=== PATIENT | female | born 1950 | race Caucasian/White ===

== ENCOUNTER 2017-07-25 09:38 | Inpatient (IN) | payer OTHER, MEDICARE ==
[~2017-07-25] VITALS: Ht 160 cm; Wt 68.2 kg
[2017-07-25] VITALS (11 sets, daily range): BP systolic 119–163; BP diastolic 66–99; PULSE 69–134; RESP 13–22; TEMP 97.6–98.6; O2SAT 94–99
--- NOTE | 2017-07-25 10:13 | PD ---
HPI Chief Complaint: Medical Clearance Time Seen by Provider: 09:58 Travel History International Travel<30 days: No Contact w/Intl Traveler<30days: No Traveled to known affect area: No History of Present Illness HPI 67-year-old female presents with elevated heart rate that she's noticed over the past couple of days. She states she went to have a back injection yesterday and they told her if her elevated heart rate persisted to come here to get it checked out. She states that she's had this maybe once before a couple months ago but it was only very briefly at night and went away on its own. She has not seen a physician for this yet. She denies history of atrial fibrillation. She states she usually takes an aspirin but has been off of this for the past couple weeks as she had the back injection. Quality is palpitations. Severity is persistent. She denies specific modifying factors. PFSH Past Medical History High Cholesterol: Yes Hypertension: Yes Medical other: Yes (gallstones ) ?: Not Past Surgical History Other Surgery: Yes (right ankle) Social History Alcohol Use: Yes (occassionaly) Tobacco Use: No Substance Use: No Allergies-Medications (Allergen,Severity, Reaction): Coded Allergies: Penicillins (Verified Allergy, Unknown, 07/25/17) Reported Meds & Prescriptions Reported Meds & Active Scripts Active Reported Lisinopril 40 Mg Tab 40 Mg PO DAILY Atenolol 50 Mg Tab 50 Mg PO DAILY Atorvastatin (Atorvastatin Calcium) 40 Mg Tab 40 Mg PO HS Hydralazine (Hydralazine HCl) 100 Mg Tab 25 Mg PO BID Take with meals Allopurinol 100 Mg Tab 100 Mg PO DAILY Review of Systems Except as stated in HPI: all other systems reviewed are Neg Physical Exam Narrative GENERAL: Well-nourished, well-developed patient. SKIN: Warm and dry. HEAD: Normocephalic and atraumatic. EYES: No injection or drainage. ENT: No nasal drainage noted. NECK: Supple, trachea midline. CARDIOVASCULAR: irregular rate and rhythm RESPIRATORY: Breath sounds equal bilaterally. No accessory muscle use. GASTROINTESTINAL: Abdomen soft, non-tender, nondistended. NEUROLOGICAL: Awake and alert. Motor and sensory grossly within normal limits. Normal speech. Data Data Last Documented VS Vital Signs Date Time Temp Pulse Resp B/P (MAP) Pulse Ox O2 Delivery O2 Flow Rate FiO2 07/25/17 10:20 69 21 119/66 (83) 96 07/25/17 10:11 Room Air 07/25/17 09:39 98.5 Orders Orders Electrocardiogram (07/25/17 ) Ecg Monitoring (07/25/17 10:06) Blood Pressure (07/25/17 10:06) Iv Access Insert/Monitor (07/25/17 10:06) Oximetry (07/25/17 10:06) Vital Signs (07/25/17 10:06) Diltiazem Inj (Cardizem Inj) (07/25/17 10:15) Sodium Chloride 0.9% Flush (Ns Flush) (07/25/17 10:15) Ckmb (Isoenzyme) Profile (07/25/17 10:06) Complete Blood Count With Diff (07/25/17 10:06) Comprehensive Metabolic Panel (07/25/17 10:06) Magnesium (Mg) (07/25/17 10:06) Prothrombin Time / Inr (Pt) (07/25/17 10:06) Act Partial Throm Time (Ptt) (07/25/17 10:06) Troponin I (07/25/17 10:06) Chest, Single Ap (07/25/17 10:06) Bilateral Bp Monitoring (07/25/17 10:06) Sodium Chloride 0.9% Flush (Ns Flush) (07/25/17 10:15) Thyroid Stimulating Hormone (07/25/17 10:13) Lactic Acid Sepsis Protocol (07/25/17 11:29) Blood Culture (07/25/17 11:29) Sodium Chloride 0.9% Flush (Ns Flush) (07/25/17 11:30) Azithromycin Inj (Zithromax Inj) (07/25/17 11:30) Sodium Chloride 0.9% Flush (Ns Flush) (07/25/17 11:30) Aztreonam Inj (Azactam Inj) (07/25/17 12:00) Diltiazem Inj (Cardizem Inj) (07/25/17 12:00) Admit Order (Ed Use Only) (07/25/17 12:07) Labs Laboratory Tests Test 07/25/17 10:20 White Blood Count 11.1 TH/MM3 Red Blood Count 3.79 MIL/MM3 Hemoglobin 11.2 GM/DL Hematocrit 35.0 % Mean Corpuscular Volume 92.3 FL Mean Corpuscular Hemoglobin 29.6 PG Mean Corpuscular Hemoglobin Concent 32.0 % Red Cell Distribution Width 16.0 % Platelet Count 262 TH/MM3 Mean Platelet Volume 7.7 FL Neutrophils (%) (Auto) 89.3 % Lymphocytes (%) (Auto) 4.9 % Monocytes (%) (Auto) 5.7 % Eosinophils (%) (Auto) 0.0 % Basophils (%) (Auto) 0.1 % Neutrophils # (Auto) 9.9 TH/MM3 Lymphocytes # (Auto) 0.5 TH/MM3 Monocytes # (Auto) 0.6 TH/MM3 Eosinophils # (Auto) 0.0 TH/MM3 Basophils # (Auto) 0.0 TH/MM3 CBC Comment DIFF FINAL Differential Comment Prothrombin Time 10.7 SEC Prothromb Time International Ratio 1.0 RATIO Activated Partial Thromboplast Time 27.3 SEC Blood Urea Nitrogen 14 MG/DL Creatinine 0.76 MG/DL Random Glucose 122 MG/DL Total Protein 7.0 GM/DL Albumin 3.4 GM/DL Calcium Level 9.0 MG/DL Magnesium Level 1.1 MG/DL Alkaline Phosphatase 138 U/L Aspartate Amino Transf (AST/SGOT) 29 U/L Alanine Aminotransferase (ALT/SGPT) 32 U/L Total Bilirubin 0.7 MG/DL Sodium Level 132 MEQ/L Potassium Level 4.4 MEQ/L Chloride Level 99 MEQ/L Carbon Dioxide Level 22.3 MEQ/L Anion Gap 11 MEQ/L Estimat Glomerular Filtration Rate 76 ML/MIN Total Creatine Kinase 30 U/L Troponin I LESS THAN 0.02 NG/ML Thyroid Stimulating Hormone 3rd Gen 2.820 uIU/ML [facility] Medical Decision Making Medical Screen Exam Complete: Yes Emergency Medical Condition: Yes Medical Record Reviewed: Yes (pmh confirmed) Interpretation(s) ekg with atrial fib at 110, no st elevation or depression or consecutive T-wave inversion CBC & BMP Diagram 07/25/17 10:20 Total Protein 7.0, Albumin 3.4, Calcium Level 9.0, Magnesium Level 1.1 L, Alkaline Phosphatase 138 H, Aspartate Amino Transf (AST/SGOT) 29, Alanine Aminotransferase (ALT/SGPT) 32, Total Bilirubin 0.7 Last 24 hours Impressions Chest X-Ray 07/25/17 1006 Signed Impressions: Service Date/Time: Tuesday, July 25, 2017 10:21 - CONCLUSION: Probable right infrahilar infiltrate. Xu Kent MD Differential Diagnosis Atrial fibrillation, anemia, dehydration, SVT, PVCs Narrative Course Will check blood work, chest x-ray and dose with Cardizem and reevaluate ed workup with afib with rvr, cxr with signs of infection, will cover antibiotics, heart rate increasing, place on cardizem drip Critical Care Narrative Aggregate critical care time was 35 minutes. Time to perform other separately billable procedures was not included in the critical care time. My time did not include minutes spent treating any other patients simultaneously or on activities that did not directly contribute to the patient's treatment. The services I provided to this patient were to treat and/or prevent clinically significant deterioration that could result in: Cardiogenic shock, A. fib with RVR I provided critical care services requiring my management, as noted below: Chart data review, documentation time, medication orders and management, vital sign assessments/reviewing monitor data, ordering and reviewing lab tests, ordering and interpreting/reviewing x-rays and diagnostic studies, care of the patient and discussion of the patient with the admitting physicians. Physician Communication Physician Communication dr knox agrees to admit Diagnosis Primary Impression: Atrial fibrillation with RVR Additional Impression: Pneumonia Qualified Codes: J18.9 - Pneumonia, unspecified organism Admitting Information Admitting Physician Requests: Admit Aracelis Braun MD Jul 25, 2017 10:13
[2017-07-25] MEDS ORDERED: SODIUM CHLORIDE 0.9% FLUSH 5 ML FLUSH IV FLUSH PRN (10:15)
[2017-07-25] MEDS ORDERED: DILTIAZEM HCL 25 MG/5 ML VIAL IV PUSH ONE (10:15)
[2017-07-25] MEDS ORDERED: SODIUM CHLORIDE 0.9% FLUSH 10 ML FLUSH IVF PRN ×3 (10:15→11:30)
[2017-07-25 10:32] LABS: AUTOMATED NEUTROPHIL # 9.9 TH/MM3 (1.8-7.7); BASOPHIL % 0.1 % (0.0-2.0); HEMO FLAGS DIFF FINAL; LYMPH % 4.9 % (9.0-44.0); LYMPHOCYTE # 0.5 TH/MM3 (1.0-4.8); MEAN CELL VOLUME 92.3 FL (80.0-100.0); MEAN CORPUSCULAR HEMOGLOBIN 29.6 PG (27.0-34.0); MONO % 5.7 % (0.0-8.0); NEUT % 89.3 % (16.0-70.0); PLATELET COUNT 262 TH/MM3 (150-450); RED BLOOD COUNT 3.79 MIL/MM3 (4.00-5.30); WHITE BLOOD COUNT 11.1 TH/MM3 (4.0-11.0)
[2017-07-25 10:41] LABS: APTT (PATIENT) 27.3 SEC (24.3-30.1); PROTHROMBIN TIME - PATIENT 10.7 SEC (9.8-11.6)
[2017-07-25 10:49] LABS: ALT (GPT) 32 U/L (10-53); ANION GAP 11 MEQ/L (5-15); AST (GOT) 29 U/L (15-37); BICARBONATE 22.3 MEQ/L (21.0-32.0); BLOOD UREA NITROGEN 14 MG/DL (7-18); CHLORIDE 99 MEQ/L (98-107); GLOMERULAR FILTRATION RATE 76 ML/MIN (>89); MAGNESIUM 1.1 MG/DL (1.5-2.5); POTASSIUM 4.4 MEQ/L (3.5-5.1); SODIUM (NA) 132 MEQ/L (136-145)
[2017-07-25 10:52] LABS: ALKALINE PHOSPHATASE 138 U/L (45-117); TOTAL BILIRUBIN ADULT 0.7 MG/DL (0.2-1.0)
--- NOTE | 2017-07-25 10:54 | RADRPT ---
EXAM DATE/TIME: 07/25/2017 10:21 [place] COMPARISON: No previous studies available for comparison. INDICATIONS : Palpitations, higher pulse, sent by MEDICAL HISTORY : None. SURGICAL HISTORY : None. ENCOUNTER: Initial ACUITY: 1 day PAIN SCORE: 0/10 LOCATION: Bilateral chest FINDINGS: The lungs are symmetrically aerated. There is a focal partially consolidative infiltrate in the infr ahilar region on the right side. There is a 11 mm calcified oval opacity projected over the right hi lum. Both hemidiaphragms well delineated. The heart is normal size. CONCLUSION: Probable right infrahilar infiltrate. Xu Kent MD on July 25, 2017 at 10:51 Board Certified Radiologist. This report was verified electronically.
[2017-07-25 10:55] LABS: CREATINE KINASE 30 U/L (26-192)
[2017-07-25] MEDS ORDERED: LISI40TA PO (10:55)
[2017-07-25] MEDS ORDERED: ATEN50TA PO (10:55)
[2017-07-25] MEDS ORDERED: HYDR-3801 PO (10:55)
[2017-07-25] MEDS ORDERED: ATOR40TA16 PO (10:55)
[2017-07-25] MEDS ORDERED: ALLO100T PO (10:55)
[2017-07-25] MEDS ORDERED: AZITHROMYCIN INJ 500 MG in SODIUM CHLOR 0.9% 250 ML INJ 250 ML IV ONE (11:30)
[2017-07-25] MEDS ORDERED: DILTIAZEM INJ 125 MG in SODIUM CHLORIDE 0.9% INJ 100 ML IV PRN (12:00)
[2017-07-25] MEDS ORDERED: AZTREONAM INJ 2,000 MG in SODIUM CHLORIDE 0.9% INJ 100 ML IV ONE (12:00)
[2017-07-25] MEDS ORDERED: MAGNESIUM SULFATE 1 GM PREMIX 100 ML IV ONE (12:30)
[2017-07-25] MEDS ORDERED: SODIUM CHLORIDE 0.9% FLUSH 10 ML FLUSH IV FLUSH PRN (12:30)
[2017-07-25] MEDS ORDERED: ONDANSETRON HCL 4 MG/2 ML VIAL IV PUSH PRN (13:30)
[2017-07-25] MEDS ORDERED: BISACODYL 10 MG SUPP RECTAL PRN (13:30)
[2017-07-25] MEDS ORDERED: SENNOSIDES 8.6 MG TAB PO PRN (13:30)
[2017-07-25] MEDS ORDERED: MAGNESIUM HYDROXIDE SUSP 30 ML CUP PO PRN (13:30)
[2017-07-25] MEDS ORDERED: ACETAMINOPHEN 325 MG TAB PO PRN (13:30)
[2017-07-25] MEDS ORDERED: LACTULOSE SYRUP 20 GM/30 ML CUP PO PRN (13:30)
[2017-07-25] MEDS ORDERED: CALCIUM CARBONATE 500 MG CHEWABLE TAB CHEW PRN (13:30)
[2017-07-25] MEDS: MAGNESIUM OXIDE 400 MG TAB PO SCH (13:44)
--- NOTE | 2017-07-25 15:28 | HHI.HP ---
HPI Service [facility] Primary Care Physician No Primary Care Physician Admission Diagnosis afib with rvr Diagnoses: (1) Atrial fibrillation with RVR Diagnosis: Principal (2) Pneumonia Diagnosis: Secondary Chief Complaint: Heart palpitation Travel History International Travel<30 Days: No Contact w/Intl Traveler <30 Da: No Traveled to Known Affected Are: No History of Present Illness Written by Mihai Luciano PA-C, acting as scribe for Dr. Celeste Jeong on 07/25/17 at 15:19. Mrs. Nicole is 67 years old, , with history of hypertension, hyperlipidemia, and gout. She presents to [facility] with reported heart palpitations that have been of two day duration. Per history, she has had 1 previous episode of heart palpitations and lasted for a short period of time and ended without medical intervention. Her current episode began as noted above 2 days ago, without shortness of breath, dizziness, or syncope. Above condition is not improved, she came to [facility] for evaluation and management. At time of interview, Ms. Nicole denied fever, chills, NVD, shortness of breath, bowel or bladder difficulties, chest/abdominal pain, difficulties walking. She did endorse having a "hacking cough" for the past several days. She has denied malaise. Review of Systems Constitutional: DENIES: Fatigue, Fever, Chills Endocrine: DENIES: Heat/cold intolerance Respiratory: COMPLAINS OF: Cough, DENIES: Wheezing, Hemoptysis, Shortness of breath Cardiovascular: COMPLAINS OF: Palpitations, DENIES: Chest pain, Syncope Gastrointestinal: DENIES: Abdominal pain, Black stools, Bloody stools, Diarrhea , Nausea, Vomiting Hematologic/lymphatic: DENIES: Lymphadenopathy Neurologic: DENIES: Abnormal gait, Headache Except as stated in HPI: all other systems reviewed are Neg Past Family Social History Past Medical History Gout Hyperlipidemia Hypertension Past Surgical History Right ankle surgery Reported Medications Reported Meds & Active Scripts Active Reported Lisinopril 40 Mg Tab 40 Mg PO DAILY Atenolol 50 Mg Tab 50 Mg PO DAILY Atorvastatin (Atorvastatin Calcium) 40 Mg Tab 40 Mg PO HS Hydralazine (Hydralazine HCl) 100 Mg Tab 25 Mg PO BID Take with meals Allopurinol 100 Mg Tab 100 Mg PO DAILY Allergies: Coded Allergies: Penicillins (Verified Allergy, Unknown, 07/25/17) Active Ordered Medications Current Medications Medications (Trade) Dose Ordered Sig/Lynette Route Start Time Stop Time Status Last Admin Diltiazem HCl 125 mg/Sodium Chloride 125 ml @ 5 mls/hr TITRATE PRN IV 07/25/17 12:00 (NS Flush) 2 ml UNSCH PRN IV FLUSH 07/25/17 12:30 (NS Flush) 2 ml BID IV FLUSH 07/25/17 21:00 (Zyloprim) 100 mg DAILY PO 07/26/17 09:00 (Tenormin) 50 mg DAILY PO 07/26/17 09:00 (Lipitor) 40 mg HS PO 07/25/17 21:00 (Apresoline) 25 mg BID PO 07/25/17 21:00 (Prinivil) 40 mg DAILY PO 07/26/17 09:00 (Mag-Ox) 400 mg Q12H PO 07/25/17 13:00 07/25/17 13:44 Aztreonam 2000 mg/ Sodium Chloride 100 ml @ 200 mls/hr Q8H IV 07/25/17 21:00 (Zithromax) 250 mg DAILY PO 07/26/17 09:00 07/30/17 08:59 (Ecotrin Ec) 162 mg DAILY PO 07/26/17 09:00 (Tylenol) 650 mg Q4H PRN PO 07/25/17 13:30 (Zofran Inj) 4 mg Q6H PRN IV PUSH 07/25/17 13:30 (Tums Chew) 1,000 mg TID PRN CHEW 07/25/17 13:30 (Sophie-Colace) 1 tab BID PO 07/25/17 21:00 (Milk Of Magnesia Liq) 30 ml Q12H PRN PO 07/25/17 13:30 (Senokot) 17.2 mg Q12H PRN PO 07/25/17 13:30 (Dulcolax Supp) 10 mg DAILY PRN RECTAL 07/25/17 13:30 (Lactulose Liq) 30 ml DAILY PRN PO 07/25/17 13:30 Family History Brother-atrial fibrillation Mother-cardiac disease (unknown type) as well as history of cigarette use. Social History Alcohol use-occasional. Illicit/recreational drug use was denied. Nicotine use was denied. Physical Exam Vital Signs Vital Signs Date Time Temp Pulse Resp B/P (MAP) Pulse Ox O2 Delivery O2 Flow Rate FiO2 07/25/17 15:06 98 07/25/17 14:17 (104) 07/25/17 13:30 97 07/25/17 12:50 80 20 124/94 (104) 97 Room Air 07/25/17 10:20 69 21 119/66 (83) 96 07/25/17 10:11 120 21 137/86 (103) 98 Room Air 07/25/17 10:11 (103) Room Air 07/25/17 10:11 (103) Room Air 07/25/17 10:11 129 22 137/86 (103) 98 Room Air 137/93 (108) 07/25/17 10:01 134 07/25/17 10:01 134 18 123/79 (94) 98 07/25/17 09:39 98.5 116 13 121/79 (93) 98 Physical Exam GENERAL: This is a well-nourished, well-developed patient, in no apparent distress. Patient was sitting upright on her bed, her at bedside. SKIN: No rashes, ecchymoses or lesions. Cool and dry. HEAD: Atraumatic. Normocephalic. EYES: Pupils equal round and reactive. Extraocular motions intact. No scleral icterus. No injection or drainage. ENT: Nose without bleeding or purulent drainage. Airway patent. NECK: Trachea midline. No JVD or lymphadenopathy. Supple and nontender. CARDIOVASCULAR: Irregularly rate and rhythm without murmurs, gallops, or rubs. RESPIRATORY: Clear to auscultation. Breath sounds equally diminished, bilaterally. No wheezes, rales, or rhonchi. GASTROINTESTINAL: Abdomen soft, non-tender, nondistended. No hepato- splenomegaly or guarding. MUSCULOSKELETAL: Extremities without clubbing, cyanosis, or edema. NEUROLOGICAL: Awake and alert. Cranial nerves II through XII intact. Motor and sensory grossly within normal limits. Five out of 5 muscle strength in all muscle groups. Speech clear and fluent. Laboratory Laboratory Tests Test 07/25/17 10:20 07/25/17 12:15 White Blood Count 11.1 Red Blood Count 3.79 Hemoglobin 11.2 Hematocrit 35.0 Mean Corpuscular Volume 92.3 Mean Corpuscular Hemoglobin 29.6 Mean Corpuscular Hemoglobin Concent 32.0 Red Cell Distribution Width 16.0 Platelet Count 262 Mean Platelet Volume 7.7 Neutrophils (%) (Auto) 89.3 Lymphocytes (%) (Auto) 4.9 Monocytes (%) (Auto) 5.7 Eosinophils (%) (Auto) 0.0 Basophils (%) (Auto) 0.1 Neutrophils # (Auto) 9.9 Lymphocytes # (Auto) 0.5 Monocytes # (Auto) 0.6 Eosinophils # (Auto) 0.0 Basophils # (Auto) 0.0 CBC Comment DIFF FINAL Differential Comment Prothrombin Time 10.7 Prothromb Time International Ratio 1.0 Activated Partial Thromboplast Time 27.3 Blood Urea Nitrogen 14 Creatinine 0.76 Random Glucose 122 Total Protein 7.0 Albumin 3.4 Calcium Level 9.0 Magnesium Level 1.1 Alkaline Phosphatase 138 Aspartate Amino Transf (AST/SGOT) 29 Alanine Aminotransferase (ALT/SGPT) 32 Total Bilirubin 0.7 Sodium Level 132 Potassium Level 4.4 Chloride Level 99 Carbon Dioxide Level 22.3 Anion Gap 11 Estimat Glomerular Filtration Rate 76 Total Creatine Kinase 30 Troponin I LESS THAN 0.02 Thyroid Stimulating Hormone 3rd Gen 2.820 Lactic Acid Level 1.1 Date/Time Source Procedure Growth Status 07/25/17 12:15 Blood Peripheral Aerobic Blood Culture Pending Received 07/25/17 12:15 Blood Peripheral Anaerobic Blood Culture Pending Received Result Diagram: 07/25/17 1020 07/25/17 1020 Imaging Last Impressions Chest X-Ray 07/25/17 1006 Signed Impressions: Service Date/Time: Tuesday, July 25, 2017 10:21 - CONCLUSION: Probable right infrahilar infiltrate. MD Mayda Robbins VTE Risk Assessment Caphugo VTE Risk Assessment: Mod/High Risk (score >= 2) VTE Pharm Contraindication: Recent spinal injection (within 24 hours of admission) Zhanei Risk Assessment Model Point Value = 1 Point Value = 2 Point Value = 3 Point Value = 5 Age 41-60 Minor surgery BMI > 25 kg/m2 Swollen legs Varicose veins or History of unexplained or recurrent spontaneous Oral contraceptives or hormone replacement Sepsis (< 1 month) Serious lung disease, including pneumonia (< 1 month) Abnormal pulmonary function Acute myocardial infarction Congestive heart failure (< 1 month) History of inflammatory bowel disease Medical patient at bed rest Age 61-74 Arthroscopic surgery Major open surgery (> 45 min) Laparoscopic surgery (> 45 min) Malignancy Confined to bed (> 72 hours) Immobilizing plaster cast Central venous access Age >= 75 History of VTE Family history of VTE Factor V Leiden Prothrombin [id number] Lupus anticoagulant Anticardiolipin antibodies Elevated serum homocysteine Heparin-induced thrombocytopenia Other congenital or acquired thrombophilia Stroke (< 1 month) Elective arthroplasty Hip, pelvis, or leg fracture Acute spinal cord injury (< 1 month) Prophylaxis Regimen Total Risk Factor Score Risk Level Prophylaxis Regimen 0-1 Low Early ambulation 2 Moderate Order ONE of the following: *Sequential Compression Device (SCD) *Heparin 5000 units SQ BID 3-4 Higher Order ONE of the following medications: *Heparin 5000 units SQ TID *Enoxaparin/Lovenox 40 mg SQ daily (WT < 150 kg, CrCl > 30 mL/min) *Enoxaparin/Lovenox 30 mg SQ daily (WT < 150 kg, CrCl > 10-29 mL/min) *Enoxaparin/Lovenox 30 mg SQ BID (WT < 150 kg, CrCl > 30 mL/min) AND/OR *Sequential Compression Device (SCD) 5 or more Highest Order ONE of the following medications: *Heparin 5000 units SQ TID (Preferred with Epidurals) *Enoxaparin/Lovenox 40 mg SQ daily (WT < 150 kg, CrCl > 30 mL/min) *Enoxaparin/Lovenox 30 mg SQ daily (WT < 150 kg, CrCl > 10-29 mL/min) *Enoxaparin/Lovenox 30 mg SQ BID (WT < 150 kg, CrCl > 30 mL/min) AND *Sequential Compression Device (SCD) Assessment and Plan Problem List: (1) Atrial fibrillation with RVR ICD Code: I48.91 - Unspecified atrial fibrillation Status: Acute (2) Pneumonia ICD Code: J18.9 - Pneumonia, unspecified organism Status: Acute (3) Hypertension, essential ICD Code: I10 - Essential (primary) hypertension Status: Chronic (4) Hyperlipidemia ICD Code: E78.5 - Hyperlipidemia, unspecified Status: Chronic (5) History of gout ICD Code: Z87.39 - Personal history of other diseases of the musculoskeletal system and connective tissue Assessment and Plan Mrs. Nicole is 67 years old, , with history of hypertension, hyperlipidemia, and gout. She presents to [facility] with reported heart palpitations that have been of two day duration. Per history, she has had 1 previous episode of heart palpitations and lasted for a short period of time and ended without medical intervention. Her current episode began as noted above 2 days ago, without shortness of breath, dizziness, or syncope. Cervical condition is not improved, she came to [facility] for evaluation and management. Atrial fibrillation with RVR Hypertension Hyperlipidemia -Admit to inpatient -Echocardiogram ordered -Telemetry -Discontinue home atenolol; initiate treatment with metoprolol -Lisinopril 40 mg by mouth daily -Hydralazine 25 mg by mouth twice a day -Atorvastatin 40 mg by mouth at bedtime -Follow-up labs in a.m. -[id number] score 3 -Aspirin for atrial fibrillation -Consider pharmacological anticoagulation therapy once patient is 48 hours post-spinal injection. Hyperglycemia -122 upon admission -Check with a.m. labs Hypomagnesemia -Replace -Follow up with labs Pneumonia mets criteria for sepsis -Azithromycin 250 mg by mouth daily -Aztreonam 2000 mg every 8 hours IV -Sputum culture ordered -Legionella urinary antigen ordered -Pneumococcal urinary antigen ordered Gout, controlled -Allopurinol 100 mg by mouth daily DVT prophylaxis -Aspirin, consider pharmacological anticoagulation therapy as noted above. Diet -Healthy heart This note was transcribed by marco Luciano. I, Dr. Sunday Jeong personally performed the history, physical exam, and medical decision making; and confirmed the accuracy of the information in the transcribed note. Authenticated by Dr. Sunday Jeong on 07/25/17 at 15:28. Discussed Condition With Pt, spouse (at bedside) and ED team. Physician Certification 2 Midnight Certification Type: Admission for Inpatient Services Order for Inpatient Services The services are ordered in accordance with Medicare regulations or non- Medicare payer requirements, as applicable. In the case of services not specified as inpatient-only, they are appropriately provided as inpatient services in accordance with the 2-midnight benchmark. Estimated LOS (days): 2 Two days is the estimated time the patient will need to remain in the hospital, assuming treatment plan goals are met and no additional complications. Post-Hospital Plan: Home Problem Qualifiers (1) Pneumonia: Qualified Codes: J18.1 - Lobar pneumonia, unspecified organism (2) Hyperlipidemia: Qualified Codes: E78.5 - Hyperlipidemia, unspecified Mihai Luciano Jr. Jul 25, 2017 15:28 Sunday Jeong MD Jul 25, 2017 15:29
[2017-07-25] MEDS: METOPROLOL SUCCINATE 50 MG EXTENDED RELEASE TAB PO SCH (16:45)
--- NOTE | 2017-07-25 19:03 | EKG ---
Date Performed: 07/25/2017 Time Performed: 10:04:29 PTAGE: 67 years EKG: ATRIAL FIBRILLATION WITH RAPID VENTRICULAR RESPONSE NONSPECIFIC ST & T-WAVE ABNORMALITY ABN ORMAL RHYTHM ECG NO PREVIOUS TRACING DOCTOR: Jonathon Saldaña Interpretating Date/Time 07/25/2017 19:01:23
[2017-07-25] MEDS: AZTREONAM INJ 2,000 MG in SODIUM CHLORIDE 0.9% INJ 100 ML IV SCH (20:58)
[2017-07-25] MEDS: DOCUSATE SODIUM 50 MG/SENNA 8.6 MG TAB PO SCH (20:59)
[2017-07-25] MEDS: SODIUM CHLORIDE 0.9% FLUSH 10 ML FLUSH IV FLUSH SCH (20:59)
[2017-07-25] MEDS: ATORVASTATIN 40 MG TAB PO SCH (21:00)
[2017-07-25] MEDS: hydrALAZINE HCL 25 MG TAB PO SCH (21:00)
[2017-07-26] VITALS (10 sets, daily range): BP systolic 114–152; BP diastolic 66–106; PULSE 83–105; RESP 17–20; TEMP 97.9–98.5; O2SAT 95–98
[2017-07-26] MEDS: MAGNESIUM OXIDE 400 MG TAB PO SCH ×2 (00:37→12:26)
[2017-07-26] MEDS: AZTREONAM INJ 2,000 MG in SODIUM CHLORIDE 0.9% INJ 100 ML IV SCH ×3 (05:00→20:38)
[2017-07-26 08:40] LABS: AUTOMATED NEUTROPHIL # 10.6 TH/MM3 (1.8-7.7); BASOPHIL % 0.3 % (0.0-2.0); HEMATOCRIT 31.1 % (35.0-46.0); HEMO FLAGS DIFF FINAL; LYMPH % 4.9 % (9.0-44.0); LYMPHOCYTE # 0.6 TH/MM3 (1.0-4.8); MEAN CELL VOLUME 92.4 FL (80.0-100.0); MEAN CORPUSCULAR HEMOGLOBIN 30.4 PG (27.0-34.0); MEAN CORPUSCULAR HGB CONC 32.9 % (32.0-36.0); MONO % 5.2 % (0.0-8.0); NEUT % 89.6 % (16.0-70.0); PLATELET COUNT 215 TH/MM3 (150-450); RED BLOOD COUNT 3.36 MIL/MM3 (4.00-5.30); RED CELL DISTRIBUTION WIDTH 15.8 % (11.6-17.2); WHITE BLOOD COUNT 11.8 TH/MM3 (4.0-11.0)
[2017-07-26] MEDS ORDERED: ATENOLOL 50 MG TAB PO SCH (09:00)
[2017-07-26] MEDS: DOCUSATE SODIUM 50 MG/SENNA 8.6 MG TAB PO SCH ×2 (09:00→20:40)
[2017-07-26 09:16] LABS: BICARBONATE 21.9 MEQ/L (21.0-32.0); MAGNESIUM 1.4 MG/DL (1.5-2.5)
[2017-07-26] MEDS: hydrALAZINE HCL 25 MG TAB PO SCH ×2 (09:48→20:40)
[2017-07-26] MEDS: METOPROLOL SUCCINATE 50 MG EXTENDED RELEASE TAB PO SCH (09:48)
[2017-07-26] MEDS: ALLOPURINOL 100 MG TAB PO SCH (09:48)
[2017-07-26] MEDS: LISINOPRIL 20 MG TAB PO SCH (09:48)
[2017-07-26] MEDS: AZITHROMYCIN 250 MG TAB PO SCH (09:49)
[2017-07-26] MEDS: ASPIRIN EC 81 MG TABEC PO SCH (09:49)
[2017-07-26] MEDS: SODIUM CHLORIDE 0.9% FLUSH 10 ML FLUSH IV FLUSH SCH ×2 (09:57→20:41)
[2017-07-26] MEDS ORDERED: MAGNESIUM SULFATE 1 GM PREMIX 100 ML IV ONE (11:15)
--- NOTE | 2017-07-26 12:24 | HHI.PR ---
Subjective Remarks Follow up fib. Telemetry shows persistent A. fib but with controlled response. Patient has no complaints but discussed with and RN. Agrees to be started on anticoagulation with Lovenox Objective Vitals Vital Signs Date Time Temp Pulse Resp B/P (MAP) Pulse Ox O2 Delivery O2 Flow Rate FiO2 07/26/17 10:20 98 07/26/17 08:06 98.5 101 17 114/76 (89) 97 07/26/17 04:05 Room Air 07/26/17 04:00 98.3 95 20 125/77 (93) 98 07/26/17 00:00 Room Air 07/26/17 00:00 98.0 83 20 152/106 (121) 97 07/25/17 20:14 100 07/25/17 20:00 Room Air 07/25/17 20:00 97.6 96 18 154/92 (112) 99 07/25/17 16:00 98.6 86 18 137/78 (97) 94 07/25/17 15:06 98 07/25/17 14:17 (104) 07/25/17 14:05 98.1 84 18 163/99 (120) 96 07/25/17 13:30 97 07/25/17 12:50 80 20 124/94 (104) 97 Room Air I/O 07/25/17 07/25/17 07/25/17 07/26/17 07/26/17 07/26/17 07:00 15:00 23:00 07:00 15:00 23:00 Intake Total 450 ml 350 ml 460 ml Output Total 300 ml Balance 450 ml 350 ml 160 ml Intake Oral 250 ml 360 ml IV Total 450 ml 100 ml 100 ml Output Urine Total 300 ml # Bowel Movements 0 Result Diagram: 07/26/17 0749 07/26/17 0749 Imaging Last Impressions Chest X-Ray 07/25/17 1006 Signed Impressions: Service Date/Time: Tuesday, July 25, 2017 10:21 - CONCLUSION: Probable right infrahilar infiltrate. Xu Kent MD Objective Remarks GENERAL: This is a well-nourished, well-developed patient, in no apparent distress. Patient was sitting upright on her bed, her at bedside. SKIN: No rashes, ecchymoses or lesions. Cool and dry. CARDIOVASCULAR: Irregularly rate and rhythm without murmurs, gallops, or rubs. RESPIRATORY: Clear to auscultation. Breath sounds equally diminished, bilaterally. No wheezes, rales, or rhonchi. GASTROINTESTINAL: Abdomen soft, non-tender, nondistended. MUSCULOSKELETAL: Extremities without clubbing, cyanosis, or edema. NEUROLOGICAL: Awake and alert. Cranial nerves II through XII intact. Motor and sensory grossly within normal limits. Five out of 5 muscle strength in all muscle groups. Speech clear and fluent. A/P Problem List: (1) Atrial fibrillation with RVR ICD Code: I48.91 - Unspecified atrial fibrillation Status: Acute (2) Pneumonia ICD Code: J18.9 - Pneumonia, unspecified organism Status: Acute (3) Hypertension, essential ICD Code: I10 - Essential (primary) hypertension Status: Chronic (4) Hyperlipidemia ICD Code: E78.5 - Hyperlipidemia, unspecified Status: Chronic (5) History of gout ICD Code: Z87.39 - Personal history of other diseases of the musculoskeletal system and connective tissue Assessment and Plan Mrs. Nicole is 67 years old, , with history of hypertension, hyperlipidemia, and gout. She presents to [facility] with reported heart palpitations that have been of two day duration. Per history, she has had 1 previous episode of heart palpitations and lasted for a short period of time and ended without medical intervention. Her current episode began as noted above 2 days ago, without shortness of breath, dizziness, or syncope. Atrial fibrillation with RVR Hypertension Hyperlipidemia -Admit to inpatient -Follow up Echocardiogram ordered -Telemetry -Discontinue home atenolol; continue treatment with metoprolol -Lisinopril 40 mg by mouth daily -Hydralazine 25 mg by mouth twice a day -Atorvastatin 40 mg by mouth at bedtime -[id number] score 3 -Aspirin for atrial fibrillation for now pending echocardiogram -Start Lovenox. Consult cardiology for possible cardioversion Hyperglycemia -122 upon admission -Check A1c Hypomagnesemia -Replace -Follow up with labs Pneumonia mets criteria for sepsis. Stable -Azithromycin 250 mg by mouth daily -Aztreonam 2000 mg every 8 hours IV -Sputum culture ordered -Legionella urinary antigen negative -Pneumococcal urinary antigen negative Gout, controlled -Allopurinol 100 mg by mouth daily DVT prophylaxis -Lovenox Diet -Healthy heart Discharge Planning Not stable for discharge Problem Qualifiers (1) Pneumonia: Qualified Codes: J18.1 - Lobar pneumonia, unspecified organism (2) Hyperlipidemia: Qualified Codes: E78.5 - Hyperlipidemia, unspecified Sunday Jeong MD Jul 26, 2017 12:24
[2017-07-26] MEDS: ENOXAPARIN SODIUM 80 MG/0.8 ML SYRINGE SQ SCH (13:00)
--- NOTE | 2017-07-26 15:39 | MB ---
cc: LOGAN VEGA M.D. DATE OF CONSULTATION: 07/26/2017. REASON FOR CONSULTATION: Electrophysiology consult for anemia. REASON FOR CONSULTATION: Atrial fibrillation with fast ventricular response. HISTORY OF PRESENT ILLNESS: Mrs. Nicole is a 67-year-old female with history of high blood pressure, obesity, hyperlipidemia, not following with a primary care doctor for now who was admitted to the emergency room due to shortness of breath and palpitations. She was found with atrial fibrillation with fast ventricular response; also, pneumonia was suspected. Her heart rate could not be controlled. I was consulted for evaluation and management. The chart was reviewed. The patient was evaluated. ALLERGIES: PENICILLIN. SOCIAL HISTORY: The patient has three to four glasses of wine a day but negative for smoking. FAMILY HISTORY: Noncontributory to her current medical condition. MEDICATIONS: She is currently on: 1. IV Cardizem. 2. Lovenox subcutaneous. 3. Metoprolol. 4. Magnesium. 5. Allopurinol. 6. Aspirin. 7. Zithromax. 8. Lipitor. 9. Hydralazine. 10. Lisinopril. 11. Magnesium. 12. Reglan. REVIEW OF SYSTEMS: Currently the patient refers no chest pain. Some palpitations but no shortness of breath. No fever. PHYSICAL EXAMINATION: GENERAL: Alert, fully oriented. VITAL SIGNS: Her blood pressure is 125/80, pulse 105, telemetry showed 115 to 120, respiratory rate 20. LUNGS: Ventilated. CARDIOVASCULAR: S1-S2 irregular, tachycardic. ABDOMEN: Abdomen obese, no mass. No bruits. EXTREMITIES: No edema. EKGS: Electrocardiogram indicated atrial fibrillation with fast ventricular response. Diffuse S-T changes. LABORATORY DATA: Hemoglobin is 10.2, white blood cell 11.8. Potassium is 4.0, creatinine 0.90. Troponin less than 0.02. ASSESSMENT AND RECOMMENDATIONS: Mrs. Nicole has no shortness of breath. No chest pain. No fever. She is in atrial fibrillation. Heart rate difficult to control. She was on Cardizem IV as well as metoprolol. I discontinued the Cardizem IV and put her on Cardizem p.o. 60 q.6 h. She refers some shortness of breath also because of the atrial fibrillation I am going to order a 2-D echo to evaluate wall motion and valvular function and also the size of the left atrium. Her creatinine is 0.9. She is a candidate for ablation or cardioversion. I will order a nuclear stress test to rule out possible ischemia, the patient was complaining of chest tightness and shortness of breath and because of that I will keep her on Lovenox for now. I had a long conversation with her about the alcohol ingestion and I have asked her to decrease the amount of red wine she is having. Further decision based on the stress test and the echocardiogram report. I will closely monitor her during the hospitalization. MD CHIVO Roche/FABIANO /3:17 PM /3:25 PM MTDD
[2017-07-26] MEDS: DILTIAZEM HCL 60 MG TAB PO SCH (18:23)
[2017-07-26] MEDS: ATORVASTATIN 40 MG TAB PO SCH (20:40)
--- NOTE | 2017-07-26 21:12 | ECHRPT ---
Indication: ATRIAL FIB/FLUTTER CONCLUSIONS Normal left ventricular size. Wall thickness is normal. The left ventricular systolic function is moderately reduced with an estimated ejection fraction in the range of 35-40%. There is diffuse global hypokinesis with distinct regional wall motion abnormalities. The left atrial size is moderately dilated. [id number] mitral valve regurgitation. Aortic valve sclerosis is present. There is mild to moderate tricuspid valve regurgitation. The estimated pulmonary arterial pressure is 54 mmHg. BP: 163 / 99 HR: Rhythm: Atrial fibrillation, Atrial flut ter MEASUREMENTS (Male / Female) Normal Values Technical Quality:Fair 2D ECHO LV Diastolic Diameter PLAX 4.4 cm 4.2 - 5.9 / 3.9 - 5.3 cm LV Systolic Diameter PLAX 3.8 cm IVS Diastolic Thickness 0.9 cm 0.6 - 1.0 / 0.6 - 0.9 cm LVPW Diastolic Thickness 0.9 cm 0.6 - 1.0 / 0.6 - 0.9 cm LV Relative Wall Thickness 0.4 LVOT Diameter 2.0 cm Aortic Root Diameter 3.3 cm LA Systolic Diameter LX 3.8 cm 3.0 - 4.0 / 2.7 - 3.8 cm M-MODE AV Cusp Separation MM 2.2 cm DOPPLER AV Peak Velocity 94.4 cm/s AV Peak Gradient 3.6 mmHg AV Mean Gradient 2.2 mmHg AV Velocity Time Integral 14.6 cm LVOT Peak Velocity 40.8 cm/s LVOT Peak Gradient 0.7 mmHg LVOT Velocity Time Integral 7.3 cm AV Area Cont Eq vti 1.6 cm AV Area Cont Eq pk 1.4 cm Mitral E Point Velocity 71.2 cm/s Mitral A Point Velocity 69.6 cm/s Mitral E to A Ratio 1.0 LV E' Lateral Velocity 8.4 cm/s Mitral E to LV E' Lateral Ratio 8.4 LV E' Septal Velocity 7.1 cm/s Mitral E to LV E' Septal Ratio 10.0 TR Peak Velocity 330.0 cm/s TR Peak Gradient 43.6 mmHg Right Atrial Pressure 10.0 mmHg Pulmonary Artery Systolic Pressu 53.6 mmHg Right Ventricular Systolic Press 53.6 mmHg PV Peak Velocity 56.4 cm/s PV Peak Gradient 1.3 mmHg FINDINGS LEFT VENTRICLE Normal left ventricular size. Wall thickness is normal. The left ventricular systolic function is moderately reduced with an estimated ejection fraction in the range of 35-40%. There is diffuse global hypokinesis with distinct regional wall motion abnormalities. LEFT ATRIUM The left atrial size is moderately dilated. MITRAL VALVE [id number]-[id number] mitral valve regurgitation. AORTIC VALVE Aortic valve sclerosis is present. TRICUSPID VALVE There is mild to moderate tricuspid valve regurgitation. The estimated pulmonary arterial pressure is 54 mmHg. Michelle Abebe MD (Electronically Signed) Final Date:26 July 2017 21:11
[2017-07-27] VITALS (8 sets, daily range): BP systolic 109–134; BP diastolic 66–86; PULSE 58–95; RESP 16–20; TEMP 97.6–98.2; O2SAT 92–97
[2017-07-27] MEDS: DILTIAZEM HCL 60 MG TAB PO SCH ×2 (00:08→05:00)
[2017-07-27] MEDS: MAGNESIUM OXIDE 400 MG TAB PO SCH ×2 (00:08→15:52)
[2017-07-27] MEDS: ENOXAPARIN SODIUM 80 MG/0.8 ML SYRINGE SQ SCH (00:08)
[2017-07-27] MEDS: AZTREONAM INJ 2,000 MG in SODIUM CHLORIDE 0.9% INJ 100 ML IV SCH ×2 (04:58→15:52)
[2017-07-27] MEDS: DOCUSATE SODIUM 50 MG/SENNA 8.6 MG TAB PO SCH (09:00)
[2017-07-27 09:14] LABS: HEMOGLOBIN A1a 1.1 %; HEMOGLOBIN Ao 84.3 %; HEMOGLOBIN F 0.7 %; HEMOGLOBIN LA1C 2.5 %
[2017-07-27] MEDS: hydrALAZINE HCL 25 MG TAB PO SCH (10:12)
[2017-07-27] MEDS: ASPIRIN EC 81 MG TABEC PO SCH (10:12)
[2017-07-27] MEDS: AZITHROMYCIN 250 MG TAB PO SCH (10:12)
[2017-07-27] MEDS: ALLOPURINOL 100 MG TAB PO SCH (10:12)
[2017-07-27] MEDS: LISINOPRIL 20 MG TAB PO SCH (10:13)
[2017-07-27] MEDS: SODIUM CHLORIDE 0.9% FLUSH 10 ML FLUSH IV FLUSH SCH (10:16)
--- NOTE | 2017-07-27 11:28 | HHI.PR ---
Subjective Remarks Feeling better Objective Vital Signs Date Time Temp Pulse Resp B/P (MAP) Pulse Ox O2 Delivery O2 Flow Rate FiO2 07/27/17 04:00 98.2 95 20 126/86 (99) 95 07/27/17 00:00 97.6 75 20 134/83 (100) 96 07/26/17 22:30 87 07/26/17 21:36 96 21 07/26/17 20:15 Room Air 07/26/17 20:00 97.9 88 20 114/66 (82) 95 07/26/17 16:06 98.4 95 18 133/88 (103) 96 07/26/17 12:06 97.9 105 18 125/80 (95) 95 I/O 07/26/17 07/26/17 07/26/17 07/27/17 07/27/17 07/27/17 07:00 15:00 23:00 07:00 15:00 23:00 Intake Total 460 ml 200 ml 420 ml 347 ml Output Total 300 ml 900 ml Balance 160 ml 200 ml -480 ml 347 ml Intake Oral 360 ml 420 ml 240 ml IV Total 100 ml 200 ml 107 ml Output Urine Total 300 ml 900 ml # Voids 2 # Bowel Movements 0 0 Result Diagram: 07/26/17 0749 07/26/17 0749 Imaging Alert, fully oriented Lungs: ventilated Heart: S1, S2 irregular, no gallop Abdomen: soft, no mass Ext: no edema Last Impressions Chest X-Ray 07/25/17 1006 Signed Impressions: Service Date/Time: Tuesday, July 25, 2017 10:21 - CONCLUSION: Probable right infrahilar infiltrate. Xu Kent MD Current Medications Medications (Trade) Dose Ordered Sig/Lynette Route Start Time Stop Time Status Last Admin (NS Flush) 2 ml UNSCH PRN IV FLUSH 07/25/17 12:30 (NS Flush) 2 ml BID IV FLUSH 07/25/17 21:00 07/27/17 10:16 (Zyloprim) 100 mg DAILY PO 07/26/17 09:00 07/27/17 10:12 (Lipitor) 40 mg HS PO 07/25/17 21:00 07/26/17 20:40 (Apresoline) 25 mg BID PO 07/25/17 21:00 07/27/17 10:12 (Prinivil) 40 mg DAILY PO 07/26/17 09:00 07/27/17 10:13 (Mag-Ox) 400 mg Q12H PO 07/25/17 13:00 07/27/17 00:08 Aztreonam 2000 mg/ Sodium Chloride 100 ml @ 200 mls/hr Q8H IV 07/25/17 21:00 07/27/17 04:58 (Zithromax) 250 mg DAILY PO 07/26/17 09:00 07/30/17 08:59 07/27/17 10:12 (Ecotrin Ec) 162 mg DAILY PO 07/26/17 09:00 07/27/17 10:12 (Tylenol) 650 mg Q4H PRN PO 07/25/17 13:30 (Zofran Inj) 4 mg Q6H PRN IV PUSH 07/25/17 13:30 (Tums Chew) 1,000 mg TID PRN CHEW 07/25/17 13:30 (Sophie-Colace) 1 tab BID PO 07/25/17 21:00 07/25/17 20:59 (Milk Of Magnesia Liq) 30 ml Q12H PRN PO 07/25/17 13:30 (Senokot) 17.2 mg Q12H PRN PO 07/25/17 13:30 (Dulcolax Supp) 10 mg DAILY PRN RECTAL 07/25/17 13:30 (Lactulose Liq) 30 ml DAILY PRN PO 07/25/17 13:30 (Toprol Xl) 50 mg DAILY PO 07/25/17 16:15 07/26/17 09:48 (Lovenox Inj) 70 mg Q12H SQ 07/26/17 13:00 07/27/17 00:08 (Cardizem) 60 mg Q6HR PO 07/26/17 18:00 07/27/17 05:00 Assessment and Plan Problem List: (1) Atrial fibrillation with RVR ICD Codes: I48.91 - Unspecified atrial fibrillation Status: Acute Plan: HR control. Doing better On short acting cardizem Long acting will be initiated Nuclear stress study pending (2) Hypertension, essential ICD Codes: I10 - Essential (primary) hypertension Status: Chronic Plan: SBP 126 Michelle Abebe MD Jul 27, 2017 11:28
[2017-07-27] MEDS ORDERED: DILTIAZEM-CD 240 MG CAP ER PO SCH (11:30)
--- NOTE | 2017-07-27 11:37 | HHI.PR ---
Subjective Remarks Follow up Fib. Feeling better denies palpitations, chest pain and shortness of breath. Currently on room air. Discussed with cardiology, if stress test negative can be discharged home. Start Eliquis or pradaxa aware of echocardiogram results with MR and TR. Pt prefers NOAC. EF 355 on ANDREW and BB. Objective Vitals Vital Signs Date Time Temp Pulse Resp B/P (MAP) Pulse Ox O2 Delivery O2 Flow Rate FiO2 07/27/17 04:00 98.2 95 20 126/86 (99) 95 07/27/17 00:00 97.6 75 20 134/83 (100) 96 07/26/17 22:30 87 07/26/17 21:36 96 21 07/26/17 20:15 Room Air 07/26/17 20:00 97.9 88 20 114/66 (82) 95 07/26/17 16:06 98.4 95 18 133/88 (103) 96 07/26/17 12:06 97.9 105 18 125/80 (95) 95 I/O 07/26/17 07/26/17 07/26/17 07/27/17 07/27/17 07/27/17 07:00 15:00 23:00 07:00 15:00 23:00 Intake Total 460 ml 200 ml 420 ml 347 ml Output Total 300 ml 900 ml Balance 160 ml 200 ml -480 ml 347 ml Intake Oral 360 ml 420 ml 240 ml IV Total 100 ml 200 ml 107 ml Output Urine Total 300 ml 900 ml # Voids 2 # Bowel Movements 0 0 Result Diagram: 07/26/17 0749 07/26/17 0749 Imaging Last Impressions Chest X-Ray 07/25/17 1006 Signed Impressions: Service Date/Time: Tuesday, July 25, 2017 10:21 - CONCLUSION: Probable right infrahilar infiltrate. Xu Kent MD Objective Remarks GENERAL: This is a well-nourished, well-developed patient, in no apparent distress. RA SKIN: No rashes, ecchymoses or lesions. Cool and dry. CARDIOVASCULAR: Irregularly rate and rhythm without gallops, or rubs. RESPIRATORY: Clear to auscultation. Breath sounds equally diminished, bilaterally. No wheezes, rales, or rhonchi. GASTROINTESTINAL: Abdomen soft, non-tender, nondistended. MUSCULOSKELETAL: Extremities without clubbing, cyanosis, or edema. NEUROLOGICAL: Awake and alert. Cranial nerves II through XII intact. Motor and sensory grossly within normal limits. Five out of 5 muscle strength in all muscle groups. Speech clear and fluent. Procedures none A/P Problem List: (1) Atrial fibrillation with RVR ICD Code: I48.91 - Unspecified atrial fibrillation Status: Acute (2) Pneumonia ICD Code: J18.9 - Pneumonia, unspecified organism Status: Acute (3) Hypertension, essential ICD Code: I10 - Essential (primary) hypertension Status: Chronic (4) Hyperlipidemia ICD Code: E78.5 - Hyperlipidemia, unspecified Status: Chronic (5) History of gout ICD Code: Z87.39 - Personal history of other diseases of the musculoskeletal system and connective tissue Assessment and Plan Mrs. Nicole is 67 years old, , with history of hypertension, hyperlipidemia, and gout. She presents to [facility] [place] with reported heart palpitations that have been of two day duration. Per history, she has had 1 previous episode of heart palpitations and lasted for a short period of time and ended without medical intervention. Her current episode began as noted above 2 days ago, without shortness of breath, dizziness, or syncope. Atrial fibrillation with RVR Hypertension CMP with EF 35% Hyperlipidemia -Admit to inpatient -Follow up Echocardiogram EF 355 with MR and TR -Telemetry -Discontinue home atenolol; continue treatment with metoprolol and CCB -Lisinopril 40 mg by mouth daily -Hydralazine 25 mg by mouth twice a day -Atorvastatin 40 mg by mouth at bedtime -[id number] score 3 -Dc Aspirin and switch to eliquis pending stress test -Ct Lovenox. Dw cardiology for possible cardioversion op Hyperglycemia -122 upon admission -Check A1c pending Hypomagnesemia -Replace -Follow up with labs Pneumonia mets criteria for sepsis. Stable with negative blood cultures -Azithromycin 250 mg by mouth daily -Aztreonam 2000 mg every 8 hours IV -Sputum culture ordered -Legionella urinary antigen negative -Pneumococcal urinary antigen negative Gout, controlled -Allopurinol 100 mg by mouth daily DVT prophylaxis -Lovenox Diet -Healthy heart Discharge Planning Possible discharge if stress test negative Problem Qualifiers (1) Pneumonia: Qualified Codes: J18.1 - Lobar pneumonia, unspecified organism (2) Hyperlipidemia: Qualified Codes: E78.5 - Hyperlipidemia, unspecified Abando,Roland MD Jul 27, 2017 11:37
[2017-07-27] MEDS ORDERED: METO50TA11 PO (11:41)
[2017-07-27] MEDS ORDERED: CARD240C6 PO (11:41)
[2017-07-27] MEDS ORDERED: AZIT250T3 PO (11:41)
[2017-07-27] MEDS ORDERED: APIX5TAB PO (11:41)
--- NOTE | 2017-07-27 11:43 | HHI.DCPOC ---
Discharge Care Plan Diagnosis: (1) Atrial fibrillation with RVR Your Health Problems Are: Difficulty with ADL Exercise Tolerance Goals to Promote Your Health * To prevent worsening of your condition and complications * To maintain your health at the optimal level Directions to Meet Your Goals Take your medications as prescribed Follow your dietary instruction Follow activity as directed Keep your appointments as scheduled Take your immunizations and boosters as scheduled If your symptoms worsen call your PCP, if no PCP go to Urgent Care Center or Emergency Room Smoking is Dangerous to Your Health. Avoid second hand smoke Call the 24-hour hour crisis hotline for domestic abuse at Sunday Jeong MD Jul 27, 2017 11:43
[2017-07-27] MEDS ORDERED: REGADENOSON INJ 0.4 MG/5 ML SYR ONE (12:40)
--- NOTE | 2017-07-27 14:05 | RADRPT ---
EXAM DATE/TIME: 07/27/2017 12:06 [place] COMPARISON: No previous studies available for comparison. INDICATIONS : Palpitations. Atrial fibrillation. DOSE: 27.1 mCi Tc99m Myoview at stress. 8.1 mCi Tc99m Myoview at rest. 0.4 mg Lexiscan STRESS SYMPTOMS: None noted. EJECTION FRACTION: > 70% MEDICAL HISTORY : Hypertension. SURGICAL HISTORY : Right ankle. ENCOUNTER: Initial ACUITY: 1 day PAIN SCALE: 3/10 LOCATION: Bilateral chest TECHNIQUE: The patient underwent pharmacologic stress with infusion of prescribed dose. Continuous ECG tracing was monitored during stress. Gated SPECT imaging was performed after stress and conventional SPECT i maging was performed at rest. The examination was performed on a SPECT/CT scanner, both attenuation and non-corrected datasets were reviewed. FINDINGS: DISTRIBUTION: The maximum perfused segment at stress is in the anterior wall. There is a summed stress score of one . PERFUSION STUDY: The pattern of perfusion at stress is within normal limits. GATED STUDY: There is intact wall motion and thickening without hypokinetic or dyskinetic segments. CONCLUSION: 1. No fixed or reversible wall defects to suggest ischemia or infarction. 2. Normal wall motion and calculated ejection fraction. RISK CATEGORY: Low (<1% Annual Mortality Rate) Dale Tatum MD on July 27, 2017 at 14:00 Board Certified Radiologist. This report was verified electronically.
[2017-07-27] MEDS: METOPROLOL SUCCINATE 50 MG EXTENDED RELEASE TAB PO SCH (15:51)
--- NOTE | 2017-07-27 15:58 | HHI.DS ---
Discharge Summary Admission Date Jul 25, 2017 at 12:09 Discharge Date: Jul 27, 2017 Admitting Diagnosis afib with rvr (1) Atrial fibrillation with RVR ICD Code: I48.91 - Unspecified atrial fibrillation Diagnosis: Principal Status: Acute (2) Pneumonia ICD Code: J18.9 - Pneumonia, unspecified organism Diagnosis: Principal Status: Acute (3) Hypertension, essential ICD Code: I10 - Essential (primary) hypertension Diagnosis: Secondary Status: Chronic (4) Hyperlipidemia ICD Code: E78.5 - Hyperlipidemia, unspecified Diagnosis: Secondary Status: Chronic (5) History of gout ICD Code: Z87.39 - Personal history of other diseases of the musculoskeletal system and connective tissue Diagnosis: Secondary Procedures none Brief History - From Admission Written by Mihai Luciano PA-C, acting as scribe for Dr. Celeste Jeong on 07/25/17 at 15:19. Mrs. Nicole is 67 years old, , with history of hypertension, hyperlipidemia, and gout. She [place] [facility] [place] reported heart palpitations that have been of two day duration. Per history, she has had 1 previous episode of heart palpitations and lasted for a short period of time and ended without medical intervention. Her current episode began as noted above 2 days ago, without shortness of breath, dizziness, or syncope. Above condition is not improved, she came to [facility] [place] and management. At time of interview, Ms. Nicole denied fever, chills, NVD, shortness of breath, bowel or bladder difficulties, chest/abdominal pain, difficulties walking. She did endorse having a "hacking cough" for the past several days. She has denied malaise. CBC/BMP: 07/26/17 0749 07/26/17 0749 Significant Findings Laboratory Tests Test 07/25/17 10:20 07/25/17 12:15 07/26/17 07:49 White Blood Count 11.1 TH/MM3 (4.0-11.0) 11.8 TH/MM3 (4.0-11.0) Red Blood Count 3.79 MIL/MM3 (4.00-5.30) 3.36 MIL/MM3 (4.00-5.30) Hemoglobin 11.2 GM/DL (11.6-15.3) 10.2 GM/DL (11.6-15.3) Neutrophils (%) (Auto) 89.3 % (16.0-70.0) 89.6 % (16.0-70.0) Lymphocytes (%) (Auto) 4.9 % (9.0-44.0) 4.9 % (9.0-44.0) Neutrophils # (Auto) 9.9 TH/MM3 (1.8-7.7) 10.6 TH/MM3 (1.8-7.7) Lymphocytes # (Auto) 0.5 TH/MM3 (1.0-4.8) 0.6 TH/MM3 (1.0-4.8) Random Glucose 122 MG/DL (74-106) 128 MG/DL (74-106) Magnesium Level 1.1 MG/DL (1.5-2.5) 1.4 MG/DL (1.5-2.5) Alkaline Phosphatase 138 U/L (45-117) Sodium Level 132 MEQ/L (136-145) 131 MEQ/L (136-145) Estimat Glomerular Filtration Rate 76 ML/MIN (>89) 62 ML/MIN (>89) Troponin I LESS THAN 0.02 NG/ML Hematocrit 31.1 % (35.0-46.0) Imaging Last Impressions Myocardial Perfusion Scan Nuc Med 07/27/17 0000 Signed Impressions: Service Date/Time: Thursday, July 27, 2017 12:06 - CONCLUSION: 1. No fixed or reversible wall defects to suggest ischemia or infarction. 2. Normal wall motion and calculated ejection fraction. RISK CATEGORY: Low (<1%% Annual Mortality Rate) Dale Tatum MD Chest X-Ray 07/25/17 1006 Signed Impressions: Service Date/Time: Tuesday, July 25, 2017 10:21 - CONCLUSION: Probable right infrahilar infiltrate. Xu Kent MD PE at Discharge GENERAL: This is a well-nourished, well-developed patient, in no apparent distress. RA SKIN: No rashes, ecchymoses or lesions. Cool and dry. CARDIOVASCULAR: Irregularly rate and rhythm without gallops, or rubs. RESPIRATORY: Clear to auscultation. Breath sounds equally diminished, bilaterally. No wheezes, rales, or rhonchi. GASTROINTESTINAL: Abdomen soft, non-tender, nondistended. MUSCULOSKELETAL: Extremities without clubbing, cyanosis, or edema. NEUROLOGICAL: Awake and alert. Cranial nerves II through XII intact. Motor and sensory grossly within normal limits. Five out of 5 muscle strength in all muscle groups. Speech clear and fluent. Hospital Course Mrs. Nicole is 67 years old, , with history of hypertension, hyperlipidemia, and gout. She presents to [facility] with reported heart palpitations that have been of two day duration. Per history, she has had 1 previous episode of heart palpitations and lasted for a short period of time and ended without medical intervention. Her current episode began as noted above 2 days ago, without shortness of breath, dizziness, or syncope. 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 Dw cardiology for possible cardioversion op Hyperglycemia -122 upon admission -Check A1c 5.7 Hypomagnesemia -Replace -Follow up with labs Pneumonia mets criteria for sepsis. Stable with negative blood cultures. Rpt CXR in 6 weeks -Azithromycin 250 mg by mouth daily -Aztreonam 2000 mg every 8 hours IV -Sputum culture ordered -Legionella urinary antigen negative -Pneumococcal urinary antigen negative Gout, controlled -Allopurinol 100 mg by mouth daily DVT prophylaxis -Dc Lovenox start Eliquis Diet -Healthy heart Pt Condition on Discharge: Stable Discharge Disposition: Discharge Home Discharge Time: > 30 minutes Discharge Instructions DIET: Follow Instructions for: Heart Healthy Diet Activities you can perform: Regular-No Restrictions Activities to Avoid: Driving Follow up Referrals: Cardiology - 1 Week PCP Follow-up - 2-3 Days New Orders: X-RAY CHEST PA & LAT - 6 Weeks New Medications: Apixaban (Eliquis) 5 Mg Tab 5 MG PO BID for Blood Clot Prevention, #60 TAB 0 Refills Azithromycin (Azithromycin) 250 Mg Tab 250 MG PO DAILY for Infection, #2 TAB Diltiazem CD 24 HR (Cardizem CD 24 HR) 240 Mg Caper 240 MG PO DAILY for Regulate Heart Beat, #30 CAP Metoprolol Succinate ER 24 HR (Metoprolol Succinate ER 24 HR) 50 Mg Tab 50 MG PO DAILY for Regulate Heart Beat, #30 TAB Continued Medications: Allopurinol (Allopurinol) 100 Mg Tab 100 MG PO DAILY for Gout, #30 TAB 0 Refills Atorvastatin (Atorvastatin) 40 Mg Tab 40 MG PO HS for Cholesterol Management, #30 TAB 0 Refills Hydralazine (Hydralazine) 100 Mg Tab 25 MG PO BID for Blood Pressure Management, TAB 0 Refills Take with meals Lisinopril (Lisinopril) 40 Mg Tab 40 MG PO DAILY for Blood Pressure Management, #30 TAB 0 Refills Discontinued Medications: Atenolol (Atenolol) 50 Mg Tab 50 MG PO DAILY for Blood Pressure Management, #30 TAB 0 Refills Sunday Jeong MD Jul 27, 2017 15:58
[2017-07-27] MEDS ORDERED: APIXABAN 5 MG TABLET PO ONE (16:00)
== END 2017-07-27 18:00 | disposition home or self-care (01) | DRG 308 ==
LOC: NEPE 09:38 → NEDA 12:09 → N04A 14:07
PROVIDERS: ADMIT Internal Medicine; ATTEND Internal Medicine
DX: I48.1 Persistent atrial fibrillation (principal); J18.9 Pneumonia, unspecified organism; R57.0 Cardiogenic shock; E83.42 Hypomagnesemia; I10 Essential (primary) hypertension; E78.5 Hyperlipidemia, unspecified; M10.9 Gout, unspecified; Z79.899 Other long term (current) drug therapy
CPT/HCPCS: 71010; 78452; 80048; 80053; 82550; 83036; 83605; 83735; 84443; 84484; 85025; 85610; 85730; 87040; 87449; 93005; 93017; 93306; 96374; A9502; J0456; J1650; J2785; J3475; J7050

== ENCOUNTER 2017-11-25 13:23 | Emergency (ER) | payer MEDICARE, OTHER ==
[~2017-11-25 13:23] MED LIST: ALLO100T PO; APIX5TAB PO; ATOR40TA16 PO; AZIT250T3 PO; CARD240C6 PO; HYDR-3801 PO; LISI40TA PO; METO1TAB9 PO
[2017-11-25 13:40] VITALS: BP 138/60; PULSE 81; RESP 18; TEMP 97.4; O2SAT 94
--- NOTE | 2017-11-25 14:34 | RADRPT ---
EXAM DATE/TIME: 11/25/2017 14:14 [place] COMPARISON: No previous studies available for comparison. INDICATIONS : Short of breath. MEDICAL HISTORY : atrial fibrillation SURGICAL HISTORY : None. ENCOUNTER: Initial ACUITY: 2 days PAIN SCORE: 0/10 LOCATION: Bilateral chest FINDINGS: PA and lateral views of the chest demonstrate the lungs to be symmetrically aerated without evidence of mass, infiltrate or effusion. The cardiomediastinal contours are unremarkable. Degenerative huber es thoracic spine. Cardiomegaly. CONCLUSION: No acute disease. Cardiomegaly. Marcos Armando MD on November 25, 2017 at 14:32 Board Certified Radiologist. This report was verified electronically.
[2017-11-25 14:37] VITALS: BP 134/74; PULSE 95; RESP 18; O2SAT 99
--- NOTE | 2017-11-25 14:39 | PD ---
HPI Chief Complaint: Respiratory Symptoms Time Seen by Provider: 14:26 Travel History International Travel<30 days: No Contact w/Intl Traveler<30days: No Traveled to known affect area: No History of Present Illness HPI 67-year-old female with a history of atrial fibrillation on Eliquis, HLD, HTN, gout presents emergency department with shortness of breath for 3 days. Patient states that she was walking when this began. Patient states that her shortness of breath increases with exertion. Patient denies chest pain, nausea , vomiting, diarrhea, abdominal pain, back pain. She denies history of CHF or NM. Her booth usher is Dr. Padilla and she last had a stress test in June 2017. She denies any urinary symptoms. PFSH Past Medical History Hx Anticoagulant Therapy: Yes (ELOQUIS) Arthritis: No Asthma: No Autoimmune Disease: No Anxiety: No Depression: No Heart Rhythm Problems: No Cancer: No Cardiovascular Problems: Yes (AFIB) High Cholesterol: Yes Chemotherapy: No Chest Pain: No Congestive Heart Failure: No COPD: No Cerebrovascular Accident: No Diabetes: No Endocrine: No GERD: No Genitourinary: No Hiatal Hernia: No Hypertension: Yes Immune Disorder: No Kidney Stones: No Musculoskeletal: No Neurologic: No Psychiatric: No Reproductive: No Respiratory: No Radiation Therapy: No Renal Failure: No Sickle Cell Disease: No Sleep Apnea: No Thyroid Disease: No Ulcer: No Past Surgical History Abdominal Surgery: No AICD: No Arteriovenous Shunt: No Cardiac Surgery: No Ear Surgery: No Endocrine Surgery: No Eye Surgery: No Genitourinary Surgery: No Gynecologic Surgery: No Insulin Pump: No Joint Replacement: Yes (right ankle ) Oral Surgery: No Pacemaker: No Thoracic Surgery: No Other Surgery: Yes (right ankle) Social History Alcohol Use: Yes (occassionaly) Tobacco Use: No Substance Use: No Allergies-Medications (Allergen,Severity, Reaction): Coded Allergies: Penicillins (Verified Allergy, Unknown, 11/25/17) Pt gets yeast infections with this medication Reported Meds & Prescriptions Reported Meds & Active Scripts Active Fluconazole 150 Mg Tab 150 Mg PO ONCE 1 Days Take 2-3 days after last dose of antibiotic if symptoms of yeast infection Bactrim DS (Sulfamethoxazole-Trimethoprim) 800-160 Mg Tab 1 Tab PO BID Eliquis (Apixaban) 5 Mg Tab 5 Mg PO BID Cardizem CD 24 HR (Diltiazem CD 24 HR) 240 Mg Caper 240 Mg PO DAILY Metoprolol Succinate ER 24 HR (Metoprolol Succinate) 50 Mg Tab 50 Mg PO DAILY Azithromycin 250 Mg Tab 250 Mg PO DAILY Reported Lisinopril 40 Mg Tab 40 Mg PO DAILY Atorvastatin (Atorvastatin Calcium) 40 Mg Tab 40 Mg PO HS Hydralazine (Hydralazine HCl) 100 Mg Tab 25 Mg PO BID Take with meals Allopurinol 100 Mg Tab 100 Mg PO DAILY Review of Systems Except as stated in HPI: all other systems reviewed are Neg Physical Exam Narrative GENERAL: WD, WN in NAD SKIN: Focused skin assessment warm/dry. HEAD: Atraumatic. Normocephalic. EYES: Pupils equal and round. No scleral icterus. No injection or drainage. ENT: No nasal bleeding or discharge. Mucous membranes pink and moist. NECK: Trachea midline. No JVD. CARDIOVASCULAR: Regular rate and rhythm. No murmur appreciated. RESPIRATORY: No accessory muscle use. Clear to auscultation. Breath sounds equal bilaterally. GASTROINTESTINAL: Abdomen soft, non-tender, nondistended. Hepatic and splenic margins not palpable. No CVA tenderness MUSCULOSKELETAL: No obvious deformities. No clubbing. No cyanosis. No edema. Homans sign negative NEUROLOGICAL: Awake and alert. No obvious cranial nerve deficits. Motor grossly within normal limits. Normal speech. PSYCHIATRIC: Appropriate mood and affect; insight and judgment normal. Data Data Last Documented VS Vital Signs Date Time Temp Pulse Resp B/P (MAP) Pulse Ox O2 Delivery O2 Flow Rate FiO2 11/25/17 14:37 85 18 98 Room Air 11/25/17 14:37 134/74 (94) 11/25/17 13:40 97.4 Orders Orders Electrocardiogram (11/25/17 13:43) Basic Metabolic Panel (Bmp) (11/25/17 13:43) B-Type Natriuretic Peptide (11/25/17 13:43) Ckmb (Isoenzyme) Profile (11/25/17 13:43) Complete Blood Count With Diff (11/25/17 13:43) Magnesium (Mg) (11/25/17 13:43) Prothrombin Time / Inr (Pt) (11/25/17 13:43) Act Partial Throm Time (Ptt) (11/25/17 13:43) Troponin I (11/25/17 13:43) Chest, Pa & Lat (11/25/17 13:43) Labs Laboratory Tests Test 11/25/17 14:34 White Blood Count 16.3 TH/MM3 Red Blood Count 3.68 MIL/MM3 Hemoglobin 10.4 GM/DL Hematocrit 31.4 % Mean Corpuscular Volume 85.2 FL Mean Corpuscular Hemoglobin 28.1 PG Mean Corpuscular Hemoglobin Concent 33.0 % Red Cell Distribution Width 14.6 % Platelet Count 344 TH/MM3 Mean Platelet Volume 7.9 FL Neutrophils (%) (Auto) 86.6 % Lymphocytes (%) (Auto) 6.7 % Monocytes (%) (Auto) 5.2 % Eosinophils (%) (Auto) 1.2 % Basophils (%) (Auto) 0.3 % Neutrophils # (Auto) 14.1 TH/MM3 Lymphocytes # (Auto) 1.1 TH/MM3 Monocytes # (Auto) 0.8 TH/MM3 Eosinophils # (Auto) 0.2 TH/MM3 Basophils # (Auto) 0.0 TH/MM3 CBC Comment DIFF FINAL Differential Comment Prothrombin Time 11.5 SEC Prothromb Time International Ratio 1.1 RATIO Activated Partial Thromboplast Time 36.1 SEC Blood Urea Nitrogen 13 MG/DL Creatinine 1.05 MG/DL Random Glucose 118 MG/DL Calcium Level 10.0 MG/DL Magnesium Level 1.0 MG/DL Sodium Level 136 MEQ/L Potassium Level 4.2 MEQ/L Chloride Level 104 MEQ/L Carbon Dioxide Level 24.9 MEQ/L Anion Gap 7 MEQ/L Estimat Glomerular Filtration Rate 52 ML/MIN Total Creatine Kinase 44 U/L Troponin I LESS THAN 0.02 NG/ML B-Type Natriuretic Peptide 59 PG/ML MDM Medical Decision Making Medical Screen Exam Complete: Yes Emergency Medical Condition: Yes Differential Diagnosis A. fib with RVR, ACS, PE, bronchitis, pneumonia Narrative Course 67-year-old female with a history of atrial fibrillation on Eliquis, HLD, HTN, gout presents emergency department with shortness of breath for 3 days. Patient states that she was walking when this began. Patient states that her shortness of breath increases with exertion. Patient denies chest pain, nausea , vomiting, diarrhea, abdominal pain, back pain. She denies history of CHF or NM. Her booth usher is Dr. Padilla and she last had a stress test in June 2017. She denies any urinary symptoms. Vital signs stable and remained stable throughout the ER visit today. EKG shows atrial fibrillation with rate controlled. Chest x-ray without acute process. Cardiomegaly present. Labs demonstrate leukocytosis of 16.3, cardiac enzymes negative, magnesium at 1.0, urinalysis suggestive of a urinary tract infection. Review the EMR shows echocardiogram July 252016 with an ejection fraction of 35-40%, aortic valve sclerosis, mild to moderate tricuspid valve regurg, estimated pulmonary arterial pressure 54. Chemical stress test without obvious abnormalities. Rocephin 1 g administered IV. Bactrim for outpatient use. Patient states that her "allergy" to penicillins is that she gets vaginal yeast infections after this medication. Will cover with fluconazole. Advised that if her symptoms his symptoms persist or worsen return to the emergency department. Advised her to follow-up with her primary care physician as soon as possible. Diagnosis Primary Impression: Urinary tract infection Qualified Codes: N30.00 - Acute cystitis without hematuria Referrals: Primary Care Physician Additional Instructions: Take all medication as prescribed. Encourage fluid intake and nutritious diet. Consider magnesium supplemetn as directed by your Primary Care physician. Follow-up with primary care physician within 2-3 days. If her symptoms persist or worsen return to the emergency department. Scripts Fluconazole (Fluconazole) 150 Mg Tab 150 MG PO ONCE for Infection for 1 Day, #1 TAB 0 Refills Take 2-3 days after last dose of antibiotic if symptoms of yeast infection Prov: Fabián Holland MD 11/25/17 Sulfamethoxazole-Trimethoprim (Bactrim DS) 800-160 Mg Tab 1 TAB PO BID for Infection, #20 TAB 0 Refills Prov: Fabián Holland MD 11/25/17 Disposition: 01 DISCHARGE HOME Condition: Stable Taya Jimenez Nov 25, 2017 14:39
[2017-11-25 14:47] LABS: AUTOMATED NEUTROPHIL # 14.1 TH/MM3 (1.8-7.7); BASOPHIL % 0.3 % (0.0-2.0); EOSINOPHIL # 0.2 TH/MM3 (0-0.4); EOSINOPHIL % 1.2 % (0.0-4.0); HEMATOCRIT 31.4 % (35.0-46.0); HEMOGLOBIN 10.4 GM/DL (11.6-15.3); LYMPH % 6.7 % (9.0-44.0); LYMPHOCYTE # 1.1 TH/MM3 (1.0-4.8); MEAN CELL VOLUME 85.2 FL (80.0-100.0); MEAN CORPUSCULAR HEMOGLOBIN 28.1 PG (27.0-34.0); MEAN PLATELET VOLUME 7.9 FL (7.0-11.0); MONO % 5.2 % (0.0-8.0); MONOCYTE # 0.8 TH/MM3 (0-0.9); NEUT % 86.6 % (16.0-70.0); PLATELET COUNT 344 TH/MM3 (150-450); RED BLOOD COUNT 3.68 MIL/MM3 (4.00-5.30); RED CELL DISTRIBUTION WIDTH 14.6 % (11.6-17.2); WHITE BLOOD COUNT 16.3 TH/MM3 (4.0-11.0)
[2017-11-25 14:56] LABS: INTERNATIONAL NORMALIZED RATIO 1.1 RATIO; PROTHROMBIN TIME - PATIENT 11.5 SEC (9.8-11.6)
[2017-11-25 15:10] LABS: BICARBONATE 24.9 MEQ/L (21.0-32.0); BLOOD UREA NITROGEN 13 MG/DL (7-18); CHLORIDE 104 MEQ/L (98-107); CREATININE 1.05 MG/DL (0.50-1.00); GLOMERULAR FILTRATION RATE 52 ML/MIN (>89); GLUCOSE,RANDOM 118 MG/DL (74-106); SODIUM (NA) 136 MEQ/L (136-145); TROPONIN I LESS THAN 0.02 NG/ML (0.02-0.05)
[2017-11-25 17:15] VITALS: BP 123/83; PULSE 82; RESP 18; O2SAT 98
[2017-11-25 17:31] LABS: BACTERIA, URINE FEW /hpf; BILIRUBIN, URINE NEG (NEG); BLOOD, URINE NEG (NEG); GLUCOSE,URINE NEG (NEG); KETONE, URINE NEG (NEG); NITRITE,URINE NEG (NEG); PH, URINE 6.5 (5.0-8.5); SQUAMOUS EPITHELIAL CELL URINE 17 /hpf (0-5); TRANSITIONAL EPI CELLS, URINE <1 /hpf; URINE COLOR YELLOW (YELLW/STRAW); URINE LEUKOCYTE ESTERASE MOD (NEG)
[2017-11-25] MEDS ORDERED: BACT800T5 PO (17:38)
[2017-11-25] MEDS ORDERED: FLUC150T PO (17:38)
[2017-11-25] MEDS ORDERED: cefTRIAXone INJ 1,000 MG in SODIUM CHLORIDE 0.9% INJ 100 ML IV ONE (17:45)
--- NOTE | 2017-11-26 12:30 | EKG ---
Date Performed: 11/25/2017 Time Performed: 14:24:03 PTAGE: 67 years EKG: ATRIAL FIBRILLATION ABNORMAL RHYTHM ECG PREVIOUS TRACING : 07/25/2017 10.04 Since the prior tracing, there has been no significant loya DOCTOR: Tim Dotson Interpretating Date/Time 11/26/2017 12:29:25
== END 2017-11-25 19:34 | disposition home or self-care (01) ==
LOC: NEPC 13:23 → NEDA 16:30 → UNDOADMIN 16:30
DX: N39.0 Urinary tract infection, site not specified (principal); I48.91 Unspecified atrial fibrillation; D72.829 Elevated white blood cell count, unspecified; E78.5 Hyperlipidemia, unspecified; I10 Essential (primary) hypertension; M10.9 Gout, unspecified; E78.00 Pure hypercholesterolemia, unspecified; Z79.01 Long term (current) use of anticoagulants; Z79.899 Other long term (current) drug therapy
CPT/HCPCS: 71046; 80048; 81001; 82550; 83735; 83880; 84484; 85025; 85610; 85730; 87086; 93005; 99285; J0696

== ENCOUNTER 2017-12-29 14:10 | Day surgery (SDC) | payer OTHER ==
[~2017-12-29] VITALS: Ht 161.3 cm; Wt 60.6 kg
[~2017-12-29 14:10] MED LIST changes: +BACT800T5 PO; +DEXAMETHASONE SOD PHOS 4 MG/ML VIAL IV ONE; +FLUC150T PO; +GLYCOPYRROLATE 1 MG/5 ML SYRINGE IV PUSH ONE; +LIDOCAINE HCL 1% PF 5 ML SYRINGE OTHER ONE; +NEOSTIGMINE 5 MG/5 ML SYRINGE IV PUSH ONE; +ONDANSETRON HCL 4 MG/2 ML VIAL IV ONE; +PHENYLEPH/NS 1000 MCG/10 ML SYR IV ONE; +PROPOFOL 200 MG/20 ML AMP IV ONE; +ROCURONIUM INJ 50 MG/5 ML SYRINGE IV PUSH ONE; +SODIUM CHLORID 0.9% 500 ML INJ 1,000 ML IV ONE; +ePHEDrine/NS 25 MG/5 ML SYRINGE IV ONE
[2017-12-29] MEDS ORDERED: POVIDONE IODINE 5% (ANTISEPSIS KIT) 4 APPLICATIONS EACH NARE PRN (14:45)
[2017-12-29] MEDS ORDERED: CHLORHEXIDINE GLUCONATE 2 % 1 PACK (2 CLOTHS) TOPICAL PRN (14:45)
[2017-12-29] MEDS ORDERED: SODIUM CHLORID 0.9% 500 ML IV PRN (14:45)
[2017-12-29] MEDS ORDERED: LACTATED RINGER'S 1000 ML IV PRN (14:45)
[2017-12-29] MEDS ORDERED: LORazepam 1 MG TAB SL SCH (14:45)
[2017-12-29] MEDS ORDERED: METOPROLOL TARTRATE 25 MG TAB PO PRN (14:45)
[2017-12-29] MEDS ORDERED: LEVOFLOXACIN 500 MG PREMIX INJ 100 ML IV ONE (15:00)
[2017-12-29] MEDS ORDERED: SODIUM CHLORID 0.9% 500 ML INJ 500 ML IV SCH (15:00)
[2017-12-29 15:11] VITALS: BP 157/82; PULSE 80; RESP 18; TEMP 97.7; O2SAT 97
[2017-12-29 15:36] LABS: AUTOMATED NEUTROPHIL # 10.6 TH/MM3 (1.8-7.7); BASOPHIL # 0.1 TH/MM3 (0-0.2); BASOPHIL % 0.4 % (0.0-2.0); EOSINOPHIL # 0.6 TH/MM3 (0-0.4); EOSINOPHIL % 4.4 % (0.0-4.0); HEMATOCRIT 30.2 % (35.0-46.0); HEMOGLOBIN 9.8 GM/DL (11.6-15.3); LYMPH % 12.7 % (9.0-44.0); LYMPHOCYTE # 1.7 TH/MM3 (1.0-4.8); MEAN CELL VOLUME 84.3 FL (80.0-100.0); MEAN CORPUSCULAR HEMOGLOBIN 27.5 PG (27.0-34.0); MEAN CORPUSCULAR HGB CONC 32.6 % (32.0-36.0); MONO % 5.5 % (0.0-8.0); MONOCYTE # 0.8 TH/MM3 (0-0.9); PLATELET COUNT 413 TH/MM3 (150-450); RED BLOOD COUNT 3.59 MIL/MM3 (4.00-5.30); RED CELL DISTRIBUTION WIDTH 15.5 % (11.6-17.2); WHITE BLOOD COUNT 13.7 TH/MM3 (4.0-11.0)
[2017-12-29 15:48] LABS: INTERNATIONAL NORMALIZED RATIO 1.1 RATIO
[2017-12-29] MEDS ORDERED: HEPARIN-NS/PF FLUSH BAG 3,000 ML IV FLUSH ONE (15:53)
[2017-12-29 16:00] LABS: BICARBONATE 22.8 MEQ/L (21.0-32.0); CALCIUM 9.7 MG/DL (8.5-10.1); CREATININE 1.3 MG/DL (0.50-1.00)
[2017-12-29] MEDS ORDERED: HEPARIN SODIUM - IV 10,000 UNITS/10 ML VIAL ONE (17:49)
[2017-12-29] MEDS ORDERED: PROTAMINE SULFATE 50 MG/5 ML VIAL ONE (17:49)
[2017-12-29] MEDS ORDERED: HEPARIN-D5W 25,000 U/250 ML 250 ML ONE (17:49)
[2017-12-29] MEDS ORDERED: ONDANSETRON HCL 4 MG/2 ML VIAL IV PUSH PRN (19:45)
[2017-12-29] MEDS ORDERED: SODIUM CHLOR 0.9% 250 ML INJ 250 ML IV PRN (19:45)
[2017-12-29] MEDS ORDERED: LIDOCAINE HCL 1% 50 ML VIAL INFIL PRN (19:45)
[2017-12-29] MEDS ORDERED: FUROSEMIDE 40 MG/4 ML VIAL ONE (19:45)
[2017-12-29] MEDS ORDERED: oxyCODONE/ACETAMINOPHEN 5 MG/325 MG TAB PO PRN ×2 (19:45)
[2017-12-29] MEDS ORDERED: LORazepam 2 MG/ML VIAL IV PUSH PRN (19:45)
[2017-12-29] MEDS ORDERED: BACITRACIN OINT 0.9 GM PKT TOP ONE (19:45)
[2017-12-29] MEDS ORDERED: ATROPINE SULFATE 1 MG/ML VIAL IV PUSH PRN (19:45)
--- NOTE | 2017-12-29 20:16 | CATHPROC ---
[employer] HIS Report Study Information Study Number Admission Scheduled Start Study Start [id number] Dec 29 2017 2:10PM 12/29/2017 Dec 29 2017 4:08PM [place] Service Electrophysiology Study Admit Source Facility Department Other [facility] - Translational Specialist Physician and Clinical Staff Initial Michelle Underwood Keel Press Operator Lisandra Davis,EDUCATION RESEARCH ANALYST TECH2 Other Anesthesia, SLIDE MAKER Recorder Brandy Bustos,RN Recorder Liliana Major ,LIDAN Scrub Zaida Girard RCIS Procedures Performed Procedure Location (Site) Vessel Name Ablation Procedure Cardioversion ICE CATHETER INSERT RA Atruim RF Ablation LT. ATRIUM LT. ATRIUM Equipment Time Banding Machine Operator Description Size Mfg Part Number Used/Scraped NEEDLE, TRANSSEPTAL NRG 98 [id number] 17:52 [facility] Used C1 *[id number] [employer]/ EP [id number] 17:52 KIT, TRANSDUCER / AFIB Used PACER *[id number] CATHETER, TACTICATH ABLAT BUNDLE 17:52 BUNDLE-[employer]. [employer]RIANA Used 65 BUNDLE *[id number]- BUNDLE [id number] CATHETER, FR7 OPTIMA SPIRAL 17:52 BUNDLE-[employer]RIANA FR7 *[id number]- Used BUNDLE BUNDLE [id number] 17:52 BUNDLE-[employer]ANA CATHETER, JSN, QUAD BUNDLE FR 5 *[id number]- Used BUNDLE [id number] 17:52 BUNDLE-[employer]RIANA CATHETER, JSN, QUAD BUNDLE FR 5 *[id number]- Used BUNDLE [id number] SET, COOL [place] TUBING 17:52 BUNDLE-[employer]. ADRIANA *[id number]- Used BUNDLE BUNDLE SHEATH, FR8.5 STEERABLE SM 17:52 BUNDLE-[employer]. [employer]RIANA 71CM [id number] Used 71CM BUNDLE COVER, TRANSDUCER CABLE 612-113 17:52 [employer] Used ACUNAV *[id number] 17:52 CORDIS/PACER SHEATH, FR10 DAWOOD 11CM FR 10 Used *[id number] 17:52 CORDIS/PACER SHEATH, FR9 DAWOOD 11CM FR 9 [id number] Used [id number] 17:52 [employer] PACK, CCL CUSTOM * Used *[id number] 17:52 MEDLINE PACER GHOTRA, LIMB * 2530 *[id number] Used [id number] 17:52 [employer] MEDICAL SHEATH, FR4.5 PRELUDE 11CM FR 4.5 Used [id number] 18:10 [employer] WIRE, 3MMJ .035 180CM 180CM Used *[id number] 17:52 NAMIC TUBING, HIGH PRESSURE 48" 48" Used *[id number] 17:52 NAMIC TUBING, HIGH PRESSURE 48" 48" Used *[id number] 17:52 [employer] BLANKET,WARM AIR CCL * Used *[id number] 17:52 [facility] MEDICAL ELECTRODE KIT, BETSEY X SURFACE * Used *[id number] 815862 17:52 [employer] MEDICAL SHEATH, EPS, FR6 FAST CATH FR 6 Used *[id number] 17:52 [employer] MEDICAL SHEATH, EPS, FR7 FAST CATH FR 7 [id number] Used [id number] 18:26 [employer] MEDICAL SHEATH, EPS, FR8 FAST CATH FR 8 Used *[id number] 716902 18:01 [employer] MEDICAL SHEATH, EPS, FR8 FAST CATH FR 8 Used *[id number] 016150 17:52 [employer] MEDICAL SHEATH, EPS, FR8 FAST CATH FR 8 Used *[id number] CATHETER, ACUNAV FR10 ICE [id number] 18:07 FREDRICK FR 10 Used (FREDRICK) *[id number] CATHETER, ACUNAV FR10 ICE [id number] 18:16 FREDRICK FR 10 Used (FREDRICK) *[id number] [employer] [id number] 18:10 SHEATH, FR10 TERUMO (25CM) FR 8 Used COMPANY *[id number] [employer]ICAL 18:24 SHEATH, FR10 TURUMO FR 10 [id number] Used COMPANY [facility] PAD, ELECTROSURGICAL 17:52 * [id number] *[id number] Used SURGICAL GROUNDING (BLUE) History: Allergies Allergy Reaction Penicillins History: Risk Factors Hypertension Dyslipidemia Yes Yes Labs Hgb (g/dl) Hct (%) RBC (MIL/MM3) WBC (l/cumm) Platelets (thousands) 11.60-17.00 35.00-51.00 4.00-5.90 4.00-11.00 150.00-450.00 9.8 30 3.6 13 413 INR (PTT:PT) 0.90-1.10 1.1 Medication Medication Total Dose (Bolus/Oral) Medication Total Dosage/Unit 1% XYLOCAINE 30 mL HEPARIN 59038 units LASIX 20 mg PROTAMINE 50 mg Medications (Bolus/Oral) Medication Time Given Dosage/Unit Administered By Reason 1% XYLOCAINE 12/29/2017 5:54:11 PM 10 mL Michelle Abebe 10 mL 1% XYLOCAINE given in lab by Michelle Abebe in Left Groin via Subcutaneous. 1% XYLOCAINE 12/29/2017 5:59:09 PM 10 mL Michelle Abebe 10 mL 1% XYLOCAINE given in lab by Michelle Abebe in Right Groin via Subcutaneous. 1% XYLOCAINE 12/29/2017 6:26:13 PM 10 mL Michelle Abebe 10 mL 1% XYLOCAINE given in lab by Michelle Abebe in Right Groin via Subcutaneous. HEPARIN 12/29/2017 6:31:14 PM 8000 units Anesthesia, SLIDE MAKER 8000 units HEPARIN given in lab by Anesthesia, SLIDE MAKER via Peripheral IV. HEPARIN 12/29/2017 6:54:06 PM 2000 units Anesthesia, SLIDE MAKER As per physicians ve rbal order 2000 units HEPARIN given in lab by Anesthesia, SLIDE MAKER via Peripheral IV. Ordered by Michelle Abebe. Reas on: As per physicians verbal order. LASIX 12/29/2017 7:39:31 PM 20 mg Anesthesia, SLIDE MAKER As per physicians verbal order 20 mg LASIX given in lab by Anesthesia, SLIDE MAKER via Peripheral IV. Ordered by Michelle Abebe. Reason: As per physicians verbal order. PROTAMINE 12/29/2017 7:41:30 PM 50 mg Anesthesia, SLIDE MAKER As per physicians verb al order 50 mg PROTAMINE given in lab by Anesthesia, SLIDE MAKER via Peripheral IV. Ordered by Michelle Abebe. Reason: As per physicians verbal order. Medication (Drip) Medication Time Given Dosage/Unit Concentration/Unit Diluent (ml) Solution HEPARIN DRIP 12/29/2017 6:54:17 PM 1000 units/hr 72077 units 250 D5W 1000 units/hr HEPARIN DRIP given in lab by Anesthesia, SLIDE MAKER via Peripheral IV. Pump/Drip Flow = 10 ml /hr [place] [address] units in 250 ml. Ordered by Michelle Abebe. Reason: As per physicians verbal order. ISUPREL 12/29/2017 7:22:34 PM 5 mcg/min 1 mg 250 NaCl .9 5 mcg/min ISUPREL given in lab by Anesthesia, SLIDE MAKER via Peripheral IV. Pump/Drip Flow = 75 ml/hr using NaCl .9 with a concentration of 1 mg in 250 ml. Ordered by Michelle Abebe. Reason: As per physicians verbal order. Initial Case Assessment Cardiovascular HR Rhythm NIBP Chest Pain 125 af 135/72 0 Edema Present Skin color Skin None Normal Warm Dry Circulatory - Right Pulses Dorsalis Pedis 1 Scale (0,1,2,3,4,d) Circulatory - Left Pulses Dorsalis Pedis 1 Scale (0,1,2,3,4,d) Circulatory - Lower Extremities Color Lower Right Color Lower Left Normal Normal Neurological State Oriented to time-place- Alert Moves all extremities person Respiration - General Respiration Rate SpO2 (%) (B/min) 18 98 Chronological Log Time Study Chronological Log 16:54:35 Patient arrived via Bed. 16:54:35 Patient Name, D.O.B, / Armband Verified By R.N. 16:54:36 Consent signed by the physician and the patient and verified by the Translational Specialist staff. 16:54:37 Pre-op and post- op instructions given; patient acknowledges understanding of instructions. 16:54:39 Verbal Stimulation=2 Physical Stimulation=2 Airway=2 Respiration=2 TOTAL=8. (0=absent, 1=li mited, 2=present) 16:54:42 Patient has been NPO for More than 6Hrs. 16:54:42 Skin Breakdown- 16:54:43 Patient Warmer Placed on the Table. 16:54:45 Disposable Defibrillator Pads Placed On Patient. 16:54:46 Mitra Prominences Protected 16:54:46 A # 22 IV was noted in the Forearm (right). Grade = 0 0.9ns kvo 16:54:47 A # 22 IV was noted in the Forearm (left). Grade = 0 0.9ns kvo 16:54:48 History and physical on the chart or being dictated. Assessment: Initial Case, UO=373 BPM, Rhythm=af, THDW=177/72 mmhg, Chest Pain=0, Edema=None, Co alex=Normal, Skin = Warm, Dry Right Pulses: Victor Hugo Ped=1 Left Pulses: Victor Hugo Ped=1 17:15:34 Lower Right Extremities: Color=Normal Lower Left Extremities: Color=Normal Neurological: State=Alert, Ox3, MORRELL Respiration: Resp=18 B/min, SpO2=98 % 17:17:38 Table restraints applied according to hospital policy 17:17:45 Bilateral groins prepped with 2% chlorhexidine, and draped after a 3 minute waiting time. 17:22:23 Anesthesia at bedside. Assumes care of patient. Kesha 17:40:16 Anesthesia present for intubation. 17:46:03 MD arrived. Time Out. Correct patient, procedure, procedure equipment, site and side verified with physicia n present. Time 17:50:00 concurred by MD, individual staff and SLIDE MAKER. Time Out #2 - Consents verified, patient in correct position, all results are labled and displa yed, safety precautions 17:50:20 taken, antibiotics administered. Time out concurred by MD, individual staff and SLIDE MAKER in procedu re 17:50:37 Case Start 17:50:40 Pedro in progress 17:51:00 Reference ECG taken 17:52:56 Pedro complete 17:54:11 10 mL 1% XYLOCAINE given in lab by Michelle Abebe in Left Groin via Subcutaneous. 17:54:31 Vascular access was obtained in the Fem Vein (left). 17:54:32 Vascular access was obtained in the Fem Vein (left). 17:54:36 Vascular access was obtained in the Fem Vein (left). 17:54:37 Vascular access was obtained in the Fem Art (left). 17:55:36 A SHEATH, FR4.5 PRELUDE 11CM FR 4.5 was advanced into the Fem Art (left) using the Percutan eous technique. 17:55:49 A SHEATH, EPS, FR8 FAST CATH FR 8 was advanced into the Fem Vein (left) using the Percutane ous technique. 17:56:02 A SHEATH, EPS, FR7 FAST CATH FR 7 was advanced into the Fem Vein (left) using the Percutane ous technique. 17:56:14 A SHEATH, FR10 DAWOOD 11CM FR 10 was advanced into the Fem Vein (left) using the Percutaneo us technique. 17:59:09 10 mL 1% XYLOCAINE given in lab by Michelle Abebe in Right Groin via Subcutaneous. 18:00:16 Vascular access was obtained in the Fem Vein (right). 18:00:26 A SHEATH, EPS, FR8 FAST CATH FR 8 was advanced into the Fem Vein (right) using the Percutan eous technique. A CATHETER, JSN, QUAD BUNDLE FR 5 was advanced vis Fem Vein (left) and placed in the CS. Placem ent was visually 18:02:37 confirmed under fluoroscopy. A CATHETER, JSN, QUAD BUNDLE FR 5 was advanced vis Fem Vein (left) and placed in the HIS. Place ment was 18:03:35 visually confirmed under fluoroscopy. 18:06:36 CATHETER, ACUNAV FR10 ICE (FREDRICK) FR 10 Was inserted 18:08:56 ICE catheter removed A SHEATH, FR10 TERUMO (25CM) FR 8 was exchanged in the Fem Vein (left). This was necessary in o rder for catheter 18:09:50 support. 18:11:32 CATHETER, ACUNAV FR10 ICE (FREDRICK) FR 10 Was Inserted 18:16:19 ICE catheter removed and exchanged for new ICE catheter A SHEATH, FR10 TURUMO FR 10 was exchanged in the Fem Vein (right). This was necessary in order for catheter 18:23:55 support. 18:26:13 10 mL 1% XYLOCAINE given in lab by Michelle Abebe in Right Groin via Subcutaneous. 18:26:29 Vascular access was obtained in the Fem Vein (right). 18:27:20 A SHEATH, EPS, FR8 FAST CATH FR 8 was advanced into the Fem Art (right) using the Percutane ous technique. A SHEATH, FR8.5 STEERABLE SM 71CM BUNDLE 71CM was exchanged in the Fem Vein (right). This was n ecessary in 18:28:27 order for catheter support. 18:30:08 Isela in 18:31:04 A eps was advanced to the right atrium and passed through the septal wall to the left atriu m. 18:31:14 8000 units HEPARIN given in lab by Anesthesia, SLIDE MAKER via Peripheral IV. A CATHETER, FR7 OPTIMA SPIRAL BUNDLE FR7 was advanced vis Fem Vein (left) and placed in the LA. Placement 18:35:26 was visually confirmed under fluoroscopy. 18:37:31 Mapping in progress 18:41:12 Activated Clotting Time Drawn 18:41:42 mapping complete; catheter removed A CATHETER, TACTICATH ABLAT 65 BUNDLE was advanced vis Fem Vein (right) and placed in the LA. P lacement was 18:48:00 visually confirmed under fluoroscopy. 18:48:23 Activated Clotting Time redrawn 18:50:00 RF Ablation of the LT. ATRIUM with a eps. 18:53:50 ACT (Normal Range 90-180) = 319 2000 units HEPARIN given in lab by Anesthesia, SLIDE MAKER via Peripheral IV. Ordered by Michelle Abebe . Reason: As per 18:54:06 physicians verbal order. 1000 units/hr HEPARIN DRIP given in lab by Anesthesia, SLIDE MAKER via Peripheral IV. Pump/Drip Flow = 10 ml/hr using 18:54:17 [place] [address] units in 250 ml. Ordered by Michelle Abebe. Reason: As per glenda gomez verbal order. 19:00:29 Activated Clotting Time Drawn 19:08:14 Activated Clotting Time redrawn 19:12:08 ACT (Normal Range 90-180) = 402 19:12:15 Heparin gtt off 19:18:51 ECG rhythm of AF noted. Patient cardioverted at 200 joules. Success synch 19:19:08 SR on monitor 5 mcg/min ISUPREL given in lab by Anesthesia, SLIDE MAKER via Peripheral IV. Pump/Drip Flow = 75 ml/hr using NaCl .9 with 19:22:34 a concentration of 1 mg in 250 ml. Ordered by Michelle Abebe. Reason: As per physicians verbal o rder. 19:33:13 Isuprel off. 19:34:11 Ablation procedure performed: AFIB. 19:34:16 EP Procedure was performed. 19:34:27 All catheter(s) removed without difficulty. A SHEATH, FR9 DAWOOD 11CM FR 9 was exchanged in the Fem Vein (right). This was necessary in ord er to minimize 19:34:44 site leakage. 19:35:54 PACU called. Spoke to Juma 19:36:09 Bedside Report will be given. 20 mg LASIX given in lab by Anesthesia, SLIDE MAKER via Peripheral IV. Ordered by Michelle Abebe. Reaso n: As per physicians 19:39:31 verbal order. 50 mg PROTAMINE given in lab by Anesthesia, SLIDE MAKER via Peripheral IV. Ordered by Michelle Abebe. R fermin: As per 19:41:30 physicians verbal order. 19:50:44 ACT (Normal Range 90-180) = 145 19:50:55 venous Sheaths removed, right groin; pressure applied to access site. 19:51:30 arterial Sheath removed, left groin; pressure applied to access site. 20:04:49 venous Sheaths removed, left groin; pressure applied to access site. 20:15:34 Sterile dressing applied to site 20:15:43 No case complications noted. 20:15:44 Cine recording checked. 20:15:46 Bedside Report will be given. 20:15:52 Patient moved to stretcher End Study - Contrast Media Used In Study Contrast Total Opened (mL) Total Used (mL) Total Wasted (mL) Unspecified 0 0 0 End Study - Radiation Exposure Fluoro Time (minutes) 14.5 End Study - Patient Disposition Complications Transferred To Interventional Outcome No Telemetry Bed successful
[2017-12-29] MEDS ORDERED: DO NOT ADM ANY ANTICOAGULANT DRUGS PRN (20:25)
[2017-12-29] MEDS: hydrALAZINE HCL 100 MG TAB PO SCH (21:00)
[2017-12-29] MEDS ORDERED: ATORVASTATIN 40 MG TAB PO SCH (21:00)
[2017-12-29 22:15] VITALS: BP 102/67; PULSE 77; RESP 16; TEMP 97.6; O2SAT 100
[2017-12-29] MEDS: APIXABAN 5 MG TABLET PO SCH (22:37)
[2017-12-29] MEDS: AMIODARONE 200 MG TAB PO SCH (22:38)
[2017-12-29 23:00] VITALS: PULSE 74
[2017-12-30] VITALS (16 sets, daily range): BP systolic 103–115; BP diastolic 64–75; PULSE 74–90; RESP 16–18; TEMP 97.4–98.2; O2SAT 94–99
[2017-12-30 06:59] LABS: INTERNATIONAL NORMALIZED RATIO 1.1 RATIO; PROTHROMBIN TIME - PATIENT 11.4 SEC (9.8-11.6)
[2017-12-30] MEDS ORDERED: NON-FORMULARY DRUG (Lisinopril 40 MG) PO SCH (09:00)
[2017-12-30] MEDS ORDERED: AZITHROMYCIN 250 MG TAB PO SCH (09:00)
[2017-12-30] MEDS ORDERED: LISINOPRIL 20 MG TAB PO SCH (09:00)
[2017-12-30] MEDS ORDERED: DILTIAZEM-CD 240 MG CAP ER PO SCH (09:00)
[2017-12-30] MEDS ORDERED: ALLOPURINOL 100 MG TAB PO SCH (09:00)
[2017-12-30] MEDS: APIXABAN 5 MG TABLET PO SCH (09:15)
[2017-12-30] MEDS: AMIODARONE 200 MG TAB PO SCH (09:16)
[2017-12-30] MEDS: hydrALAZINE HCL 100 MG TAB PO SCH (09:25)
--- NOTE | 2017-12-30 12:53 | PD.CARD ---
Atrial Fibrillation Ablation PROCEDURE DATE: Dec 29, 2017 PROCEDURES PERFORMED: 1. Electrophysiology study on Isuprel infusion 2. CS cannulation 3. 3-D mapping 4. Transseptal approach 5. Right and left heart catheterization 6. Intracardiac echo 7. Radiofrequency ablation of atrial fibrillation 8. Pulmonary vein isolation 9. Posterior wall ablation 10. Mitral valve isolation 11. Mitral line creation 12. Roof line creation 13. Floor line creation 14. Anterior wall ablation 15. Cardioversion INDICATIONS FOR THE PROCEDURE Ms. Nicole is a 67-year-old female with atrial fibrillation, very symptomatic, on anticoagulation, referred for electrophysiology study and ablation. The risks, the nature and the benefits of the procedure were clearly stated to her. The risks include pneumothorax, cardiac perforation, stroke, need for open heart surgery and even . The patient understood and agreed to proceed. DESCRIPTION OF THE PROCEDURE IN DETAIL As written informed consent was obtained prior to esophageal echocardiogram, the patient was kept on the table where she was prepped and draped in the usual sterile fashion. Conscious sedation was initiated and maintained throughout the procedure by the anesthesiologist. Once sedation was verified, the right and left inguinal areas were anesthetized with 2% Xylocaine. Using modified Seldinger technique, the left femoral vein was cannulated on three occasions, three guidewires were advanced. Over the wire a 6, 7 and a 10-Mozambican Hemaquet were advanced. Then the left femoral artery was cannulated on one occasion, one guidewire was advanced. Over the wire a 4-Mozambican Hemaquet was advanced. Then the right femoral vein was cannulated on one occasion, one guidewire was advanced. Over the wire a 8-Mozambican Hemaquet was advanced. Then under fluoroscopic guidance through the 6 and 7-Mozambican Hemaquet, two 5-Mozambican Linda curved quadripolar electrophysiology catheters were advanced and placed around the His as well as coronary sinus. Basic interval was measured. The patient was in atrial fibrillation. Through the 10-Mozambican Hemaquet, a Cordis Juares AcuNav intracardiac echo catheter was advanced and placed at the right atrium. Multiple view was obtained. There is pericardial effusion, pulmonary vein was seen, atrial septal was visualized. Then the 8-Mozambican Hemaquet in the right femoral vein was exchanged for Agilis transseptal sheath that was placed all the way to the superior vena cava. Through the sheath a Yousuf needle was advanced, then the sheath, the dilator and the needle were progressed until foci engaged. Once engaged, the needle was advanced. RF was delivered for 2 seconds. I was able to cross into the left atrium. Once the needle crossed, the dilator was advanced. Once the dilator crossed, the sheath was advanced. Once the sheath crossed, the dilator and the needle were removed. At this point I did flood the system and fluid movement was seen in the left atrium the indicates the sheath is in good position. The patient already received 10,000 units of heparin. The goal is to keep an ACT around 350 during ablation. Then through the sheath a [place]. Fernando 20 pulse circumferential catheter was advanced. Using [employer] endocardial solution mapping system, a two-dimensional configuration of the left atrium was obtained. Points were taken at the left superior and inferior veins, right superior and inferior veins, mitral valve, and appendages. Then through the sheath a St. Fernando TactiCath 65cm 3.5mm irrigated tipped mapping and radiofrequency ablation catheter was advanced. Esophageal probe was placed temperature monitoring during ablation. When it increased to 0.5 degrees Celsius above baseline, I moved to a different area of the atrium. First I did isolate the left superior and inferior vein. I did make a big [employer] around the veins. Posterior was ablated. Then a roof line was created, a floor line was created, a mitral line was isolated, then the mitral valve was isolated. I did create a line from the floor to the roof area, passing by the left atrial appendage. Then the right superior and inferior veins were isolated. I did remap the atrium. There is no significant signal in the atrium. At this point I decided to proceed with cardioversion. A 200 sync biphasic joule was delivered that converted the patient into sinus rhythm. At that point I did advance the circumferential catheter again into the vein. There was no signal into the vein, pacing from the vein showed no conduction to the atrium. Isuprel infusion was initiated at 5 mcg for around 10 minutes. No tachyarrhythmia was induced, post Isuprel no tachyarrhythmia was induced. At that point the procedure was complete. All catheters were removed, atrial septal sheath was exchanged for 9-Mozambican Hemaquet, intracardiac echo showed no pericardial effusion. There is still good flow in the pulmonary vein. The patient is going to be transferred to the recovery room. No incident report. The patient tolerated the procedure. Blood loss was minimal. FINDINGS 1. Electrocardiogram: At baseline the patient was in atrial fibrillation, post procedure the patient was in sinus rhythm. 2. Basic interval: Base cycle length was around 480. Post ablation she was around 960 milliseconds. AH at 80 and HV at 46 milliseconds. 3. Tachyarrhythmia: Atrial fibrillation was mapped and ablated. Atrial tachycardia was ablated. The ablation was successful. CONCLUSION Successful electrophysiology study, mapping, radiofrequency ablation of atrial fibrillation, pulmonary vein isolation, posterior ablation, mitral valve isolation, mitral line creation, roof line creation, floor line creation, left atrial tachycardia, and cardioversion. COMMENTS AND RECOMMENDATIONS The patient is going to be transferred to the telemetry unit. Will be observed and when stable can be discharged home. Michelle Abebe MD Dec 30, 2017 12:53
--- NOTE | 2017-12-30 13:01 | HHI.PR ---
Subjective Remarks feeling better Objective Vital Signs Date Time Temp Pulse Resp B/P (MAP) Pulse Ox O2 Delivery O2 Flow Rate FiO2 12/30/17 12:00 82 12/30/17 11:15 98.2 86 18 103/64 (77) 98 12/30/17 11:00 90 12/30/17 10:00 88 12/30/17 09:00 78 12/30/17 08:04 97.4 82 16 115/75 (88) 99 12/30/17 08:00 88 12/30/17 07:00 80 12/30/17 06:00 78 12/30/17 05:00 76 12/30/17 04:00 75 12/30/17 03:00 76 12/30/17 03:00 97.9 84 16 108/70 (83) 94 12/30/17 02:00 75 12/30/17 01:00 74 12/30/17 00:00 76 12/29/17 23:00 74 12/29/17 22:15 77 12/29/17 22:15 97.6 77 16 102/67 (79) 100 12/29/17 21:30 75 14 116/55 (75) 99 Nasal Cannula 2 12/29/17 21:15 73 14 115/59 (77) 99 Nasal Cannula 2 12/29/17 21:00 73 14 114/56 (75) 98 Nasal Cannula 2 12/29/17 20:45 73 14 112/56 (74) 98 Nasal Cannula 2 12/29/17 20:30 76 14 81/51 (61) 92 Nasal Cannula 2 12/29/17 20:29 98.5 75 14 82/51 (61) 92 Nasal Cannula 2 12/29/17 15:11 97.7 80 18 157/82 (107) 97 I/O 12/29/17 12/29/17 12/29/17 12/30/17 12/30/17 12/30/17 07:00 15:00 23:00 07:00 15:00 23:00 Intake Total 360 ml Output Total 250 ml 625 ml Balance -250 ml -265 ml Intake Oral 360 ml Output Urine Total 250 ml 625 ml # Bowel Movements 0 Result Diagram: 12/29/17 1450 12/29/17 1450 Imaging Alert, fully oriented Lungs: ventilated Heart: S1, S2 regular Abdomen: soft, no mass Ext: no edema Current Medications Medications (Trade) Dose Ordered Sig/Lynette Route Start Time Stop Time Status Last Admin Sodium Chloride 500 ml @ 30 mls/hr [id number] IV 12/29/17 15:00 (Ativan) 1 mg PROGRAM ENGINEER SL 12/29/17 14:45 01/01/18 14:44 Lactated Ringer's 1,000 ml @ 30 mls/hr Q24H PRN IV 12/29/17 14:45 01/01/18 14:44 Sodium Chloride 500 ml @ 30 mls/hr [id number] PRN IV 12/29/17 14:45 01/01/18 14:44 (Lopressor) 25 mg PROGRAM ENGINEER PRN PO 12/29/17 14:45 01/01/18 14:44 (Betadine 5% Antisepsis Kit) 1 applic PROGRAM ENGINEER PRN EACH NARE 12/29/17 14:45 01/01/18 14:44 (Chlorhexidine 2% Cloth) 3 pack PROGRAM ENGINEER PRN TOPICAL 12/29/17 14:45 01/01/18 14:44 (Percocet 5-325 Mg) 1 tab Q4H PRN PO 12/29/17 19:45 (Percocet 5-325 Mg) 2 tab Q4H PRN PO 12/29/17 19:45 (Ativan Inj) 0.5 mg UNSCH PRN IV PUSH 12/29/17 19:45 12/30/17 19:44 (Atropine Inj) 0.5 mg UNSCH PRN IV PUSH 12/29/17 19:45 Sodium Chloride 250 ml @ 500 mls/hr ONCE PRN IV 12/29/17 19:45 12/30/17 19:44 (Zofran Inj) 4 mg Q4H PRN IV PUSH 12/29/17 19:45 (Xylocaine 1% Inj (50 ml)) 10 ml UNSCH PRN INFIL 12/29/17 19:45 12/30/17 19:44 (Zyloprim) 100 mg DAILY PO 12/30/17 09:00 12/30/17 09:17 (Eliquis) 5 mg BID PO 12/29/17 21:00 12/30/17 09:15 (Lipitor) 40 mg HS PO 12/29/17 21:00 12/29/17 22:38 (Zithromax) 250 mg DAILY PO 12/30/17 09:00 12/30/17 09:15 (Cardizem Cd) 240 mg DAILY PO 12/30/17 09:00 12/30/17 09:16 (Apresoline) 25 mg BID PO 12/29/17 21:00 12/30/17 09:25 (Cordarone) 400 mg BID PO 12/29/17 21:00 01/03/18 09:01 12/30/17 09:16 (Prinivil) 40 mg DAILY PO 12/30/17 09:00 12/30/17 09:25 (Cordarone) 200 mg DAILY PO 01/04/18 09:00 Miscellaneous Information ALL NURSING DEPARTME... UNSCH PRN .XX 12/29/17 20:25 12/30/17 20:24 Assessment and Plan Problem List: (1) Atrial fibrillation ICD Codes: I48.91 - Unspecified atrial fibrillation Plan: SP ablation. Doing well Feeling better will be DH Follow up as previously scheduled (2) Palpitations ICD Codes: R00.2 - Palpitations Plan: No tachy reported Feeling better (3) Shortness of breath ICD Codes: R06.02 - Shortness of breath Plan: Significant improves Michelle Abebe MD Dec 30, 2017 13:01
[2017-12-30] MEDS ORDERED: AMIO200T PO ×2 (13:05)
--- NOTE | 2017-12-30 15:41 | EKG ---
Date Performed: 12/29/2017 Time Performed: 20:42:06 PTAGE: 67 years EKG: Sinus rhythm WITH OCCASIONAL SUPRAVENTRICULAR PREMATURE COMPLEXES NONSPECIFIC T-WAVE ABNORMALITY BORDERLINE ECG PREVIOUS TRACING : 12/29/2017 15.24 Sinus rhythm replaces atrial fibrillation. DOCTOR: Eduard Cruz Interpretating Date/Time 12/30/2017 15:40:51
--- NOTE | 2017-12-30 17:17 | EKG ---
Date Performed: 12/30/2017 Time Performed: 05:52:46 PTAGE: 67 years EKG: Sinus rhythm with borderline 1st degree A-V block Possible anterior infarct - age undetermined Low QRS voltages i n precordial leads Since previous tracing, no significant change noted Abnormal ECG PREVIOUS TRACING : 12/29/2017 20.42 DOCTOR: Eduard Cruz Interpretating Date/Time 12/30/2017 17:16:10
--- NOTE | 2017-12-30 17:17 | EKG ---
Date Performed: 12/29/2017 Time Performed: 15:24:26 PTAGE: 67 years EKG: Atrial fibrillation Inferior T wave changes are nonspecific Since previous tracing, no sign ificant change noted Abnormal ECG PREVIOUS TRACING : 11/25/2017 14.24.03 DOCTOR: Eduard Cruz Interpretating Date/Time 12/30/2017 17:15:33
[2018-01-04] MEDS ORDERED: AMIODARONE 200 MG TAB PO SCH (09:00)
== END 2017-12-30 14:41 | disposition home or self-care (01) ==
LOC: HDOC 14:10 → HDIC 14:11 → HCIS 22:19 → HDOC 12-30 14:41
PROVIDERS: ATTEND Internal Medicine Interventional Cardiology
DX: I48.91 Unspecified atrial fibrillation (principal); I47.1 Supraventricular tachycardia; I31.3 Pericardial effusion (noninflammatory); I10 Essential (primary) hypertension; E78.5 Hyperlipidemia, unspecified; Z79.01 Long term (current) use of anticoagulants
CPT/HCPCS: 00537; 80048; 85002; 85025; 85610; 85730; 86850; 86900; 86901; 92960; 93005; 93312; 93320; 93325; 93613; 93623; 93656; 93662; C1730; C1731; C1732; C1759; C1766; C2630; J1100; J1644; J1940; J1956; J2370; J2405; J2710; J2720; J3010; J7040

== ENCOUNTER 2018-01-27 20:31 | Inpatient (IN) | payer OTHER, MEDICARE ==
[~2018-01-27] VITALS: Ht 160 cm; Wt 41.3 kg
[~2018-01-27 20:31] MED LIST changes: +AMIO200T PO; -BACT800T5 PO; -CARD240C6 PO; -DEXAMETHASONE SOD PHOS 4 MG/ML VIAL IV ONE; -FLUC150T PO; -GLYCOPYRROLATE 1 MG/5 ML SYRINGE IV PUSH ONE; -LIDOCAINE HCL 1% PF 5 ML SYRINGE OTHER ONE; -METO1TAB9 PO; -NEOSTIGMINE 5 MG/5 ML SYRINGE IV PUSH ONE; -ONDANSETRON HCL 4 MG/2 ML VIAL IV ONE; -PHENYLEPH/NS 1000 MCG/10 ML SYR IV ONE; -PROPOFOL 200 MG/20 ML AMP IV ONE; -ROCURONIUM INJ 50 MG/5 ML SYRINGE IV PUSH ONE; -SODIUM CHLORID 0.9% 500 ML INJ 1,000 ML IV ONE; -ePHEDrine/NS 25 MG/5 ML SYRINGE IV ONE
[2018-01-27 20:38] VITALS: BP 103/67; PULSE 121; RESP 18; TEMP 97.5; O2SAT 99
[2018-01-27 21:16] VITALS: BP 116/69; PULSE 120; RESP 20; O2SAT 100
[2018-01-27] MEDS ORDERED: SODIUM CHLOR 0.9% 1000 ML INJ 1,000 ML IV SCH (21:20)
[2018-01-27] MEDS ORDERED: NAPR250T4 PO (21:22)
[2018-01-27 21:28] VITALS: O2SAT 99
--- NOTE | 2018-01-27 21:28 | PD ---
HPI Chief Complaint: Abdominal Pain Time Seen by Provider: 21:12 Travel History International Travel<30 days: No Contact w/Intl Traveler<30days: No Traveled to known affect area: No History of Present Illness HPI 68-year-old female with PMH of Edilia ruiz presents to the ED via private vehicle for evaluation of approximate 36 hour history of 8/10, sharp right lower quadrant abdominal pain. Gradual onset. No radiation. She endorses mild nausea and constipation. She states last bowel movement was yesterday, small and well-formed, nonbloody. Denies melena or hematochezia, dysuria, hematuria, urinary urgency. She denies history of abdominal surgery. Denies CP, dizziness , SOB. She endorses history of asymptomatic gallstones. She has never had a pain like this in the past. States that she had an ablation on December and has been tachycardic since the procedure. PFSH Past Medical History Hx Anticoagulant Therapy: Yes (ELOQUIS) Arthritis: No Asthma: No Atrial Fibrillation: Yes Autoimmune Disease: No Anxiety: No Depression: No Heart Rhythm Problems: No Cancer: No Cardiovascular Problems: Yes (AFIB, HYPERLIPIDEMIA) High Cholesterol: Yes Chemotherapy: No Chest Pain: No Congestive Heart Failure: No COPD: No Cerebrovascular Accident: No Diabetes: No Endocrine: No Gastrointestinal Disorders: No GERD: No Gout: Yes Genitourinary: No Hiatal Hernia: No Heparin Induced Thrombocytopen: No Hypertension: Yes Immune Disorder: No Implanted Vascular Access Dvce: No Kidney Stones: No Musculoskeletal: No Neurologic: No Psychiatric: No Reproductive: No Respiratory: Yes (SOB WITH EXERTION) Radiation Therapy: No Renal Failure: No Sickle Cell Disease: No Sleep Apnea: No Thyroid Disease: No Ulcer: No Tetanus Vaccination: Unknown Influenza Vaccination: No LMP: menapause Past Surgical History Abdominal Surgery: No AICD: No Arteriovenous Shunt: No Cardiac Surgery: No Ear Surgery: No Endocrine Surgery: No Eye Surgery: No Genitourinary Surgery: No Gynecologic Surgery: No Insulin Pump: No Joint Replacement: Yes (right ankle ) Neurologic Surgery: No Oral Surgery: No Pacemaker: No Thoracic Surgery: No Other Surgery: Yes (right ankle, cardiac ablasion) Social History Alcohol Use: Yes (occassionaly) Tobacco Use: No Substance Use: No Allergies-Medications (Allergen,Severity, Reaction): Coded Allergies: Penicillins (Verified Allergy, Unknown, 01/27/18) Pt gets yeast infections with this medication Reported Meds & Prescriptions Reported Meds & Active Scripts Active Amiodarone (Amiodarone HCl) 200 Mg Tab 200 Mg PO DAILY 30 Days Amiodarone (Amiodarone HCl) 200 Mg Tab 400 Mg PO BID Eliquis (Apixaban) 5 Mg Tab 5 Mg PO BID Reported Naproxen 250 Mg Tab 250 Mg PO BID Lisinopril 40 Mg Tab 40 Mg PO DAILY Atorvastatin (Atorvastatin Calcium) 40 Mg Tab 40 Mg PO HS Hydralazine (Hydralazine HCl) 100 Mg Tab 25 Mg PO BID Take with meals Allopurinol 100 Mg Tab 100 Mg PO DAILY Review of Systems Except as stated in HPI: all other systems reviewed are Neg Physical Exam Narrative GENERAL: Well-nourished, well-developed white female in NAD. SKIN: Focused skin assessment warm/dry. HEAD: Normocephalic. EYES: No scleral icterus. No injection or drainage. NECK: Supple, trachea midline. No JVD or lymphadenopathy. CARDIOVASCULAR: Regular rate and rhythm without murmurs, gallops, or rubs. RESPIRATORY: Breath sounds clear and equal bilaterally. No accessory muscle use. GASTROINTESTINAL: Abdomen soft, nondistended. TTP in the LLQ. Positive TTP at McBurneys point. Negative Rosvings sign. Negative Granville sign. Hypoactive bowel sounds. RECTAL EXAM: No masses or tenderness, stool is dark brown. Guaiac positive. MUSCULOSKELETAL: No cyanosis, or edema. BACK: Nontender without obvious deformity. No CVA tenderness. Data Data Last Documented VS Vital Signs Date Time Temp Pulse Resp B/P (MAP) Pulse Ox O2 Delivery O2 Flow Rate FiO2 01/27/18 21:41 115 01/27/18 21:28 99 Room Air 01/27/18 21:16 20 01/27/18 20:38 97.5 Orders Orders Complete Blood Count With Diff (01/27/18 21:20) Comprehensive Metabolic Panel (01/27/18 21:20) Lipase (01/27/18 21:20) Lactic Acid (01/27/18 21:20) Prothrombin Time / Inr (Pt) (01/27/18 21:20) Act Partial Throm Time (Ptt) (01/27/18 21:20) Urinalysis - C+S If Indicated (01/27/18 21:20) Iv Access Insert/Monitor (01/27/18 21:20) Ecg Monitoring (01/27/18 21:20) Oximetry (01/27/18 21:20) Morphine Inj (Morphine Inj) (01/27/18 21:30) Ondansetron Inj (Zofran Inj) (01/27/18 21:30) Sodium Chlor 0.9% 1000 Ml Inj (Ns 1000 M (01/27/18 21:20) Sodium Chloride 0.9% Flush (Ns Flush) (01/27/18 21:30) Electrocardiogram (01/27/18 21:20) Type And Screen (01/27/18 21:48) Ct Abd/Pel W/O Iv Contrast (01/27/18 ) Admit Order (Ed Use Only) (01/27/18 23:03) Labs Laboratory Tests Test 01/27/18 21:25 White Blood Count 20.8 TH/MM3 Red Blood Count 2.43 MIL/MM3 Hemoglobin 6.7 GM/DL Hematocrit 20.4 % Mean Corpuscular Volume 84.1 FL Mean Corpuscular Hemoglobin 27.8 PG Mean Corpuscular Hemoglobin Concent 33.1 % Red Cell Distribution Width 17.0 % Platelet Count 439 TH/MM3 Mean Platelet Volume 7.4 FL Neutrophils (%) (Auto) 85.8 % Lymphocytes (%) (Auto) 5.9 % Monocytes (%) (Auto) 7.4 % Eosinophils (%) (Auto) 0.6 % Basophils (%) (Auto) 0.3 % Neutrophils # (Auto) 17.9 TH/MM3 Lymphocytes # (Auto) 1.2 TH/MM3 Monocytes # (Auto) 1.5 TH/MM3 Eosinophils # (Auto) 0.1 TH/MM3 Basophils # (Auto) 0.1 TH/MM3 CBC Comment DIFF FINAL Differential Comment Prothrombin Time 12.2 SEC Prothromb Time International Ratio 1.2 RATIO Activated Partial Thromboplast Time 39.9 SEC Blood Urea Nitrogen 43 MG/DL Creatinine 2.29 MG/DL Random Glucose 87 MG/DL Total Protein 7.1 GM/DL Albumin 3.2 GM/DL Calcium Level 9.7 MG/DL Alkaline Phosphatase 156 U/L Aspartate Amino Transf (AST/SGOT) 13 U/L Alanine Aminotransferase (ALT/SGPT) 16 U/L Total Bilirubin 0.6 MG/DL Sodium Level 137 MEQ/L Potassium Level 4.6 MEQ/L Chloride Level 104 MEQ/L Carbon Dioxide Level 21.3 MEQ/L Anion Gap 12 MEQ/L Estimat Glomerular Filtration Rate 21 ML/MIN Lactic Acid Level 2.0 mmol/L Lipase 484 U/L [facility] Medical Decision Making Medical Screen Exam Complete: Yes Emergency Medical Condition: Yes Differential Diagnosis Appendicitis versus cholecystitis versus diverticulitis versus GI bleed versus other Narrative Course 68-year-old female with PMH of A. fib on Eliquis presents to the ED via private vehicle for evaluation of approximate 36 hour history of 8/10, sharp right lower quadrant abdominal pain. She endorses mild nausea and constipation. Heart rate 121-115 on presentation. Patient states this is her normal since ablation with Dr. Abebe last month. She has tenderness to palpation at McBurney 's point in the right lower quadrant. Stool is dark brown and guaiac positive. IV was established. Patient was administered 1 L normal saline, 4 mg Zofran, 4 mg morphine. Type and screen ordered and pending. CBC: WBC 20.8, neutrophil predominant. Hemoglobin 6.7. Hematocrit 20.4. INR: 1.2. CMP: BUN 43, creatinine 2.29. Lactic acid 2.0. Lipase 44. CT abdomen pelvis: Inflammatory process in the right midabdomen which appears to correlate with a large loop of bowel near the hepatic flexure. This probably represents a diverticular abscess measuring up to 3 cm in diameter. Cannot definitively identify the appendix. No free air or significant free fluid. Numerous calcified gallstones per radiology read. Patient is allergic to penicillin and was administered vancomycin, aztreonam, metronidazole. Also was administered a dose of pantoprazole. I discussed the results of the workup with the patient. She is agreeable to admission as well as blood product administration should this be required. I discussed the case with Dr. Mcmahan who agrees to accept the patient to the medicine service. Please see medicine notes for disposition. [facility] Point of Care Internal Pos. & Neg. Controls: Passed Fecal Specimen Occult Blood: Positive Carolyn Fleming January 27, 2018 21:28
[2018-01-27] MEDS ORDERED: ONDANSETRON HCL 4 MG/2 ML VIAL IVP ONE (21:30)
[2018-01-27] MEDS ORDERED: MORPHINE SULFATE 4 MG/ML INJ IV PUSH ONE (21:30)
[2018-01-27] MEDS ORDERED: SODIUM CHLORIDE 0.9% FLUSH 10 ML FLUSH IV FLUSH PRN (21:30)
[2018-01-27 21:41] VITALS: PULSE 115
[2018-01-27 21:43] LABS: AUTOMATED NEUTROPHIL # 17.9 TH/MM3 (1.8-7.7); BASOPHIL # 0.1 TH/MM3 (0-0.2); BASOPHIL % 0.3 % (0.0-2.0); EOSINOPHIL # 0.1 TH/MM3 (0-0.4); EOSINOPHIL % 0.6 % (0.0-4.0); LYMPH % 5.9 % (9.0-44.0); LYMPHOCYTE # 1.2 TH/MM3 (1.0-4.8); MEAN CELL VOLUME 84.1 FL (80.0-100.0); MEAN CORPUSCULAR HEMOGLOBIN 27.8 PG (27.0-34.0); MEAN CORPUSCULAR HGB CONC 33.1 % (32.0-36.0); MEAN PLATELET VOLUME 7.4 FL (7.0-11.0); MONO % 7.4 % (0.0-8.0); MONOCYTE # 1.5 TH/MM3 (0-0.9); NEUT % 85.8 % (16.0-70.0); PLATELET COUNT 439 TH/MM3 (150-450); RED BLOOD COUNT 2.43 MIL/MM3 (4.00-5.30); WHITE BLOOD COUNT 20.8 TH/MM3 (4.0-11.0)
[2018-01-27 21:48] LABS: HEMATOCRIT 20.4 % (35.0-46.0); HEMOGLOBIN 6.7 GM/DL (11.6-15.3)
[2018-01-27 21:49] LABS: INTERNATIONAL NORMALIZED RATIO 1.2 RATIO; PROTHROMBIN TIME - PATIENT 12.2 SEC (9.8-11.6)
[2018-01-27 21:53] LABS: ALBUMIN 3.2 GM/DL (3.4-5.0); ALT (GPT) 16 U/L (10-53); AST (GOT) 13 U/L (15-37); BICARBONATE 21.3 MEQ/L (21.0-32.0); BLOOD UREA NITROGEN 43 MG/DL (7-18); CALCIUM 9.7 MG/DL (8.5-10.1); CHLORIDE 104 MEQ/L (98-107); CREATININE 2.29 MG/DL (0.50-1.00); GLOMERULAR FILTRATION RATE 21 ML/MIN (>89); GLUCOSE,RANDOM 87 MG/DL (74-106); SODIUM (NA) 137 MEQ/L (136-145)
[2018-01-27 21:56] LABS: ALKALINE PHOSPHATASE 156 U/L (45-117); TOTAL BILIRUBIN ADULT 0.6 MG/DL (0.2-1.0); TOTAL PROTEIN 7.1 GM/DL (6.4-8.2)
--- NOTE | 2018-01-27 22:37 | RADRPT ---
EXAM DATE/TIME: 01/27/2018 22:04 [facility] COMPARISON: No previous studies available for comparison. INDICATIONS : Abdomen pain; right lower quadrant. ORAL CONTRAST: No oral contrast ingested. RADIATION DOSE: 6.64 CTDIvol (mGy) MEDICAL HISTORY : Hypertension. SURGICAL HISTORY : None. ENCOUNTER: Initial ACUITY: 3 days PAIN SCALE: 5/10 LOCATION: Right lower quadrant TECHNIQUE: Volumetric scanning of the abdomen and pelvis was performed. Using automated exposure control and ad justment of the mA and/or kV according to patient size, radiation dose was kept as low as reasonably achievable to obtain optimal diagnostic quality images. DICOM format image data is available electro nically for review and comparison. FINDINGS: Minimal dependent atelectasis in the lungs. Calcified granulomata in the liver and spleen. Large calc ified gallstones. Adrenals unremarkable. Perinephric stranding around the kidneys without hydronephro sis. Pancreas unremarkable. There is an inflammatory process in the right midabdomen with an area of loculated air measuring abou t 3 cm in diameter which I suspect represents an abscess. This may represent a diverticular abscess. The appendix is not visualized but should be in the more distal colon. Uterus is slightly lobulated appearance. No significant free fluid. No acute bony abnormalities. CONCLUSION: 1. Inflammatory process in the right midabdomen which appears to correlate with a loop of large bowel near the hepatic flexure. This probably represents a diverticular abscess measuring up to 3 cm in di ameter. Cannot definitively identify the appendix. 2. No free air or significant free fluid. Numerous calcified gallstones. Trevon Dorantes MD on January 27, 2018 at 22:29 Board Certified Radiologist. This report was verified electronically.
[2018-01-27] MEDS ORDERED: PANTOPRAZOLE SODIUM 40 MG VIAL IV PUSH ONE (23:15)
[2018-01-27] MEDS ORDERED: AZTREONAM INJ 1,000 MG in SODIUM CHLORIDE 0.9% INJ 100 ML IV ONE (23:15)
[2018-01-27] MEDS ORDERED: VANCOMYCIN INJ 1,000 MG in SODIUM CHLOR 0.9% 250 ML INJ 250 ML IV ONE (23:15)
[2018-01-27] MEDS ORDERED: metroNIDAZOLE 500 MG INJ 100 ML IV ONE (23:15)
--- NOTE | 2018-01-27 23:25 | PD ---
Physical Exam Narrative General: The patient is a well-developed well-nourished female in no acute distress. Head and Neck exam: Head is normocephalic atraumatic. Eyes: EOMI, pupils are equal round and reactive to light. Nose: Midline septum with pink mucous membranes Mouth: Dentition unremarkable. Moist mucus membranes. Posterior oropharynx is not erythematous. No tonsillar hypertrophy. Uvula midline. Airway patent. Neck: No palpable lymphadenopathy. No nuchal rigidity. No thyromegaly. Cardiovascular: Sinus tachycardia in the 1 teens without murmurs, gallops, or rubs. No pulse deficit to the extremities on simultaneous auscultation and palpation of her radial artery. Lungs: Clear to auscultation bilaterally. No wheezes, rhonchi, or rales. Abdomen: Soft, with tenderness on palpation of the area around the umbilicus and right lower quadrant of the abdomen, no other tenderness on palpation of the other quadrants of the abdomen. No guarding, rebound, or rigidity. Normal bowel sounds are audible. Extremities: No clubbing, cyanosis, or edema. 2+ pulses in all 4 extremities. No calf tenderness on palpation. Neurologic Exam: Grossly nonfocal. Skin Exam: No rash noted. Intact skin that is warm and dry. Data Data Last Documented VS Vital Signs Date Time Temp Pulse Resp B/P (MAP) Pulse Ox O2 Delivery O2 Flow Rate FiO2 01/27/18 21:41 115 01/27/18 21:28 99 Room Air 01/27/18 21:16 20 01/27/18 20:38 97.5 Orders Orders Complete Blood Count With Diff (01/27/18 21:20) Comprehensive Metabolic Panel (01/27/18 21:20) Lipase (01/27/18 21:20) Lactic Acid (01/27/18 21:20) Prothrombin Time / Inr (Pt) (01/27/18 21:20) Act Partial Throm Time (Ptt) (01/27/18 21:20) Urinalysis - C+S If Indicated (01/27/18 21:20) Iv Access Insert/Monitor (01/27/18 21:20) Ecg Monitoring (01/27/18 21:20) Oximetry (01/27/18 21:20) Morphine Inj (Morphine Inj) (01/27/18 21:30) Ondansetron Inj (Zofran Inj) (01/27/18 21:30) Sodium Chlor 0.9% 1000 Ml Inj (Ns 1000 M (01/27/18 21:20) Sodium Chloride 0.9% Flush (Ns Flush) (01/27/18 21:30) Electrocardiogram (01/27/18 21:20) Type And Screen (01/27/18 21:48) Ct Abd/Pel W/O Iv Contrast (01/27/18 ) Admit Order (Ed Use Only) (01/27/18 23:03) Labs Laboratory Tests Test 01/27/18 21:25 White Blood Count 20.8 TH/MM3 Red Blood Count 2.43 MIL/MM3 Hemoglobin 6.7 GM/DL Hematocrit 20.4 % Mean Corpuscular Volume 84.1 FL Mean Corpuscular Hemoglobin 27.8 PG Mean Corpuscular Hemoglobin Concent 33.1 % Red Cell Distribution Width 17.0 % Platelet Count 439 TH/MM3 Mean Platelet Volume 7.4 FL Neutrophils (%) (Auto) 85.8 % Lymphocytes (%) (Auto) 5.9 % Monocytes (%) (Auto) 7.4 % Eosinophils (%) (Auto) 0.6 % Basophils (%) (Auto) 0.3 % Neutrophils # (Auto) 17.9 TH/MM3 Lymphocytes # (Auto) 1.2 TH/MM3 Monocytes # (Auto) 1.5 TH/MM3 Eosinophils # (Auto) 0.1 TH/MM3 Basophils # (Auto) 0.1 TH/MM3 CBC Comment DIFF FINAL Differential Comment Prothrombin Time 12.2 SEC Prothromb Time International Ratio 1.2 RATIO Activated Partial Thromboplast Time 39.9 SEC Blood Urea Nitrogen 43 MG/DL Creatinine 2.29 MG/DL Random Glucose 87 MG/DL Total Protein 7.1 GM/DL Albumin 3.2 GM/DL Calcium Level 9.7 MG/DL Alkaline Phosphatase 156 U/L Aspartate Amino Transf (AST/SGOT) 13 U/L Alanine Aminotransferase (ALT/SGPT) 16 U/L Total Bilirubin 0.6 MG/DL Sodium Level 137 MEQ/L Potassium Level 4.6 MEQ/L Chloride Level 104 MEQ/L Carbon Dioxide Level 21.3 MEQ/L Anion Gap 12 MEQ/L Estimat Glomerular Filtration Rate 21 ML/MIN Lactic Acid Level 2.0 mmol/L Lipase 484 U/L [facility] Medical Record Reviewed: Yes Supervised Visit with ASIA: Yes Narrative Course I, Dr. Rivera, have reviewed the advance practice practitioner's documentation and am in agreement, met with the patient face to face, made the diagnosis, and the medical decision making was done by me. The patient was initially evaluated by Carolyn, the physician animal assistant. Please see their complete history and physical. *My assessment and Findings: The patient presents with a history of reportedly not feeling well over the last month. She reports that on December 29 she underwent a cardiac ablation for atrial fibrillation. She is currently anticoagulated on Eliquis. She reports that she has been experiencing abdominal pains in the right head of the abdomen. She reports that she has had persistent elevated heart rate with a sinus tachycardia since her ablation. She reports that she has been experiencing shortness of breath with exertion recently. During the course of the patient's emergency department visit, the patient's history, examination, and differential diagnosis were reviewed with the patient. The patient was placed on a cardiac sonographer with oximetry and frequent blood pressure monitoring. The patient had IV access obtained and blood work sent for analysis. The patient was provided normal saline a 1 L IV fluid bolus, morphine for pain, Zofran for nausea, vancomycin 1 g IV, Azactam 2 g IV, Flagyl 500 mg IV were started for broad-spectrum antibiotic coverage. The patient's laboratory studies were reviewed and remarkable for 01/27/18 21:25 Total Protein 7.1, Albumin 3.2 L, Calcium Level 9.7, Alkaline Phosphatase 156 H , Aspartate Amino Transf (AST/SGOT) 13 L, Alanine Aminotransferase (ALT/SGPT) 16 , Total Bilirubin 0.6, lactic acid is 2, lipase 484. PT is 12.2, INR 1.2, PTT 39.9. Radiology studies were reviewed and remarkable for Last Impressions Abdomen/Pelvis CT 01/27/18 0000 Signed Impressions: Service Date/Time: Saturday, January 27, 2018 22:04 - CONCLUSION: 1. Inflammatory process in the right midabdomen which appears to correlate with a loop of large bowel near the hepatic flexure. This probably represents a diverticular abscess measuring up to 3 cm in diameter. Cannot definitively identify the appendix. 2. No free air or significant free fluid. Numerous calcified gallstones. Trevon Dorantes MD Diagnosis Primary Impression: Intra-abdominal abscess Additional Impressions: Symptomatic anemia Leukocytosis Qualified Codes: D72.829 - Elevated white blood cell count, unspecified Admitting Information Admitting Physician Requests: Admit Connie Rivera MD January 27, 2018 23:24
[2018-01-27 23:44] VITALS: BP 127/74; PULSE 108; RESP 18; O2SAT 98
[2018-01-27] MEDS ORDERED: SODIUM CHLOR 0.9% 250 ML INJ 250 ML IV ONE (23:45)
[2018-01-28] VITALS (10 sets, daily range): BP systolic 96–116; BP diastolic 65–83; PULSE 101–121; RESP 16–18; TEMP 97.4–98.2; O2SAT 96–100
[2018-01-28] MEDS ORDERED: SODIUM CHLOR 0.9% 1000 ML INJ 1,000 ML IV SCH (00:19)
[2018-01-28] MEDS ORDERED: SODIUM CHLORIDE 0.9% FLUSH 10 ML FLUSH IV FLUSH PRN (00:30)
[2018-01-28] MEDS ORDERED: ONDANSETRON HCL 4 MG/2 ML VIAL IV PUSH PRN ×2 (00:30→16:15)
[2018-01-28] MEDS ORDERED: MORPHINE SULFATE 4 MG/ML INJ IV PUSH PRN (00:45)
[2018-01-28] MEDS ORDERED: SODIUM CHLOR 0.9% 250 ML INJ 250 ML IV ONE (01:15)
--- NOTE | 2018-01-28 01:47 | HHI.HP ---
[facility] Service [facility] Primary Care Physician Unknown Admission Diagnosis Diverticular abscess, GI bleed, anemia Diagnoses: Travel History International Travel<30 Days: No Contact w/Intl Traveler <30 Da: No Traveled to Known Affected Are: No History of Present Illness 68-year-old female with a past medical history significant for atrial fibrillation anticoagulated on Eliquis status post ablation on 12/29/17, hypertension, hyperlipidemia and gout presents the emergency department for the evaluation of right lower quadrant abdominal pain. The patient reports that the pain started yesterday. She denies any fever/chills. No nausea/vomiting/ diarrhea. She endorses shortness of breath on exertion which is at her baseline. Denies any chest pain. Positive weakness. No lateralizing signs/ symptoms. Review of Systems Except as stated in HPI: all other systems reviewed are Neg Past Family Social History Past Medical History Atrial fibrillation anticoagulated on Eliquis status post ablation on 12/29/17 Hypertension Hyperlipidemia Gout Past Surgical History Ablation as above Right ankle surgery Reported Medications Reported Meds & Active Scripts Active Amiodarone (Amiodarone HCl) 200 Mg Tab 200 Mg PO DAILY 30 Days Amiodarone (Amiodarone HCl) 200 Mg Tab 400 Mg PO BID Eliquis (Apixaban) 5 Mg Tab 5 Mg PO BID Reported Naproxen 250 Mg Tab 250 Mg PO BID Lisinopril 40 Mg Tab 40 Mg PO DAILY Atorvastatin (Atorvastatin Calcium) 40 Mg Tab 40 Mg PO HS Hydralazine (Hydralazine HCl) 100 Mg Tab 25 Mg PO BID Take with meals Allopurinol 100 Mg Tab 100 Mg PO DAILY Allergies: Coded Allergies: Penicillins (Verified Allergy, Unknown, 01/27/18) Pt gets yeast infections with this medication Family History Mother with coronary artery disease Social History Negative for alcohol, tobacco and illicit drugs. Physical Exam Vital Signs Vital Signs Date Time Temp Pulse Resp B/P (MAP) Pulse Ox O2 Delivery O2 Flow Rate FiO2 01/28/18 01:05 01/27/18 23:44 108 18 127/74 (91) 98 Room Air 01/27/18 21:41 115 01/27/18 21:28 99 Room Air 01/27/18 21:16 120 20 116/69 (85) 100 Room Air 01/27/18 20:38 97.5 121 18 103/67 (79) 99 Physical Exam GENERAL: female lying in bed SKIN: No rashes, ecchymoses or lesions. Cool and dry. HEAD: Atraumatic. Normocephalic. No temporal or scalp tenderness. EYES: Pupils equal round and reactive. Extraocular motions intact. No scleral icterus. No injection or drainage. ENT: Nose without bleeding, purulent drainage or septal hematoma. Throat without erythema, tonsillar hypertrophy or exudate. Uvula midline. Airway patent. NECK: Trachea midline. No JVD or lymphadenopathy. Supple, nontender, no meningeal signs. CARDIOVASCULAR: Regular rate and rhythm without murmurs, gallops, or rubs. RESPIRATORY: Clear to auscultation. Breath sounds equal bilaterally. No wheezes , rales, or rhonchi. GASTROINTESTINAL: Abdomen soft, nondistended. Extreme tenderness in the right lower quadrant. MUSCULOSKELETAL: Extremities without clubbing, cyanosis, or edema. No joint tenderness, effusion, or edema noted. No calf tenderness. NEUROLOGICAL: Awake and alert. Cranial nerves II through XII intact. Motor and sensory grossly within normal limits. Normal speech. Laboratory Laboratory Tests Test 01/27/18 21:25 White Blood Count 20.8 Red Blood Count 2.43 Hemoglobin 6.7 Hematocrit 20.4 Mean Corpuscular Volume 84.1 Mean Corpuscular Hemoglobin 27.8 Mean Corpuscular Hemoglobin Concent 33.1 Red Cell Distribution Width 17.0 Platelet Count 439 Mean Platelet Volume 7.4 Neutrophils (%) (Auto) 85.8 Lymphocytes (%) (Auto) 5.9 Monocytes (%) (Auto) 7.4 Eosinophils (%) (Auto) 0.6 Basophils (%) (Auto) 0.3 Neutrophils # (Auto) 17.9 Lymphocytes # (Auto) 1.2 Monocytes # (Auto) 1.5 Eosinophils # (Auto) 0.1 Basophils # (Auto) 0.1 CBC Comment DIFF FINAL Differential Comment Prothrombin Time 12.2 Prothromb Time International Ratio 1.2 Activated Partial Thromboplast Time 39.9 Blood Urea Nitrogen 43 Creatinine 2.29 Random Glucose 87 Total Protein 7.1 Albumin 3.2 Calcium Level 9.7 Alkaline Phosphatase 156 Aspartate Amino Transf (AST/SGOT) 13 Alanine Aminotransferase (ALT/SGPT) 16 Total Bilirubin 0.6 Sodium Level 137 Potassium Level 4.6 Chloride Level 104 Carbon Dioxide Level 21.3 Anion Gap 12 Estimat Glomerular Filtration Rate 21 Lactic Acid Level 2.0 Lipase 484 Result Diagram: 01/27/18212401/27/182124 Caprini VTE Risk Assessment Caprini VTE Risk Assessment: Mod/High Risk (score >= 2) Caprini Risk Assessment Model Point Value = 1 Point Value = 2 Point Value = 3 Point Value = 5 Age 41-60 Minor surgery BMI > 25 kg/m2 Swollen legs Varicose veins or History of unexplained or recurrent spontaneous Oral contraceptives or hormone replacement Sepsis (< 1 month) Serious lung disease, including pneumonia (< 1 month) Abnormal pulmonary function Acute myocardial infarction Congestive heart failure (< 1 month) History of inflammatory bowel disease Medical patient at bed rest Age 61-74 Arthroscopic surgery Major open surgery (> 45 min) Laparoscopic surgery (> 45 min) Malignancy Confined to bed (> 72 hours) Immobilizing plaster cast Central venous access Age >= 75 History of VTE Family history of VTE Factor V Leiden Prothrombin [id number] Lupus anticoagulant Anticardiolipin antibodies Elevated serum homocysteine Heparin-induced thrombocytopenia Other congenital or acquired thrombophilia Stroke (< 1 month) Elective arthroplasty Hip, pelvis, or leg fracture Acute spinal cord injury (< 1 month) Prophylaxis Regimen Total Risk Factor Score Risk Level Prophylaxis Regimen 0-1 Low Early ambulation 2 Moderate Order ONE of the following: *Sequential Compression Device (SCD) *Heparin 5000 units SQ BID 3-4 Higher Order ONE of the following medications: *Heparin 5000 units SQ TID *Enoxaparin/Lovenox 40 mg SQ daily (WT < 150 kg, CrCl > 30 mL/min) *Enoxaparin/Lovenox 30 mg SQ daily (WT < 150 kg, CrCl > 10-29 mL/min) *Enoxaparin/Lovenox 30 mg SQ BID (WT < 150 kg, CrCl > 30 mL/min) AND/OR *Sequential Compression Device (SCD) 5 or more Highest Order ONE of the following medications: *Heparin 5000 units SQ TID (Preferred with Epidurals) *Enoxaparin/Lovenox 40 mg SQ daily (WT < 150 kg, CrCl > 30 mL/min) *Enoxaparin/Lovenox 30 mg SQ daily (WT < 150 kg, CrCl > 10-29 mL/min) *Enoxaparin/Lovenox 30 mg SQ BID (WT < 150 kg, CrCl > 30 mL/min) AND *Sequential Compression Device (SCD) Assessment and Plan Assessment and Plan Assessment/plan: 1. Symptomatic anemia/GI bleed/abdominal pain Patient's hemoglobin 6.7 Hemoccult positive in the ED CT of the abdomen/pelvis shows diverticular abscess without definitive identification of the appendix -concern for abscess versus appendicitis. General surgery consulted, appreciate recommendations Morphine for pain Aztreonam/Flagyl as patient allergic to penicillin Transfuse 2 units packed red blood cells Monitor H&H Transfuse as needed 2. Acute kidney injury BUN/creatinine 43/2.29, baseline 1.0 CT of the abdomen/pelvis showed perinephric stranding without hydronephrosis IV fluid hydration Monitor renal function If renal function does not improve, will consult nephrology 3. UTI UA consistent with urinary tract infection Urine culture pending Antibiotics as above 4. Atrial fibrillation Holding Eliquis secondary to lower GI bleed and symptomatic anemia Continue amiodarone 5. Hypertension/hyperlipidemia Continue home medications FEN Diet: N.p.o. NS at 84 cc/hour Electrolytes: Monitor and replete as needed Holding pharmacologic anticoagulation secondary to GI bleed Physician Certification 2 Midnight Certification Type: Admission for Inpatient Services Order for Inpatient Services The services are ordered in accordance with Medicare regulations or non- Medicare payer requirements, as applicable. In the case of services not specified as inpatient-only, they are appropriately provided as inpatient services in accordance with the 2-midnight benchmark. Estimated LOS (days): 2 2 days is the estimated time the patient will need to remain in the hospital, assuming treatment plan goals are met and no additional complications. Post-Hospital Plan: Not yet determined Yanet Mcmahan MD January 28, 2018 01:47
[2018-01-28] MEDS: SODIUM CHLOR 0.9% 1000 ML INJ 1,000 ML IV SCH ×3 (03:25→22:14)
[2018-01-28] MEDS: metroNIDAZOLE 500 MG INJ 100 ML IV SCH ×2 (08:00→16:19)
[2018-01-28] MEDS: SODIUM CHLORIDE 0.9% FLUSH 10 ML FLUSH IV FLUSH SCH ×2 (08:02→22:13)
[2018-01-28] MEDS: PANTOPRAZOLE SODIUM 40 MG VIAL IV PUSH SCH (08:02)
[2018-01-28] MEDS: AMIODARONE 200 MG TAB PO SCH (08:03)
[2018-01-28] MEDS ORDERED: METO1TAB42 PO (08:19)
[2018-01-28] MEDS ORDERED: CIPROFLOXACIN 400 MG PREMIX 200 ML IV SCH (09:00)
[2018-01-28] MEDS ORDERED: AZTREONAM INJ 1,000 MG in SODIUM CHLORIDE 0.9% INJ 100 ML IV SCH (09:00)
--- NOTE | 2018-01-28 09:55 | EKG ---
Date Performed: 01/27/2018 Time Performed: 21:24:38 PTAGE: 68 years EKG: ATRIAL FLUTTER/TACHYCARDIA WITH RAPID VENTRICULAR RESPONSE ABNORMAL RHYTHM ECG PREVIOUS TRACING 12/30/17 Patient is no longer in Sinus rhythm compared to the prior tracing. DOCTOR: Kg Rivera Interpretating Date/Time 01/28/2018 09:53:42
--- NOTE | 2018-01-28 10:00 | MB ---
cc: Fabiano Carvajal MD DATE: 01/28/2018 REASON FOR CONSULTATION: Abdominal pain with diverticulitis. HISTORY OF PRESENT ILLNESS: Ms. Nicole is a very pleasant 68-year-old female who reports a 3-day history of right lower quadrant abdominal pain. She states the pain began gradually, has mainly been on the right side of her abdomen. She denies any fever or chills associated with the pain. She denies any nausea or vomiting. She denies any recent change in bowel habits. She states she has never had a colonoscopy. The pain was made worse by movement. She states that since she has been admitted the pain has completely resolved. On my exam this morning, she denied any abdominal pain. The patient does have chronic shortness of breath. She recently underwent a cardiac ablation. She states since the ablation, she has had a high heart rate. She came into the Emergency Department where she was seen, evaluated and admitted for observation. She had a CT scan of the abdomen and pelvis that showed diverticulitis at the hepatic flexure without free air or free perforation. She denies any previous episodes of diverticulitis. PAST MEDICAL HISTORY: Atrial fibrillation, hypertension, gout, hyperlipidemia. PAST SURGICAL HISTORY: She recently had a cardiac ablation by Dr. Abebe. She also had some orthopedic surgery on her right ankle. MEDICATIONS: List is extensive. Please see the chart. ALLERGIES: PENICILLIN which causes her to get a yeast infection. She denies any hives, itching or shortness of breath with penicillin. FAMILY HISTORY: Unremarkable. SOCIAL HISTORY: She does not smoke or drink. She lives here locally. REVIEW OF SYSTEMS: Please see HPI. PHYSICAL EXAMINATION: VITAL SIGNS: Temperature is 97, pulse is 112, blood pressure is 116/73. GENERAL: This is a pleasant, elderly female sitting in her bed in the H-pod watching TV. She was examined with nurse and Daphne can [address] [employer] present. HEENT: Sclerae are white. Oropharynx is clear and moist. NECK: Supple. No masses. LUNGS: Clear to auscultation bilaterally. HEART: S1, S2, tachycardic. ABDOMEN: Soft. Really no tenderness on exam. No rebound or guarding. No abdominal masses. She did have some mild tenderness with deep palpation in the right middle quadrant. No obvious incisions. There appears to be what looks like a small incision under her umbilicus, but she states she has never had any kind of laparoscopy done or umbilical hernia repair was done. Bowel sounds are active. EXTREMITIES: Free range of motion x4. NEUROLOGIC: She is alert and oriented x3. LABORATORY DATA: White blood cell count is 20, hemoglobin 6.7, platelet count is 439. Electrolytes all within normal limits, except for an elevated creatinine at 2.29 with a GFR of 21. Alkaline phosphatase elevated at 156, lipase elevated at 484. IMAGING STUDIES: CT scan of the abdomen and pelvis was reviewed with Dr. Casey Gregory in the radiology department. The patient has some inflammatory change of the proximal transverse colon at the hepatic flexure. This appears to be a diverticulum with some stool in it. There appears to be no free air and no free fluid, no obvious abscess. The appendix is not seen, but the cecum is well seen and there is no inflammatory change around the cecum. IMPRESSION: Probable diverticulitis, hepatic flexure, transverse colon. PLAN: At this point I would recommend medical management. The patient is currently on IV antibiotics, which I believe could be transitioned into oral antibiotics in the next few days. The patient would likely benefit from a GI evaluation at some point. Her anemia may be secondary to diverticulitis as well. However, she has never had a colonoscopy and this needs to be formally evaluated to make sure she does not have any bleeding polyp or tumor. We will follow the patient's clinical course. Hopefully, she will improve with antibiotic therapy and they can followup with GI for a formal evaluation of her colon. MD ANTONIO Barrientos/NURY , 09:40 AM , 09:59 AM
--- NOTE | 2018-01-28 10:07 | PD.CONS ---
HPI History of Present Illness This is a 68 year old female with hx AF s/p ablation 12/29/17 on eliquis who presented to ER for right side abd pain. Onset 2 days ago. THe pain is constant, RLQ is tender to touch. She has not noticed any black tarry stool or jhoana rectal bleeding but in ER stool was quiac positive. Admits constipation recently. She has lost 30 lbs in the last 6 months, has had decreased appetite. Denies n/v, diarrhea, fever. Never had EGD or colonoscopy. (Gayle Rowell) PFSH Past Medical History Atrial fibrillation anticoagulated on Eliquis status post ablation on 12/29/17 Hypertension Hyperlipidemia Gout Past Surgical History Ablation as above Right ankle surgery (Gayle Rowell) Coded Allergies: Penicillins (Verified Allergy, Unknown, 01/27/18) Pt gets yeast infections with this medication Family History Mother with coronary artery disease Social History Negative for alcohol, tobacco and illicit drugs. (Gayle Rowell) Review of Systems Constitutional: DENIES: Fever Endocrine: DENIES: Polydipsia Eyes: DENIES: Blurred vision Ears, nose, mouth, throat: DENIES: Hearing loss Respiratory: DENIES: Cough Cardiovascular: DENIES: Chest pain Gastrointestinal: COMPLAINS OF: Abdominal pain, Constipation, DENIES: Black stools, Bloody stools, Diarrhea, Nausea, Vomiting Genitourinary: DENIES: Urinary incontinence Musculoskeletal: DENIES: Muscle aches Integumentary: DENIES: Abnormal pigmentation Hematologic/lymphatic: COMPLAINS OF: Bruising Immunologic/allergic: DENIES: Eczema Neurologic: DENIES: Abnormal gait Psychiatric: DENIES: Anxiety (Gayle Rowell) GI Exam Vitals I&O Vital Signs Date Time Temp Pulse Resp B/P (MAP) Pulse Ox O2 Delivery O2 Flow Rate FiO2 01/28/18 08:44 118 17 116/83 100 01/28/18 08:26 97.4 119 17 109/79 99 01/28/18 08:15 98.2 117 16 116/73 (87) 99 01/28/18 05:20 98.1 112 18 96/67 (77) 99 01/28/18 04:28 97.9 111 16 108/65 97 01/28/18 04:12 98.0 115 16 105/69 99 01/28/18 01:05 01/27/18 23:44 108 18 127/74 (91) 98 Room Air 01/27/18 21:41 115 01/27/18 21:28 99 Room Air 01/27/18 21:16 120 20 116/69 (85) 100 Room Air 01/27/18 20:38 97.5 121 18 103/67 (79) 99 I/O 01/27/18 01/27/18 01/27/18 01/28/18 01/28/18 01/28/18 07:00 15:00 23:00 07:00 15:00 23:00 Intake Total 2000 ml 765 ml 10 ml Balance 2000 ml 765 ml 10 ml Intake IV Total 2000 ml 100 ml Packed Cells 400 ml Blood Product IV Normal Saline Flush 265 ml 10 ml Imaging Last Impressions Abdomen/Pelvis CT 01/27/18 0000 Signed Impressions: Service Date/Time: Saturday, January 27, 2018 22:04 - CONCLUSION: 1. Inflammatory process in the right midabdomen which appears to correlate with a loop of large bowel near the hepatic flexure. This probably represents a diverticular abscess measuring up to 3 cm in diameter. Cannot definitively identify the appendix. 2. No free air or significant free fluid. Numerous calcified gallstones. Trevon Dorantes MD Laboratory Test 01/27/18 21:25 White Blood Count 20.8 TH/MM3 Red Blood Count 2.43 MIL/MM3 Hemoglobin 6.7 GM/DL Hematocrit 20.4 % Mean Corpuscular Volume 84.1 FL Mean Corpuscular Hemoglobin 27.8 PG Mean Corpuscular Hemoglobin Concent 33.1 % Red Cell Distribution Width 17.0 % Platelet Count 439 TH/MM3 Mean Platelet Volume 7.4 FL Neutrophils (%) (Auto) 85.8 % Lymphocytes (%) (Auto) 5.9 % Monocytes (%) (Auto) 7.4 % Eosinophils (%) (Auto) 0.6 % Basophils (%) (Auto) 0.3 % Neutrophils # (Auto) 17.9 TH/MM3 Lymphocytes # (Auto) 1.2 TH/MM3 Monocytes # (Auto) 1.5 TH/MM3 Eosinophils # (Auto) 0.1 TH/MM3 Basophils # (Auto) 0.1 TH/MM3 CBC Comment DIFF FINAL Differential Comment Prothrombin Time 12.2 SEC Prothromb Time International Ratio 1.2 RATIO Activated Partial Thromboplast Time 39.9 SEC Blood Urea Nitrogen 43 MG/DL Creatinine 2.29 MG/DL Random Glucose 87 MG/DL Total Protein 7.1 GM/DL Albumin 3.2 GM/DL Calcium Level 9.7 MG/DL Alkaline Phosphatase 156 U/L Aspartate Amino Transf (AST/SGOT) 13 U/L Alanine Aminotransferase (ALT/SGPT) 16 U/L Total Bilirubin 0.6 MG/DL Sodium Level 137 MEQ/L Potassium Level 4.6 MEQ/L Chloride Level 104 MEQ/L Carbon Dioxide Level 21.3 MEQ/L Anion Gap 12 MEQ/L Estimat Glomerular Filtration Rate 21 ML/MIN Lactic Acid Level 2.0 mmol/L Lipase 484 U/L Physical Examination HEENT: PERRL; normocephalic; atraumatic; CHEST: CTA CARDIAC: tachy ABDOMEN: Soft, nondistended, RLQ TTP; no hepatosplenomegaly; bowel sounds are present in all four quadrants. EXTREMITIES: No clubbing, cyanosis, or edema. SKIN: pale; no rash; no jaundice. ORGANIZATION DEVELOPMENT CONSULTANT: No focal deficits; alert and oriented times three. (Gayle Rowell) Assessment and Plan Plan ASSESSMENT - anemia - hgb 6.7 on presentation, no obvious bleeding. stool guiac pos. never had EGD or colonoscopy. takes eliquis - RLQ pain, abnormal imaging - CT showing possible diverticular abscess. GS consulted, no surgical intervention at this time. - leukocytosis - likely 2/2 diverticulitis. on abx PLAN - EGD today - obtain consent - keep NPO - hold eliquis - colonoscopy 4-6 weeks - monitor labs - notify GI of active bleed - further recs to follow pt seen by myself and Dr Marin and this note is on his behalf (Gayle Rowell) Plan Patient was seen and examined, agree with above note, I am not going to do a colonoscopy at this point because of the risk of perforation with this abscess, in order to evaluate for anemia we will plan on doing upper endoscopy to see if there is any upper GI source, continue antibiotic, patient may need drainage of the abscess if radiology feels that it is doable (Emre Marin MD) Gayle Rowell January 28, 2018 10:07 Emre Marin MD January 28, 2018 14:22
[2018-01-28] MEDS: LISINOPRIL 20 MG TAB PO SCH (11:21)
[2018-01-28] MEDS: hydrALAZINE HCL 25 MG TAB PO SCH ×2 (11:22→22:13)
[2018-01-28] MEDS ORDERED: PROPOFOL 200 MG/20 ML AMP IV ONE (12:00)
[2018-01-28] MEDS ORDERED: METOPROLOL TARTRATE 5 MG/5 ML VIAL IV ONE (12:00)
[2018-01-28] MEDS ORDERED: PHENYLEPH/NS 1000 MCG/10 ML SYR IV ONE (12:00)
[2018-01-28] MEDS ORDERED: LIDOCAINE HCL 1% PF 5 ML SYRINGE OTHER ONE (12:00)
--- NOTE | 2018-01-28 14:35 | PD.PROCEDR ---
GI Procedure PROCEDURE PERFORMED Upper endoscopy INDICATION FOR PROCEDURE Anemia PROCEDURE: The procedure, risks and benefits were discussed with Ms. Nicole and informed consent was obtained. Anesthesia sedated her with Diprivan. She was placed in the left lateral decubitus position. EGD: The Pentax videoscope was introduced through the oropharynx and advanced to the second portion of the duodenum under direct visualization. Retroflexion was performed in the stomach. ESTIMATED BLOOD LOSS: None SPECIMENS REMOVED: None, patient on Eliquis COMPLICATIONS: None IMPRESSION: Moderate gastritis, no sign of active bleeding Normal otherwise PLAN: Packed RBC as needed Stool for H. pylori No NSAIDs Colonoscopy in few weeks Clear liquid diet Emre Marin MD January 28, 2018 14:35
[2018-01-28] MEDS ORDERED: ACETAMINOPHEN 325 MG TAB PO PRN (16:15)
[2018-01-28] MEDS ORDERED: TEMAZEPAM 15 MG CAP PO PRN (16:15)
[2018-01-28] MEDS ORDERED: MAGNESIUM HYDROXIDE SUSP 30 ML CUP PO PRN (16:15)
--- NOTE | 2018-01-28 16:21 | HHI.PR ---
Subjective Remarks Follow up symptomatic anemia/Diverticular abscess? 01/28/18-patient seen and examined, she is s/p EGD and currently denies any abdominal pain Objective Vitals Vital Signs Date Time Temp Pulse Resp B/P (MAP) Pulse Ox O2 Delivery O2 Flow Rate FiO2 01/28/18 15:39 98.2 120 18 107/71 (83) 96 01/28/18 11:50 97.9 121 18 110/72 (85) 96 01/28/18 11:18 97.8 119 18 112/77 99 01/28/18 08:44 118 17 116/83 100 01/28/18 08:26 97.4 119 17 109/79 99 01/28/18 08:15 98.2 117 16 116/73 (87) 99 01/28/18 05:20 98.1 112 18 96/67 (77) 99 01/28/18 04:28 97.9 111 16 108/65 97 01/28/18 04:12 98.0 115 16 105/69 99 01/28/18 01:05 01/27/18 23:44 108 18 127/74 (91) 98 Room Air 01/27/18 21:41 115 01/27/18 21:28 99 Room Air 01/27/18 21:16 120 20 116/69 (85) 100 Room Air 01/27/18 20:38 97.5 121 18 103/67 (79) 99 I/O 01/27/18 01/27/18 01/27/18 01/28/18 01/28/18 01/28/18 07:00 15:00 23:00 07:00 15:00 23:00 Intake Total 2000 ml 765 ml 820 ml Balance 2000 ml 765 ml 820 ml Intake IV Total 2000 ml 100 ml Packed Cells 400 ml 400 ml Blood Product IV Normal Saline Flush 265 ml 20 ml Other 400 ml Result Diagram: 01/27/18212401/27/182124 Imaging Last Impressions Abdomen/Pelvis CT 01/27/18 0000 Signed Impressions: Service Date/Time: Saturday, January 27, 2018 22:04 - CONCLUSION: 1. Inflammatory process in the right midabdomen which appears to correlate with a loop of large bowel near the hepatic flexure. This probably represents a diverticular abscess measuring up to 3 cm in diameter. Cannot definitively identify the appendix. 2. No free air or significant free fluid. Numerous calcified gallstones. Trevon Dorantes MD Objective Remarks GENERAL: NAD SKIN: Warm and dry. HEAD: Normocephalic. EYES: No scleral icterus. No injection or drainage. NECK: Supple, trachea midline. No JVD or lymphadenopathy. CARDIOVASCULAR: Regular rate and rhythm without murmurs, gallops, or rubs. RESPIRATORY: Breath sounds equal bilaterally. No accessory muscle use. GASTROINTESTINAL: Abdomen soft, mildly tender, nondistended. +BS MUSCULOSKELETAL: No cyanosis, or edema. BACK: Nontender without obvious deformity. No CVA tenderness. A/P Problem List: (1) Symptomatic anemia ICD Code: D64.9 - Anemia, unspecified Status: Acute (2) Intra-abdominal abscess ICD Code: K65.1 - Peritoneal abscess Status: Acute (3) Atrial fibrillation ICD Code: I48.91 - Unspecified atrial fibrillation Assessment and Plan 68 years old female with 1. Symptomatic anemia/GI bleed/abdominal pain CT of the abdomen/pelvis shows diverticular abscess without definitive identification of the appendix -concern for abscess versus appendicitis. General surgery consulted, appreciate recommendations Morphine for pain Aztreonam/Cipro/Flagyl as patient allergic to penicillin...D/C Aztreonam Transfused 2 units packed red blood cells Monitor H&H s/p EGD and report noted pending Biopsy Appreciate input of GI and general surgery 2. Acute on CKD stage III Prerenal CT of the abdomen/pelvis showed perinephric stranding without hydronephrosis IV fluid hydration Monitor renal function If renal function does not improve, Nephrology consult and renal US PRN 3. UTI UA consistent with urinary tract infection Urine culture pending Antibiotics as above 4. Atrial fibrillation Holding Eliquis secondary to lower GI bleed and symptomatic anemia Continue amiodarone 5. Hypertension/hyperlipidemia Continue home medications Marcos Dinh MD January 28, 2018 16:21
[2018-01-28 20:49] LABS: HEMATOCRIT 29.5 % (35.0-46.0); HEMOGLOBIN 9.7 GM/DL (11.6-15.3)
[2018-01-28] MEDS: ATORVASTATIN 40 MG TAB PO SCH (22:13)
[2018-01-28] MEDS: CIPROFLOXACIN 400 MG PREMIX 200 ML IV SCH (22:14)
[2018-01-29] VITALS (7 sets, daily range): BP systolic 99–146; BP diastolic 63–91; PULSE 113–127; RESP 17–18; TEMP 97.5–98.8; O2SAT 95–99
[2018-01-29] MEDS: metroNIDAZOLE 500 MG INJ 100 ML IV SCH ×3 (00:51→16:52)
[2018-01-29] MEDS: PANTOPRAZOLE SODIUM 40 MG VIAL IV PUSH SCH (09:00)
[2018-01-29] MEDS: SODIUM CHLORIDE 0.9% FLUSH 10 ML FLUSH IV FLUSH SCH ×2 (09:00→22:07)
--- NOTE | 2018-01-29 09:41 | HHI.GIFU ---
Subjective Remarks Pt resting in bed in NAD. at bedside. She says her pain seems more diffuse today. Is very tender in RLQ. tolerating clears. (Gayle Rowell) Objective Vitals I&O Vital Signs Date Time Temp Pulse Resp B/P (MAP) Pulse Ox O2 Delivery O2 Flow Rate FiO2 01/29/18 08:00 97.8 125 18 114/73 (87) 98 01/29/18 06:02 97.5 122 17 101/66 (78) 97 01/29/18 01:04 97.9 113 18 116/75 (89) 97 01/28/18 22:29 98.2 101 16 109/77 (88) 96 01/28/18 15:39 98.2 120 18 107/71 (83) 96 01/28/18 11:50 97.9 121 18 110/72 (85) 96 01/28/18 11:18 97.8 119 18 112/77 99 I/O 01/28/18 01/28/18 01/28/18 01/29/18 01/29/18 01/29/18 07:00 15:00 23:00 07:00 15:00 23:00 Intake Total 765 ml 820 ml Balance 765 ml 820 ml Intake IV Total 100 ml Packed Cells 400 ml 400 ml Blood Product IV Normal Saline Flush 265 ml 20 ml Other 400 ml # Voids 1 1 Laboratory Laboratory Tests Test 01/28/18 20:24 01/29/18 07:20 01/29/18 08:26 Hemoglobin 9.7 Hematocrit 29.5 Imaging Last Impressions Abdomen/Pelvis CT 01/27/18 0000 Signed Impressions: Service Date/Time: Saturday, January 27, 2018 22:04 - CONCLUSION: 1. Inflammatory process in the right midabdomen which appears to correlate with a loop of large bowel near the hepatic flexure. This probably represents a diverticular abscess measuring up to 3 cm in diameter. Cannot definitively identify the appendix. 2. No free air or significant free fluid. Numerous calcified gallstones. Trevon Dorantes MD Physical Exam HEENT: PERRL; normocephalic; atraumatic; no jaundice. CHEST: CTA CARDIAC: irr HR ABDOMEN: Soft, nondistended, RLQ TTP; no hepatosplenomegaly; bowel sounds are present in all four quadrants. EXTREMITIES: No clubbing, cyanosis, or edema. SKIN: Normal; no rash; no jaundice. FEDERAL JAVA DEVELOPER: No focal deficits; alert and oriented times three. (Gayle Rowell) Assessment and Plan Plan ASSESSMENT - anemia - hgb 6.7 on presentation, no obvious bleeding. stool guiac pos. never had EGD or colonoscopy. takes eliquis - RLQ pain, abnormal imaging - CT showing possible diverticular abscess. GS consulted, no surgical intervention at this time. - leukocytosis - likely 2/2 diverticulitis. on abx 01/29/18 still with RLQ pain. tolerating clears. s/p EGD found gastritis. no bx done b/c pt had been on eliquis. CBC today is pending. if WBC going up, consider IR consult for drainage. medical mgmt per . PLAN - await CBC - stool h pylori - colonoscopy 4-6 weeks - monitor labs - notify GI of active bleed - continue cipro and flagyl pt seen by myself and Dr Marin and this note is on his behalf (Gayle Rowell) Plan Patient was seen and examined, agree with above note we will monitor labs and check stool for H. pylori if hemoglobin stable, patient may go home tomorrow (Emre Marin MD) Gayle Rowell January 29, 2018 09:41 Erme Marin MD January 29, 2018 20:04
[2018-01-29 09:44] LABS: AUTOMATED NEUTROPHIL # 12.6 TH/MM3 (1.8-7.7); BASOPHIL % 0.3 % (0.0-2.0); EOSINOPHIL # 0.2 TH/MM3 (0-0.4); EOSINOPHIL % 1.5 % (0.0-4.0); HEMATOCRIT 26.1 % (35.0-46.0); HEMOGLOBIN 8.6 GM/DL (11.6-15.3); LYMPH % 4.5 % (9.0-44.0); LYMPHOCYTE # 0.7 TH/MM3 (1.0-4.8); MEAN CELL VOLUME 82.9 FL (80.0-100.0); MEAN CORPUSCULAR HEMOGLOBIN 27.1 PG (27.0-34.0); MEAN CORPUSCULAR HGB CONC 32.7 % (32.0-36.0); MEAN PLATELET VOLUME 7.6 FL (7.0-11.0); MONO % 6.6 % (0.0-8.0); NEUT % 87.1 % (16.0-70.0); PLATELET COUNT 301 TH/MM3 (150-450); RED BLOOD COUNT 3.15 MIL/MM3 (4.00-5.30); RED CELL DISTRIBUTION WIDTH 16.2 % (11.6-17.2); WHITE BLOOD COUNT 14.5 TH/MM3 (4.0-11.0)
[2018-01-29] MEDS: AMIODARONE 200 MG TAB PO SCH (10:04)
[2018-01-29] MEDS: LISINOPRIL 20 MG TAB PO SCH (10:04)
[2018-01-29] MEDS: hydrALAZINE HCL 25 MG TAB PO SCH ×2 (10:04→22:07)
[2018-01-29] MEDS: CIPROFLOXACIN 400 MG PREMIX 200 ML IV SCH ×2 (10:05→22:06)
[2018-01-29 10:23] LABS: BICARBONATE 19.8 MEQ/L (21.0-32.0); CALCIUM 8.6 MG/DL (8.5-10.1); CREATININE 1.5 MG/DL (0.50-1.00)
--- NOTE | 2018-01-29 14:06 | HHI.PR ---
cc: Fabiano Carvajal MD Subjective Subjective Notes Resting in bed Improvement in RLQ tenderness Objective Vitals/I&O Vital Signs Date Time Temp Pulse Resp B/P (MAP) Pulse Ox O2 Delivery O2 Flow Rate FiO2 01/29/18 12:00 98.1 114 18 99/63 (75) 98 01/27/18 23:44 Room Air Labs Laboratory Tests Test 01/28/18 20:24 01/29/18 07:20 01/29/18 08:26 Hemoglobin 9.7 8.6 Hematocrit 29.5 26.1 White Blood Count 14.5 Red Blood Count 3.15 Mean Corpuscular Volume 82.9 Mean Corpuscular Hemoglobin 27.1 Mean Corpuscular Hemoglobin Concent 32.7 Red Cell Distribution Width 16.2 Platelet Count 301 Mean Platelet Volume 7.6 Neutrophils (%) (Auto) 87.1 Lymphocytes (%) (Auto) 4.5 Monocytes (%) (Auto) 6.6 Eosinophils (%) (Auto) 1.5 Basophils (%) (Auto) 0.3 Neutrophils # (Auto) 12.6 Lymphocytes # (Auto) 0.7 Monocytes # (Auto) 1.0 Eosinophils # (Auto) 0.2 Basophils # (Auto) 0.0 CBC Comment DIFF FINAL Differential Comment Blood Urea Nitrogen 26 Creatinine 1.50 Random Glucose 60 Calcium Level 8.6 Sodium Level 142 Potassium Level 4.7 Chloride Level 112 Carbon Dioxide Level 19.8 Anion Gap 10 Estimat Glomerular Filtration Rate 35 Cardiovascular: Regular Lungs: Clear Abdomen: Other (RLQ tenderness with palpation ) Extremities: No edema A/P Assessment and Plan 68 year old female with diverticulitis; no drainage abscess -Would continue IV antibiotics -Full liquids; advance as tolerated -S/p EGD--- gastritis -Wound recommend complete recovery from this episode and have full workup by GI including colonoscopy in 6-8 weeks -Continue nonoperative treatment but will continue to monitor closely I CERTIFY AND ATTEST THAT I PERSONALLY EXAMINED THE PATIENT IN THEIR ROOM. THE SERVICE LINE LAYER DOCUMENTED OUR VISIT AND ENTERED ORDERS UNDER MY SUPERVISION Agatha Singh MD, FACS SERVICE LINE LAYER/Stem Dryer Maintainer SERVICE LINE LAYER January 29, 2018 14:06 Fabiano Carvajal MD February 02, 2018 10:28
--- NOTE | 2018-01-29 15:28 | HHI.PR ---
Subjective Remarks Clinical symptoms improving. Patient had blood transfused and shows a slight decline in hemoglobin. Her diverticular abscesses 3 cm and this is not surgical at this time. She is responding well to antibiotics thus far. Objective Vital Signs Date Time Temp Pulse Resp B/P (MAP) Pulse Ox O2 Delivery O2 Flow Rate FiO2 01/29/18 12:00 98.1 114 18 99/63 (75) 98 01/29/18 08:00 97.8 125 18 114/73 (87) 98 01/29/18 06:02 97.5 122 17 101/66 (78) 97 01/29/18 01:04 97.9 113 18 116/75 (89) 97 01/28/18 22:29 98.2 101 16 109/77 (88) 96 01/28/18 15:39 98.2 120 18 107/71 (83) 96 I/O 01/28/18 01/28/18 01/28/18 01/29/18 01/29/18 01/29/18 06:59 14:59 22:59 06:59 14:59 22:59 Intake Total 765 ml 820 ml Balance 765 ml 820 ml Intake IV Total 100 ml Packed Cells 400 ml 400 ml Blood Product IV Normal Saline Flush 265 ml 20 ml Other 400 ml # Voids 1 1 2 Result Diagram: 01/29/18 0720 01/29/18 0826 Objective Remarks GENERAL: NAD, A&Ox3 HEAD: Normocephalic. NECK: Supple, trachea midline. No lymphadenopathy. EYES: No scleral icterus. No injection or drainage. CARDIOVASCULAR: Regular rate and rhythm without murmurs, gallops, or rubs. RESPIRATORY: Breath sounds equal bilaterally. No accessory muscle use. GASTROINTESTINAL: Abdomen soft, mild tenderness at right side, nondistended. MUSCULOSKELETAL: No cyanosis, or edema. SKIN: Warm and dry. NEURO: No focal neurological deficitis. A/P Problem List: (1) Atrial fibrillation ICD Code: I48.91 - Unspecified atrial fibrillation (2) Symptomatic anemia ICD Code: D64.9 - Anemia, unspecified Status: Acute (3) Intra-abdominal abscess ICD Code: K65.1 - Peritoneal abscess Status: Acute (4) Leukocytosis ICD Code: D72.829 - Elevated white blood cell count, unspecified Status: Acute Assessment and Plan 68 years old female admitted with diverticulitis with abscess of 3 cm GI bleed Acute blood loss anemia Abdominal pain Diverticulitis Diverticular abscess Continue ciprofloxacin, and Flagyl Status post 2 units packed red blood cells transfused Continue to monitor hemoglobin levels General surgery following GI following Advanced to full liquid diet Chronic kidney disease stage III Acute on chronic kidney disease Acute kidney injury Improving Continue to monitor renal function Urinary tract infection Follow cultures Continue antibiotics as above Atrial fibrillation Eliquis on hold due to bleeding Continue amiodarone Follow heart rate Hypertension Continue baseline treatment Follow blood pressures Adjust treatments as needed Hyperlipidemia Continue present treatment Follow as an outpatient DVT prophylaxis SCDs Problem Qualifiers (1) Leukocytosis: Qualified Codes: D72.829 - Elevated white blood cell count, unspecified Karson Marte MD January 29, 2018 15:28
[2018-01-29] MEDS: SODIUM CHLOR 0.9% 1000 ML INJ 1,000 ML IV SCH (16:51)
[2018-01-29] MEDS: ATORVASTATIN 40 MG TAB PO SCH (22:07)
[2018-01-30] MEDS: metroNIDAZOLE 500 MG INJ 100 ML IV SCH (00:07)
[2018-01-30 04:00] VITALS: BP_SYST 118; BP_SYST 120; BP_DIAS 60; BP_DIAS 67; PULSE 107; PULSE 88; RESP 18; TEMP 98.1; TEMP 99.4; O2SAT 94; O2SAT 97
[2018-01-30 06:30] LABS: AUTOMATED NEUTROPHIL # 9.1 TH/MM3 (1.8-7.7); BASOPHIL % 0.3 % (0.0-2.0); EOSINOPHIL # 0.4 TH/MM3 (0-0.4); EOSINOPHIL % 3.2 % (0.0-4.0); HEMATOCRIT 26.3 % (35.0-46.0); HEMOGLOBIN 8.8 GM/DL (11.6-15.3); LYMPH % 10.6 % (9.0-44.0); LYMPHOCYTE # 1.2 TH/MM3 (1.0-4.8); MEAN CELL VOLUME 81.9 FL (80.0-100.0); MEAN CORPUSCULAR HEMOGLOBIN 27.3 PG (27.0-34.0); MEAN CORPUSCULAR HGB CONC 33.3 % (32.0-36.0); MEAN PLATELET VOLUME 7.6 FL (7.0-11.0); MONO % 7.4 % (0.0-8.0); MONOCYTE # 0.9 TH/MM3 (0-0.9); NEUT % 78.5 % (16.0-70.0); PLATELET COUNT 331 TH/MM3 (150-450); RED BLOOD COUNT 3.22 MIL/MM3 (4.00-5.30); WHITE BLOOD COUNT 11.6 TH/MM3 (4.0-11.0)
[2018-01-30 07:09] LABS: ALBUMIN 2.4 GM/DL (3.4-5.0); ALKALINE PHOSPHATASE 156 U/L (45-117); ALT (GPT) 15 U/L (10-53); AST (GOT) 15 U/L (15-37); BICARBONATE 20.3 MEQ/L (21.0-32.0); BLOOD UREA NITROGEN 18 MG/DL (7-18); CALCIUM 9.1 MG/DL (8.5-10.1); CHLORIDE 111 MEQ/L (98-107); CREATININE 1.31 MG/DL (0.50-1.00); GLOMERULAR FILTRATION RATE 40 ML/MIN (>89); GLUCOSE,RANDOM 88 MG/DL (74-106); SODIUM (NA) 144 MEQ/L (136-145); TOTAL BILIRUBIN ADULT 0.5 MG/DL (0.2-1.0); TOTAL PROTEIN 5.9 GM/DL (6.4-8.2)
[2018-01-30 08:00] VITALS: BP 115/83; PULSE 129; RESP 18; TEMP 98.6; O2SAT 97
[2018-01-30] MEDS ORDERED: METR-1 PO (08:44)
[2018-01-30] MEDS ORDERED: CIPR-9 PO (08:44)
[2018-01-30] MEDS: SODIUM CHLOR 0.9% 1000 ML INJ 1,000 ML IV SCH (08:56)
[2018-01-30] MEDS: LISINOPRIL 20 MG TAB PO SCH (09:00)
[2018-01-30] MEDS: hydrALAZINE HCL 25 MG TAB PO SCH ×2 (09:00→21:33)
[2018-01-30] MEDS: AMIODARONE 200 MG TAB PO SCH (09:00)
[2018-01-30] MEDS: PANTOPRAZOLE SODIUM 40 MG VIAL IV PUSH SCH (09:00)
[2018-01-30] MEDS: CIPROFLOXACIN 500 MG TAB PO SCH ×2 (09:06→21:33)
[2018-01-30] MEDS: SODIUM CHLORIDE 0.9% FLUSH 10 ML FLUSH IV FLUSH SCH ×2 (09:06→21:34)
--- NOTE | 2018-01-30 11:26 | HHI.GIFU ---
Subjective Remarks Pt resting in bed States ate scrambled eggs this morning Denies any GI complaints at this time Objective Vitals I&O Vital Signs Date Time Temp Pulse Resp B/P (MAP) Pulse Ox O2 Delivery O2 Flow Rate FiO2 01/30/18 08:00 98.6 129 18 115/83 (94) 97 01/30/18 04:00 99.4 107 18 118/67 (84) 97 01/29/18 23:00 98.8 127 18 113/70 (84) 95 01/29/18 20:54 98.5 126 18 146/91 (109) 96 01/29/18 16:00 98.7 122 18 125/83 (97) 99 01/29/18 12:00 98.1 114 18 99/63 (75) 98 I/O 01/29/18 01/29/18 01/29/18 01/30/18 01/30/18 01/30/18 07:00 15:00 23:00 07:00 15:00 23:00 # Voids 1 5 5 # Bowel Movements 0 Laboratory Laboratory Tests Test 01/30/18 05:19 White Blood Count 11.6 Red Blood Count 3.22 Hemoglobin 8.8 Hematocrit 26.3 Mean Corpuscular Volume 81.9 Mean Corpuscular Hemoglobin 27.3 Mean Corpuscular Hemoglobin Concent 33.3 Red Cell Distribution Width 16.0 Platelet Count 331 Mean Platelet Volume 7.6 Neutrophils (%) (Auto) 78.5 Lymphocytes (%) (Auto) 10.6 Monocytes (%) (Auto) 7.4 Eosinophils (%) (Auto) 3.2 Basophils (%) (Auto) 0.3 Neutrophils # (Auto) 9.1 Lymphocytes # (Auto) 1.2 Monocytes # (Auto) 0.9 Eosinophils # (Auto) 0.4 Basophils # (Auto) 0.0 CBC Comment DIFF FINAL Differential Comment Blood Urea Nitrogen 18 Creatinine 1.31 Random Glucose 88 Total Protein 5.9 Albumin 2.4 Calcium Level 9.1 Alkaline Phosphatase 156 Aspartate Amino Transf (AST/SGOT) 15 Alanine Aminotransferase (ALT/SGPT) 15 Total Bilirubin 0.5 Sodium Level 144 Potassium Level 4.4 Chloride Level 111 Carbon Dioxide Level 20.3 Anion Gap 13 Estimat Glomerular Filtration Rate 40 Lipase 277 Imaging Last Impressions Abdomen/Pelvis CT 01/27/18 0000 Signed Impressions: Service Date/Time: Saturday, January 27, 2018 22:04 - CONCLUSION: 1. Inflammatory process in the right midabdomen which appears to correlate with a loop of large bowel near the hepatic flexure. This probably represents a diverticular abscess measuring up to 3 cm in diameter. Cannot definitively identify the appendix. 2. No free air or significant free fluid. Numerous calcified gallstones. Trevon Dorantes MD Physical Exam HEENT: Normocephalic; atraumatic CHEST: Even/unlabored CARDIAC: Irregularly irregular- elevated rate ABDOMEN: Round, soft, nondistended, nontender; bowel sounds active EXTREMITIES: No clubbing, cyanosis, or edema. SKIN: Normal; no rash; no jaundice. AUTO MECHANIC: No focal deficits; alert and oriented times three. Assessment and Plan Plan Assessment: - Anemia, normocytic H/H 6.7/20.4 on admission now S/P 2 U PRBCs currently 8.8/26.3 S/P EGD (01/28) --> Moderate gastritis, no sign of active bleeding, normal otherwise. Unable to biopsy, pt on Eliquis. Stool sample for H. Pylori pending. Currently on Protonix - RLQ pain CT abdomen and pelvis W/O IV contrast (01/27) --> . Inflammatory process in the right midabdomen which appears to correlate with a loop of large bowel near the hepatic flexure. This probably represents a diverticular abscess measuring up to 3 cm in diameter. Cannot definitively identify the appendix. No free air or significant free fluid. Numerous calcified gallstones. GS previously following, no surgical recommendations, they have signed off - Leukocytosis- Improving on Cipro and Flagyl - A fib- elevated rate (5/4) Pt tolerating regular diet. No GI symptoms at this time. H/H remains stable over night. Plan: GEORGIE Continue Cipro and Flagyl PO Continue Protonix PO Recommend colonoscopy in6-8 weeks OK to DC from a GI standpoint Have pt follow up with GI after DC Pt has been seen and examined by myself and Dr. Marin and this note is written on his behalf Deena Nguyen January 30, 2018 11:26
[2018-01-30 12:00] VITALS: BP 123/78; PULSE 123; RESP 18; TEMP 98.1; O2SAT 96
[2018-01-30] MEDS ORDERED: DILTIAZEM HCL 30 MG TAB PO ONE (12:30)
[2018-01-30] MEDS: metroNIDAZOLE 500 MG TAB PO SCH ×2 (12:42→21:33)
--- NOTE | 2018-01-30 14:31 | HHI.PR ---
Subjective Remarks A. fib RVR presents today. Cardiology consulted. Diltiazem has been recommended as an added treatment. Patient's GI status continues to improve. Objective Vital Signs Date Time Temp Pulse Resp B/P (MAP) Pulse Ox O2 Delivery O2 Flow Rate FiO2 01/30/18 12:00 98.1 123 18 123/78 (93) 96 01/30/18 08:00 98.6 129 18 115/83 (94) 97 01/30/18 04:00 99.4 107 18 118/67 (84) 97 01/29/18 23:00 98.8 127 18 113/70 (84) 95 01/29/18 20:54 98.5 126 18 146/91 (109) 96 01/29/18 16:00 98.7 122 18 125/83 (97) 99 I/O 01/29/18 01/29/18 01/29/18 01/30/18 01/30/18 01/30/18 07:00 15:00 23:00 07:00 15:00 23:00 # Voids 1 5 5 # Bowel Movements 0 Result Diagram: 01/30/18 0519 01/30/18 05 Objective Remarks GENERAL: NAD, A&Ox3 HEAD: Normocephalic. NECK: Supple, trachea midline. No lymphadenopathy. EYES: No scleral icterus. No injection or drainage. CARDIOVASCULAR: Regular rate and rhythm without murmurs, gallops, or rubs. RESPIRATORY: Breath sounds equal bilaterally. No accessory muscle use. GASTROINTESTINAL: Abdomen soft, mild tenderness at right side, nondistended. MUSCULOSKELETAL: No cyanosis, or edema. SKIN: Warm and dry. NEURO: No focal neurological deficitis. A/P Problem List: (1) Atrial fibrillation ICD Code: I48.91 - Unspecified atrial fibrillation (2) Symptomatic anemia ICD Code: D64.9 - Anemia, unspecified Status: Acute (3) Intra-abdominal abscess ICD Code: K65.1 - Peritoneal abscess Status: Acute (4) Leukocytosis ICD Code: D72.829 - Elevated white blood cell count, unspecified Status: Acute Assessment and Plan 68 years old female admitted with diverticulitis with abscess of 3 cm No plan for surgery. Patient's GI status is improving. A. fib RVR present today. Cardiology consulted. Diltiazem added to current treatments. A. fib RVR Diltiazem added at 60 mg 4 times a day Continue amiodarone Cardiology following GI bleed Acute blood loss anemia Abdominal pain Diverticulitis Diverticular abscess Continue ciprofloxacin, and Flagyl Status post 2 units packed red blood cells transfused Continue to monitor hemoglobin levels General surgery following GI following Advanced to full liquid diet Chronic kidney disease stage III Acute on chronic kidney disease Acute kidney injury Improving Continue to monitor renal function Urinary tract infection Follow cultures Continue antibiotics as above Atrial fibrillation Eliquis on hold due to bleeding Continue amiodarone Follow heart rate Hypertension Continue baseline treatment Follow blood pressures Adjust treatments as needed Hyperlipidemia Continue present treatment Follow as an outpatient DVT prophylaxis SCDs Problem Qualifiers (1) Leukocytosis: Qualified Codes: D72.829 - Elevated white blood cell count, unspecified Karson Marte MD January 30, 2018 14:30
--- NOTE | 2018-01-30 14:32 | PQ ---
Physician Query Response Document PATIENT: HILDA ESTRADA : 1950 ADMIT DATE: 01/27/2018 11:04 PM DISCH DATE: RESPONDING PROVIDER #: [email or web address] QUERY TEXT: CDS Clarification Unspecified protein-calorie malnutrition in the setting of BMI 16.1 treated with diet advanced from N PO to Regular Other explanation of clinical findings. Unable to determine (no explanation for clinical findings). The patient's Clinical Indicators include: The medical record reflects the following clinical findings, treatment, and risk factors. * Clinical Indicators: BMI 16.1, "30 lbs in the last 6 months" * Risk Factors: NPO, Diverticulitis, ABLA * Treatment: Diet advanced to regular from NPO Please clarify and document your clinical opinion in the progress notes and discharge summary includi ng the definitive and/or presumptive diagnosis (suspected or probable), related to the above clinical findings. Please include clinical findings supporting your diagnosis. Thank you, Yuridia Martinez CDS/RN ext. [phone] Query created by: Yuridia Martinez on 01/30/2018 9:28 AM RESPONSE TEXT: Provider disagreed with this CDI query. Height and Weight appear to be incorrect. Electronically signed by: Michael Marte 01/30/2018 2:29 PM
--- NOTE | 2018-01-30 14:34 | MB ---
cc: Brian Dan MD DATE: 01/30/2018 REASON FOR CONSULTATION: Atrial fibrillation with RVR. HISTORY OF PRESENT ILLNESS: The patient is a very pleasant 68-year-old woman who sees my partner, Dr. Abebe, for a history of atrial fibrillation, status post ablation earlier this year. The patient says that since the ablation she has felt better, but her atrial fibrillation has still been problematic with heart rates generally in the 100s-120s. She has been maintained on Eliquis and amiodarone. She presented with right lower quadrant abdominal pain and as part of her workup initial EKG showed heart rates in the 120s. She denies any cardiac symptoms such as chest pain, shortness of breath, palpitations, lightheadedness, dizziness or syncope and is asking when she can be discharged home. PAST MEDICAL HISTORY: 1. Atrial fibrillation, status post ablation, but remaining in atrial fibrillation, maintained on Eliquis and amiodarone. 2. Hypertension. 3. Hyperlipidemia. 4. Gout. CURRENT MEDICATIONS: 1. Protonix 40 mg daily. 2. Flagyl. 3. Ciprofloxacin 100 mg q. 12. 4. Atorvastatin 40 mg at bedtime. 5. Lisinopril 40 mg daily. ALLERGIES: PENICILLIN. PHYSICAL EXAMINATION: VITAL SIGNS: Afebrile, pulse 123, respiratory rate 18, BP 120/78, sating 96%. GENERAL: Pleasant, elderly woman in no distress. NECK: No JVD. LUNGS: Clear to auscultation bilaterally. HEART: Irregularly irregular rhythm with rapid rate. No significant murmurs appreciated. ABDOMEN: Benign. EXTREMITIES: No edema. LABORATORY DATA: Sodium 144, potassium 4.4, chloride 111, bicarbonate 20.3, BUN 18, creatinine 1.31, glucose 88. INR is 1.2. White count 11.6, hemoglobin 8.8 up from 6.7, hematocrit 26.3. Two units of red cells have been transfused. EKG shows atrial fibrillation with a rate of [address] changes. IMPRESSION AND RECOMMENDATIONS: 1. Rapid atrial fibrillation. The patient has had rapid atrial fibrillation for the last month or so, though it has been relatively mild. I will try adding oral Diltiazem 60 mg q.i.d., in addition to her amiodarone and decreasing her lisinopril given her blood pressures are fairly low. If this does not work, I can consider starting a verapamil drip (the hospital is currently out of IV Cardizem). With regard to anticoagulation, her Eliquis has been held due to her drop in hematocrit; however, her endoscopy apparently showed gastritis without active bleeding. She should be restarted on anticoagulation if GI approves given her stroke risk. Further recommendations based on the above. Thank you again for the opportunity to participate in this patient's care. MD MARLEN Vieira/NURY , 02:15 PM , 02:33 PM
[2018-01-30 16:00] VITALS: BP 107/71; PULSE 121; RESP 18; TEMP 97.5; O2SAT 96
--- NOTE | 2018-01-30 17:16 | HHI.PR ---
cc: Christelle Gordon MD Subjective Subjective Notes Doing well No issues Objective Vitals/I&O Vital Signs Date Time Temp Pulse Resp B/P (MAP) Pulse Ox O2 Delivery O2 Flow Rate FiO2 01/30/18 16:00 97.5 121 18 107/71 (83) 96 01/27/18 23:44 Room Air Labs Laboratory Tests Test 01/30/18 05:19 White Blood Count 11.6 Red Blood Count 3.22 Hemoglobin 8.8 Hematocrit 26.3 Mean Corpuscular Volume 81.9 Mean Corpuscular Hemoglobin 27.3 Mean Corpuscular Hemoglobin Concent 33.3 Red Cell Distribution Width 16.0 Platelet Count 331 Mean Platelet Volume 7.6 Neutrophils (%) (Auto) 78.5 Lymphocytes (%) (Auto) 10.6 Monocytes (%) (Auto) 7.4 Eosinophils (%) (Auto) 3.2 Basophils (%) (Auto) 0.3 Neutrophils # (Auto) 9.1 Lymphocytes # (Auto) 1.2 Monocytes # (Auto) 0.9 Eosinophils # (Auto) 0.4 Basophils # (Auto) 0.0 CBC Comment DIFF FINAL Differential Comment Blood Urea Nitrogen 18 Creatinine 1.31 Random Glucose 88 Total Protein 5.9 Albumin 2.4 Calcium Level 9.1 Alkaline Phosphatase 156 Aspartate Amino Transf (AST/SGOT) 15 Alanine Aminotransferase (ALT/SGPT) 15 Total Bilirubin 0.5 Sodium Level 144 Potassium Level 4.4 Chloride Level 111 Carbon Dioxide Level 20.3 Anion Gap 13 Estimat Glomerular Filtration Rate 40 Lipase 277 Cardiovascular: Regular Lungs: Clear Abdomen: Other (minimal RLQ tenderness ) Extremities: No edema A/P Assessment and Plan 68 year old female with diverticulitis; no drainage abscess -Transition to PO antibiotics -Low residue diet -S/p EGD--- gastritis -Wound recommend complete recovery from this episode and have full workup by GI including colonoscopy in 6-8 weeks -Continue nonoperative treatment but will continue to monitor closely -General Surgery clear for DC I CERTIFY AND ATTEST THAT I PERSONALLY EXAMINED THE PATIENT IN THEIR ROOM. THE BOAT PAINTER DOCUMENTED OUR VISIT AND ENTERED ORDERS UNDER MY SUPERVISION CHRISTELLE GORDON MD FACS Agatha Gandhi. BOAT PAINTER/Rigging Foreman BOAT PAINTER January 30, 2018 17:16 Christelle Gordon MD February 02, 2018 10:32
[2018-01-30] MEDS: DILTIAZEM HCL 60 MG TAB PO SCH ×4 (17:38→21:33)
[2018-01-30 20:00] VITALS: BP 134/92; PULSE 92; RESP 18; TEMP 98.2; O2SAT 97
[2018-01-30 21:00] VITALS: PULSE 100
[2018-01-30] MEDS: ATORVASTATIN 40 MG TAB PO SCH (21:33)
[2018-01-31] VITALS (7 sets, daily range): BP systolic 115–144; BP diastolic 65–84; PULSE 81–110; RESP 18; TEMP 97.8–98.3; O2SAT 96–98
[2018-01-31] MEDS: metroNIDAZOLE 500 MG TAB PO SCH (05:28)
[2018-01-31] MEDS: DILTIAZEM HCL 60 MG TAB PO SCH (08:50)
[2018-01-31] MEDS: CIPROFLOXACIN 500 MG TAB PO SCH (08:50)
[2018-01-31] MEDS: hydrALAZINE HCL 25 MG TAB PO SCH (08:51)
[2018-01-31] MEDS: AMIODARONE 200 MG TAB PO SCH (08:51)
[2018-01-31] MEDS ORDERED: PANTOPRAZOLE SOD 40 MG DELAYED RELEASE TAB PO SCH (09:00)
[2018-01-31] MEDS ORDERED: LISINOPRIL 5 MG TAB PO SCH (09:00)
[2018-01-31] MEDS ORDERED: DILT240C44 PO (12:29)
--- NOTE | 2018-01-31 12:31 | HHI.DS ---
Discharge Summary Admission Date January 27, 2018 at 23:04 Discharge Date: January 31, 2018 Admitting Diagnosis Diverticular abscess, GI bleed, anemia (1) Symptomatic anemia ICD Code: D64.9 - Anemia, unspecified Diagnosis: Principal Status: Acute (2) Intra-abdominal abscess ICD Code: K65.1 - Peritoneal abscess Diagnosis: Principal Status: Acute (3) Atrial fibrillation ICD Code: I48.91 - Unspecified atrial fibrillation Diagnosis: Principal Procedures None Brief History - From Admission 68-year-old female with a past medical history significant for atrial fibrillation anticoagulated on Eliquis status post ablation on 12/29/17, hypertension, hyperlipidemia and gout presents the emergency department for the evaluation of right lower quadrant abdominal pain. The patient reports that the pain started yesterday. She denies any fever/chills. No nausea/vomiting/ diarrhea. She endorses shortness of breath on exertion which is at her baseline. Denies any chest pain. Positive weakness. No lateralizing signs/ symptoms. CBC/BMP: 01/30/18 0519 01/30/18 0519 Significant Findings Laboratory Tests Test 01/28/18 20:24 01/29/18 07:20 01/29/18 08:26 01/30/18 05:19 Hemoglobin 9.7 GM/DL (11.6-15.3) 8.6 GM/DL (11.6-15.3) 8.8 GM/DL (11.6-15.3) Hematocrit 29.5 % (35.0-46.0) 26.1 % (35.0-46.0) 26.3 % (35.0-46.0) White Blood Count 14.5 TH/MM3 (4.0-11.0) 11.6 TH/MM3 (4.0-11.0) Red Blood Count 3.15 MIL/MM3 (4.00-5.30) 3.22 MIL/MM3 (4.00-5.30) Neutrophils (%) (Auto) 87.1 % (16.0-70.0) 78.5 % (16.0-70.0) Lymphocytes (%) (Auto) 4.5 % (9.0-44.0) Neutrophils # (Auto) 12.6 TH/MM3 (1.8-7.7) 9.1 TH/MM3 (1.8-7.7) Lymphocytes # (Auto) 0.7 TH/MM3 (1.0-4.8) Monocytes # (Auto) 1.0 TH/MM3 (0-0.9) Blood Urea Nitrogen 26 MG/DL (7-18) Creatinine 1.50 MG/DL (0.50-1.00) 1.31 MG/DL (0.50-1.00) Random Glucose 60 MG/DL (74-106) Chloride Level 112 MEQ/L (98-107) 111 MEQ/L (98-107) Carbon Dioxide Level 19.8 MEQ/L (21.0-32.0) 20.3 MEQ/L (21.0-32.0) Estimat Glomerular Filtration Rate 35 ML/MIN (>89) 40 ML/MIN (>89) Total Protein 5.9 GM/DL (6.4-8.2) Albumin 2.4 GM/DL (3.4-5.0) Alkaline Phosphatase 156 U/L (45-117) PE at Discharge GENERAL: NAD SKIN: Warm and dry. HEAD: Normocephalic. EYES: No scleral icterus. No injection or drainage. NECK: Supple, trachea midline. No JVD or lymphadenopathy. CARDIOVASCULAR: Regular rate and rhythm without murmurs, gallops, or rubs. RESPIRATORY: Breath sounds equal bilaterally. No accessory muscle use. GASTROINTESTINAL: Abdomen soft, mildly tender, nondistended. +BS MUSCULOSKELETAL: No cyanosis, or edema. BACK: Nontender without obvious deformity. No CVA tenderness. Hospital Course Mrs. Nicole is a 68-year-old female. She was admitted secondary to abdominal pain. She was discovered to have a diverticular abscess of 3 cm. GI and surgical evaluations determined this patient did not need surgery at this time. He responded well to antibiotics and has been continuing to improve through time. Yesterday she was medically stable until she entered A. fib RVR. Cardiology evaluated this patient and has started diltiazem as an augmented treatment in addition to her baseline metoprolol and amiodarone. She responded to diltiazem and is now in a rate controlled rhythm. Medically clear and stable for discharge home today. She will continue on antibiotics for 7 more days. Pt Condition on Discharge: Stable Discharge Disposition: Discharge Home Discharge Time: <= 30 minutes Discharge Instructions DIET: Follow Instructions for: Heart Healthy Diet Activities you can perform: Regular-No Restrictions Follow up Referrals: Surgical - 10 Days with Fabiano Carvajal MD New Medications: Ciprofloxacin (Cipro) 500 Mg Tab 500 MG PO BID for Infection for 7 Days, #14 TAB 0 Refills Diltiazem CD 24 HR (Diltiazem CD 24 HR) 240 Mg Caper 240 MG PO DAILY, #30 CAP 0 Refills Metronidazole (Flagyl) 500 Mg Tab 500 MG PO TID for Infection for 7 Days, TAB 0 Refills Continued Medications: Allopurinol (Allopurinol) 100 Mg Tab 100 MG PO DAILY for Gout, #30 TAB 0 Refills Amiodarone (Amiodarone) 200 Mg Tab 200 MG PO DAILY for afib for 30 Days, #30 TAB 6 Refills Apixaban (Eliquis) 5 Mg Tab 5 MG PO BID for Blood Clot Prevention, #60 TAB 0 Refills Atorvastatin (Atorvastatin) 40 Mg Tab 40 MG PO HS for Cholesterol Management, #30 TAB 0 Refills Hydralazine (Hydralazine) 100 Mg Tab 25 MG PO BID for Blood Pressure Management, TAB 0 Refills Take with meals Metoprolol Succinate ER 24 HR (Metoprolol Succinate ER 24 HR) 25 Mg Tab 25 MG PO DAILY, #30 TAB 0 Refills Naproxen (Naproxen) 250 Mg Tab 250 MG PO BID, #60 TAB 0 Refills Discontinued Medications: Amiodarone (Amiodarone) 200 Mg Tab 400 MG PO BID for afib, #10 TAB Lisinopril (Lisinopril) 40 Mg Tab 40 MG PO DAILY for Blood Pressure Management, #30 TAB 0 Refills Karson Marte MD January 31, 2018 12:31
== END 2018-01-31 13:19 | disposition home or self-care (01) | DRG 871 ==
LOC: NEPE 20:31 → NEDA 23:04 → NEPHCDU 01-28 01:48 → N05B 01-28 18:30
PROVIDERS: ADMIT Hospitalist; ATTEND Hospitalist
PROC: 30233N1 Transfusion of Nonautologous Red Blood Cells into Peripheral Vein, Percutaneous Approach (ICD-10-PCS; 2018-01-28)
PROC: 0DJ08ZZ Inspection of Upper Intestinal Tract, Via Natural or Artificial Opening Endoscopic (ICD-10-PCS; principal; 2018-01-28 14:17)
DX: A41.9 Sepsis, unspecified organism (principal); K57.21 Diverticulitis of large intestine with perforation and abscess with bleeding; N17.9 Acute kidney failure, unspecified; I48.91 Unspecified atrial fibrillation; N18.3 Chronic kidney disease, stage 3 (moderate); D62 Acute posthemorrhagic anemia; Z68.1 Body mass index [BMI] 19.9 or less, adult; N39.0 Urinary tract infection, site not specified; R65.20 Severe sepsis without septic shock; K59.00 Constipation, unspecified; I12.9 Hypertensive chronic kidney disease with stage 1 through stage 4 chronic kidney disease, or unspecified chronic kidney disease; K80.20 Calculus of gallbladder without cholecystitis without obstruction; E78.5 Hyperlipidemia, unspecified; R63.4 Abnormal weight loss; K29.70 Gastritis, unspecified, without bleeding; M10.9 Gout, unspecified; Z79.01 Long term (current) use of anticoagulants; Z82.49 Family history of ischemic heart disease and other diseases of the circulatory system; Z88.0 Allergy status to penicillin
CPT/HCPCS: 36430; 74176; 80048; 80053; 83605; 83690; 85014; 85018; 85025; 85610; 85730; 86850; 86900; 86901; 86920; 93005; 96361; 96374; 96375; C9113; J0744; J2270; J2370; J2405; J3370; J7030; J7050; P9016

== ENCOUNTER 2018-02-05 08:17 | Inpatient (IN) | payer OTHER, MEDICARE ==
[2018-02-05 08:48] LABS: BASOPHIL # 0.1 TH/MM3 (0-0.2); BASOPHIL % 0.7 % (0.0-2.0); EOSINOPHIL # 0.6 TH/MM3 (0-0.4); EOSINOPHIL % 5.5 % (0.0-4.0); HEMATOCRIT 31.5 % (35.0-46.0); HEMO FLAGS DIFF FINAL; HEMOGLOBIN 10.6 GM/DL (11.6-15.3); LYMPHOCYTE # 2.3 TH/MM3 (1.0-4.8); MEAN CELL VOLUME 82.1 FL (80.0-100.0); MEAN CORPUSCULAR HEMOGLOBIN 27.5 PG (27.0-34.0); MEAN CORPUSCULAR HGB CONC 33.5 % (32.0-36.0); MEAN PLATELET VOLUME 7.5 FL (7.0-11.0); MONO % 8.5 % (0.0-8.0); MONOCYTE # 0.9 TH/MM3 (0-0.9); NEUT % 64.3 % (16.0-70.0); PLATELET COUNT 470 TH/MM3 (150-450); RED BLOOD COUNT 3.83 MIL/MM3 (4.00-5.30); RED CELL DISTRIBUTION WIDTH 16.1 % (11.6-17.2); WHITE BLOOD COUNT 10.9 TH/MM3 (4.0-11.0)
[2018-02-05 08:57] LABS: APTT (PATIENT) 34.5 SEC (24.3-30.1); INTERNATIONAL NORMALIZED RATIO 1.2 RATIO; PROTHROMBIN TIME - PATIENT 11.8 SEC (9.8-11.6)
[2018-02-05 09:02] LABS: ALBUMIN 3.1 GM/DL (3.4-5.0); ANION GAP 12 MEQ/L (5-15); AST (GOT) 16 U/L (15-37); BICARBONATE 23.1 MEQ/L (21.0-32.0); BLOOD UREA NITROGEN 16 MG/DL (7-18); CALCIUM 9.2 MG/DL (8.5-10.1); CHLORIDE 104 MEQ/L (98-107); CREATININE 1.57 MG/DL (0.50-1.00); GLOMERULAR FILTRATION RATE 33 ML/MIN (>89); GLUCOSE,RANDOM 114 MG/DL (74-106); POTASSIUM 3.7 MEQ/L (3.5-5.1); SODIUM (NA) 139 MEQ/L (136-145)
[2018-02-05 09:03] LABS: ALT (GPT) 17 U/L (10-53)
[2018-02-05 09:05] LABS: ALKALINE PHOSPHATASE 139 U/L (45-117); TOTAL BILIRUBIN ADULT 0.3 MG/DL (0.2-1.0); TOTAL PROTEIN 6.8 GM/DL (6.4-8.2)
[2018-02-05] MEDS: PANTOPRAZOLE INJ 80 MG in SODIUM CHLORIDE 0.9% INJ 35 ML IV (09:23)
[2018-02-05] MEDS: PANTOPRAZOLE INJ 80 MG in SODIUM CHLORIDE 0.9% INJ 100 ML IV ×2 (09:23→20:43)
[2018-02-05] MEDS: SODIUM CHLOR 0.9% 1000 ML INJ 1,000 ML IV ×2 (09:40→12:04)
[2018-02-05] MEDS ORDERED: SODIUM CHLORIDE 0.9% FLUSH 10 ML FLUSH IV FLUSH (10:15)
[2018-02-05] MEDS ORDERED: NALOXONE HCL 0.4 MG/ML AMP IV PUSH (10:15)
[2018-02-05] MEDS ORDERED: ONDANSETRON ODT 4 MG TAB PO (11:00)
[2018-02-05] MEDS ORDERED: ACETAMINOPHEN 325 MG TAB PO (11:00)
[2018-02-05] MEDS ORDERED: MAGNESIUM HYDROXIDE SUSP 30 ML CUP PO (11:00)
[2018-02-05] MEDS ORDERED: MORPHINE SULFATE 2 MG/ML SYRINGE IV PUSH (11:00)
[2018-02-05] MEDS: DIATRIZOATE MEGLUM/DIATRIZOATE SOD 9 ML CUP (12:02)
[2018-02-05] MEDS: metroNIDAZOLE 500 MG TAB PO ×2 (13:45→18:26)
[2018-02-05] MEDS: IODIXANOL 320 MG/ML 10 ML VIAL (for Rad CT) IVCONTRAST (15:17)
[2018-02-05] MEDS: CIPROFLOXACIN 500 MG TAB PO (20:43)
[2018-02-05] MEDS: ATORVASTATIN 40 MG TAB PO (20:43)
[2018-02-05] MEDS: SODIUM CHLORIDE 0.9% FLUSH 10 ML FLUSH IV FLUSH (20:43)
[2018-02-06] MEDS: SODIUM CHLOR 0.9% 1000 ML INJ 1,000 ML IV ×2 (03:32→14:46)
[2018-02-06] MEDS: PANTOPRAZOLE INJ 80 MG in SODIUM CHLORIDE 0.9% INJ 100 ML IV (06:51)
[2018-02-06 07:22] LABS: AUTOMATED NEUTROPHIL # 4.8 TH/MM3 (1.8-7.7); BASOPHIL # 0.1 TH/MM3 (0-0.2); BASOPHIL % 0.9 % (0.0-2.0); EOSINOPHIL # 0.4 TH/MM3 (0-0.4); EOSINOPHIL % 4.9 % (0.0-4.0); HEMATOCRIT 22.8 % (35.0-46.0); HEMO FLAGS DIFF FINAL; HEMOGLOBIN 7.6 GM/DL (11.6-15.3); LYMPH % 20.6 % (9.0-44.0); LYMPHOCYTE # 1.5 TH/MM3 (1.0-4.8); MEAN CORPUSCULAR HEMOGLOBIN 27.1 PG (27.0-34.0); MEAN CORPUSCULAR HGB CONC 33.4 % (32.0-36.0); MEAN PLATELET VOLUME 7.5 FL (7.0-11.0); MONO % 7.6 % (0.0-8.0); MONOCYTE # 0.6 TH/MM3 (0-0.9); PLATELET COUNT 310 TH/MM3 (150-450); RED BLOOD COUNT 2.81 MIL/MM3 (4.00-5.30); RED CELL DISTRIBUTION WIDTH 16.5 % (11.6-17.2); WHITE BLOOD COUNT 7.3 TH/MM3 (4.0-11.0)
[2018-02-06 08:02] LABS: ALBUMIN 2.4 GM/DL (3.4-5.0); ALKALINE PHOSPHATASE 106 U/L (45-117); ALT (GPT) 15 U/L (10-53); ANION GAP 8 MEQ/L (5-15); AST (GOT) 15 U/L (15-37); BICARBONATE 23.1 MEQ/L (21.0-32.0); BLOOD UREA NITROGEN 12 MG/DL (7-18); CALCIUM 8.1 MG/DL (8.5-10.1); CHLORIDE 111 MEQ/L (98-107); CREATININE 1.19 MG/DL (0.50-1.00); GLOMERULAR FILTRATION RATE 45 ML/MIN (>89); GLUCOSE,RANDOM 87 MG/DL (74-106); POTASSIUM 3.8 MEQ/L (3.5-5.1); SODIUM (NA) 142 MEQ/L (136-145); TOTAL BILIRUBIN ADULT 0.3 MG/DL (0.2-1.0); TOTAL PROTEIN 5.4 GM/DL (6.4-8.2)
[2018-02-06] MEDS: metroNIDAZOLE 500 MG TAB PO ×3 (09:41→18:21)
[2018-02-06] MEDS: METOPROLOL SUCCINATE 25 MG EXTENDED RELEASE TAB PO (09:41)
[2018-02-06] MEDS: SODIUM CHLORIDE 0.9% FLUSH 10 ML FLUSH IV FLUSH ×2 (09:41→20:07)
[2018-02-06] MEDS: AMIODARONE 200 MG TAB PO (09:41)
[2018-02-06 12:07] LABS: RBC COMMENT 1 1
[2018-02-06] MEDS: SODIUM CHLOR 0.9% 250 ML INJ 250 ML IV (12:07)
[2018-02-06 18:59] LABS: HEMATOCRIT 26.7 % (35.0-46.0)
[2018-02-06] MEDS: CIPROFLOXACIN 500 MG TAB PO (20:06)
[2018-02-06] MEDS: ATORVASTATIN 40 MG TAB PO (20:07)
[2018-02-07] MEDS: PANTOPRAZOLE INJ 80 MG in SODIUM CHLORIDE 0.9% INJ 100 ML IV (00:35)
[2018-02-07] MEDS: SODIUM CHLOR 0.9% 1000 ML INJ 1,000 ML IV (05:04)
[2018-02-07] MEDS: AMIODARONE 200 MG TAB PO (08:06)
[2018-02-07] MEDS: metroNIDAZOLE 500 MG TAB PO ×3 (08:06→17:51)
[2018-02-07] MEDS: METOPROLOL SUCCINATE 25 MG EXTENDED RELEASE TAB PO (08:06)
[2018-02-07] MEDS: SODIUM CHLORIDE 0.9% FLUSH 10 ML FLUSH IV FLUSH (08:07)
[2018-02-07 19:17] LABS: REVIEW FLAG FINAL
[2018-02-07 19:17] LABS: HEMOGLOBIN 9.9 GM/DL (11.6-15.3)
[2018-02-07] MEDS: CIPROFLOXACIN 500 MG TAB PO (22:36)
[2018-02-07] MEDS: ATORVASTATIN 40 MG TAB PO (22:37)
[2018-02-08 05:55] LABS: HEMATOCRIT 29.9 % (35.0-46.0); HEMOGLOBIN 10.1 GM/DL (11.6-15.3); MEAN CELL VOLUME 82.1 FL (80.0-100.0); MEAN CORPUSCULAR HEMOGLOBIN 27.8 PG (27.0-34.0); MEAN CORPUSCULAR HGB CONC 33.9 % (32.0-36.0); PLATELET COUNT 375 TH/MM3 (150-450); RED BLOOD COUNT 3.64 MIL/MM3 (4.00-5.30); RED CELL DISTRIBUTION WIDTH 16.3 % (11.6-17.2); REVIEW FLAG FINAL; WHITE BLOOD COUNT 9.6 TH/MM3 (4.0-11.0)
[2018-02-08 06:29] LABS: ANION GAP 11 MEQ/L (5-15); BLOOD UREA NITROGEN 9 MG/DL (7-18); CALCIUM 8.7 MG/DL (8.5-10.1); CHLORIDE 107 MEQ/L (98-107); GLOMERULAR FILTRATION RATE 41 ML/MIN (>89); GLUCOSE,RANDOM 89 MG/DL (74-106); POTASSIUM 3.9 MEQ/L (3.5-5.1); SODIUM (NA) 142 MEQ/L (136-145)
[2018-02-08] MEDS: SODIUM CHLOR 0.9% 1000 ML INJ 1,000 ML IV ×2 (09:40→10:06)
[2018-02-08] MEDS: AMIODARONE 200 MG TAB PO (10:05)
[2018-02-08] MEDS: metroNIDAZOLE 500 MG TAB PO (10:05)
[2018-02-08] MEDS: METOPROLOL SUCCINATE 25 MG EXTENDED RELEASE TAB PO (10:05)
[2018-02-08] MEDS: PANTOPRAZOLE SOD 40 MG DELAYED RELEASE TAB PO (10:05)
[2018-02-08] MEDS: SODIUM CHLORIDE 0.9% FLUSH 10 ML FLUSH IV FLUSH (10:05)
== END 2018-02-08 13:12 | disposition home or self-care (01) | DRG 378 ==
LOC: NEPE 08:17 → NEDA 09:50 → N06B 02-06 16:41 → NEPHCDU 13:10
PROC: 30233N1 Transfusion of Nonautologous Red Blood Cells into Peripheral Vein, Percutaneous Approach (ICD-10-PCS; principal; 2018-02-06)
DX: K92.1 Melena (principal); K57.80 Diverticulitis of intestine, part unspecified, with perforation and abscess without bleeding; I48.91 Unspecified atrial fibrillation; N18.3 Chronic kidney disease, stage 3 (moderate); D50.0 Iron deficiency anemia secondary to blood loss (chronic); I12.9 Hypertensive chronic kidney disease with stage 1 through stage 4 chronic kidney disease, or unspecified chronic kidney disease; M10.9 Gout, unspecified; E78.00 Pure hypercholesterolemia, unspecified; E78.5 Hyperlipidemia, unspecified; Z88.0 Allergy status to penicillin; Z79.01 Long term (current) use of anticoagulants
CPT/HCPCS: 36430; 74177; 78278; 80048; 80053; 85014; 85018; 85025; 85027; 85610; 85730; 86850; 86900; 86901; 86920; 96361; 96365; 99285-25

== ENCOUNTER 2018-02-12 07:53 | Inpatient (IN) | payer OTHER, MEDICARE ==
[~2018-02-12] VITALS: Ht 160 cm; Wt 54.8 kg
[2018-02-12] VITALS (8 sets, daily range): BP systolic 102–128; BP diastolic 50–78; PULSE 76–132; RESP 2–20; TEMP 97.7–98.8; O2SAT 94–100
[~2018-02-12 07:53] MED LIST changes: +APIX2.5T PO; -APIX5TAB PO; -AZIT250T3 PO; +CIPR-9 PO; +DILT240C44 PO; -HYDR-3801 PO; -LISI40TA PO; +METO1TAB42 PO; +METR-1 PO; +PANT40TA3 PO
[2018-02-12] MEDS ORDERED: IODIXANOL 320 MG/ML 10 ML VIAL (for Rad CT) IVCONTRAST ONE (07:54)
[2018-02-12] MEDS ORDERED: AMIODARONE 200 MG TAB PO ONE (08:30)
[2018-02-12] MEDS ORDERED: MORPHINE SULFATE 4 MG/ML INJ IV PUSH ONE (08:30)
[2018-02-12] MEDS ORDERED: SODIUM CHLORIDE 0.9% FLUSH 10 ML FLUSH IV FLUSH PRN (08:30)
[2018-02-12] MEDS ORDERED: METOPROLOL SUCCINATE 25 MG EXTENDED RELEASE TAB PO ONE (08:30)
[2018-02-12] MEDS ORDERED: DILTIAZEM-CD 240 MG CAP ER PO ONE (08:30)
[2018-02-12 08:43] LABS: AUTOMATED NEUTROPHIL # 14.7 TH/MM3 (1.8-7.7); BASOPHIL # 0.1 TH/MM3 (0-0.2); BASOPHIL % 0.4 % (0.0-2.0); EOSINOPHIL # 0.1 TH/MM3 (0-0.4); EOSINOPHIL % 0.4 % (0.0-4.0); HEMATOCRIT 30.3 % (35.0-46.0); LYMPH % 6.5 % (9.0-44.0); LYMPHOCYTE # 1.1 TH/MM3 (1.0-4.8); MEAN CELL VOLUME 83.2 FL (80.0-100.0); MEAN CORPUSCULAR HEMOGLOBIN 27.5 PG (27.0-34.0); MEAN CORPUSCULAR HGB CONC 33.1 % (32.0-36.0); MEAN PLATELET VOLUME 8.1 FL (7.0-11.0); MONO % 6.7 % (0.0-8.0); MONOCYTE # 1.1 TH/MM3 (0-0.9); PLATELET COUNT 471 TH/MM3 (150-450); RED BLOOD COUNT 3.64 MIL/MM3 (4.00-5.30); WHITE BLOOD COUNT 17.2 TH/MM3 (4.0-11.0)
[2018-02-12 09:02] LABS: ALT (GPT) 9 U/L (10-53)
[2018-02-12 09:05] LABS: ALKALINE PHOSPHATASE 131 U/L (45-117); TOTAL BILIRUBIN ADULT 0.5 MG/DL (0.2-1.0); TOTAL PROTEIN 6.6 GM/DL (6.4-8.2)
[2018-02-12 09:07] LABS: ALBUMIN 2.8 GM/DL (3.4-5.0); AST (GOT) 17 U/L (15-37); BLOOD UREA NITROGEN 16 MG/DL (7-18); CALCIUM 8.9 MG/DL (8.5-10.1); CHLORIDE 101 MEQ/L (98-107); CREATININE 1.34 MG/DL (0.50-1.00); GLOMERULAR FILTRATION RATE 39 ML/MIN (>89); GLUCOSE,RANDOM 104 MG/DL (74-106); SODIUM (NA) 137 MEQ/L (136-145)
--- NOTE | 2018-02-12 09:56 | PD ---
HPI Chief Complaint: GI Complaint Time Seen by Provider: 08:12 Travel History International Travel<30 days: No Contact w/Intl Traveler<30days: No Traveled to known affect area: No History of Present Illness HPI This is a 68-year-old female who presents to the emergency department with lower abdominal pain that has been constant and severe for 2 weeks, described as an aching pain, with no associated vomiting, fevers or chills. Patient was just admitted to the hospital over the past 2 weeks in the setting of a diverticular abscess. She completed her oral antibiotic therapy yesterday. Patient denies any black stools or tarry stools. She has been holding her Xarelto ever since she was discharged to the hospital. She did not take her oral rate control medications this morning. PFSH Past Medical History Hx Anticoagulant Therapy: Yes (ELOQUIS) Arthritis: No Asthma: No Atrial Fibrillation: Yes Autoimmune Disease: No Anxiety: No Depression: No Heart Rhythm Problems: Yes (A-Fib) Cancer: No Cardiovascular Problems: Yes High Cholesterol: Yes Chemotherapy: No Chest Pain: No Congestive Heart Failure: No COPD: No Cerebrovascular Accident: No Diabetes: No (used to be a diabetic) Diminished Hearing: No Endocrine: Yes Gastrointestinal Disorders: No GERD: No Gout: Yes Genitourinary: No Hiatal Hernia: No Heparin Induced Thrombocytopen: No Hypertension: Yes Immune Disorder: No Implanted Vascular Access Dvce: No Kidney Stones: No Musculoskeletal: No Neurologic: No Psychiatric: No Reproductive: No Respiratory: Yes (SOB WITH EXERTION) Radiation Therapy: No Renal Failure: No Sickle Cell Disease: No Sleep Apnea: No Thyroid Disease: No Ulcer: No : 1 Para: 1 Past Surgical History Abdominal Surgery: No AICD: No Arteriovenous Shunt: No Cardiac Surgery: No Ear Surgery: No Endocrine Surgery: No Eye Surgery: No Genitourinary Surgery: No Gynecologic Surgery: No Insulin Pump: No Joint Replacement: Yes (right ankle ) Neurologic Surgery: No Oral Surgery: No Pacemaker: No Thoracic Surgery: No Other Surgery: Yes (right ankle, cardiac ablation) Social History Alcohol Use: Yes (occassionaly) Tobacco Use: No Substance Use: No Allergies-Medications (Allergen,Severity, Reaction): Coded Allergies: Penicillins (Verified Allergy, Intermediate, 02/05/18) Pt gets yeast infections with this medication Reported Meds & Prescriptions Reported Meds & Active Scripts Active Pantoprazole (Pantoprazole Sodium) 40 Mg Tab 40 Mg PO DAILY Eliquis (Apixaban) 2.5 Mg Tab 2.5 Mg PO BID Diltiazem CD 24 HR 240 Mg Caper 240 Mg PO DAILY Flagyl (Metronidazole) 500 Mg Tab 500 Mg PO TID 7 Days Cipro (Ciprofloxacin HCl) 500 Mg Tab 500 Mg PO BID 7 Days Amiodarone (Amiodarone HCl) 200 Mg Tab 200 Mg PO DAILY 30 Days Reported Metoprolol Succinate ER 24 HR (Metoprolol Succinate) 25 Mg Tab 25 Mg PO DAILY Atorvastatin (Atorvastatin Calcium) 40 Mg Tab 40 Mg PO HS Allopurinol 100 Mg Tab 100 Mg PO DAILY Review of Systems Except as stated in HPI: all other systems reviewed are Neg Physical Exam Narrative GENERAL: Frail elderly female in no acute distress SKIN: Focused skin assessment warm and dry. HEAD: Atraumatic. Normocephalic. EYES: Pupils equal and round. No injection or drainage. ENT: Moist mucous membranes NECK: Trachea midline. CARDIOVASCULAR: Irregularly irregular no murmur appreciated. RESPIRATORY: Clear to auscultation. Breath sounds equal bilaterally. GASTROINTESTINAL: Abdomen soft, tender to palpation in the lower abdomen with some guarding, nondistended MUSCULOSKELETAL: No obvious deformities. NEUROLOGICAL: Awake and alert. No obvious cranial nerve deficits. Moving all extremities. PSYCHIATRIC: Appropriate mood and affect; insight and judgment normal. Data Data Last Documented VS Vital Signs Date Time Temp Pulse Resp B/P (MAP) Pulse Ox O2 Delivery O2 Flow Rate FiO2 02/12/18 09:07 115 18 121/78 (92) 97 Room Air 02/12/18 07:56 97.7 Orders Orders Complete Blood Count With Diff (02/12/18 08:19) Comprehensive Metabolic Panel (02/12/18 08:19) Urinalysis - C+S If Indicated (02/12/18 08:19) Ct Abd/Pel W Iv Contrast(Rout) (02/12/18 08:19) Iv Access Insert/Monitor (02/12/18 08:19) Ecg Monitoring (02/12/18 08:19) Oximetry (02/12/18 08:19) Morphine Inj (Morphine Inj) (02/12/18 08:30) Sodium Chloride 0.9% Flush (Ns Flush) (02/12/18 08:30) Diltiazem Cd (Cardizem Cd) (02/12/18 08:30) Metoprolol Succinate Er (Toprol Xl) (02/12/18 08:30) Amiodarone (Cordarone) (02/12/18 08:30) Iodixanol 320 Inj (Rad Ct) (Visipaque 32 (02/12/18 07:54) Blood Culture (02/12/18 09:53) Lactic Acid (02/12/18 09:53) Ciprofloxacin 400 Mg Premix (Cipro 400 M (02/12/18 10:00) Metronidazole 500 Mg Inj (Flagyl 500 Mg (02/12/18 10:00) Admit Order (Ed Use Only) (02/12/18 10:27) Labs Laboratory Tests Test 02/12/18 08:20 02/12/18 10:10 White Blood Count 17.2 TH/MM3 Red Blood Count 3.64 MIL/MM3 Hemoglobin 10.0 GM/DL Hematocrit 30.3 % Mean Corpuscular Volume 83.2 FL Mean Corpuscular Hemoglobin 27.5 PG Mean Corpuscular Hemoglobin Concent 33.1 % Red Cell Distribution Width 17.0 % Platelet Count 471 TH/MM3 Mean Platelet Volume 8.1 FL Neutrophils (%) (Auto) 86.0 % Lymphocytes (%) (Auto) 6.5 % Monocytes (%) (Auto) 6.7 % Eosinophils (%) (Auto) 0.4 % Basophils (%) (Auto) 0.4 % Neutrophils # (Auto) 14.7 TH/MM3 Lymphocytes # (Auto) 1.1 TH/MM3 Monocytes # (Auto) 1.1 TH/MM3 Eosinophils # (Auto) 0.1 TH/MM3 Basophils # (Auto) 0.1 TH/MM3 CBC Comment DIFF FINAL Differential Comment Blood Urea Nitrogen 16 MG/DL Creatinine 1.34 MG/DL Random Glucose 104 MG/DL Total Protein 6.6 GM/DL Albumin 2.8 GM/DL Calcium Level 8.9 MG/DL Alkaline Phosphatase 131 U/L Aspartate Amino Transf (AST/SGOT) 17 U/L Alanine Aminotransferase (ALT/SGPT) 9 U/L Total Bilirubin 0.5 MG/DL Sodium Level 137 MEQ/L Potassium Level 3.7 MEQ/L Chloride Level 101 MEQ/L Carbon Dioxide Level 21.0 MEQ/L Anion Gap 15 MEQ/L Estimat Glomerular Filtration Rate 39 ML/MIN Lactic Acid Level 0.7 mmol/L MDM Medical Decision Making Medical Screen Exam Complete: Yes Emergency Medical Condition: Yes Interpretation(s) Afebrile, tachycardic, normotensive Leukocytosis 86% neutrophils Renal insufficiency CT abdomen pelvis: Suggestive of diverticulitis Differential Diagnosis Diverticulitis, diverticular abscess, colitis, urinary tract infection Narrative Course This is a 68-year-old female who has a history of a recent regular abscess who presents to the emergency department with persistent abdominal pain. Labs demonstrate a leukocytosis of 17. CT abdomen pelvis demonstrates inflammation suggestive of diverticulitis. Patient was tachycardic on arrival in [facility] with rapid ventricular response. She had not taken her morning rate control medications. They were administered in the emergency department and her heart rate responded. Patient will be admitted for IV antibiotics in the setting of sepsis. Lactic acid was reassuring. Physician Communication Physician Communication Discussed with Dr. Ramsey Diagnosis Primary Impression: Diverticulitis Admitting Information Admitting Physician Requests: Admit Tammy Patterson MD February 12, 2018 09:56
[2018-02-12] MEDS ORDERED: CIPROFLOXACIN 400 MG PREMIX 200 ML IV ONE (10:00)
[2018-02-12] MEDS ORDERED: metroNIDAZOLE 500 MG INJ 100 ML IV ONE (10:00)
--- NOTE | 2018-02-12 10:00 | RADRPT ---
EXAM DATE/TIME: 02/12/2018 09:35 [facility] COMPARISON: CT ABDOMEN & PELVIS W CONTRAST, February 05, 2018, 14:58. INDICATIONS : Diffuse abdominal pain. IV CONTRAST: 46 cc Visipaque (iodixanol) IV ORAL CONTRAST: No oral contrast ingested. RADIATION DOSE: 5.18 CTDIvol (mGy) MEDICAL HISTORY : Cardiovascular disease. Hypertension. Cirrhosis.Diabetes. SURGICAL HISTORY : None. ENCOUNTER: Initial ACUITY: 1 day PAIN SCALE: 5/10 LOCATION: abdomen. TECHNIQUE: Volumetric scanning of the abdomen and pelvis was performed. Using automated exposure control and ad justment of the mA and/or kV according to patient size, radiation dose was kept as low as reasonably achievable to obtain optimal diagnostic quality images. DICOM format image data is available electro nically for review and comparison. FINDINGS: LOWER LUNGS: The visualized lower lungs are clear. LIVER: Stable appearance of the liver compared to the prior study. Stable large gallstones in the gallbladde r. No biliary tract obstruction. SPLEEN: Stable multiple calcified granulomas. PANCREAS: Within normal limits. KIDNEYS: Normal in size and shape. There is no mass, stone or hydronephrosis. ADRENAL GLANDS: Within normal limits. VASCULAR: There is no aortic aneurysm. BOWEL/MESENTERY: Bowel gas pattern is within normal limits. There is no evidence of any abnormal dilatation. There con tinues to be diffuse diverticulosis throughout the colon. There appears to be some nonspecific inflam matory changes in the mesenteric fat adjacent to the sigmoid colon. The previously described inflamma tory changes adjacent to the adjacent colon has improved. There is a small amount of free fluid in th e pelvis which is stable. There is stool throughout the colon. No evidence of free air. ABDOMINAL WALL: Within normal limits. RETROPERITONEUM: There is no lymphadenopathy. BLADDER: No wall thickening or mass. REPRODUCTIVE: Within normal limits. INGUINAL: There is no lymphadenopathy or hernia. MUSCULOSKELETAL: Within normal limits for patient age. CONCLUSION: 1. There appears to be some nonspecific inflammatory changes adjacent to the sigmoid colon suggestive of diverticulitis. There is diffuse diverticular disease throughout the entire colon. 2. Stable small amount of free fluid deep in the pelvis. 3. Large calcified gallstones in the gallbladder without clear tract obstruction. 4. No other significant changes are seen compared to the prior study. Seven Dunlap MD on February 12, 2018 at 9:52 Board Certified Radiologist. This report was verified electronically.
[2018-02-12] MEDS ORDERED: BISACODYL 10 MG SUPP RECTAL PRN (10:30)
[2018-02-12] MEDS ORDERED: LACTULOSE SYRUP 20 GM/30 ML CUP PO PRN (10:30)
[2018-02-12] MEDS ORDERED: METOCLOPRAMIDE HCL 10 MG/2 ML VIAL IV PUSH PRN (10:30)
[2018-02-12] MEDS ORDERED: NALOXONE HCL 0.4 MG/ML AMP IV PUSH PRN (10:30)
[2018-02-12] MEDS ORDERED: TEMAZEPAM 15 MG CAP PO PRN (10:30)
[2018-02-12] MEDS ORDERED: MAGNESIUM HYDROXIDE SUSP 30 ML CUP PO PRN (10:30)
[2018-02-12] MEDS ORDERED: SENNOSIDES 8.6 MG TAB PO PRN (10:30)
[2018-02-12] MEDS: SODIUM CHLOR 0.9% 1000 ML INJ 1,000 ML IV SCH ×2 (11:10→19:04)
--- NOTE | 2018-02-12 12:48 | PD.PN.STU ---
Subjective Remarks HPI: 68-year-old white female presented to the ED today with severe abdominal pain. She has been dealing with multiple GI issues over the past month, which began with an admission on 01/27/18 for RLQ pain. She was diagnosed with diverticular abscess and EGD on 01/28 showed gastritis. She remained inpatient x4 days and was discharged with ciprofloxacin and metronidazole. Symptoms improved briefly, but she returned to the ED on 02/05 for LGIB and hematochezia. At the time, she required blood transfusion to replace losses. RBC scan done on 02/07 showed resolution of the GIB and she was discharged on 02/08. She has never had any GI problems prior to this month. Today the pt has symptoms of severe abdominal pain and no appetite. The pain was originally localized to the RLQ but is now diffuse. She describes it as 10/ 10 and "crampy." It is the same kind of pain she has had for the past two weeks which never fully resolved. She reports 10-15lb weight loss over the past two weeks because she has no appetite. She is able to eat and keep food down, but has no desire due to abdominal pain. Last meal was last night. She has shortness of breath with exertion, but this is at pt's baseline. She denies nausea, vomiting, constipation, diarrhea, blood in BM, fever, chills. Normally she takes eliquis for history of A fib s/p ablation (12/2017), but she was told to hold the medication after developing GIB. She has not restarted. Morphine was given in the ED and pain is significantly improved. She was supposed to f/u with GI doc next week per advice from the last admission. PMHx: Afib HTN HLD CKD Gout FHx: Mother: lung cancer, CABG x3, smoker x40 years Surgical Hx: R ankle repair Cardiac ablation 12/29/2017 SHx: denies EtOH and drug use never smoker Reported Meds & Active Scripts Active Pantoprazole (Pantoprazole Sodium) 40 Mg Tab 40 Mg PO DAILY Eliquis (Apixaban) 2.5 Mg Tab 2.5 Mg PO BID Diltiazem CD 24 HR 240 Mg Caper 240 Mg PO DAILY Flagyl (Metronidazole) 500 Mg Tab 500 Mg PO TID 7 Days Cipro (Ciprofloxacin HCl) 500 Mg Tab 500 Mg PO BID 7 Days Amiodarone (Amiodarone HCl) 200 Mg Tab 200 Mg PO DAILY 30 Days Reported Metoprolol Succinate ER 24 HR (Metoprolol Succinate) 25 Mg Tab 25 Mg PO DAILY Atorvastatin (Atorvastatin Calcium) 40 Mg Tab 40 Mg PO HS Allopurinol 100 Mg Tab 100 Mg PO DAILY Pepcid Allergies: Penicillins (Verified Allergy, Intermediate, 02/05/18) Objective Vitals Vital Signs Date Time Temp Pulse Resp B/P (MAP) Pulse Ox O2 Delivery O2 Flow Rate FiO2 02/12/18 11:06 76 17 128/72 (90) 98 Room Air 02/12/18 09:07 115 18 121/78 (92) 97 Room Air 02/12/18 08:10 100 Room Air 02/12/18 07:56 97.7 132 20 125/50 (75) 98 Result Diagram: 02/12/18 0820 02/12/18 0820 Objective Remarks PE: General: Well-developed well-nourished female, alert and oriented x3, lying in bed in NAD HEENT: Normocephalic, atraumatic, no cervical lymphadenopathy Skin: [place], warm and dry CV: Heart is RRR with normal S1/S2, no murmurs, gallops or rubs, no JVD, no peripheral edema Lungs: BS CTA bilaterally, no wheezes, rhonchi, rales Abdomen: Soft, non-distended, normal BS. Diffuse mild tenderness to palpation with severe point tenderness over RLQ and LLQ. No rebound tenderness, negative McBurney's sign. Negative Richard's sign. Extremities: No cyanosis or edema Neuro: No gross focal neurologic deficits. A/P Assessment and Plan Problem List: 1. Abdominal pain - likely diverticulitis/ Sepsis Pt meets sepsis criteria upon admission due to elevated WBC, tachycardia, and source for infection. CT showed nonspecific inflammation throughout the colon, and focal areas in the sigmoid colon consistent with diverticulitis Small amount of free fluid in pelvis but considered stable per radiology No change in CT findings from last week Morphine given in ED for pain, will continue prn Elevated WBC in ED (17.2), will continue to monitor Rx ciprofloxacin and metronidazole Heart healthy diet to advance as tolerated 2. Cholelithiasis Incidental finding on abdominal CT without pericholecystic inflammation or signs of obstruction No focal RUQ tenderness, negative Richard's sign Not likely contributing to current abdominal symptoms 3. Afib Continue home medications Rx metroprolol, amiodarone, diltiazem Hold eliquis for now due to recent GIB Telemetry monitoring 4. HTN Stable upon arrival to ED, will continue to monitor Continue home BP meds 5. Anemia: Recent admission for LGIB, Hb 10.0 Hct 30.3 on admission Stable for now with no signs of active bleeding Will continue to monitor H&H 6. CKD Creatinine 1.34 and eGFR 39 on admission Avoid nephrotoxic agents IV NS for hydration Will continue to monitor with labs 7. DVT prophylaxis with subcutaneous heparin Case discussed at length with Miss Zo Joiner MS III. Note above reviewed and agree with above note. Zo Joiner M3 February 12, 2018 12:48 Nuria Ramsey MD February 12, 2018 13:47
--- NOTE | 2018-02-12 14:43 | PD.CONS ---
HPI History of Present Illness This is a 68 year old female with recent hx diverticular abscess who presented to ER for continued abd pain. She is having lower abd pain. Last BM yesterday. Denies rectal bleeding. She was recently evaluated by our service during an admission for BRBPR. She was sent home with oral cipro and flagyl and finished these yesterday. She says her abd pain never really went away. During a prior admission was found to have diverticular abscess, treated with abx. She was evaluated by our service and had EGD 01/28/18 revealing gastritis. She is on eliquis for AF. Last had eliquis yesterday. She has never had colonoscopy. (Gayle Rowell) PFSH Past Medical History HTN HLD AF on eliquis gout Past Surgical History atrial ablation ORIF right ankle (Gayle Rowell) Coded Allergies: Penicillins (Verified Allergy, Intermediate, 02/05/18) Pt gets yeast infections with this medication Family History CAD Social History denies toxic habits (Gayle Rowell) Review of Systems Constitutional: DENIES: Fever Endocrine: DENIES: Polydipsia Eyes: DENIES: Blurred vision Ears, nose, mouth, throat: DENIES: Hearing loss Respiratory: DENIES: Cough Cardiovascular: DENIES: Chest pain Gastrointestinal: COMPLAINS OF: Abdominal pain, DENIES: Black stools, Bloody stools, Nausea, Vomiting Genitourinary: DENIES: Hematuria Musculoskeletal: DENIES: Joint pain Integumentary: DENIES: Abnormal pigmentation Hematologic/lymphatic: DENIES: Bruising Immunologic/allergic: DENIES: Eczema Neurologic: DENIES: Abnormal gait Psychiatric: DENIES: Confusion (Gayle Rowell) GI Exam Vitals I&O Vital Signs Date Time Temp Pulse Resp B/P (MAP) Pulse Ox O2 Delivery O2 Flow Rate FiO2 02/12/18 12:00 98.3 86 16 115/60 (78) 98 02/12/18 11:06 76 17 128/72 (90) 98 Room Air 02/12/18 09:07 115 18 121/78 (92) 97 Room Air 02/12/18 08:10 100 Room Air 02/12/18 07:56 97.7 132 20 125/50 (75) 98 Imaging Last Impressions Abdomen/Pelvis CT 02/12/18 0819 Signed Impressions: Service Date/Time: January 09:35 - CONCLUSION: 1. There appears to be some nonspecific inflammatory changes adjacent to the sigmoid colon suggestive of diverticulitis. There is diffuse diverticular disease throughout the entire colon. 2. Stable small amount of free fluid deep in the pelvis. 3. Large calcified gallstones in the gallbladder without clear tract obstruction. 4. No other significant changes are seen compared to the prior study. Seven Dunlap MD Laboratory Test 02/12/18 08:20 02/12/18 10:10 White Blood Count 17.2 TH/MM3 Red Blood Count 3.64 MIL/MM3 Hemoglobin 10.0 GM/DL Hematocrit 30.3 % Mean Corpuscular Volume 83.2 FL Mean Corpuscular Hemoglobin 27.5 PG Mean Corpuscular Hemoglobin Concent 33.1 % Red Cell Distribution Width 17.0 % Platelet Count 471 TH/MM3 Mean Platelet Volume 8.1 FL Neutrophils (%) (Auto) 86.0 % Lymphocytes (%) (Auto) 6.5 % Monocytes (%) (Auto) 6.7 % Eosinophils (%) (Auto) 0.4 % Basophils (%) (Auto) 0.4 % Neutrophils # (Auto) 14.7 TH/MM3 Lymphocytes # (Auto) 1.1 TH/MM3 Monocytes # (Auto) 1.1 TH/MM3 Eosinophils # (Auto) 0.1 TH/MM3 Basophils # (Auto) 0.1 TH/MM3 CBC Comment DIFF FINAL Differential Comment Blood Urea Nitrogen 16 MG/DL Creatinine 1.34 MG/DL Random Glucose 104 MG/DL Total Protein 6.6 GM/DL Albumin 2.8 GM/DL Calcium Level 8.9 MG/DL Alkaline Phosphatase 131 U/L Aspartate Amino Transf (AST/SGOT) 17 U/L Alanine Aminotransferase (ALT/SGPT) 9 U/L Total Bilirubin 0.5 MG/DL Sodium Level 137 MEQ/L Potassium Level 3.7 MEQ/L Chloride Level 101 MEQ/L Carbon Dioxide Level 21.0 MEQ/L Anion Gap 15 MEQ/L Estimat Glomerular Filtration Rate 39 ML/MIN Lactic Acid Level 0.7 mmol/L Date/Time Source Procedure Growth Status 02/12/18 10:15 Blood Peripheral Aerobic Blood Culture Pending Received 02/12/18 10:15 Blood Peripheral Anaerobic Blood Culture Pending Received Physical Examination HEENT: PERRL; normocephalic; atraumatic; no jaundice. CHEST: CTA CARDIAC: RRR ABDOMEN: Soft, nondistended,significant lower quadrant TTP; no hepatosplenomegaly; bowel sounds are present in all four quadrants. EXTREMITIES: No clubbing, cyanosis, or edema. SKIN: Normal; no rash; no jaundice. VENDING ATTENDANT: No focal deficits; alert and oriented times three. (Gayle Rowell) Assessment and Plan Plan ASSESSMENT - lower abd pain - diverticulitis. Seen on CT. just finished oral abx. pain never improved. - anemia - hgb improving. rectal bleeding did improve. - leukocytosis - wbc 17 currently, was WNL when she was d/c. 2/2 above? PLAN - monitor labs - continue abx - GEORGIE - further recs to follow pt seen by myself and Dr Lomeli and this note is on her behalf (Gayle Rowell) Physician Comments seen, examined agree with above reconsult surgery Gastrografin enema in am cea level she report weight loss-30 lbs in 8 month due to poor appetite if Gastrografin enema negative-consider flexisigmoidoscopy colonoscopy at a later date (Tara Lomeli MD) Gayle Rowell February 12, 2018 14:43 Tara Lomeli MD February 12, 2018 16:16
--- NOTE | 2018-02-12 17:29 | HHI.HP ---
HPI Service [facility] Hospitalists Primary Care Physician Unknown Admission Diagnosis diverticulitis Diagnoses: Chief Complaint: abdominal pain Travel History International Travel<30 Days: No Contact w/Intl Traveler <30 Da: No Traveled to Known Affected Are: No History of Present Illness 68-year-old white female with PmH of diverticulitis, Afib, HTN, HLD, CKD, Gout presented to the ED today with severe abdominal pain. She has been dealing with multiple GI issues over the past month, which began with an admission on 01/27/18 for RLQ pain. She was diagnosed with diverticular abscess and EGD on 01/28 showed gastritis. She remained inpatient x4 days and was discharged with ciprofloxacin and metronidazole. Symptoms improved briefly, but she returned to the ED on for LGIB and hematochezia. At the time, she required blood transfusion to replace losses. RBC scan done on 02/07 showed resolution of the GIB and she was discharged on 02/08. She has never had any GI problems prior to this month. Today the pt has symptoms of severe abdominal pain and no appetite. The pain was originally localized to the RLQ but is now diffuse. She describes it as 10/ 10 and "crampy." It is the same kind of pain she has had for the past two weeks which never fully resolved. She reports 10-15lb weight loss over the past two weeks because she has no appetite. She is able to eat and keep food down, but has no desire due to abdominal pain. Last meal was last night. She has shortness of breath with exertion, but this is at pt's baseline. She denies nausea, vomiting, constipation, diarrhea, blood in BM, fever, chills. Normally she takes eliquis for history of A fib s/p ablation (12/2017), but she was told to hold the medication after developing GIB. She has not restarted. Morphine was given in the ED and pain is significantly improved. She was supposed to f/u with GI doc next week per advice from the last admission. Review of Systems Except as stated in HPI: all other systems reviewed are Neg Past Family Social History Past Medical History Afib on eliquis HTN HLD CKD Gout Past Surgical History ORIF right ankle Cardiac ablation 12/29/2017 Reported Medications Last Impressions Abdomen/Pelvis CT 02/12/18 0819 Signed Impressions: Service Date/Time: , February 12, 2018 09:35 - CONCLUSION: 1. There appears to be some nonspecific inflammatory changes adjacent to the sigmoid colon suggestive of diverticulitis. There is diffuse diverticular disease throughout the entire colon. 2. Stable small amount of free fluid deep in the pelvis. 3. Large calcified gallstones in the gallbladder without clear tract obstruction. 4. No other significant changes are seen compared to the prior study. Seven Dunlap MD Allergies: Coded Allergies: Penicillins (Verified Allergy, Intermediate, 02/05/18) Pt gets yeast infections with this medication Family History Mother: lung cancer, CABG x3, smoker x40 years Social History Denies tobacco use, EtOH use or illicit drug use Physical Exam Vital Signs Vital Signs Date Time Temp Pulse Resp B/P (MAP) Pulse Ox O2 Delivery O2 Flow Rate FiO2 02/12/18 16:00 98.8 77 16 105/57 (73) 98 02/12/18 12:00 98.3 86 16 115/60 (78) 98 02/12/18 11:06 76 17 128/72 (90) 98 Room Air 02/12/18 09:07 115 18 121/78 (92) 97 Room Air 02/12/18 08:10 100 Room Air 02/12/18 07:56 97.7 132 20 125/50 (75) 98 Physical Exam GENERAL: This is a well-nourished, well-developed patient, in no apparent distress. SKIN: No rashes, ecchymoses or lesions. Cool and dry. HEAD: Atraumatic. Normocephalic. No temporal or scalp tenderness. EYES: Pupils equal round and reactive. Extraocular motions intact. No scleral icterus. No injection or drainage. ENT: Nose without bleeding, purulent drainage or septal hematoma. Throat without erythema, tonsillar hypertrophy or exudate. Uvula midline. Airway patent. NECK: Trachea midline. No JVD or lymphadenopathy. Supple, nontender, no meningeal signs. CARDIOVASCULAR: Regular rate and rhythm without murmurs, gallops, or rubs. RESPIRATORY: Clear to auscultation. Breath sounds equal bilaterally. No wheezes , rales, or rhonchi. GASTROINTESTINAL: Abdomen soft. Diffuse mild tenderness to palpation with severe point tenderness over RLQ and LLQ. No rebound tenderness. No guarding. MUSCULOSKELETAL: Extremities without clubbing, cyanosis, or edema. No joint tenderness, effusion, or edema noted. No calf tenderness. Negative Homans sign bilaterally. NEUROLOGICAL: Awake and alert. Cranial nerves II through XII intact. Motor and sensory grossly within normal limits. Five out of 5 muscle strength in all muscle groups. Normal speech. Laboratory Laboratory Tests Test 02/12/18 08:20 02/12/18 10:10 White Blood Count 17.2 Red Blood Count 3.64 Hemoglobin 10.0 Hematocrit 30.3 Mean Corpuscular Volume 83.2 Mean Corpuscular Hemoglobin 27.5 Mean Corpuscular Hemoglobin Concent 33.1 Red Cell Distribution Width 17.0 Platelet Count 471 Mean Platelet Volume 8.1 Neutrophils (%) (Auto) 86.0 Lymphocytes (%) (Auto) 6.5 Monocytes (%) (Auto) 6.7 Eosinophils (%) (Auto) 0.4 Basophils (%) (Auto) 0.4 Neutrophils # (Auto) 14.7 Lymphocytes # (Auto) 1.1 Monocytes # (Auto) 1.1 Eosinophils # (Auto) 0.1 Basophils # (Auto) 0.1 CBC Comment DIFF FINAL Differential Comment Blood Urea Nitrogen 16 Creatinine 1.34 Random Glucose 104 Total Protein 6.6 Albumin 2.8 Calcium Level 8.9 Alkaline Phosphatase 131 Aspartate Amino Transf (AST/SGOT) 17 Alanine Aminotransferase (ALT/SGPT) 9 Total Bilirubin 0.5 Sodium Level 137 Potassium Level 3.7 Chloride Level 101 Carbon Dioxide Level 21.0 Anion Gap 15 Estimat Glomerular Filtration Rate 39 Lactic Acid Level 0.7 Date/Time Source Procedure Growth Status 02/12/18 10:15 Blood Peripheral Aerobic Blood Culture Pending Received 02/12/18 10:15 Blood Peripheral Anaerobic Blood Culture Pending Received Result Diagram: 02/12/1881902/12/18819 Imaging Last Impressions Abdomen/Pelvis CT 02/12/18818 Signed Impressions: Service Date/Time: January 09:35 - CONCLUSION: 1. There appears to be some nonspecific inflammatory changes adjacent to the sigmoid colon suggestive of diverticulitis. There is diffuse diverticular disease throughout the entire colon. 2. Stable small amount of free fluid deep in the pelvis. 3. Large calcified gallstones in the gallbladder without clear tract obstruction. 4. No other significant changes are seen compared to the prior study. MD Mayda Rodgers VTE Risk Assessment Caprini VTE Risk Assessment: Mod/High Risk (score >= 2) Caprini Risk Assessment Model Point Value = 1 Point Value = 2 Point Value = 3 Point Value = 5 Age 41-60 Minor surgery BMI > 25 kg/m2 Swollen legs Varicose veins or History of unexplained or recurrent spontaneous Oral contraceptives or hormone replacement Sepsis (< 1 month) Serious lung disease, including pneumonia (< 1 month) Abnormal pulmonary function Acute myocardial infarction Congestive heart failure (< 1 month) History of inflammatory bowel disease Medical patient at bed rest Age 61-74 Arthroscopic surgery Major open surgery (> 45 min) Laparoscopic surgery (> 45 min) Malignancy Confined to bed (> 72 hours) Immobilizing plaster cast Central venous access Age >= 75 History of VTE Family history of VTE Factor V Leiden Prothrombin [id number] Lupus anticoagulant Anticardiolipin antibodies Elevated serum homocysteine Heparin-induced thrombocytopenia Other congenital or acquired thrombophilia Stroke (< 1 month) Elective arthroplasty Hip, pelvis, or leg fracture Acute spinal cord injury (< 1 month) Prophylaxis Regimen Total Risk Factor Score Risk Level Prophylaxis Regimen 0-1 Low Early ambulation 2 Moderate Order ONE of the following: *Sequential Compression Device (SCD) *Heparin 5000 units SQ BID 3-4 Higher Order ONE of the following medications: *Heparin 5000 units SQ TID *Enoxaparin/Lovenox 40 mg SQ daily (WT < 150 kg, CrCl > 30 mL/min) *Enoxaparin/Lovenox 30 mg SQ daily (WT < 150 kg, CrCl > 10-29 mL/min) *Enoxaparin/Lovenox 30 mg SQ BID (WT < 150 kg, CrCl > 30 mL/min) AND/OR *Sequential Compression Device (SCD) 5 or more Highest Order ONE of the following medications: *Heparin 5000 units SQ TID (Preferred with Epidurals) *Enoxaparin/Lovenox 40 mg SQ daily (WT < 150 kg, CrCl > 30 mL/min) *Enoxaparin/Lovenox 30 mg SQ daily (WT < 150 kg, CrCl > 10-29 mL/min) *Enoxaparin/Lovenox 30 mg SQ BID (WT < 150 kg, CrCl > 30 mL/min) AND *Sequential Compression Device (SCD) Assessment and Plan Assessment and Plan Sepsis meeting criteria on admission (leucocytosis, tachycardia, source of infection is GI, patient with diverticulitis) Abdominal pain - likely diverticulitis, patient with recurrent diverticulitis CT A/P reviewed and findings discussed with the ED physician, showed nonspecific inflammation throughout the colon, and focal areas in the sigmoid colon consistent with diverticulitis Small amount of free fluid in pelvis but considered stable per radiology No change in CT findings from last week Morphine given in ED for pain, will continue prn IV abx ciprofloxacin and metronidazole Heart healthy diet to advance as tolerated Consult GI for further evlauation Cholelithiasis Incidental finding on abdominal CT without pericholecystic inflammation or signs of obstruction No focal RUQ tenderness, negative Richard's sign Not likely contributing to current abdominal symptoms Afib Continue home medications Continue metroprolol, amiodarone, diltiazem Hold eliquis for now due to recent GIB, aptient is not taking eliquis Telemetry monitoring HTN Continue to monitor BP and adjust meds as need Continue home BP meds Anemia Recent admission for LGIB, Hb 10.0 Hct 30.3 on admission Stable for now with no signs of active bleeding Will continue to monitor H&H, transfuse iof HGB < 7 or if symptomatic CKD Creatinine 1.34 and eGFR 39 on admission Avoid nephrotoxic agents IV NS for hydration Will continue to monitor kidney function DVT prophylaxis with subcutaneous heparin Discussed Condition With patient, nurse, ED physician Physician Certification 2 Midnight Certification Type: Admission for Inpatient Services Order for Inpatient Services The services are ordered in accordance with Medicare regulations or non- Medicare payer requirements, as applicable. In the case of services not specified as inpatient-only, they are appropriately provided as inpatient services in accordance with the 2-midnight benchmark. Estimated LOS (days): 3 days is the estimated time the patient will need to remain in the hospital, assuming treatment plan goals are met and no additional complications. Post-Hospital Plan: Home Nuria Ramsey MD February 12, 2018 17:29
--- NOTE | 2018-02-12 17:35 | PD.CONS ---
cc: Christelle Gordon MD [facility] Service General Surgery Consult Requested By Dr. Lomeli Reason for Consult Diverticulitis Primary Care Physician Unknown History of Present Illness This is a 68 year old female with a past medical history of hypertension, dyslipidemia and atrial fibrillation on oral anticoagulation who presents to the ED which complains of lower abdominal pain. The patient is known to our service from the past two admissions. The plan is to treat her nonoperatively with antibiotics and low residue diet for now and for the patient to have outpatient colonoscopy in about 6-8 weeks after the infection and inflammation resolve and to talk then about a possible elective procedure after that. The patient states that her abdominal pain never really has gone away. She was sent home with Cipro/Flagyl and finished those antibiotics. She comes back with continued abdominal pain. A CT abdomen/pelvis was obtained which shows some inflammatory changes adjacent to the sigmoid colon suggestive of diverticulitis. She does have an elevated WBC of 17,200. A General Surgery consultation has been requested. Review of Systems Constitutional: COMPLAINS OF: Change in appetite, DENIES: Fatigue, Chills Endocrine: DENIES: Polydipsia, Polyuria, Polyphagia Eyes: DENIES: Diplopia, Eye inflammation Ears, nose, mouth, throat: DENIES: Hearing loss, Vertigo Respiratory: DENIES: Cough, Snoring Cardiovascular: DENIES: Chest pain, Palpitations Gastrointestinal: COMPLAINS OF: Abdominal pain, DENIES: Bloody stools, Nausea, Vomiting Genitourinary: DENIES: Urinary frequency Musculoskeletal: DENIES: Joint pain Integumentary: DENIES: Abnormal pigmentation Hematologic/lymphatic: DENIES: Bruising Immunologic/allergic: DENIES: Eczema Neurologic: DENIES: Headache, Localized weakness Psychiatric: DENIES: Confusion, Mood changes, Depression Past Family Social History Past Medical History Atrial fibrillation on OAC Hypertension Dyslipidemia Chronic kidney disease Gout Past Surgical History Orthopedic procedures Cardiac ablation Reported Medications Patient is on Eliquis but has been on hold since episode of gastrointestinal bleeding Allergies: Coded Allergies: Penicillins (Verified Allergy, Intermediate, 02/05/18) Pt gets yeast infections with this medication Active Ordered Medications Current Medications Medications (Trade) Dose Ordered Sig/Lynette Route Start Time Stop Time Status Last Admin Ciprofloxacin/ Dextrose 200 ml @ 200 mls/hr Q8H IV 02/12/18 18:00 Metronidazole 100 ml @ 100 mls/hr Q8H IV 02/12/18 18:00 Sodium Chloride 1,000 ml @ 100 mls/hr Q10H IV 02/12/18 10:27 02/12/18 11:10 (NS Flush) 2 ml UNSCH PRN IV FLUSH 02/12/18 10:30 (NS Flush) 2 ml BID IV FLUSH 02/12/18 21:00 (Tylenol) 650 mg Q4H PRN PO 02/12/18 10:30 (Reglan Inj) 5 mg Q6H PRN IV PUSH 02/12/18 10:30 (Restoril) 15 mg HS PRN PO 02/12/18 10:30 (Lovenox Inj) 40 mg Q24H SQ 02/12/18 12:00 (Narcan Inj) 0.4 mg UNSCH PRN IV PUSH 02/12/18 10:30 (Sophie-Colace) 1 tab BID PO 02/12/18 21:00 (Milk Of Magnesia Liq) 30 ml Q12H PRN PO 02/12/18 10:30 (Senokot) 17.2 mg Q12H PRN PO 02/12/18 10:30 (Dulcolax Supp) 10 mg DAILY PRN RECTAL 02/12/18 10:30 (Lactulose Liq) 30 ml DAILY PRN PO 02/12/18 10:30 (Zyloprim) 100 mg DAILY PO 02/13/18 09:00 (Cordarone) 200 mg DAILY PO 02/13/18 09:00 (Lipitor) 40 mg HS PO 02/12/18 21:00 (Cardizem Cd) 240 mg DAILY PO 02/13/18 09:00 (Toprol Xl) 25 mg DAILY PO 02/13/18 09:00 (Protonix) 40 mg DAILY PO 02/13/18 09:00 Family History None contributory Social History Denies tobacco and ETOH use Physical Exam Vital Signs Vital Signs Date Time Temp Pulse Resp B/P (MAP) Pulse Ox O2 Delivery O2 Flow Rate FiO2 02/12/18 16:00 98.8 77 16 105/57 (73) 98 02/12/18 12:00 98.3 86 16 115/60 (78) 98 02/12/18 11:06 76 17 128/72 (90) 98 Room Air 02/12/18 09:07 115 18 121/78 (92) 97 Room Air 02/12/18 08:10 100 Room Air 02/12/18 07:56 97.7 132 20 125/50 (75) 98 Physical Exam GENERAL: 68 year old female resting in bed eating a salad. SKIN: Warm and dry. HEAD: Atraumatic. Normocephalic. EYES: Pupils equal and round. No scleral icterus. No injection or drainage. ENT: No nasal bleeding or discharge. Mucous membranes pink and moist. NECK: Trachea midline. CARDIOVASCULAR: Regular rate and irregular rhythm. RESPIRATORY: No accessory muscle use. Clear to auscultation. Breath sounds equal bilaterally. GASTROINTESTINAL: Abdomen soft, nondistended. Mild pain with palpation in LLQ. MUSCULOSKELETAL: Extremities without clubbing, cyanosis, or edema. No obvious deformities. NEUROLOGICAL: Awake and alert. No obvious cranial nerve deficits. Motor grossly within normal limits. Five out of 5 muscle strength in the arms and legs. Normal speech. PSYCHIATRIC: Appropriate mood and affect; insight and judgment normal. Laboratory Laboratory Tests Test 02/12/18 08:20 02/12/18 10:10 White Blood Count 17.2 Red Blood Count 3.64 Hemoglobin 10.0 Hematocrit 30.3 Mean Corpuscular Volume 83.2 Mean Corpuscular Hemoglobin 27.5 Mean Corpuscular Hemoglobin Concent 33.1 Red Cell Distribution Width 17.0 Platelet Count 471 Mean Platelet Volume 8.1 Neutrophils (%) (Auto) 86.0 Lymphocytes (%) (Auto) 6.5 Monocytes (%) (Auto) 6.7 Eosinophils (%) (Auto) 0.4 Basophils (%) (Auto) 0.4 Neutrophils # (Auto) 14.7 Lymphocytes # (Auto) 1.1 Monocytes # (Auto) 1.1 Eosinophils # (Auto) 0.1 Basophils # (Auto) 0.1 CBC Comment DIFF FINAL Differential Comment Blood Urea Nitrogen 16 Creatinine 1.34 Random Glucose 104 Total Protein 6.6 Albumin 2.8 Calcium Level 8.9 Alkaline Phosphatase 131 Aspartate Amino Transf (AST/SGOT) 17 Alanine Aminotransferase (ALT/SGPT) 9 Total Bilirubin 0.5 Sodium Level 137 Potassium Level 3.7 Chloride Level 101 Carbon Dioxide Level 21.0 Anion Gap 15 Estimat Glomerular Filtration Rate 39 Lactic Acid Level 0.7 Date/Time Source Procedure Growth Status 02/12/18 10:15 Blood Peripheral Aerobic Blood Culture Pending Received 02/12/18 10:15 Blood Peripheral Anaerobic Blood Culture Pending Received Result Diagram: 02/12/18 0802/12/18 0820 Imaging Last 48 hours Impressions Abdomen/Pelvis CT 02/12/18818 Signed Impressions: Service Date/Time: January 09:35 - CONCLUSION: 1. There appears to be some nonspecific inflammatory changes adjacent to the sigmoid colon suggestive of diverticulitis. There is diffuse diverticular disease throughout the entire colon. 2. Stable small amount of free fluid deep in the pelvis. 3. Large calcified gallstones in the gallbladder without clear tract obstruction. 4. No other significant changes are seen compared to the prior study. Seven Dunlap MD Assessment and Plan Assessment and Plan 68 year old female with acute diverticulitis -Switched Cipro to Levaquin; continue Flagyl -IVF -Recommend full liquid diet and once advanced to low residue diet -Added Morphine PRN for pain -Will continue non operative treatment and continue to recommend follow up colonoscopy in 6-8 weeks. -Thank you for this consult; We will continue to follow along. PT SEEN WITH BEHAVIORAL TECHNICIAN WHO DOCUMENTED OUR VISIT. RECURRENT DIVERTICULITIS. RECOMMEND CHANGING ABX TO LEVAQUIN/FLAGYL. WILL FOLLOW PROGRESS. NO INDICATION FOR SURGERY AT THIS TIME. CHRISTELLE GORDON MD FACS Discussed Condition With Dr. Gordon Mrs. Corey Hunterley,Agatha Silva BEHAVIORAL TECHNICIAN/Adult Nurse Practitioner BEHAVIORAL TECHNICIAN February 12, 2018 17:35 Christelle Gordon MD February 16, 2018 21:45
[2018-02-12] MEDS ORDERED: MORPHINE SULFATE 2 MG/ML SYRINGE IV PRN (17:45)
[2018-02-12] MEDS ORDERED: MORPHINE SULFATE 2 MG/ML SYRINGE IV PUSH PRN (17:45)
[2018-02-12] MEDS ORDERED: MORPHINE SULFATE 4 MG/ML INJ IV PRN (18:00)
[2018-02-12] MEDS ORDERED: CIPROFLOXACIN 400 MG PREMIX 200 ML IV SCH (18:00)
[2018-02-12] MEDS: metroNIDAZOLE 500 MG INJ 100 ML IV SCH (18:00)
[2018-02-12] MEDS: ENOXAPARIN SODIUM 40 MG/0.4 ML SYRINGE SQ SCH (18:48)
[2018-02-12] MEDS: LEVOFLOXACIN 500 MG PREMIX INJ 100 ML IV SCH (20:37)
[2018-02-12] MEDS: SODIUM CHLORIDE 0.9% FLUSH 10 ML FLUSH IV FLUSH SCH (20:38)
[2018-02-12] MEDS: ATORVASTATIN 40 MG TAB PO SCH (20:38)
[2018-02-12] MEDS: DOCUSATE SODIUM 50 MG/SENNA 8.6 MG TAB PO SCH (20:38)
[2018-02-13 00:05] VITALS: BP 110/68; PULSE 99; RESP 16; TEMP 98.4; O2SAT 98
[2018-02-13] MEDS: metroNIDAZOLE 500 MG INJ 100 ML IV SCH ×3 (01:14→16:49)
[2018-02-13] MEDS: MORPHINE SULFATE 4 MG/ML INJ IV PRN ×2 (01:15→05:16)
[2018-02-13] MEDS: SODIUM CHLOR 0.9% 1000 ML INJ 1,000 ML IV SCH ×2 (04:04→19:00)
[2018-02-13 04:15] VITALS: BP 103/61; PULSE 101; RESP 16; TEMP 98.7; O2SAT 96
[2018-02-13 04:38] LABS: AUTOMATED NEUTROPHIL # 10.4 TH/MM3 (1.8-7.7); BASOPHIL % 0.3 % (0.0-2.0); EOSINOPHIL # 0.1 TH/MM3 (0-0.4); EOSINOPHIL % 0.6 % (0.0-4.0); HEMOGLOBIN 8.8 GM/DL (11.6-15.3); LYMPH % 7.3 % (9.0-44.0); LYMPHOCYTE # 0.9 TH/MM3 (1.0-4.8); MEAN CELL VOLUME 82.6 FL (80.0-100.0); MEAN CORPUSCULAR HEMOGLOBIN 27.8 PG (27.0-34.0); MEAN CORPUSCULAR HGB CONC 33.7 % (32.0-36.0); MONO % 9.1 % (0.0-8.0); MONOCYTE # 1.1 TH/MM3 (0-0.9); NEUT % 82.7 % (16.0-70.0); PLATELET COUNT 385 TH/MM3 (150-450); RED BLOOD COUNT 3.15 MIL/MM3 (4.00-5.30); RED CELL DISTRIBUTION WIDTH 16.4 % (11.6-17.2); WHITE BLOOD COUNT 12.6 TH/MM3 (4.0-11.0)
[2018-02-13 05:07] LABS: BICARBONATE 24.3 MEQ/L (21.0-32.0); CALCIUM 8.3 MG/DL (8.5-10.1)
[2018-02-13 08:00] VITALS: BP 106/67; PULSE 91; RESP 16; TEMP 98.6; O2SAT 97
[2018-02-13] MEDS: DOCUSATE SODIUM 50 MG/SENNA 8.6 MG TAB PO SCH ×2 (08:41→19:49)
[2018-02-13] MEDS: PANTOPRAZOLE SOD 40 MG DELAYED RELEASE TAB PO SCH (08:42)
[2018-02-13] MEDS: METOPROLOL SUCCINATE 25 MG EXTENDED RELEASE TAB PO SCH (08:42)
[2018-02-13] MEDS: ALLOPURINOL 100 MG TAB PO SCH (08:42)
[2018-02-13] MEDS: DILTIAZEM-CD 240 MG CAP ER PO SCH (08:42)
[2018-02-13] MEDS: AMIODARONE 200 MG TAB PO SCH (08:42)
[2018-02-13] MEDS: SODIUM CHLORIDE 0.9% FLUSH 10 ML FLUSH IV FLUSH SCH ×2 (08:45→19:48)
[2018-02-13] MEDS ORDERED: DIATRIZOATE MEGLUM/DIATRIZOATE SOD 120 ML BTL (for RAD DIAG) RECTAL ONE (10:39)
--- NOTE | 2018-02-13 10:41 | RADRPT ---
EXAM DATE/TIME: 02/13/2018 09:16 [place] COMPARISON: CT ABDOMEN & PELVIS W CONTRAST, February 12, 2018, 9:35. INDICATIONS : Recurrent diverticulitis. FLUORO TIME: 2.0 minutes IMAGE COUNT: 19 CONTRAST: 1. [facility] MEDICAL HISTORY : Cardiovascular disease. Cirrhosis. Hypertension. diabetes SURGICAL HISTORY : None. ENCOUNTER: Initial ACUITY: 1 day PAIN SCORE: 5/10 LOCATION: Bilateral abdomen FINDINGS: Preliminary film demonstrates calcified gallstones in the right upper quadrant. There are degenerativ e changes of the spine, and a nonobstructive bowel gas pattern.. Under fluoroscopic guidance a Gastrografin enema was performed with free flow of contrast to the ceca l tip. There is severe diverticulosis seen within the sigmoid, descending and transverse colons. Post evacuation radiographs are unremarkable. CONCLUSION: Severe diverticulosis. Cholelithiasis. Naif Dos Santos MD on February 13, 2018 at 10:38 Board Certified Radiologist. This report was verified electronically.
[2018-02-13] MEDS: ENOXAPARIN SODIUM 40 MG/0.4 ML SYRINGE SQ SCH (11:15)
--- NOTE | 2018-02-13 11:41 | HHI.PR ---
Subjective Remarks With some nauea no vomiting. Not eating much. Still with abdominal pain however improved some since yesterday. No fever or chills. Objective Vitals Vital Signs Date Time Temp Pulse Resp B/P (MAP) Pulse Ox O2 Delivery O2 Flow Rate FiO2 02/13/18 10:46 21 02/13/18 08:00 98.6 91 16 106/67 (80) 97 02/13/18 04:15 98.7 101 16 103/61 (75) 96 02/13/18 00:05 98.4 99 16 110/68 (82) 98 02/12/18 22:03 94 02/12/18 19:45 98.2 76 16 102/58 (73) 96 02/12/18 18:55 Room Air 02/12/18 16:00 98.8 77 16 105/57 (73) 98 02/12/18 12:00 98.3 86 16 115/60 (78) 98 I/O 02/12/18 02/12/18 02/12/18 02/13/18 02/13/18 02/13/18 07:00 15:00 23:00 07:00 15:00 23:00 Intake Total 1100 ml 1560 ml Balance 1100 ml 1560 ml Intake Oral 600 ml 480 ml IV Total 500 ml 1080 ml # Voids 1 2 # Bowel Movements 0 0 Result Diagram: 02/13/18 0420 02/13/18 0420 Imaging Last Impressions Enema w/Water Soluble 02/13/18 0000 Signed Impressions: Service Date/Time: Tuesday, February 13, 2018 09:16 - CONCLUSION: Severe diverticulosis. Cholelithiasis. Naif DosS antos MD Abdomen/Pelvis CT 02/12/18 0819 Signed Impressions: Service Date/Time: January 09:35 - CONCLUSION: 1. There appears to be some nonspecific inflammatory changes adjacent to the sigmoid colon suggestive of diverticulitis. There is diffuse diverticular disease throughout the entire colon. 2. Stable small amount of free fluid deep in the pelvis. 3. Large calcified gallstones in the gallbladder without clear tract obstruction. 4. No other significant changes are seen compared to the prior study. Seven Dunlap MD Objective Remarks GENERAL: This is a well-nourished, well-developed patient, in no apparent distress. CARDIOVASCULAR: Regular rate and rhythm without murmurs, gallops, or rubs. RESPIRATORY: Clear to auscultation. Breath sounds equal bilaterally. No wheezes , rales, or rhonchi. GASTROINTESTINAL: Abdomen soft. Diffuse mild tenderness to palpation with severe point tenderness over RLQ and LLQ. No rebound tenderness. No guarding. MUSCULOSKELETAL: Extremities without clubbing, cyanosis, or edema. No joint tenderness, effusion, or edema noted. No calf tenderness. Negative Homans sign bilaterally. NEUROLOGICAL: Awake and alert. Cranial nerves II through XII intact. Motor and sensory grossly within normal limits. Normal speech. A/P Assessment and Plan Sepsis meeting criteria on admission (leucocytosis, tachycardia, source of infection is GI, patient with diverticulitis) Abdominal pain - likely diverticulitis, patient with recurrent diverticulitis CT A/P reviewed and findings discussed with the ED physician, showed nonspecific inflammation throughout the colon, and focal areas in the sigmoid colon consistent with diverticulitis Small amount of free fluid in pelvis but considered stable per radiology No change in CT findings from last week Morphine given in ED for pain, will continue prn Continue IV abx metronidazole. Start Levaquin IV abx. DC cipro Heart healthy diet to advance as tolerated Consult GI for further evlauation Consult gen surgery , continue med management for now Cholelithiasis Incidental finding on abdominal CT without pericholecystic inflammation or signs of obstruction No focal RUQ tenderness, negative Richard's sign Not likely contributing to current abdominal symptoms Afib Continue home medications Continue metroprolol, amiodarone, diltiazem Hold eliquis for now due to recent GIB, aptient is not taking eliquis Telemetry monitoring HTN Continue to monitor BP and adjust meds as need Continue home BP meds Anemia Recent admission for LGIB, Hb 10.0 Hct 30.3 on admission Stable for now with no signs of active bleeding Will continue to monitor H&H, transfuse iof HGB < 7 or if symptomatic NISA Creatinine 1.34 and eGFR 39 on admission Avoid nephrotoxic agents IV NS for hydration. Kidney indices improving. Will continue to monitor kidney function DVT prophylaxis with subcutaneous heparin Discussed Condition With patient, nurse Nuria Ramsey MD February 13, 2018 11:41
--- NOTE | 2018-02-13 11:47 | EKG ---
Date Performed: 02/12/2018 Time Performed: 08:27:46 PTAGE: 68 years EKG: ATRIAL FLUTTER/TACHYCARDIA WITH RAPID VENTRICULAR RESPONSE ABNORMAL RHYTHM ECG INTERPRETATI ON BASED ON A DEFAULT AGE OF 40 YEARS NO PREVIOUS TRACING DOCTOR: Michelle Abebe Interpretating Date/Time 02/13/2018 11:44:39
[2018-02-13 12:00] VITALS: BP 90/53; PULSE 88; RESP 16; TEMP 97.2; O2SAT 97
--- NOTE | 2018-02-13 12:48 | HHI.GIFU ---
Subjective Remarks Pt had barium enema this morning Complaining of some soreness to her LLQ but states overall improving Had some nausea this morning, denies emesis Soft BM yesterday (Deena Nguyen) Objective Vitals I&O Vital Signs Date Time Temp Pulse Resp B/P (MAP) Pulse Ox O2 Delivery O2 Flow Rate FiO2 02/13/18 12:00 97.2 88 16 90/53 (65) 97 02/13/18 10:46 21 02/13/18 08:00 98.6 91 16 106/67 (80) 97 02/13/18 04:15 98.7 101 16 103/61 (75) 96 02/13/18 00:05 98.4 99 16 110/68 (82) 98 02/12/18 22:03 94 02/12/18 19:45 98.2 76 16 102/58 (73) 96 02/12/18 18:55 Room Air 02/12/18 16:00 98.8 77 16 105/57 (73) 98 I/O 02/12/18 02/12/18 02/12/18 02/13/18 02/13/18 02/13/18 07:00 15:00 23:00 07:00 15:00 23:00 Intake Total 1100 ml 1560 ml Balance 1100 ml 1560 ml Intake Oral 600 ml 480 ml IV Total 500 ml 1080 ml # Voids 1 2 # Bowel Movements 0 0 Laboratory Laboratory Tests Test 02/12/18 17:32 02/13/18 04:20 Carcinoembryonic Antigen 7.8 White Blood Count 12.6 Red Blood Count 3.15 Hemoglobin 8.8 Hematocrit 26.0 Mean Corpuscular Volume 82.6 Mean Corpuscular Hemoglobin 27.8 Mean Corpuscular Hemoglobin Concent 33.7 Red Cell Distribution Width 16.4 Platelet Count 385 Mean Platelet Volume 8.0 Neutrophils (%) (Auto) 82.7 Lymphocytes (%) (Auto) 7.3 Monocytes (%) (Auto) 9.1 Eosinophils (%) (Auto) 0.6 Basophils (%) (Auto) 0.3 Neutrophils # (Auto) 10.4 Lymphocytes # (Auto) 0.9 Monocytes # (Auto) 1.1 Eosinophils # (Auto) 0.1 Basophils # (Auto) 0.0 CBC Comment DIFF FINAL Differential Comment Blood Urea Nitrogen 13 Creatinine 1.00 Random Glucose 92 Calcium Level 8.3 Sodium Level 139 Potassium Level 3.9 Chloride Level 106 Carbon Dioxide Level 24.3 Anion Gap 9 Estimat Glomerular Filtration Rate 55 Date/Time Source Procedure Growth Status 02/12/18 10:15 Blood Peripheral Aerobic Blood Culture - Preliminary NO GROWTH IN 1 DAY Resulted 02/12/18 10:15 Blood Peripheral Anaerobic Blood Culture - Preliminary NO GROWTH IN 1 DAY Resulted Imaging Last Impressions Enema w/Water Soluble 02/13/18 0000 Signed Impressions: Service Date/Time: Tuesday, February 13, 2018 09:16 - CONCLUSION: Severe diverticulosis. Cholelithiasis. Naif Dos Santos MD Abdomen/Pelvis CT 02/12/18 0819 Signed Impressions: Service Date/Time: January 09:35 - CONCLUSION: 1. There appears to be some nonspecific inflammatory changes adjacent to the sigmoid colon suggestive of diverticulitis. There is diffuse diverticular disease throughout the entire colon. 2. Stable small amount of free fluid deep in the pelvis. 3. Large calcified gallstones in the gallbladder without clear tract obstruction. 4. No other significant changes are seen compared to the prior study. Seven Dunlap MD Physical Exam HEENT: Normocephalic; atraumatic CHEST: Even/unlabored CARDIAC: RRR ABDOMEN: Soft, nondistended, LLQ TTP, bowel sounds active EXTREMITIES: No clubbing, cyanosis, or edema. SKIN: Normal; no rash; no jaundice. LAYOUT WORKER: No focal deficits; alert and oriented times three. (Deena Nguyen) Assessment and Plan Plan ASSESSMENT - LLQ pain- recent treatment for diverticulitis CT abdomen and pelvis W IV contrast (02/12) --> There appears to be some nonspecific inflammatory changes adjacent to the sigmoid colon suggestive of diverticulitis. There is diffuse diverticular disease throughout the entire colon. Stable small amount of free fluid deep in the pelvis. Large calcified gallstones in the gallbladder without clear tract obstruction. No other significant changes are seen compared to the prior study. Gastrografin enema (02/13) --> Severe diverticulosis. Cholelithiasis GS has seen pt, switched Cipro to Levaquin and continued Flagyl CEA-7.8 Pt has never had colonoscopy before - Anemia, normocytic- no reports of rectal bleeding Recently admitted for rectal bleeding. EGD (01/28/18) Moderate gastritis, no sign of active bleeding, normal otherwise , unable to biopsy, pt was on Eliquis - Leukocytosis- improving PLAN - Flex sig Friday - Colonoscopy at later date - Levaquin and Flagyl - GS following - Monitor labs - Further recommendations based on clinical course Pt has been seen and examined by myself and Dr. Lomeli and this note is written on her behalf (Deena Nguyen) Deena Nguyen February 13, 2018 12:48 Tara Lomeli MD February 13, 2018 18:47
--- NOTE | 2018-02-13 15:22 | HHI.PR ---
cc: Trevon Hamilton MD Subjective Subjective Notes DAILY PROGRESS NOTE FOR SURGICAL ATTENDING, DR. TREVON HAMILTON Resting in bed watching TV at bedside "I'm feeling a lot better today." Objective Vitals/I&O Vital Signs Date Time Temp Pulse Resp B/P (MAP) Pulse Ox O2 Delivery O2 Flow Rate FiO2 02/13/18 12:00 97.2 88 16 90/53 (65) 97 02/13/18 10:46 21 02/12/18 18:55 Room Air Labs Laboratory Tests Test 02/12/18 17:32 02/13/18 04:20 Carcinoembryonic Antigen 7.8 White Blood Count 12.6 Red Blood Count 3.15 Hemoglobin 8.8 Hematocrit 26.0 Mean Corpuscular Volume 82.6 Mean Corpuscular Hemoglobin 27.8 Mean Corpuscular Hemoglobin Concent 33.7 Red Cell Distribution Width 16.4 Platelet Count 385 Mean Platelet Volume 8.0 Neutrophils (%) (Auto) 82.7 Lymphocytes (%) (Auto) 7.3 Monocytes (%) (Auto) 9.1 Eosinophils (%) (Auto) 0.6 Basophils (%) (Auto) 0.3 Neutrophils # (Auto) 10.4 Lymphocytes # (Auto) 0.9 Monocytes # (Auto) 1.1 Eosinophils # (Auto) 0.1 Basophils # (Auto) 0.0 CBC Comment DIFF FINAL Differential Comment Blood Urea Nitrogen 13 Creatinine 1.00 Random Glucose 92 Calcium Level 8.3 Sodium Level 139 Potassium Level 3.9 Chloride Level 106 Carbon Dioxide Level 24.3 Anion Gap 9 Estimat Glomerular Filtration Rate 55 Date/Time Source Procedure Growth Status 02/12/18 10:15 Blood Peripheral Aerobic Blood Culture - Preliminary NO GROWTH IN 1 DAY Resulted 02/12/18 10:15 Blood Peripheral Anaerobic Blood Culture - Preliminary NO GROWTH IN 1 DAY Resulted Radiology Last Impressions Enema w/Water Soluble 02/13/18 0000 Signed Impressions: Service Date/Time: Tuesday, February 13, 2018 09:16 - CONCLUSION: Severe diverticulosis. Cholelithiasis. Naif Dos Santos MD Abdomen/Pelvis CT 02/12/18818 Signed Impressions: Service Date/Time: January 09:35 - CONCLUSION: 1. There appears to be some nonspecific inflammatory changes adjacent to the sigmoid colon suggestive of diverticulitis. There is diffuse diverticular disease throughout the entire colon. 2. Stable small amount of free fluid deep in the pelvis. 3. Large calcified gallstones in the gallbladder without clear tract obstruction. 4. No other significant changes are seen compared to the prior study. Seven Dunlap MD Last 48 hours Impressions Abdomen/Pelvis CT 02/12/18818 Signed Impressions: Service Date/Time: January 09:35 - CONCLUSION: 1. There appears to be some nonspecific inflammatory changes adjacent to the sigmoid colon suggestive of diverticulitis. There is diffuse diverticular disease throughout the entire colon. 2. Stable small amount of free fluid deep in the pelvis. 3. Large calcified gallstones in the gallbladder without clear tract obstruction. 4. No other significant changes are seen compared to the prior study. Seven Dunlap MD Cardiovascular: Regular Lungs: Clear Abdomen: Non-distended, Other (minimal LLQ tenderness with palpation ) Extremities: No edema A/P Problem List: (1) Diverticular disease ICD Codes: K57.90 - Diverticulosis of intestine, part unspecified, without perforation or abscess without bleeding (2) Diverticulitis ICD Codes: K57.92 - Diverticulitis of intestine, part unspecified, without perforation or abscess without bleeding Status: Acute (3) Gallstones ICD Codes: K80.20 - Calculus of gallbladder without cholecystitis without obstruction Status: Chronic Assessment and Plan 68 year old female with acute diverticulitis; recent GIB -Continue full liquids -Continue Levaquin/Flagyl -WBC trending down; Afebrile -IVF -Pain control -GGE shows diverticulitis -Still will plan for nonoperative treatment and GI evaluation in 6-8 weeks Attending Statement NOTE FOR SURGICAL ATTENDING, DR. TREVON HAMILTON Patient mildly sore Improved by her reports Barium enema evaluated Patient seen to have a gallstone and severe diverticulosis I agree with above assessment and plan. The exam, history, and the medical decision-making described in the above note were completed with the assistance of the mid-level provider. I reviewed and agree with the findings presented. I attest that I had a [id number] encounter with the patient on the same day, and personally performed and documented my assessment and findings in the medical record. The following services were provided during this hospital visit: Chart data review, vital sign assessments/reviewing monitor data Review of consultations notes if present. Medication orders/review and/or management Ordering and/or reviewing lab tests Ordering and/or interpreting/reviewing x-rays and/or diagnostic studies Care of the patient and discussion of the patient with the care team Documentation time To help prompt me to consider important information that might be impacting today's encounter and assessment, Information from prior notes written by myself or my colleagues may have been "brought forward/copy and pasted" into today's note. Problem Qualifiers (1) Diverticular disease: Agatha Gandhi/First Carmita OROZCO February 13, 2018 15:22 Trevon Hamilton MD February 13, 2018 17:41
[2018-02-13 16:00] VITALS: BP 116/68; PULSE 85; RESP 16; TEMP 97.9; O2SAT 97
[2018-02-13] MEDS: NYSTATIN SUSP 500,000 U/5 ML CUP SWISH-SWAL SCH ×3 (16:49→19:49)
[2018-02-13] MEDS: LEVOFLOXACIN 500 MG PREMIX INJ 100 ML IV SCH (17:49)
[2018-02-13 19:35] VITALS: BP 92/58; PULSE 81; RESP 16; TEMP 98.2; O2SAT 98
[2018-02-13] MEDS: ATORVASTATIN 40 MG TAB PO SCH (19:49)
[2018-02-14] VITALS: BP 111/55; PULSE 86; RESP 16; TEMP 98.5; O2SAT 96
[2018-02-14] MEDS: metroNIDAZOLE 500 MG INJ 100 ML IV SCH ×3 (01:21→18:06)
[2018-02-14] MEDS: SODIUM CHLOR 0.9% 1000 ML INJ 1,000 ML IV SCH ×3 (02:27→14:06)
[2018-02-14 08:12] VITALS: O2SAT 96
[2018-02-14 08:31] LABS: AUTOMATED NEUTROPHIL # 7.7 TH/MM3 (1.8-7.7); BASOPHIL # 0.1 TH/MM3 (0-0.2); BASOPHIL % 0.9 % (0.0-2.0); EOSINOPHIL # 0.1 TH/MM3 (0-0.4); EOSINOPHIL % 0.9 % (0.0-4.0); HEMATOCRIT 24.4 % (35.0-46.0); HEMOGLOBIN 8.2 GM/DL (11.6-15.3); LYMPH % 9.6 % (9.0-44.0); LYMPHOCYTE # 0.9 TH/MM3 (1.0-4.8); MEAN CELL VOLUME 82.2 FL (80.0-100.0); MEAN CORPUSCULAR HEMOGLOBIN 27.7 PG (27.0-34.0); MEAN CORPUSCULAR HGB CONC 33.7 % (32.0-36.0); MONOCYTE # 0.7 TH/MM3 (0-0.9); NEUT % 81.6 % (16.0-70.0); PLATELET COUNT 381 TH/MM3 (150-450); RED BLOOD COUNT 2.97 MIL/MM3 (4.00-5.30); RED CELL DISTRIBUTION WIDTH 16.9 % (11.6-17.2); WHITE BLOOD COUNT 9.4 TH/MM3 (4.0-11.0)
[2018-02-14 08:32] VITALS: BP 117/66; PULSE 92; RESP 18; TEMP 98.2; O2SAT 96
[2018-02-14 08:48] LABS: BICARBONATE 21.6 MEQ/L (21.0-32.0); CALCIUM 8.1 MG/DL (8.5-10.1); CREATININE 0.94 MG/DL (0.50-1.00)
[2018-02-14] MEDS: METOPROLOL SUCCINATE 25 MG EXTENDED RELEASE TAB PO SCH (09:00)
[2018-02-14] MEDS: DILTIAZEM-CD 240 MG CAP ER PO SCH (10:02)
[2018-02-14] MEDS: DOCUSATE SODIUM 50 MG/SENNA 8.6 MG TAB PO SCH ×2 (10:02→20:50)
[2018-02-14] MEDS: PANTOPRAZOLE SOD 40 MG DELAYED RELEASE TAB PO SCH (10:02)
[2018-02-14] MEDS: AMIODARONE 200 MG TAB PO SCH (10:02)
[2018-02-14] MEDS: ALLOPURINOL 100 MG TAB PO SCH (10:03)
[2018-02-14] MEDS: SODIUM CHLORIDE 0.9% FLUSH 10 ML FLUSH IV FLUSH SCH ×2 (10:03→20:52)
[2018-02-14] MEDS: NYSTATIN SUSP 500,000 U/5 ML CUP SWISH-SWAL SCH ×4 (10:04→20:50)
[2018-02-14] MEDS ORDERED: POTASSIUM CHLORIDE 10 MEQ CONTROLLED RELEASE TAB PO ONE (10:15)
[2018-02-14 12:13] VITALS: BP 116/75; PULSE 84; RESP 18; TEMP 98.2; O2SAT 98
--- NOTE | 2018-02-14 12:17 | HHI.PR ---
Subjective Subjective Notes pain resolved, +BM Objective Vitals/I&O Vital Signs Date Time Temp Pulse Resp B/P (MAP) Pulse Ox O2 Delivery O2 Flow Rate FiO2 02/14/18 12:13 98.2 84 18 116/75 (89) 98 02/13/18 20:40 21 02/13/18 20:00 Room Air Labs Laboratory Tests Test 02/14/18 07:20 White Blood Count 9.4 Red Blood Count 2.97 Hemoglobin 8.2 Hematocrit 24.4 Mean Corpuscular Volume 82.2 Mean Corpuscular Hemoglobin 27.7 Mean Corpuscular Hemoglobin Concent 33.7 Red Cell Distribution Width 16.9 Platelet Count 381 Mean Platelet Volume 8.0 Neutrophils (%) (Auto) 81.6 Lymphocytes (%) (Auto) 9.6 Monocytes (%) (Auto) 7.0 Eosinophils (%) (Auto) 0.9 Basophils (%) (Auto) 0.9 Neutrophils # (Auto) 7.7 Lymphocytes # (Auto) 0.9 Monocytes # (Auto) 0.7 Eosinophils # (Auto) 0.1 Basophils # (Auto) 0.1 CBC Comment DIFF FINAL Differential Comment Blood Urea Nitrogen 9 Creatinine 0.94 Random Glucose 95 Calcium Level 8.1 Sodium Level 143 Potassium Level 3.4 Chloride Level 110 Carbon Dioxide Level 21.6 Anion Gap 11 Estimat Glomerular Filtration Rate 59 Date/Time Source Procedure Growth Status 02/12/18 10:15 Blood Peripheral Aerobic Blood Culture - Preliminary NO GROWTH IN 2 DAYS Resulted 02/12/18 10:15 Blood Peripheral Anaerobic Blood Culture - Preliminary NO GROWTH IN 2 DAYS Resulted Radiology Last Impressions Enema w/Water Soluble 02/13/18 0000 Signed Impressions: Service Date/Time: Tuesday, February 13, 2018 09:16 - CONCLUSION: Severe diverticulosis. Cholelithiasis. Naif Dos Santos MD Abdomen/Pelvis CT 02/12/18 0819 Signed Impressions: Service Date/Time: January 09:35 - CONCLUSION: 1. There appears to be some nonspecific inflammatory changes adjacent to the sigmoid colon suggestive of diverticulitis. There is diffuse diverticular disease throughout the entire colon. 2. Stable small amount of free fluid deep in the pelvis. 3. Large calcified gallstones in the gallbladder without clear tract obstruction. 4. No other significant changes are seen compared to the prior study. Seven Dunlap MD Last 48 hours Impressions Abdomen/Pelvis CT 02/12/18 0819 Signed Impressions: Service Date/Time: January 09:35 - CONCLUSION: 1. There appears to be some nonspecific inflammatory changes adjacent to the sigmoid colon suggestive of diverticulitis. There is diffuse diverticular disease throughout the entire colon. 2. Stable small amount of free fluid deep in the pelvis. 3. Large calcified gallstones in the gallbladder without clear tract obstruction. 4. No other significant changes are seen compared to the prior study. Seven Dunlap MD Abdomen: Non-distended, Non-tender A/P Problem List: (1) Diverticular disease ICD Codes: K57.90 - Diverticulosis of intestine, part unspecified, without perforation or abscess without bleeding (2) Diverticulitis ICD Codes: K57.92 - Diverticulitis of intestine, part unspecified, without perforation or abscess without bleeding Status: Acute (3) Gallstones ICD Codes: K80.20 - Calculus of gallbladder without cholecystitis without obstruction Status: Chronic Assessment and Plan 68 year old female with recurrent acute diverticulitis,improved. -Continue full liquids until Friday -Continue Levaquin/Flagyl IV until Friday -WBC normal -ok to decrease IVF -Pain controlled, no PRn needed -will follow Problem Qualifiers (1) Diverticular disease: Luther Patel MD February 14, 2018 12:17
[2018-02-14] MEDS: ENOXAPARIN SODIUM 40 MG/0.4 ML SYRINGE SQ SCH (14:06)
[2018-02-14 16:14] VITALS: BP 111/68; PULSE 78; RESP 18; TEMP 98.3; O2SAT 98
--- NOTE | 2018-02-14 16:35 | HHI.PR ---
Subjective Remarks Patient tolerating full liquid diet reports feeling much better offers no new complaints Objective Vitals Vital Signs Date Time Temp Pulse Resp B/P (MAP) Pulse Ox O2 Delivery O2 Flow Rate FiO2 02/14/18 16:14 98.3 78 18 111/68 (82) 98 02/14/18 12:13 98.2 84 18 116/75 (89) 98 02/14/18 08:32 98.2 92 18 117/66 (83) 96 02/14/18 08:12 96 21 02/14/18 00:00 98.5 86 16 111/55 (73) 96 02/13/18 20:40 21 02/13/18 20:00 98 Room Air 02/13/18 19:35 98.2 81 16 92/58 (69) 98 I/O 02/13/18 02/13/18 02/13/18 02/14/18 02/14/18 02/14/18 06:59 14:59 22:59 06:59 14:59 22:59 Intake Total 1560 ml 480 ml 1688 ml Balance 1560 ml 480 ml 1688 ml Intake Oral 480 ml 480 ml 480 ml IV Total 1080 ml 1208 ml # Voids 2 1 2 # Bowel Movements 0 1 0 Result Diagram: 02/14/18 0720 02/14/18 0720 Other Results Laboratory Tests Test 02/12/18 08:20 02/12/18 10:10 02/12/18 17:32 02/13/18 04:20 White Blood Count 17.2 TH/MM3 12.6 TH/MM3 Red Blood Count 3.64 MIL/MM3 3.15 MIL/MM3 Hemoglobin 10.0 GM/DL 8.8 GM/DL Hematocrit 30.3 % 26.0 % Mean Corpuscular Volume 83.2 FL 82.6 FL Mean Corpuscular Hemoglobin 27.5 PG 27.8 PG Mean Corpuscular Hemoglobin Concent 33.1 % 33.7 % Red Cell Distribution Width 17.0 % 16.4 % Platelet Count 471 TH/MM3 385 TH/MM3 Mean Platelet Volume 8.1 FL 8.0 FL Neutrophils (%) (Auto) 86.0 % 82.7 % Lymphocytes (%) (Auto) 6.5 % 7.3 % Monocytes (%) (Auto) 6.7 % 9.1 % Eosinophils (%) (Auto) 0.4 % 0.6 % Basophils (%) (Auto) 0.4 % 0.3 % Neutrophils # (Auto) 14.7 TH/MM3 10.4 TH/MM3 Lymphocytes # (Auto) 1.1 TH/MM3 0.9 TH/MM3 Monocytes # (Auto) 1.1 TH/MM3 1.1 TH/MM3 Eosinophils # (Auto) 0.1 TH/MM3 0.1 TH/MM3 Basophils # (Auto) 0.1 TH/MM3 0.0 TH/MM3 CBC Comment DIFF FINAL DIFF FINAL Differential Comment Blood Urea Nitrogen 16 MG/DL 13 MG/DL Creatinine 1.34 MG/DL 1.00 MG/DL Random Glucose 104 MG/DL 92 MG/DL Total Protein 6.6 GM/DL Albumin 2.8 GM/DL Calcium Level 8.9 MG/DL 8.3 MG/DL Alkaline Phosphatase 131 U/L Aspartate Amino Transf (AST/SGOT) 17 U/L Alanine Aminotransferase (ALT/SGPT) 9 U/L Total Bilirubin 0.5 MG/DL Sodium Level 137 MEQ/L 139 MEQ/L Potassium Level 3.7 MEQ/L 3.9 MEQ/L Chloride Level 101 MEQ/L 106 MEQ/L Carbon Dioxide Level 21.0 MEQ/L 24.3 MEQ/L Anion Gap 15 MEQ/L 9 MEQ/L Estimat Glomerular Filtration Rate 39 ML/MIN 55 ML/MIN Lactic Acid Level 0.7 mmol/L Carcinoembryonic Antigen 7.8 NG/ML Test 02/14/18 07:20 White Blood Count 9.4 TH/MM3 Red Blood Count 2.97 MIL/MM3 Hemoglobin 8.2 GM/DL Hematocrit 24.4 % Mean Corpuscular Volume 82.2 FL Mean Corpuscular Hemoglobin 27.7 PG Mean Corpuscular Hemoglobin Concent 33.7 % Red Cell Distribution Width 16.9 % Platelet Count 381 TH/MM3 Mean Platelet Volume 8.0 FL Neutrophils (%) (Auto) 81.6 % Lymphocytes (%) (Auto) 9.6 % Monocytes (%) (Auto) 7.0 % Eosinophils (%) (Auto) 0.9 % Basophils (%) (Auto) 0.9 % Neutrophils # (Auto) 7.7 TH/MM3 Lymphocytes # (Auto) 0.9 TH/MM3 Monocytes # (Auto) 0.7 TH/MM3 Eosinophils # (Auto) 0.1 TH/MM3 Basophils # (Auto) 0.1 TH/MM3 CBC Comment DIFF FINAL Differential Comment Blood Urea Nitrogen 9 MG/DL Creatinine 0.94 MG/DL Random Glucose 95 MG/DL Calcium Level 8.1 MG/DL Sodium Level 143 MEQ/L Potassium Level 3.4 MEQ/L Chloride Level 110 MEQ/L Carbon Dioxide Level 21.6 MEQ/L Anion Gap 11 MEQ/L Estimat Glomerular Filtration Rate 59 ML/MIN Imaging Last Impressions Enema w/Water Soluble 02/13/18 0000 Signed Impressions: Service Date/Time: Tuesday, February 13, 2018 09:16 - CONCLUSION: Severe diverticulosis. Cholelithiasis. Naif Dos Santos MD Abdomen/Pelvis CT 02/12/18 0819 Signed Impressions: Service Date/Time: January 09:35 - CONCLUSION: 1. There appears to be some nonspecific inflammatory changes adjacent to the sigmoid colon suggestive of diverticulitis. There is diffuse diverticular disease throughout the entire colon. 2. Stable small amount of free fluid deep in the pelvis. 3. Large calcified gallstones in the gallbladder without clear tract obstruction. 4. No other significant changes are seen compared to the prior study. Seven Dunlap MD Objective Remarks GENERAL: This is a well-nourished, well-developed patient, in no apparent distress. CARDIOVASCULAR: Regular rate and rhythm RESPIRATORY: Clear to auscultation. Breath sounds equal bilaterally. GASTROINTESTINAL: Abdomen soft, non-tender, nondistended. Normal active bowel sounds MUSCULOSKELETAL: Extremities without clubbing, cyanosis, or edema. NEURO: Alert & Oriented x4 to person, place, time, situation. Moves all ext x4 A/P Assessment and Plan Sepsis meeting criteria on admission (leucocytosis, tachycardia, source of infection is GI, patient with diverticulitis) Abdominal pain - likely diverticulitis, patient with recurrent diverticulitis CT A/P reviewed and findings discussed with the ED physician, showed nonspecific inflammation throughout the colon, and focal areas in the sigmoid colon consistent with diverticulitis Small amount of free fluid in pelvis but considered stable per radiology No change in CT findings from last week Morphine given in ED for pain, will continue prn Continue IV abx metronidazole. Continue Levaquin IV abx. Full liquid diet Consult GI for further evaluation, appreciate input per GI: plan for Flex sig Friday Consult gen surgery , continue med management for now Cholelithiasis Incidental finding on abdominal CT without pericholecystic inflammation or signs of obstruction No focal RUQ tenderness, negative Richard's sign Not likely contributing to current abdominal symptoms Afib Continue home medications Continue metroprolol, amiodarone, diltiazem Hold eliquis for now due to recent GIB, patient is not taking eliquis Telemetry monitoring HTN Continue to monitor BP and adjust meds as need Continue home BP meds Anemia Recent admission for LGIB, Hb 10.0 Hct 30.3 on admission Stable for now with no signs of active bleeding Will continue to monitor H&H, transfuse iof HGB < 7 or if symptomatic recheck CBC in AM NISA Creatinine 1.34 and eGFR 39 on admission -> 02/14 creatinine 0.94 Avoid nephrotoxic agents IV NS for hydration. Kidney indices improving. DC IVF (02/14) Will continue to monitor kidney function DVT prophylaxis with SCDs due to anemia with possible GI bleed Supervising physician Meera Vergara February 14, 2018 16:35
[2018-02-14] MEDS: LEVOFLOXACIN 500 MG PREMIX INJ 100 ML IV SCH (18:50)
[2018-02-14 20:00] VITALS: BP 120/72; PULSE 93; RESP 17; TEMP 98; O2SAT 99
[2018-02-14] MEDS: ATORVASTATIN 40 MG TAB PO SCH (20:50)
[2018-02-15] VITALS: BP 127/87; PULSE 82; RESP 18; TEMP 97.8; O2SAT 97
[2018-02-15] MEDS: metroNIDAZOLE 500 MG INJ 100 ML IV SCH ×3 (02:00→17:06)
[2018-02-15 03:54] VITALS: BP 125/89; PULSE 93; RESP 18; TEMP 98.6; O2SAT 98
[2018-02-15] MEDS: SODIUM CHLORIDE 0.9% FLUSH 10 ML FLUSH IV FLUSH PRN (04:48)
[2018-02-15 08:00] VITALS: BP 144/81; PULSE 88; RESP 16; TEMP 98.5; O2SAT 96
--- NOTE | 2018-02-15 08:51 | HHI.PR ---
cc: Arnulfo Espinal MD Subjective Subjective Notes doing well no pain, +bms x3 Objective Vitals/I&O Vital Signs Date Time Temp Pulse Resp B/P (MAP) Pulse Ox O2 Delivery O2 Flow Rate FiO2 02/15/18 03:54 98.6 93 18 125/89 (101) 98 02/14/18 08:12 21 02/13/18 20:00 Room Air Labs Date/Time Source Procedure Growth Status 02/12/18 10:15 Blood Peripheral Aerobic Blood Culture - Preliminary NO GROWTH IN 2 DAYS Resulted 02/12/18 10:15 Blood Peripheral Anaerobic Blood Culture - Preliminary NO GROWTH IN 2 DAYS Resulted Radiology Last Impressions Enema w/Water Soluble 02/13/18 0000 Signed Impressions: Service Date/Time: Tuesday, February 13, 2018 09:16 - CONCLUSION: Severe diverticulosis. Cholelithiasis. Naif Dos Santos MD Abdomen/Pelvis CT 02/12/18818 Signed Impressions: Service Date/Time: January 09:35 - CONCLUSION: 1. There appears to be some nonspecific inflammatory changes adjacent to the sigmoid colon suggestive of diverticulitis. There is diffuse diverticular disease throughout the entire colon. 2. Stable small amount of free fluid deep in the pelvis. 3. Large calcified gallstones in the gallbladder without clear tract obstruction. 4. No other significant changes are seen compared to the prior study. Seven Dunlap MD Last 48 hours Impressions Abdomen/Pelvis CT 02/12/18818 Signed Impressions: Service Date/Time: January 09:35 - CONCLUSION: 1. There appears to be some nonspecific inflammatory changes adjacent to the sigmoid colon suggestive of diverticulitis. There is diffuse diverticular disease throughout the entire colon. 2. Stable small amount of free fluid deep in the pelvis. 3. Large calcified gallstones in the gallbladder without clear tract obstruction. 4. No other significant changes are seen compared to the prior study. Seven Dunlap MD Abdomen: Other (soft NT/ND) A/P Problem List: (1) Diverticular disease ICD Codes: K57.90 - Diverticulosis of intestine, part unspecified, without perforation or abscess without bleeding (2) Diverticulitis ICD Codes: K57.92 - Diverticulitis of intestine, part unspecified, without perforation or abscess without bleeding Status: Acute (3) Gallstones ICD Codes: K80.20 - Calculus of gallbladder without cholecystitis without obstruction Status: Chronic Assessment and Plan 68 year old female with recurrent acute diverticulitis,improved. -advance to soft diet -Continue Levaquin/Flagyl IV until Friday -WBC normal -ok to decrease IVF -Pain controlled, no PRn needed -will follow Attending Statement patient seen at bedside doing better Problem Qualifiers (1) Diverticular disease: Arnulfo Espinal MD February 15, 2018 08:51
[2018-02-15] MEDS: DOCUSATE SODIUM 50 MG/SENNA 8.6 MG TAB PO SCH ×2 (09:00→21:00)
[2018-02-15 09:09] LABS: AUTOMATED NEUTROPHIL # 6.4 TH/MM3 (1.8-7.7); BASOPHIL # 0.1 TH/MM3 (0-0.2); BASOPHIL % 0.6 % (0.0-2.0); EOSINOPHIL # 0.1 TH/MM3 (0-0.4); EOSINOPHIL % 1.8 % (0.0-4.0); HEMATOCRIT 25.9 % (35.0-46.0); HEMOGLOBIN 8.7 GM/DL (11.6-15.3); LYMPH % 13.7 % (9.0-44.0); LYMPHOCYTE # 1.1 TH/MM3 (1.0-4.8); MEAN CELL VOLUME 82.1 FL (80.0-100.0); MEAN CORPUSCULAR HEMOGLOBIN 27.5 PG (27.0-34.0); MEAN CORPUSCULAR HGB CONC 33.5 % (32.0-36.0); MEAN PLATELET VOLUME 8.1 FL (7.0-11.0); MONO % 6.7 % (0.0-8.0); MONOCYTE # 0.6 TH/MM3 (0-0.9); NEUT % 77.2 % (16.0-70.0); PLATELET COUNT 435 TH/MM3 (150-450); RED BLOOD COUNT 3.15 MIL/MM3 (4.00-5.30); RED CELL DISTRIBUTION WIDTH 16.3 % (11.6-17.2); WHITE BLOOD COUNT 8.4 TH/MM3 (4.0-11.0)
[2018-02-15] MEDS: AMIODARONE 200 MG TAB PO SCH (09:14)
[2018-02-15] MEDS: ALLOPURINOL 100 MG TAB PO SCH (09:14)
[2018-02-15] MEDS: PANTOPRAZOLE SOD 40 MG DELAYED RELEASE TAB PO SCH (09:15)
[2018-02-15] MEDS: DILTIAZEM-CD 240 MG CAP ER PO SCH (09:15)
[2018-02-15] MEDS: METOPROLOL SUCCINATE 25 MG EXTENDED RELEASE TAB PO SCH (09:15)
[2018-02-15] MEDS: SODIUM CHLORIDE 0.9% FLUSH 10 ML FLUSH IV FLUSH SCH ×2 (09:15→21:05)
[2018-02-15] MEDS: NYSTATIN SUSP 500,000 U/5 ML CUP SWISH-SWAL SCH ×4 (09:16→21:00)
[2018-02-15 09:27] LABS: BICARBONATE 19.6 MEQ/L (21.0-32.0); CALCIUM 8.1 MG/DL (8.5-10.1); CREATININE 0.9 MG/DL (0.50-1.00)
--- NOTE | 2018-02-15 09:40 | HHI.PR ---
Subjective Remarks Patient reports feeling well offers no new complaints/concerns tolerating full liquid diet Objective Vitals Vital Signs Date Time Temp Pulse Resp B/P (MAP) Pulse Ox O2 Delivery O2 Flow Rate FiO2 02/15/18 08:00 98.5 88 16 144/81 (102) 96 02/15/18 03:54 98.6 93 18 125/89 (101) 98 02/15/18 00:00 97.8 82 18 127/87 (100) 97 02/14/18 20:00 98.0 93 17 120/72 (88) 99 02/14/18 16:14 98.3 78 18 111/68 (82) 98 02/14/18 12:13 98.2 84 18 116/75 (89) 98 I/O 02/14/18 02/14/18 02/14/18 02/15/18 02/15/18 02/15/18 07:00 15:00 23:00 07:00 15:00 23:00 Intake Total 1688 ml 1056 ml 1258 ml Balance 1688 ml 1056 ml 1258 ml Intake Oral 480 ml 480 ml IV Total 1208 ml 1056 ml 778 ml # Voids 2 4 3 # Bowel Movements 0 0 Result Diagram: 02/15/18 0800 02/15/18 0800 Other Results Laboratory Tests Test 02/12/18 10:10 02/12/18 17:32 02/13/18 04:20 02/14/18 07:20 Lactic Acid Level 0.7 mmol/L Carcinoembryonic Antigen 7.8 NG/ML White Blood Count 12.6 TH/MM3 9.4 TH/MM3 Red Blood Count 3.15 MIL/MM3 2.97 MIL/MM3 Hemoglobin 8.8 GM/DL 8.2 GM/DL Hematocrit 26.0 % 24.4 % Mean Corpuscular Volume 82.6 FL 82.2 FL Mean Corpuscular Hemoglobin 27.8 PG 27.7 PG Mean Corpuscular Hemoglobin Concent 33.7 % 33.7 % Red Cell Distribution Width 16.4 % 16.9 % Platelet Count 385 TH/MM3 381 TH/MM3 Mean Platelet Volume 8.0 FL 8.0 FL Neutrophils (%) (Auto) 82.7 % 81.6 % Lymphocytes (%) (Auto) 7.3 % 9.6 % Monocytes (%) (Auto) 9.1 % 7.0 % Eosinophils (%) (Auto) 0.6 % 0.9 % Basophils (%) (Auto) 0.3 % 0.9 % Neutrophils # (Auto) 10.4 TH/MM3 7.7 TH/MM3 Lymphocytes # (Auto) 0.9 TH/MM3 0.9 TH/MM3 Monocytes # (Auto) 1.1 TH/MM3 0.7 TH/MM3 Eosinophils # (Auto) 0.1 TH/MM3 0.1 TH/MM3 Basophils # (Auto) 0.0 TH/MM3 0.1 TH/MM3 CBC Comment DIFF FINAL DIFF FINAL Differential Comment Blood Urea Nitrogen 13 MG/DL 9 MG/DL Creatinine 1.00 MG/DL 0.94 MG/DL Random Glucose 92 MG/DL 95 MG/DL Calcium Level 8.3 MG/DL 8.1 MG/DL Sodium Level 139 MEQ/L 143 MEQ/L Potassium Level 3.9 MEQ/L 3.4 MEQ/L Chloride Level 106 MEQ/L 110 MEQ/L Carbon Dioxide Level 24.3 MEQ/L 21.6 MEQ/L Anion Gap 9 MEQ/L 11 MEQ/L Estimat Glomerular Filtration Rate 55 ML/MIN 59 ML/MIN Test 02/15/18 08:00 White Blood Count 8.4 TH/MM3 Red Blood Count 3.15 MIL/MM3 Hemoglobin 8.7 GM/DL Hematocrit 25.9 % Mean Corpuscular Volume 82.1 FL Mean Corpuscular Hemoglobin 27.5 PG Mean Corpuscular Hemoglobin Concent 33.5 % Red Cell Distribution Width 16.3 % Platelet Count 435 TH/MM3 Mean Platelet Volume 8.1 FL Neutrophils (%) (Auto) 77.2 % Lymphocytes (%) (Auto) 13.7 % Monocytes (%) (Auto) 6.7 % Eosinophils (%) (Auto) 1.8 % Basophils (%) (Auto) 0.6 % Neutrophils # (Auto) 6.4 TH/MM3 Lymphocytes # (Auto) 1.1 TH/MM3 Monocytes # (Auto) 0.6 TH/MM3 Eosinophils # (Auto) 0.1 TH/MM3 Basophils # (Auto) 0.1 TH/MM3 CBC Comment DIFF FINAL Differential Comment Blood Urea Nitrogen 4 MG/DL Creatinine 0.90 MG/DL Random Glucose 92 MG/DL Calcium Level 8.1 MG/DL Sodium Level 142 MEQ/L Potassium Level 3.6 MEQ/L Chloride Level 112 MEQ/L Carbon Dioxide Level 19.6 MEQ/L Anion Gap 10 MEQ/L Estimat Glomerular Filtration Rate 62 ML/MIN Imaging Last Impressions Enema w/Water Soluble 02/13/18 0000 Signed Impressions: Service Date/Time: Tuesday, February 13, 2018 09:16 - CONCLUSION: Severe diverticulosis. Cholelithiasis. Naif Dos Santos MD Abdomen/Pelvis CT 02/12/18 0819 Signed Impressions: Service Date/Time: January 09:35 - CONCLUSION: 1. There appears to be some nonspecific inflammatory changes adjacent to the sigmoid colon suggestive of diverticulitis. There is diffuse diverticular disease throughout the entire colon. 2. Stable small amount of free fluid deep in the pelvis. 3. Large calcified gallstones in the gallbladder without clear tract obstruction. 4. No other significant changes are seen compared to the prior study. Seven Dunlap MD Objective Remarks GENERAL: This is a well-nourished, well-developed patient, in no apparent distress. CARDIOVASCULAR: Regular rate and rhythm RESPIRATORY: Clear to auscultation. Breath sounds equal bilaterally. GASTROINTESTINAL: Abdomen soft, non-tender, nondistended. Normal active bowel sounds MUSCULOSKELETAL: Extremities without clubbing, cyanosis, or edema. NEURO: Alert & Oriented x4 to person, place, time, situation. Moves all ext x4 A/P Assessment and Plan Sepsis meeting criteria on admission (leucocytosis, tachycardia, source of infection is GI, patient with diverticulitis) Abdominal pain - likely diverticulitis, patient with recurrent diverticulitis CT A/P reviewed and findings discussed with the ED physician, showed nonspecific inflammation throughout the colon, and focal areas in the sigmoid colon consistent with diverticulitis Small amount of free fluid in pelvis but considered stable per radiology No change in CT findings from last week Morphine given in ED for pain, will continue prn Continue IV abx metronidazole. Continue Levaquin IV abx. Full liquid diet Consult GI for further evaluation, appreciate input per GI: plan for Flex sig Friday Consult gen surgery , continue med management for now Cholelithiasis Incidental finding on abdominal CT without pericholecystic inflammation or signs of obstruction No focal RUQ tenderness, negative Richard's sign Not likely contributing to current abdominal symptoms Afib Continue home medications Continue metroprolol, amiodarone, diltiazem Hold eliquis for now due to recent GIB, patient is not taking eliquis Telemetry monitoring HTN Continue to monitor BP and adjust meds as need Continue home BP meds Anemia Recent admission for LGIB, Hb 10.0 Hct 30.3 on admission Stable for now with no signs of active bleeding Will continue to monitor H&H, transfuse iof HGB < 7 or if symptomatic recheck CBC in AM NISA Creatinine 1.34 and eGFR 39 on admission -> 02/14 creatinine 0.94 Avoid nephrotoxic agents IV NS for hydration. Kidney indices improving. DC IVF (02/14) Will continue to monitor kidney function DVT prophylaxis with SCDs due to anemia with possible GI bleed Supervising physician Meera Vergara February 15, 2018 09:40
[2018-02-15] MEDS: ACETAMINOPHEN 325 MG TAB PO PRN ×3 (11:42→23:18)
[2018-02-15 12:00] VITALS: BP 122/75; PULSE 80; RESP 16; TEMP 98.6; O2SAT 98
[2018-02-15 16:00] VITALS: BP 110/62; PULSE 60; RESP 16; TEMP 98.1; O2SAT 98
--- NOTE | 2018-02-15 16:49 | HHI.GIFU ---
GI Follow-up Note Consult Follow-up Subjective: Patient laying in bed comfortably, feeling better .Tolerating diet.No nausea, vomiting, abdominal pain.Had bowel movements Objective: PHYSICAL EXAMINATION: Vitals signs stable No fever Vital Signs Date Time Temp Pulse Resp B/P (MAP) Pulse Ox O2 Delivery O2 Flow Rate FiO2 02/15/18 16:00 98.1 60 16 110/62 (78) 98 02/15/18 12:00 98.6 80 16 122/75 (91) 98 HEENT: Pupils round and reactive to light; normocephalic; atraumatic; no jaundice. Throat is clear. NECK: Neck is supple, no JVD, no lymphadenopathy. CHEST: Chest is clear to auscultation and percussion. CARDIAC: Regular rate and rhythm with no murmur gallop or rubs. ABDOMEN: Soft, nondistended, nontender; no hepatosplenomegaly; bowel sounds are present in all four quadrants. EXTREMITIES: No clubbing, cyanosis, or edema. SKIN: Normal; no rash; no jaundice. WAGON WASHER: No focal deficits; alert and oriented times three. Available Data (labs, X- Rays, Procedues) : Laboratory Tests Test 02/14/18 07:20 02/15/18 08:00 White Blood Count 9.4 TH/MM3 8.4 TH/MM3 Red Blood Count 2.97 MIL/MM3 3.15 MIL/MM3 Hemoglobin 8.2 GM/DL 8.7 GM/DL Hematocrit 24.4 % 25.9 % Mean Corpuscular Volume 82.2 FL 82.1 FL Mean Corpuscular Hemoglobin 27.7 PG 27.5 PG Mean Corpuscular Hemoglobin Concent 33.7 % 33.5 % Red Cell Distribution Width 16.9 % 16.3 % Platelet Count 381 TH/MM3 435 TH/MM3 Mean Platelet Volume 8.0 FL 8.1 FL Neutrophils (%) (Auto) 81.6 % 77.2 % Lymphocytes (%) (Auto) 9.6 % 13.7 % Monocytes (%) (Auto) 7.0 % 6.7 % Eosinophils (%) (Auto) 0.9 % 1.8 % Basophils (%) (Auto) 0.9 % 0.6 % Neutrophils # (Auto) 7.7 TH/MM3 6.4 TH/MM3 Lymphocytes # (Auto) 0.9 TH/MM3 1.1 TH/MM3 Monocytes # (Auto) 0.7 TH/MM3 0.6 TH/MM3 Eosinophils # (Auto) 0.1 TH/MM3 0.1 TH/MM3 Basophils # (Auto) 0.1 TH/MM3 0.1 TH/MM3 CBC Comment DIFF FINAL DIFF FINAL Differential Comment Blood Urea Nitrogen 9 MG/DL 4 MG/DL Creatinine 0.94 MG/DL 0.90 MG/DL Random Glucose 95 MG/DL 92 MG/DL Calcium Level 8.1 MG/DL 8.1 MG/DL Sodium Level 143 MEQ/L 142 MEQ/L Potassium Level 3.4 MEQ/L 3.6 MEQ/L Chloride Level 110 MEQ/L 112 MEQ/L Carbon Dioxide Level 21.6 MEQ/L 19.6 MEQ/L Anion Gap 11 MEQ/L 10 MEQ/L Estimat Glomerular Filtration Rate 59 ML/MIN 62 ML/MIN ASSESSMENT/PLAN: diverticulitis-failed op treatment clinically improved weight loss, fatigue- improving abnormal sigmoid on ct-gastrografin enema-severe diverticulosis Recommendations colonoscopy 6-8 weeks low fiber diet for 1 month than increase fiber if stable can dc in am appreciated surgical input we will cancel flexisigmoidoscopy for now mild elevated cea-need colonoscopy gi will sign off fu gi 2 weeks It was a pleasure seeing Nasra Nicole. Thank you for this consult. Entered by: Tara Magallon MD February 15, 2018 16:49
[2018-02-15] MEDS: LEVOFLOXACIN 500 MG PREMIX INJ 100 ML IV SCH (18:18)
[2018-02-15 20:00] VITALS: BP 106/75; PULSE 81; RESP 21; TEMP 97.7; O2SAT 98
[2018-02-15] MEDS: ATORVASTATIN 40 MG TAB PO SCH (21:00)
[2018-02-16] VITALS: BP 126/79; PULSE 94; RESP 20; TEMP 98; O2SAT 97
[2018-02-16] MEDS: metroNIDAZOLE 500 MG INJ 100 ML IV SCH (01:51)
[2018-02-16] MEDS: SODIUM CHLORIDE 0.9% FLUSH 10 ML FLUSH IV FLUSH PRN (01:51)
[2018-02-16 04:00] VITALS: BP 129/82; PULSE 98; RESP 19; TEMP 97.9; O2SAT 98
[2018-02-16] MEDS: ACETAMINOPHEN 325 MG TAB PO PRN ×2 (04:25→09:43)
[2018-02-16 07:54] VITALS: BP 149/92; PULSE 97; RESP 17; TEMP 97.5; O2SAT 96
[2018-02-16] MEDS: DILTIAZEM-CD 240 MG CAP ER PO SCH (09:41)
[2018-02-16] MEDS: DOCUSATE SODIUM 50 MG/SENNA 8.6 MG TAB PO SCH (09:42)
[2018-02-16] MEDS: AMIODARONE 200 MG TAB PO SCH (09:42)
[2018-02-16] MEDS: NYSTATIN SUSP 500,000 U/5 ML CUP SWISH-SWAL SCH (09:42)
[2018-02-16] MEDS: ALLOPURINOL 100 MG TAB PO SCH (09:42)
[2018-02-16] MEDS: PANTOPRAZOLE SOD 40 MG DELAYED RELEASE TAB PO SCH (09:42)
[2018-02-16] MEDS: METOPROLOL SUCCINATE 25 MG EXTENDED RELEASE TAB PO SCH (09:42)
[2018-02-16] MEDS ORDERED: metroNIDAZOLE 500 MG TAB PO SCH (10:00)
--- NOTE | 2018-02-16 11:16 | HHI.PR ---
Subjective Remarks Patient has been cleared by gastroenterology and surgery Tolerating p.o. diet Has been ambulating to the bathroom Has some pain in the right knee Switch to p.o. antibiotics and can be discharged to home Follow up with gastroenterology in 2 weeks Follow-up with PCP in 1 week Objective Vitals Vital Signs Date Time Temp Pulse Resp B/P (MAP) Pulse Ox O2 Delivery O2 Flow Rate FiO2 02/16/18 07:54 97.5 97 17 149/92 (111) 96 02/16/18 04:00 97.9 98 19 129/82 (98) 98 02/16/18 00:00 98.0 94 20 126/79 (95) 97 02/15/18 20:00 97.7 81 21 106/75 (85) 98 02/15/18 16:00 98.1 60 16 110/62 (78) 98 02/15/18 12:00 98.6 80 16 122/75 (91) 98 I/O 02/15/18 02/15/18 02/15/18 02/16/18 02/16/18 02/16/18 07:00 15:00 23:00 07:00 15:00 23:00 Intake Total 1258 ml 100 ml 2112 ml 750 ml Balance 1258 ml 100 ml 2112 ml 750 ml Intake Oral 480 ml 1460 ml 750 ml IV Total 778 ml 100 ml 652 ml # Voids 3 6 2 # Bowel Movements 0 1 Result Diagram: 02/15/18 0800 02/15/18 0800 Other Results Laboratory Tests Test 02/14/18 07:20 02/15/18 08:00 White Blood Count 9.4 TH/MM3 8.4 TH/MM3 Red Blood Count 2.97 MIL/MM3 3.15 MIL/MM3 Hemoglobin 8.2 GM/DL 8.7 GM/DL Hematocrit 24.4 % 25.9 % Mean Corpuscular Volume 82.2 FL 82.1 FL Mean Corpuscular Hemoglobin 27.7 PG 27.5 PG Mean Corpuscular Hemoglobin Concent 33.7 % 33.5 % Red Cell Distribution Width 16.9 % 16.3 % Platelet Count 381 TH/MM3 435 TH/MM3 Mean Platelet Volume 8.0 FL 8.1 FL Neutrophils (%) (Auto) 81.6 % 77.2 % Lymphocytes (%) (Auto) 9.6 % 13.7 % Monocytes (%) (Auto) 7.0 % 6.7 % Eosinophils (%) (Auto) 0.9 % 1.8 % Basophils (%) (Auto) 0.9 % 0.6 % Neutrophils # (Auto) 7.7 TH/MM3 6.4 TH/MM3 Lymphocytes # (Auto) 0.9 TH/MM3 1.1 TH/MM3 Monocytes # (Auto) 0.7 TH/MM3 0.6 TH/MM3 Eosinophils # (Auto) 0.1 TH/MM3 0.1 TH/MM3 Basophils # (Auto) 0.1 TH/MM3 0.1 TH/MM3 CBC Comment DIFF FINAL DIFF FINAL Differential Comment Blood Urea Nitrogen 9 MG/DL 4 MG/DL Creatinine 0.94 MG/DL 0.90 MG/DL Random Glucose 95 MG/DL 92 MG/DL Calcium Level 8.1 MG/DL 8.1 MG/DL Sodium Level 143 MEQ/L 142 MEQ/L Potassium Level 3.4 MEQ/L 3.6 MEQ/L Chloride Level 110 MEQ/L 112 MEQ/L Carbon Dioxide Level 21.6 MEQ/L 19.6 MEQ/L Anion Gap 11 MEQ/L 10 MEQ/L Estimat Glomerular Filtration Rate 59 ML/MIN 62 ML/MIN Imaging Last Impressions Enema w/Water Soluble 02/13/18 0000 Signed Impressions: Service Date/Time: Tuesday, February 13, 2018 09:16 - CONCLUSION: Severe diverticulosis. Cholelithiasis. Naif Dos Santos MD Abdomen/Pelvis CT 02/12/18 0819 Signed Impressions: Service Date/Time: January 09:35 - CONCLUSION: 1. There appears to be some nonspecific inflammatory changes adjacent to the sigmoid colon suggestive of diverticulitis. There is diffuse diverticular disease throughout the entire colon. 2. Stable small amount of free fluid deep in the pelvis. 3. Large calcified gallstones in the gallbladder without clear tract obstruction. 4. No other significant changes are seen compared to the prior study. Seven Dunlap MD Objective Remarks GENERAL: Awake and alert and oriented 3 talkative and cooperative appears stated age SKIN: Warm and dry. HEAD: Atraumatic. Normocephalic. EYES: Pupils equal and round. No scleral icterus. No injection or drainage. Extraocular muscles intact ENT: No nasal bleeding or discharge. Mucous membranes pink and moist. Tongue is midline NECK: Trachea midline. No JVD. Supple CARDIOVASCULAR: Regular rate and rhythm. S1-S2 no S3 or S4 RESPIRATORY: No accessory muscle use. Clear to auscultation. Breath sounds equal bilaterally. GASTROINTESTINAL: Abdomen soft, non-tender, nondistended. Hepatic and splenic margins not palpable. MUSCULOSKELETAL: Extremities without clubbing, cyanosis, or edema. No obvious deformities. NEUROLOGICAL: Awake and alert. No obvious cranial nerve deficits. Motor grossly within normal limits. 4 out of 5 muscle strength in the arms and legs. Normal speech. Right knee tender some swelling suspect arthritis PSYCHIATRIC: Appropriate mood and affect; insight and judgment normal. Procedures None Medications and IVs Current Medications Morphine Sulfate (Morphine Inj) 4 mg ONCE ONCE IV PUSH Last administered on at 08:34; Start 02/12/18 at 08:30; Stop 02/12/18 at 08:31; Status DC Sodium Chloride (NS Flush) 2 ml UNSCH PRN IV FLUSH FLUSH AFTER USING IV ACCESS ; Start 02/12/18 at 08:30; Stop 02/12/18 at 10:46; Status DC Diltiazem HCl (Cardizem Cd) 240 mg ONCE ONCE PO Last administered on at 08:34; Start 02/12/18 at 08:30; Stop 02/12/18 at 08:31; Status DC Metoprolol Succinate (Toprol Xl) 25 mg ONCE ONCE PO Last administered on at 08:33; Start 02/12/18 at 08:30; Stop 02/12/18 at 08:31; Status DC Amiodarone HCl (Cordarone) 200 mg ONCE ONCE PO Last administered on 02/12/18at 08:33; Start 02/12/18 at 08:30; Stop 02/12/18 at 08:31; Status DC Iodixanol (VISIPAQUE 320 INJ (Rad CT)) 46 ml STK-MED ONCE IVCONTRAST Last administered on 02/12/18at 07:54; Start 02/12/18 at 07:54; Stop 02/12/18 at 09:39 ; Status DC Ciprofloxacin/ Dextrose 200 ml @ 200 mls/hr ONCE ONCE IV Last administered on 02/12/18at 10:25; Start 02/12/18 at 10:00; Stop 02/12/18 at 10:50; Status DC Metronidazole 100 ml @ 100 mls/hr ONCE ONCE IV Last administered on at 18:47; Start 02/12/18 at 10:00; Stop 02/12/18 at 10:59; Status DC Ciprofloxacin/ Dextrose 200 ml @ 200 mls/hr Q8H IV ; Start 02/12/18 at 18:00; Stop 02/12/18 at 18:00; Status DC Metronidazole 100 ml @ 100 mls/hr Q8H IV Last administered on 02/16/18at 01:51 ; Start 02/12/18 at 18:00; Stop 02/16/18 at 07:10; Status DC Sodium Chloride 1,000 ml @ 100 mls/hr Q10H IV Last administered on 02/14/18at 14:06; Start 02/12/18 at 10:27; Stop 02/14/18 at 16:30; Status DC Sodium Chloride (NS Flush) 2 ml UNSCH PRN IV FLUSH FLUSH AFTER USING IV ACCESS Last administered on 02/16/18at 01:51; Start 02/12/18 at 10:30 Sodium Chloride (NS Flush) 2 ml BID IV FLUSH Last administered on 02/15/18at 21: 05; Start 02/12/18 at 21:00 Acetaminophen (Tylenol) 650 mg Q4H PRN PO TEMP > 100.4 Last administered on at 09:43; Start 02/12/18 at 10:30 Metoclopramide HCl (Reglan Inj) 5 mg Q6H PRN IV PUSH NAUSEA OR VOMITING Last administered on 02/13/18at 09:50; Start 02/12/18 at 10:30 Temazepam (Restoril) 15 mg HS PRN PO INSOMNIA; Start 02/12/18 at 10:30 Enoxaparin Sodium (Lovenox Inj) 40 mg Q24H SQ Last administered on 02/14/18at 14 :06; Start 02/12/18 at 12:00; Stop 02/14/18 at 16:35; Status DC Naloxone HCl (Narcan Inj) 0.4 mg UNSCH PRN IV PUSH SEE LABEL COMMENTS; Start at 10:30 Senna/Docusate Sodium (Sophie-Colace) 1 tab BID PO Last administered on at 09:42; Start 02/12/18 at 21:00 Magnesium Hydroxide (Milk Of Magnesia Liq) 30 ml Q12H PRN PO Mild constipation ; Start 02/12/18 at 10:30 Sennosides (Senokot) 17.2 mg Q12H PRN PO Moderate constipation; Start 02/12/18 at 10:30 Bisacodyl (Dulcolax Supp) 10 mg DAILY PRN RECTAL SEVERE CONSITIPATION; Start at 10:30 Lactulose (Lactulose Liq) 30 ml DAILY PRN PO SEVERE CONSITIPATION; Start at 10:30 Allopurinol (Zyloprim) 100 mg DAILY PO Last administered on 02/16/18at 09:42; Start 02/13/18 at 09:00 Amiodarone HCl (Cordarone) 200 mg DAILY PO Last administered on 02/16/18at 09:42 ; Start 02/13/18 at 09:00 Atorvastatin Calcium (Lipitor) 40 mg HS PO Last administered on 02/15/18at 21:00 ; Start 02/12/18 at 21:00 Diltiazem HCl (Cardizem Cd) 240 mg DAILY PO Last administered on 02/16/18at 09: 41; Start 02/13/18 at 09:00 Metoprolol Succinate (Toprol Xl) 25 mg DAILY PO Last administered on 02/16/18at 09:42; Start 02/13/18 at 09:00 Pantoprazole Sodium (Protonix) 40 mg DAILY PO Last administered on 02/16/18at 09 :42; Start 02/13/18 at 09:00 Levofloxacin/ Dextrose 100 ml @ 100 mls/hr Q24H IV Last administered on at 18:18; Start 02/12/18 at 18:00; Stop 02/16/18 at 07:10; Status DC Morphine Sulfate (Morphine Inj) 2 mg Q3H PRN IV PUSH pain 1-5; Start 02/12/18 at 17:45; Status UNV Morphine Sulfate (Morphine Inj) 3 mg Q3H PRN IV pain 6-10; Start 02/12/18 at 17 :45; Status UNV Morphine Sulfate (Morphine Inj) 2 mg Q3H PRN IV pain 1-5 Last administered on at 18:47; Start 02/12/18 at 18:00 Morphine Sulfate (Morphine Inj) 3 mg Q3H PRN IV pain 6-10 Last administered on 02/13/18at 05:16; Start 02/12/18 at 18:00 Diatrizoate Meglum/ Diatrizoate Sod ( Gastrobelinda Liq) 720 ml STK-MED ONCE RECTAL ; Start 02/13/18 at 10:39; Stop 02/13/18 at 10:40; Status DC Nystatin (Mycostatin Liq) 5 ml QID SWISH-SWAL Last administered on 02/16/18at 09:42; Start 02/13/18 at 13:00; Stop 02/20/18 at 12:59 Potassium Chloride (KCl) 30 meq ONCE ONCE PO Last administered on 02/14/18at 10 :27; Start 02/14/18 at 10:15; Stop 02/14/18 at 10:16; Status DC Levofloxacin (Levaquin) 500 mg Q14H PO ; Start 02/16/18 at 18:00 Metronidazole (Flagyl) 500 mg Q8H PO Last administered on 02/16/18at 09:42; Start 02/16/18 at 10:00 A/P Assessment and Plan Sepsis meeting criteria on admission (leucocytosis, tachycardia, source of infection is GI, patient with diverticulitis) Abdominal pain - likely diverticulitis, patient with recurrent diverticulitis CT A/P reviewed and findings discussed with the ED physician, showed nonspecific inflammation throughout the colon, and focal areas in the sigmoid colon consistent with diverticulitis Small amount of free fluid in pelvis but considered stable per radiology No change in CT findings from last week Morphine given in ED for pain, will continue prn Continue IV abx metronidazole. Continue Levaquin IV abx. Full liquid diet Consult GI for further evaluation, appreciate input per GI: plan for Flex sig Friday Consult gen surgery , continue med management for now Cholelithiasis Incidental finding on abdominal CT without pericholecystic inflammation or signs of obstruction No focal RUQ tenderness, negative Richard's sign Not likely contributing to current abdominal symptoms Afib Continue home medications Continue metroprolol, amiodarone, diltiazem Hold eliquis for now due to recent GIB, patient is not taking eliquis Telemetry monitoring HTN Continue to monitor BP and adjust meds as need Continue home BP meds Anemia Recent admission for LGIB, Hb 10.0 Hct 30.3 on admission Stable for now with no signs of active bleeding Will continue to monitor H&H, transfuse iof HGB < 7 or if symptomatic recheck CBC in AM NISA Creatinine 1.34 and eGFR 39 on admission -> 02/14 creatinine 0.94 Avoid nephrotoxic agents IV NS for hydration. Kidney indices improving. DC IVF (02/14) Will continue to monitor kidney function DVT prophylaxis with SCDs due to anemia with possible GI bleed Discharge Planning DC to home today Follow-up with GI in 2 weeks follow-up with PCP in 1 week Will need colonoscopy in 6-8 weeks Harshad Quinteros DO February 16, 2018 11:16
[2018-02-16] MEDS ORDERED: LEVA500T33 PO (11:25)
[2018-02-16] MEDS ORDERED: METR-1 PO (11:25)
[2018-02-16] MEDS ORDERED: NAPR500 PO (11:25)
[2018-02-16] MEDS ORDERED: Nystatin Liq SWISH-SWAL (11:25)
--- NOTE | 2018-02-16 11:28 | HHI.DS ---
Discharge Summary Admission Date February 12, 2018 at 10:34 Discharge Date: February 16, 2018 Admitting Diagnosis diverticulitis (1) Diverticular disease ICD Code: K57.90 - Diverticulosis of intestine, part unspecified, without perforation or abscess without bleeding Diagnosis: Principal (2) Diverticulitis ICD Code: K57.92 - Diverticulitis of intestine, part unspecified, without perforation or abscess without bleeding Diagnosis: Principal Status: Acute (3) Atrial fibrillation ICD Code: I48.91 - Unspecified atrial fibrillation Diagnosis: Secondary (4) History of gout ICD Code: Z87.39 - Personal history of other diseases of the musculoskeletal system and connective tissue Diagnosis: Secondary (5) Hypertension, essential ICD Code: I10 - Essential (primary) hypertension Diagnosis: Secondary Status: Chronic (6) Hyperlipidemia ICD Code: E78.5 - Hyperlipidemia, unspecified Diagnosis: Secondary Status: Chronic Procedures None Brief History - From Admission 68-year-old white female with PmH of diverticulitis, Afib, HTN, HLD, CKD, Gout presented to the ED today with severe abdominal pain. She has been dealing with multiple GI issues over the past month, which began with an admission on 01/27/18 for RLQ pain. She was diagnosed with diverticular abscess and EGD on 01/28 showed gastritis. She remained inpatient x4 days and was discharged with ciprofloxacin and metronidazole. Symptoms improved briefly, but she returned to the ED on for LGIB and hematochezia. At the time, she required blood transfusion to replace losses. RBC scan done on 02/07 showed resolution of the GIB and she was discharged on 02/08. She has never had any GI problems prior to this month. Today the pt has symptoms of severe abdominal pain and no appetite. The pain was originally localized to the RLQ but is now diffuse. She describes it as 10/ 10 and "crampy." It is the same kind of pain she has had for the past two weeks which never fully resolved. She reports 10-15lb weight loss over the past two weeks because she has no appetite. She is able to eat and keep food down, but has no desire due to abdominal pain. Last meal was last night. She has shortness of breath with exertion, but this is at pt's baseline. She denies nausea, vomiting, constipation, diarrhea, blood in BM, fever, chills. Normally she takes eliquis for history of A fib s/p ablation (12/2017), but she was told to hold the medication after developing GIB. She has not restarted. Morphine was given in the ED and pain is significantly improved. She was supposed to f/u with GI doc next week per advice from the last admission. CBC/BMP: 02/15/18 0800 02/15/18 0800 Significant Findings Laboratory Tests Test 02/14/18 07:20 02/15/18 08:00 Red Blood Count 2.97 MIL/MM3 (4.00-5.30) 3.15 MIL/MM3 (4.00-5.30) Hemoglobin 8.2 GM/DL (11.6-15.3) 8.7 GM/DL (11.6-15.3) Hematocrit 24.4 % (35.0-46.0) 25.9 % (35.0-46.0) Neutrophils (%) (Auto) 81.6 % (16.0-70.0) 77.2 % (16.0-70.0) Lymphocytes # (Auto) 0.9 TH/MM3 (1.0-4.8) Calcium Level 8.1 MG/DL (8.5-10.1) 8.1 MG/DL (8.5-10.1) Potassium Level 3.4 MEQ/L (3.5-5.1) Chloride Level 110 MEQ/L (98-107) 112 MEQ/L (98-107) Estimat Glomerular Filtration Rate 59 ML/MIN (>89) 62 ML/MIN (>89) Blood Urea Nitrogen 4 MG/DL (7-18) Carbon Dioxide Level 19.6 MEQ/L (21.0-32.0) Imaging Last Impressions Enema w/Water Soluble 02/13/18 0000 Signed Impressions: Service Date/Time: Tuesday, February 13, 2018 09:16 - CONCLUSION: Severe diverticulosis. Cholelithiasis. Naif Dos Santos MD Abdomen/Pelvis CT 02/12/18 0819 Signed Impressions: Service Date/Time: January 09:35 - CONCLUSION: 1. There appears to be some nonspecific inflammatory changes adjacent to the sigmoid colon suggestive of diverticulitis. There is diffuse diverticular disease throughout the entire colon. 2. Stable small amount of free fluid deep in the pelvis. 3. Large calcified gallstones in the gallbladder without clear tract obstruction. 4. No other significant changes are seen compared to the prior study. Seven Dunlap MD PE at Discharge GENERAL: Awake and alert and oriented 3 talkative and cooperative appears stated age SKIN: Warm and dry. HEAD: Atraumatic. Normocephalic. EYES: Pupils equal and round. No scleral icterus. No injection or drainage. Extraocular muscles intact ENT: No nasal bleeding or discharge. Mucous membranes pink and moist. Tongue is midline NECK: Trachea midline. No JVD. Supple CARDIOVASCULAR: Regular rate and rhythm. S1-S2 no S3 or S4 RESPIRATORY: No accessory muscle use. Clear to auscultation. Breath sounds equal bilaterally. GASTROINTESTINAL: Abdomen soft, non-tender, nondistended. Hepatic and splenic margins not palpable. MUSCULOSKELETAL: Extremities without clubbing, cyanosis, or edema. No obvious deformities. NEUROLOGICAL: Awake and alert. No obvious cranial nerve deficits. Motor grossly within normal limits. 4 out of 5 muscle strength in the arms and legs. Normal speech. Right knee tender some swelling suspect arthritis PSYCHIATRIC: Appropriate mood and affect; insight and judgment normal. Hospital Course 68-year-old white female with PmH of diverticulitis, Afib, HTN, HLD, CKD, Gout presented to the ED today with severe abdominal pain. She has been dealing with multiple GI issues over the past month, which began with an admission on 01/27/18 for RLQ pain. She was diagnosed with diverticular abscess and EGD on 01/28 showed gastritis. She remained inpatient x4 days and was discharged with ciprofloxacin and metronidazole. Symptoms improved briefly, but she returned to the ED on for LGIB and hematochezia. At the time, she required blood transfusion to replace losses. RBC scan done on 02/07 showed resolution of the GIB and she was discharged on 02/08. She has never had any GI problems prior to this month. Today the pt has symptoms of severe abdominal pain and no appetite. The pain was originally localized to the RLQ but is now diffuse. She describes it as 10/ 10 and "crampy." It is the same kind of pain she has had for the past two weeks which never fully resolved. She reports 10-15lb weight loss over the past two weeks because she has no appetite. She is able to eat and keep food down, but has no desire due to abdominal pain. Last meal was last night. She has shortness of breath with exertion, but this is at pt's baseline. She denies nausea, vomiting, constipation, diarrhea, blood in BM, fever, chills. Normally she takes eliquis for history of A fib s/p ablation (12/2017), but she was told to hold the medication after developing GIB. She has not restarted. Morphine was given in the ED and pain is significantly improved. She was supposed to f/u with GI doc next week per advice from the last admission. Has been seen by surgery. And seen by gastroenterology Has been switch to p.o. antibiotics. Can be discharged home today to follow-up with gastroenterology in 2 weeks Follow-up with general surgery in 2 weeks Follow-up with PCP in 2-3 days New prescriptions for Flagyl and Levaquin written Prescription for Naprosyn with food for her right knee issue Pt Condition on Discharge: Good Discharge Disposition: Discharge Home Discharge Time: > 30 minutes Discharge Instructions DIET: Follow Instructions for: Heart Healthy Diet, Low Fiber Diet Speech Therapy-Diet Recommends: Regular Activities you can perform: Regular-No Restrictions Follow up Referrals: Gastroenterology - 2 Weeks with Tara Lomeli MD PCP Follow-up - 2-3 Days Surgical - 2 Weeks with Arnulfo Espinal MD New Medications: Naproxen (Naprosyn) 500 Mg Tab 500 MG PO BID PRN for ARTHRITIS PAIN, #60 TAB 0 Refills TAKE WITH FOOD Levofloxacin (Levaquin) 500 Mg Tablet 500 MG PO DAILY for Infection, #7 TAB [Nystatin Liq] () 5 ML SUSP 5 ML SWISH-SWAL QID for SWALLOW, #1 BOTTLE Continued Medications: Allopurinol (Allopurinol) 100 Mg Tab 100 MG PO DAILY for Gout, #30 TAB 0 Refills Amiodarone (Amiodarone) 200 Mg Tab 200 MG PO DAILY for afib for 30 Days, #30 TAB 6 Refills Apixaban (Eliquis) 2.5 Mg Tab 2.5 MG PO BID for Blood Clot Prevention, #60 TAB 0 Refills Atorvastatin (Atorvastatin) 40 Mg Tab 40 MG PO HS for Cholesterol Management, #30 TAB 0 Refills Diltiazem CD 24 HR (Diltiazem CD 24 HR) 240 Mg Caper 240 MG PO DAILY, #30 CAP 0 Refills Metoprolol Succinate ER 24 HR (Metoprolol Succinate ER 24 HR) 25 Mg Tab 25 MG PO DAILY, #30 TAB 0 Refills Metronidazole (Flagyl) 500 Mg Tab 500 MG PO TID for Infection for 7 Days, #21 TAB 0 Refills (This prescription has been renewed) Pantoprazole (Pantoprazole) 40 Mg Tab 40 MG PO DAILY, #30 TAB Discontinued Medications: Ciprofloxacin (Cipro) 500 Mg Tab 500 MG PO BID for Infection for 7 Days, #14 TAB 0 Refills Harshad Quinteros DO February 16, 2018 11:28
--- NOTE | 2018-02-16 11:37 | HHI.PR ---
cc: Fabiano Carvajal MD Subjective Subjective Notes Doing well Abdominal pain resolved Objective Vitals/I&O Vital Signs Date Time Temp Pulse Resp B/P (MAP) Pulse Ox O2 Delivery O2 Flow Rate FiO2 02/16/18 07:54 97.5 97 17 149/92 (111) 96 02/14/18 08:12 21 02/13/18 20:00 Room Air Labs Date/Time Source Procedure Growth Status 02/12/18 10:15 Blood Peripheral Aerobic Blood Culture - Preliminary NO GROWTH IN 4 DAYS Resulted 02/12/18 10:15 Blood Peripheral Anaerobic Blood Culture - Preliminary NO GROWTH IN 4 DAYS Resulted Radiology Last Impressions Enema w/Water Soluble 02/13/18 0000 Signed Impressions: Service Date/Time: Tuesday, February 13, 2018 09:16 - CONCLUSION: Severe diverticulosis. Cholelithiasis. Naif Dos Santos MD Abdomen/Pelvis CT 02/12/18818 Signed Impressions: Service Date/Time: January 09:35 - CONCLUSION: 1. There appears to be some nonspecific inflammatory changes adjacent to the sigmoid colon suggestive of diverticulitis. There is diffuse diverticular disease throughout the entire colon. 2. Stable small amount of free fluid deep in the pelvis. 3. Large calcified gallstones in the gallbladder without clear tract obstruction. 4. No other significant changes are seen compared to the prior study. Seven Dunlap MD Last 48 hours Impressions Abdomen/Pelvis CT 02/12/18818 Signed Impressions: Service Date/Time: January 09:35 - CONCLUSION: 1. There appears to be some nonspecific inflammatory changes adjacent to the sigmoid colon suggestive of diverticulitis. There is diffuse diverticular disease throughout the entire colon. 2. Stable small amount of free fluid deep in the pelvis. 3. Large calcified gallstones in the gallbladder without clear tract obstruction. 4. No other significant changes are seen compared to the prior study. Seven Dunlap MD Cardiovascular: Regular Lungs: Clear Abdomen: Non-distended, Non-tender Extremities: No edema A/P Problem List: (1) Diverticular disease ICD Codes: K57.90 - Diverticulosis of intestine, part unspecified, without perforation or abscess without bleeding (2) Diverticulitis ICD Codes: K57.92 - Diverticulitis of intestine, part unspecified, without perforation or abscess without bleeding Status: Acute (3) Gallstones ICD Codes: K80.20 - Calculus of gallbladder without cholecystitis without obstruction Status: Chronic Assessment and Plan 68 year old female with acute diverticulitis; recent GIB -Continue low residue diet -Transition to PO Levaquin/Flagyl -WBC trending down; Afebrile -Pain control -GGE shows diverticulitis -Still will plan for nonoperative treatment and GI evaluation in 6-8 weeks -GS clear for DC Problem Qualifiers (1) Diverticular disease: Agatha Gandhi/Horticultural Agent [employer] AID ATTENDANT February 16, 2018 11:37 Fabiano Carvajal MD February 16, 2018 21:45
[2018-02-16] MEDS ORDERED: LEVOFLOXACIN 500 MG TAB PO SCH (18:00)
== END 2018-02-16 12:45 | disposition home or self-care (01) | DRG 872 ==
LOC: NEPC 07:53 → NEDA 10:34 → N06B 11:41
PROVIDERS: ADMIT Hospitalist; ATTEND Hospitalist
DX: A41.9 Sepsis, unspecified organism (principal); N17.9 Acute kidney failure, unspecified; E11.22 Type 2 diabetes mellitus with diabetic chronic kidney disease; I48.91 Unspecified atrial fibrillation; K57.30 Diverticulosis of large intestine without perforation or abscess without bleeding; I12.9 Hypertensive chronic kidney disease with stage 1 through stage 4 chronic kidney disease, or unspecified chronic kidney disease; N18.9 Chronic kidney disease, unspecified; K80.20 Calculus of gallbladder without cholecystitis without obstruction; D64.9 Anemia, unspecified; E78.5 Hyperlipidemia, unspecified; M10.9 Gout, unspecified; Z96.661 Presence of right artificial ankle joint
CPT/HCPCS: 74177; 74270; 80048; 80053; 82378; 83605; 85025; 87040; 93005; 96374; 96375; J0744; J1650; J1956; J2270; J2765; J7030; Q9963; Q9967

== ENCOUNTER 2018-03-11 13:55 | Day surgery (SDC) | payer OTHER ==
[~2018-03-11 13:55] MED LIST changes: -CIPR-9 PO; +LEVA500T33 PO; +NAPR500 PO; +Nystatin Liq SWISH-SWAL
[2018-03-11] MEDS ORDERED: CHLORHEXIDINE GLUCONATE 2 % 1 PACK (2 CLOTHS) TOPICAL PRN (15:00)
[2018-03-11] MEDS ORDERED: SODIUM CHLORID 0.9% 500 ML IV PRN (15:00)
[2018-03-11] MEDS ORDERED: METOPROLOL TARTRATE 25 MG TAB PO PRN (15:00)
[2018-03-11] MEDS ORDERED: POVIDONE IODINE 5% (ANTISEPSIS KIT) 4 APPLICATIONS EACH NARE PRN (15:00)
[2018-03-11] MEDS ORDERED: LACTATED RINGER'S 1000 ML IV PRN (15:00)
--- NOTE | 2018-03-11 19:00 | MA ---
cc: Michelle Abebe MD, Hanscy MD DATE: 03/11/2018 INDICATIONS: Mrs. Nicole is a 68-year-old female with atrial fibrillation, on anticoagulation who will undergo cardioversion. The risks, the nature and the benefits of the procedure are clearly stated to her. Risks include cardiac arrest requiring intubation, . The patient understands and agreed to proceed. PROCEDURE IN DETAIL: After written informed consent was obtained, the patient was evaluated by anesthesiologist. Anterolateral pads were placed. A 200 sync biphasic joule was delivered that converted the patient into sinus rhythm. No incident to report. CONCLUSIONS: Successful cardioversion COMMENT AND RECOMMENDATION: The patient is going to be observed and discharged home later today. Michelle Abebe MD HS/SA , 06:34 PM , 06:58 PM
--- NOTE | 2018-03-12 18:35 | EKG ---
Date Performed: 03/11/2018 Time Performed: 14:23:08 PTAGE: 68 years EKG: Atrial fibrillation. Poor R wave progression - probable normal variant Inferior and anterio r T wave changes are nonspecific Since the previous tracing, no significant change noted Abnormal ECG PREVIOUS TRACING : 02/12/2018 08.27 DOCTOR: Luisa Gambino Interpretating Date/Time 03/12/2018 18:34:06
--- NOTE | 2018-03-12 18:35 | EKG ---
Date Performed: 03/11/2018 Time Performed: 18:51:36 PTAGE: 68 years EKG: Sinus rhythm with borderline 1st degree A-V block. Possible anterior infarct - age undetermined when compared to prior EKG, patient is back in sinus rythm Abnormal ECG PREVIOUS TRACING : 03/11/2018 14.23 DOCTOR: Luisa Gambino Interpretating Date/Time 03/12/2018 18:34:34
== END 2018-03-11 19:10 | disposition home or self-care (01) ==
LOC: HSDC 13:55 → HDIC 13:57 → HSDC 19:10
PROVIDERS: ATTEND Internal Medicine Interventional Cardiology
DX: I48.91 Unspecified atrial fibrillation (principal); I10 Essential (primary) hypertension; Z79.01 Long term (current) use of anticoagulants
CPT/HCPCS: 92960; 93005

== ENCOUNTER 2018-06-08 02:23 | Inpatient (IN) ==
[2018-06-08] MEDS ORDERED: Sod Chloride 0.9% Inj 1,000 ML IV.SIG ONE (02:56)
[2018-06-08] MEDS ORDERED: Pantoprazole Inj 80 MG in Sodium Chlor 0.9% Inj 50 ML IV.SIG ONE (02:56)
[2018-06-08] MEDS ORDERED: Pantoprazole Inj 80 MG in Sodium Chlor 0.9% Inj 100 ML IV.CONT SCH (03:00)
--- NOTE | 2018-06-08 03:26 | XR ---
EXAM DATE: 06/08/2018 3:19 AM EDT AGE/SEX: 68 years / Female INDICATIONS: Chest and right side scapular pain after falling today. CLINICAL DATA: This is the patient's initial encounter. Patient reports that signs and symptoms have been present for 1 day and indicates a pain score of 6/10. MEDICAL/SURGICAL HISTORY: . atrial fibrillation. Spinal stenosis None. COMPARISON: [facility], RIBS LEFT MIN 3V W EXP CHEST, 06/02/2018. . FINDINGS: A single AP view of the chest demonstrates the lungs to be symmetrically aerated without evidence of mass, infiltrate or effusion. The cardiomediastinal contours are prominent. Osseous structures are i ntact. CONCLUSION: Cardiomegaly. No acute findings. Electronically signed by: Trevon Dorantes MD 06/08/2018 3:25 AM EDT
[2018-06-08 03:42] LABS: Baso # (Auto) 0.1 th/mm3 (0.0-0.2); Baso % (Auto) 0.2 % (0.0-2.0); Eos % (Auto) 0.1 % (0.0-4.0); Lymph # (Auto) 0.6 th/mm3 (1.0-4.8); Lymph % (Auto) 2.1 % (9.0-44.0); Mean Corpuscular HGB Conc 31.4 % (32.0-36.0); Mean Corpuscular Hemoglobin 25.7 pg (27.0-34.0); Mean Corpuscular Volume 81.9 fL (80.0-100.0); Mean Platelet Volume 7.4 fL (7.0-11.0); Mono # (Auto) 1.9 th/mm3 (0.0-0.9); Mono % (Auto) 6.3 % (0.0-8.0); Neut # (Auto) 27.1 th/mm3 (1.8-7.7); Neut % (Auto) 91.3 % (16.0-70.0); Platelet Count 340 th/mm3 (150-450); Red Blood Count 2.16 mil/mm3 (4.00-5.30); Red Cell Distribution Width 15.3 % (11.6-17.2); White Blood Count 29.7 th/mm3 (4.0-11.0)
[2018-06-08 03:46] LABS: Hemoglobin 5.6 gm/dL (11.6-15.3)
[2018-06-08 03:47] LABS: Hematocrit 17.7 % (35.0-46.0)
[2018-06-08 03:55] LABS: Activated Partial Thrombo Time 31.3 sec (24.3-30.1); INR 1.2 Ratio; Prothrombin Time 12.5 sec (9.8-11.6)
[2018-06-08 03:59] LABS: Alanine Aminotransferase 21 U/L (10-53); Albumin 2.2 g/dL (3.4-5.0); Alkaline Phosphatase 216 U/L (45-117); Anion Gap 13 meq/L (5-15); Aspartate Aminotransferase 17 U/L (15-37); Blood Urea Nitrogen 27 mg/dL (7-18); Calcium 7.9 mg/dL (8.5-10.1); Carbon Dioxide 21.1 meq/L (21.0-32.0); Chloride 108 meq/L (98-107); Glomerular Filtration Rate 32 mL/min (>89); Glucose,Random 122 mg/dL (74-106); Lipase 172 U/L (73-393); Magnesium 1.6 mg/dL (1.5-2.5); Potassium 4.5 meq/L (3.5-5.1); Sodium 142 meq/L (136-145); Total Protein 5.8 g/dL (6.4-8.2)
[2018-06-08] MEDS ORDERED: Sodium Chlor 0.9% Inj 250 ML IV.SIG SCH ×2 (04:00)
[2018-06-08] MEDS ORDERED: PROTHROMBIN COMPLEX IV.SIG ONE (04:00)
[2018-06-08] MEDS ORDERED: Phytonadione Inj 10 MG in Sodium Chlor 0.9% Inj 50 ML IV.SIG ONE (04:00)
[2018-06-08 04:01] LABS: Creatine Kinase 47 U/L (26-192)
[2018-06-08] MEDS ORDERED: Sodium Chlor 0.9% Inj 500 ML IV.SIG ONE (04:18)
--- NOTE | 2018-06-08 04:31 | ED ---
HPI General Chief complaint: GI Bleed Stated complaint: fall Time Seen by Provider: 06/08/18 02:25 History of Present Illness HPI narrative: The patient is a 68 year old female who presents to the [facility] emergency department with a history of yesterday around 4 PM having onset of left lower quadrant abdominal pain. She reports that she then moved her bowels and had stool that was mixed with a small amount of blood. She reports that she does have a history of GI bleed in the past. She reports that she did require a blood transfusion early on the year related to this. She reports that she saw in the hospital and was diagnosed with a diverticular bleed. She reports that she has not followed up with a GI physician since then as she developed recurrent atrial fibrillation requiring an ablation. The patient is currently on Eliquis. The patient reports that in the night she awoke from sound sleep with the sensation of abdominal cramping. She reports that she then moved her bowels and it largely consisted of blood. She reports that she then had a syncopal event struck the right side of her forehead. The patient was noted to be hypotensive by ambulance services prior to arrival with a systolic blood pressure in the 70s. The patient had IV access obtained and was given a liter of fluid in route to this facility. The patient's blood pressure reportedly improved briefly, however it again began to drop on initial assessment in the emergency department. The patient reports having dyspnea on exertion. She denies having any. She denies having any nausea or vomiting. On review of systems otherwise, she denies having any recent fevers, cough, congestion, neck pain,rinary symptoms, one-sided weakness , slurred speech, facial droop, difficulty with word finding ability, or numbness or tingling to her extremities. Related Data Home Medications Medication Instructions Recorded Confirmed allopurinol 100 mg PO DAILY 06/02/18 06/08/18 apixaban [Eliquis] 2.5 mg PO BID 06/02/18 06/08/18 atorvastatin [Lipitor] 40 mg PO DAILY 06/02/18 06/08/18 diltiazem HCl 120 mg PO DAILY 06/02/18 06/08/18 flecainide 50 mg PO Q12H 06/02/18 06/08/18 magnesium 400 mg PO DAILY 06/02/18 06/08/18 metoprolol tartrate [Lopressor] 12.5 mg PO BID 06/02/18 06/08/18 Allergies Allergy/AdvReac Type Severity Reaction Status Date / Time Penicillins Allergy Intermediate Verified 03/20/18 09:14 Review of Systems ROS: all other systems reviewed are negative [facility] Medical History Medical History CKD (chronic kidney disease) stage 3, GFR 30-59 ml/min (Acute) Diverticulitis (Acute) Gout (Acute) Atrial fibrillation (Acute) High cholesterol (Acute) Hypertension (Acute) Surgical History Surgical History S/P ablation of atrial fibrillation (Acute) Family History Family History Other No significant family history Social History Social History Substance History: No History of Abuse Second Hand Smoke Exposure: No Smoking Status: Never smoker How Often Do You Have a Drink Containing Alcohol: Never Recent Travel in [facility] within the Last 8 Weeks: No Recent Out of Country Travel within the Last 8 Weeks: No Immunization History Tetanus Immunization: Unsure Hx Influenza Vaccine This Season: No Exam Const General: cooperative, well developed and acute distress (Pale-appearing, mildly tachycardic) mild Nutritional Appearance: well nourished Orientation: alert, awake and oriented x3 HENMT Head: normocephalic and signs of trauma (Evidence of trauma to the right side of the forehead with a forehead contusion with overlying abrasion noted. No step-off or crepitus. No increased facial bowel motility on palpation.) Nose: no nasal discharge and no epistaxis Face and sinus: no crepitus Mouth: other (tacky mucus membranes) Throat: posterior oropharynx normal and uvula midline Eyes Sclera: normal sclerae Pupils: PERRL Neck Neck: no meningeal signs, trachea midline and no JVD Resp Effort & Inspection: no use of accessory muscles Auscultation: clear to auscultation bilaterally Cardio Rate: tachycardic (Sinus tachycardia in the low 100s, no pulse deficits to the extremities on simultaneous auscultation and palpation of her radial artery) Heart Sounds: no murmurs and no rubs GI Inspection: non-distended Palpation: soft, no hepatosplenomegaly, no guarding, not rigid and tender in the LLQ; not in the epigastrum, not in the RLQ, not in the LUQ, not in the RUQ, not at McBurney's point, Richard's sign negative and with no rebound tenderness Rectal Exam: other (The patient has normal rectal tone. The patient has blood noted in the rectal vault. The patient has blood noted in her undergarments.) Back/Spine/Pelvis Back: no CVA tenderness Skin General: dry skin (warm) Neuro General: alert, awake and oriented x3 Cranial Nerves: other Speech: speech normal Motor: no movement abnormalities noted Extrem General: normal to inspection, no clubbing, no cyanosis and no edema Psych Mood: congruent mood Affect: normal affect Judgment: judgment good Course Reevaluation(s) Reevaluation #1: The patient on reevaluation had her blood pressure improved after a liter of normal saline IV lids from 78 systolic up into the low 100s systolic. Consultations Consultation #1: The patient's case including history, pertinent physical examination findings, and laboratory studies were discussed with Dr. Saldana. It was agreed that the patient would be admitted to the senior technical manager's service. Initial Documented Vital Signs Pulse Rate 67 06/08/18 02:33 Respiratory Rate 16 06/08/18 02:33 Blood Pressure 78/60 L 06/08/18 02:33 Pulse Oximetry 100 06/08/18 02:33 Last Documented Vital Signs Temperature 97.9 F 06/08/18 06:25 Pulse Rate 91 H 06/08/18 06:25 Respiratory Rate 18 06/08/18 06:25 Blood Pressure 100/67 06/08/18 06:25 Pulse Oximetry 99 06/08/18 06:25 Critical Care Time Critical Care Time: Yes Total Critical Care Time: 34 Attestation: Aggregate critical care time was 34 minutes. Time to perform other separately billable procedures was not included in the critical care time. My time did not include minutes spent treating any other patients simultaneously or on activities that did not directly contribute to the patient's treatment. The services I provided to this patient were to treat and/or prevent clinically significant deterioration that could result in: hemorrhagic shock, versus respiratory failure from fluid overload from crystalloid resuscitation I provided critical care services requiring my management, as noted below: Chart data review, documentation time, medication orders and management, vital sign assessments/reviewing monitor data, ordering and reviewing lab tests, ordering and interpreting/reviewing x-rays and diagnostic studies, care of the patient and discussion of the patient with the admitting physicians. Medical Decision Making MDM Narrative Medical decision making narrative: During the course of the patient's emergency department visit, the patient's history, examination, and differential diagnosis were reviewed with the patient. The patient was placed on a business office coordinator with oximetry and frequent blood pressure monitoring. The patient had 2 large-bore IVs placed. The patient was started on normal saline 1 L wide open. The was typed and crossmatched for 4 units of packed red blood cells. Based on the patient's examination and concern for hemorrhagic shock 2 units of packed red blood cells were ordered to be administered as soon as possible. The patient was initially provided Protonix as a bolus and a drip initially. A call was placed out to the pharmacist mirror fabrication supervisor regarding the availability of [facility]. It is currently available. It was written for the patient to have this administered in the emergency department along with vitamin K. The patient was continued on a second liter of normal saline IV. The patient's diagnostic studies are remarkable for a white count of 29.7, initial hemoglobin 5.6, platelets 340, differential remarkable for left shift of 91.3- the patient was started on antibiotic by the senior technical manager for a presumed diverticulitis, based on the patient's examination. PTT 31.3, INR is 1.2, chemistry is remarkable for a chloride of 108, BUN 27, creatinine 1.59, glucose 122, alk phos 216, ammonia within normal limits at 20, CPK 47, troponin I less than 0.02, lipase within normal limits, BNP is within normal limits. CT scan of the brain showed no acute abnormality, right frontal scalp hematoma. CT scan of the abdomen and pelvis shows no acute findings according to the reading radiologist, stable large gallstones and small amount of free fluid in the deep pelvis are noted, dense coronary calcifications are noted. Chest x- ray reveals cardiomegaly, no acute findings. The patient's results were discussed with the patient, including the plan of care. I explained that further testing and/ or monitoring is indicated based on the patient's history, examination, and/ or laboratory findings. Therefore, I recommended admission for additional evaluation. The patient expressed understanding and was agreeable with this plan. The patient was admitted to the hospital in critical condition and sent to a bed under the care of the senior technical manager's service. Medical Screen Exam Complete: Yes Emergency Medical Condition: Yes Differential Diagnosis Differential Diagnosis: Diverticulitis, versus diverticulosis, versus AVM malformation, versus peptic ulcer bleed Medical Records Medical records reviewed: Yes I reviewed the patient's medical records. Lab Data Lab results reviewed: Yes I reviewed the patient's lab results. Result diagrams: 06/08/18 03:15 06/08/18 03:15 Lab Results 06/08/18 06/08/18 06/08/18 Range/Units 03:15 03:15 03:15 CBC w Diff Auto diff final WBC 29.7 H (4.0-11.0) th/mm3 RBC 2.16 L (4.00-5.30) mil/mm3 Hgb 5.6 L* (11.6-15.3) gm/dL Hct 17.7 L* (35.0-46.0) % MCV 81.9 (80.0-100.0) fL MCH 25.7 L (27.0-34.0) pg MCHC 31.4 L (32.0-36.0) % RDW 15.3 (11.6-17.2) % Plt Count 340 (150-450) th/mm3 MPV 7.4 (7.0-11.0) fL Prelim Diff (Auto) [employer] Supervisor Neut % (Auto) 91.3 H (16.0-70.0) % Lymph % (Auto) 2.1 L (9.0-44.0) % [place] % (Auto) 6.3 (0.0-8.0) % Eos % (Auto) 0.1 (0.0-4.0) % Baso % (Auto) 0.2 (0.0-2.0) % Neut # (Auto) 27.1 H (1.8-7.7) th/mm3 Lymph # (Auto) 0.6 L (1.0-4.8) th/mm3 [place] # (Auto) 1.9 H (0.0-0.9) th/mm3 Eos # (Auto) 0.0 (0.0-0.4) th/mm3 Baso # (Auto) 0.1 (0.0-0.2) th/mm3 WBC Differential . Differential Comment . PT 12.5 H (9.8-11.6) sec INR 1.2 Ratio APTT 31.3 H (24.3-30.1) sec Sodium 142 (136-145) meq/L Potassium 4.5 (3.5-5.1) meq/L Chloride 108 H (98-107) meq/L Carbon Dioxide 21.1 (21.0-32.0) meq/L Anion Gap 13 (5-15) meq/L BUN 27 H (7-18) mg/dL Creatinine 1.59 H (0.50-1.00) mg/dL Estimated GFR 32 L (>89) mL/min Random Glucose 122 H (74-106) mg/dL Calcium 7.9 L (8.5-10.1) mg/dL Magnesium 1.6 (1.5-2.5) mg/dL Total Bilirubin 0.4 (0.2-1.0) mg/dL AST 17 (15-37) U/L ALT 21 (10-53) U/L Alkaline Phosphatase 216 H (45-117) U/L Ammonia (11-32) mcmol/L Total Creatine Kinase 47 (26-192) U/L Troponin I Less than 0.02 L (0.02-0.05) ng/mL B-Natriuretic Peptide (0-100) pg/mL Total Protein 5.8 L (6.4-8.2) g/dL Albumin 2.2 L (3.4-5.0) g/dL Lipase 172 (73-393) U/L Urine Color (Yellw/Straw) Urine Clarity (Clear) Urine pH (5.0-8.5) Ur Specific [place] (1.002-1.035) Urine Protein (Neg-Trace) mg/dL Urine Glucose (UA) (Negative) mg/dL Urine Ketones (Negative) mg/dL Urine Occult Blood (Negative) Urine Nitrate (Negative) Urine Bilirubin (Negative) Urine Urobilinogen (Less than 2) mg/dL Ur Leukocyte Esterase (Negative) Urine RBC (0-3) /hpf Urine WBC (0-5) /hpf Ur Squamous Epith Cells (0-5) /hpf Hyaline Casts (0-3) /lpf Micro UA Comment Ur Microscopic Review Urine Culture Comments Blood Type Antibody Screen MTS Gel Crossmatch Bld Prod Order Comment 09/10/18 09/10/18 09/10/18 Range/Units 03:15 03:15 03:15 CBC w Diff WBC (4.0-11.0) th/mm3 RBC (4.00-5.30) mil/mm3 Hgb (11.6-15.3) gm/dL Hct (35.0-46.0) % MCV (80.0-100.0) fL MCH (27.0-34.0) pg MCHC (32.0-36.0) % RDW (11.6-17.2) % Plt Count (150-450) th/mm3 MPV (7.0-11.0) fL Prelim Diff (Auto) Neut % (Auto) (16.0-70.0) % Lymph % (Auto) (9.0-44.0) % [place] % (Auto) (0.0-8.0) % Eos % (Auto) (0.0-4.0) % Baso % (Auto) (0.0-2.0) % Neut # (Auto) (1.8-7.7) th/mm3 Lymph # (Auto) (1.0-4.8) th/mm3 [place] # (Auto) (0.0-0.9) th/mm3 Eos # (Auto) (0.0-0.4) th/mm3 Baso # (Auto) (0.0-0.2) th/mm3 WBC Differential Differential Comment PT (9.8-11.6) sec INR Ratio APTT (24.3-30.1) sec Sodium (136-145) meq/L Potassium (3.5-5.1) meq/L Chloride (98-107) meq/L Carbon Dioxide (21.0-32.0) meq/L Anion Gap (5-15) meq/L BUN (7-18) mg/dL Creatinine (0.50-1.00) mg/dL Estimated GFR (>89) mL/min Random Glucose (74-106) mg/dL Calcium (8.5-10.1) mg/dL Magnesium (1.5-2.5) mg/dL Total Bilirubin (0.2-1.0) mg/dL AST (15-37) U/L ALT (10-53) U/L Alkaline Phosphatase (45-117) U/L Ammonia 20 (11-32) mcmol/L Total Creatine Kinase (26-192) U/L Troponin I (0.02-0.05) ng/mL B-Natriuretic Peptide 79 (0-100) pg/mL Total Protein (6.4-8.2) g/dL Albumin (3.4-5.0) g/dL Lipase (73-393) U/L Urine Color (Yellw/Straw) Urine Clarity (Clear) Urine pH (5.0-8.5) Ur Specific [place] (1.002-1.035) Urine Protein (Neg-Trace) mg/dL Urine Glucose (UA) (Negative) mg/dL Urine Ketones (Negative) mg/dL Urine Occult Blood (Negative) Urine Nitrate (Negative) Urine Bilirubin (Negative) Urine Urobilinogen (Less than 2) mg/dL Ur Leukocyte Esterase (Negative) Urine RBC (0-3) /hpf Urine WBC (0-5) /hpf Ur Squamous Epith Cells (0-5) /hpf Hyaline Casts (0-3) /lpf Micro UA Comment Ur Microscopic Review Urine Culture Comments Blood Type B Negative Antibody Screen Negative MTS Gel Crossmatch Bld Prod Order Comment 06/08/18 06/08/18 Range/Units 03:31 04:50 CBC w Diff WBC (4.0-11.0) th/mm3 RBC (4.00-5.30) mil/mm3 Hgb (11.6-15.3) gm/dL Hct (35.0-46.0) % MCV (80.0-100.0) fL MCH (27.0-34.0) pg MCHC (32.0-36.0) % RDW (11.6-17.2) % Plt Count (150-450) th/mm3 MPV (7.0-11.0) fL Prelim Diff (Auto) Neut % (Auto) (16.0-70.0) % Lymph % (Auto) (9.0-44.0) % [place] % (Auto) (0.0-8.0) % Eos % (Auto) (0.0-4.0) % Baso % (Auto) (0.0-2.0) % Neut # (Auto) (1.8-7.7) th/mm3 Lymph # (Auto) (1.0-4.8) th/mm3 [place] # (Auto) (0.0-0.9) th/mm3 Eos # (Auto) (0.0-0.4) th/mm3 Baso # (Auto) (0.0-0.2) th/mm3 WBC Differential Differential Comment PT (9.8-11.6) sec INR Ratio APTT (24.3-30.1) sec Sodium (136-145) meq/L Potassium (3.5-5.1) meq/L Chloride (98-107) meq/L Carbon Dioxide (21.0-32.0) meq/L Anion Gap (5-15) meq/L BUN (7-18) mg/dL Creatinine (0.50-1.00) mg/dL Estimated GFR (>89) mL/min Random Glucose (74-106) mg/dL Calcium (8.5-10.1) mg/dL Magnesium (1.5-2.5) mg/dL Total Bilirubin (0.2-1.0) mg/dL AST (15-37) U/L ALT (10-53) U/L Alkaline Phosphatase (45-117) U/L Ammonia (11-32) mcmol/L Total Creatine Kinase (26-192) U/L Troponin I (0.02-0.05) ng/mL B-Natriuretic Peptide (0-100) pg/mL Total Protein (6.4-8.2) g/dL Albumin (3.4-5.0) g/dL Lipase (73-393) U/L Urine Color Yellow (Yellw/Straw) Urine Clarity Hazy H (Clear) Urine pH 5.0 (5.0-8.5) Ur Specific [place] 1.038 H (1.002-1.035) Urine Protein Negative (Neg-Trace) mg/dL Urine Glucose (UA) Negative (Negative) mg/dL Urine Ketones Negative (Negative) mg/dL Urine Occult Blood Negative (Negative) Urine Nitrate Negative (Negative) Urine Bilirubin Negative (Negative) Urine Urobilinogen Less than 2 (Less than 2) mg/dL Ur Leukocyte Esterase Small H (Negative) Urine RBC 2 (0-3) /hpf Urine WBC 3 (0-5) /hpf Ur Squamous Epith Cells 2 (0-5) /hpf Hyaline Casts 1 (0-3) /lpf Micro UA Comment Cath-culture not ind Ur Microscopic Review Not Reportable Urine Culture Comments Cath-cult not ind Blood Type Antibody Screen MTS Gel Crossmatch See Detail Bld Prod Order Comment Imaging Data Radiologist's impression: Abdomen/Pelvis CT 06/08/18 02:56 CONCLUSION: 1. No acute findings. 2. Stable large gallstones and small amount of free fluid in the deep pelvis. Dense coronary calcifications. Chest X-Ray 06/08/18 02:56 CONCLUSION: Cardiomegaly. No acute findings. Head CT 06/08/18 02:56 CONCLUSION: 1. No acute intracranial abnormalities. Right frontal scalp hematoma. . ECG Data Attestation: I personally reviewed and interpreted this ECG as follows: Interpretation: The patient had an EKG done that shows atrial fibrillation heart rate of 97, QRS duration is 122 ms, QTC 384 ms. The patient has a moderate intraventricular conduction delay noted. Nonspecific ST downsloping in leads II, 3, aVF. No acute ST segment elevation. Discharge Plan Discharge Disposition Patient Disposition: 30 Still Patient Discharge Details Diagnosis: Acute GI bleeding Physicians Team ED Provider: Connie Rivera Attending Provider: Doreen Saldana Other Providers: Ghassan Ferrell Status ED Status: Admitted Patient
--- NOTE | 2018-06-08 04:48 | P.HPCC ---
History of Present Illness Service: Critical care medicine Primary Care Physician: Arjun Jones Chief Complaint: GI bleeding History of Present Illness: 68-year-old female with past medical history of diverticulitis, atrial fibrillation status post ablation 2 on chronic anticoagulation with Eliquis, hypertension, hyperlipidemia chronic kidney disease, gout. She says that she started having LLQ pain around 4 pm on 06/07. At around 10 pm she starting having large bloody BM's. She states she flushed the toilet 4 times when it was filled with blood. She walked back to bed and then got up again to have another large BM, got lightheaded while on the toilet and then passed out on the floor and hit her head with +LOC. She was unable to get up and her did not hear her calling for a couple of hours. He then found her and [facility] was called. Upon arrival to the emergency department her blood pressure was 78/68. Pulse was 67 ( but takes metoprolol). She was administered 1 L normal saline bolus. Blood pressure improved to 90s over 50s. Hemoglobin is 5.6 ( previously 9.4 on 06/02/18 ). She is receiving K Centra 25 U/kg. PRBC 4 units have been ordered to transfuse. She is on a protonix drip. Prior hx of GI bleed in January requiring transfusion; had diverticulitis with abscess at that time, bleed presumed diverticular. Never had colonoscopy. Had gastrograffin enema 02/13/18 with diverticulosis. Bleeding scan 02/07/18 negative. Had some nausea when she was hypotensive. No vomiting/hematemesis. No CP or SOB. - Diagnosis (1) GI bleed (2) Diverticulitis (3) Hemorrhagic shock (4) Blood loss anemia (5) HLD (hyperlipidemia) (6) Atrial fibrillation with normal ventricular rate (7) CKD (chronic kidney disease) stage 3, GFR 30-59 ml/min (8) Anticoagulated by anticoagulation treatment Inpatient Certification: I certify that the inpatient services were ordered in accordance with Medicare regulations governing the order. This includes certification that hospital inpatient services are reasonable and necessary and in the case of services not specified as inpatient-only under 42 CFR 419.22(n), that they are appropriately provided as inpatient services in accordance to with the 2-midnight benchmark under 43 CFR 412.3(e) Review of Systems All other systems reviewed negative except as stated in HPI PMFSH - History History Provided By: Patient - Medical History Medical History: Medical History (Last Updated 06/08/18 @ 04:49 by Doreen Saldana MD) CKD (chronic kidney disease) stage 3, GFR 30-59 ml/min Diverticulitis Gout Atrial fibrillation High cholesterol Hypertension - Surgical History Surgical History: Surgical History (Last Updated 06/08/18 @ 05:50 by Doreen Saldana MD) S/P ablation of atrial fibrillation - Family History Family History: Family History (Last Updated 06/08/18 @ 05:51 by Doreen Saldana MD) Other No significant family history - Social History I have reviewed the patient's Social History: Yes - Tobacco History Second Hand Smoke Exposure: No Smoking Status: Never smoker - Alcohol History How Often Do You Have a Drink Containing Alcohol: Never - Substance Use History Substance History: No History of Abuse - Travel History Recent Travel in the [facility] Within the Last 8 Weeks: No Recent Travel Out of the Country Within the Last 8 Weeks: No - Immunization History Tetanus Immunization: Unsure Hx Influenza Vaccine This Season: No Medications and Allergies Active Medications: Active Medications Pantoprazole Sodium 80 mg/ (Sodium Chloride) 100 mls @ 10 mls/hr IV.CONT CONT MARIANNA Last Admin: 06/08/18 03:52 Dose: 10 mls/hr Sodium Chloride (Ns Inj) 250 mls @ 15 mls/hr IV.SIG ONCE MARIANNA Stop: 06/08/18 20:39 Sodium Chloride (Ns Inj) 250 mls @ 15 mls/hr IV.SIG ONCE MARIANNA Stop: 06/08/18 20:39 Sodium Chloride (Ns Flush) 2 ml IV.FLUSH PRN PRN PRN Reason: FLUSH AFTER USING IV ACCESS Allergies Allergy/AdvReac Type Severity Reaction Status Date / Time Penicillins Allergy Intermediate Verified 03/20/18 09:14 Home Medications Medication Instructions Recorded Confirmed Type Saccharomyces boulardii [Florastor] 250 mg PO TID 06/20/18 06/20/18 History Results - Labs CBC & Chem 7: 06/17/18 05:05 06/17/18 05:05 Labs: Short CBC 06/08/18 Range/Units 03:15 WBC 29.7 H (4.0-11.0) th/mm3 Hgb 5.6 L* (11.6-15.3) gm/dL Hct 17.7 L* (35.0-46.0) % Plt Count 340 (150-450) th/mm3 BMP 06/08/18 03:15 Sodium 142 Potassium 4.5 Chloride 108 H Carbon Dioxide 21.1 BUN 27 H Creatinine 1.59 H Calcium 7.9 L Cardiac Enzymes 06/08/18 Range/Units 03:15 Total Creatine Kinase 47 (26-192) U/L Troponin I Less than 0.02 L (0.02-0.05) ng/mL Liver Function 06/08/18 Range/Units 03:15 Total Bilirubin 0.4 (0.2-1.0) mg/dL AST 17 (15-37) U/L ALT 21 (10-53) U/L Alkaline Phosphatase 216 H (45-117) U/L Albumin 2.2 L (3.4-5.0) g/dL - Imaging Impressions Chest X-Ray 06/08/18 02:56 CONCLUSION: Cardiomegaly. No acute findings. Exam Vital signs: Vital Signs 06/08/18 02:33 06/08/18 02:56 06/08/18 03:27 Pulse Rate 67 66 Respiratory Rate 16 18 Blood Pressure 78/60 L 99/55 L Pulse Oximetry 100 100 100 06/08/18 03:53 06/08/18 04:25 Pulse Rate 78 76 Respiratory Rate 18 18 Blood Pressure 94/53 L 85/50 L Pulse Oximetry 100 99 Intake & Output 06/07/18 06/07/18 06/08/18 06:59 18:59 06:59 Intake Total 1050 / 1050 Balance 1050 / 1050 Weight 54 kg Intake: IV 1050 / 1050 Protonix Inj 80 MG In NS Inj 50 50 / 50 ML @ 600 mls/hr IV.SIG BOLUS ONE Rx#:[id number] NS Inj 1,000 ML @ Wide Open IV. 1000 / 1000 SIG BOLUS ONE Rx#:[id number] Narrative: GENERAL: Very pale appearing pleasant elderly female who is laying in ED stretcher. SKIN: Warm and dry. HEAD: Atraumatic. Normocephalic. EYES: Pupils equal and round. Conjunctiva pale. ENT: No nasal bleeding or discharge. Mucous membranes pale. NECK: Trachea midline. No JVD. CARDIOVASCULAR: irregular, normal rate, no mrg. RESPIRATORY: Breathing comfortably with o accessory muscle use. Clear to auscultation. Breath sounds equal bilaterally. On NC. GASTROINTESTINAL: Abdomen soft, tender in LLQ. No rebound or guarding. Bowel sounds present. : Alfonso in place with yellow urine in the bag. MUSCULOSKELETAL: Extremities without clubbing, cyanosis, or edema. NEUROLOGICAL: Awake and alert, oriented x3. No obvious cranial nerve deficits. Motor grossly within normal limits. Normal speech. Caprini VTE Risk Assessment Caprini VTE Risk Assessment: Moderate/High Risk (score >= 2) Caprini Risk Assessment Model: Point Value = 1 Point Value = 2 Point Value = 3 Point Value = 5 Age 41-60 Minor surgery BMI > 25 kg/m2 Swollen legs Varicose veins or History of unexplained or recurrent spontaneous Oral contraceptives or hormone replacement Sepsis (< 1 month) Serious lung disease, including pneumonia (< 1 month) Abnormal pulmonary function Acute myocardial infarction Congestive heart failure (< 1 month) History of inflammatory bowel disease Medical patient at bed rest Age 61-74 Arthroscopic surgery Major open surgery (> 45 min) Laparoscopic surgery (> 45 min) Malignancy Confined to bed (> 72 hours) Immobilizing plaster cast Central venous access Age >= 75 History of VTE Family history of VTE Factor V Leiden Prothrombin [id number] Lupus anticoagulant Anticardiolipin antibodies Elevated serum homocysteine Heparin-induced thrombocytopenia Other congenital or acquired thrombophilia Stroke (< 1 month) Elective arthroplasty Hip, pelvis, or leg fracture Acute spinal cord injury (< 1 month) Prophylaxis Regimen: Total Risk Factor Score Risk Level Prophylaxis Regimen 0-1 Low Early ambulation 2 Moderate Order ONE of the following: *Sequential Compression Device (SCD) *Heparin 5000 units SQ BID 3-4 Higher Order ONE of the following medications: *Heparin 5000 units SQ TID *Enoxaparin/Lovenox 40 mg SQ daily (WT < 150 kg, CrCl > 30 mL/min) *Enoxaparin/Lovenox 30 mg SQ daily (WT < 150 kg, CrCl > 10-29 mL/min) *Enoxaparin/Lovenox 30 mg SQ BID (WT < 150 kg, CrCl > 30 mL/min) AND/OR *Sequential Compression Device (SCD) 5 or more Highest Order ONE of the following medications: *Heparin 5000 units SQ TID (Preferred with Epidurals) *Enoxaparin/Lovenox 40 mg SQ daily (WT < 150 kg, CrCl > 30 mL/min) *Enoxaparin/Lovenox 30 mg SQ daily (WT < 150 kg, CrCl > 10-29 mL/min) *Enoxaparin/Lovenox 30 mg SQ BID (WT < 150 kg, CrCl > 30 mL/min) AND *Sequential Compression Device (SCD) Assessment and Plan - Problem List (1) GI bleed Code(s): K92.2 - Gastrointestinal hemorrhage, unspecified Status: Acute (2) Diverticulitis Code(s): K57.92 - Diverticulitis of intestine, part unspecified, without perforation or abscess without bleeding Status: Acute (3) Hemorrhagic shock Code(s): R57.8 - Other shock Status: Acute (4) Blood loss anemia Code(s): D50.0 - Iron deficiency anemia secondary to blood loss (chronic) Status: Acute (5) HLD (hyperlipidemia) Code(s): E78.5 - Hyperlipidemia, unspecified Status: Chronic (6) Atrial fibrillation with normal ventricular rate Code(s): I48.91 - Unspecified atrial fibrillation Status: Chronic (7) CKD (chronic kidney disease) stage 3, GFR 30-59 ml/min Code(s): N18.3 - Chronic kidney disease, stage 3 (moderate) Status: Chronic (8) Anticoagulated by anticoagulation treatment Code(s): Z79.01 - terminal worker (current) use of anticoagulants Status: Acute - Assessment and Plan Plan: NEURO: Right frontal scalp hematoma Syncope secondary to hypovolemia/anemia CT brain -no evidence of intracranial hemorrhage RESP: IS q1 hour awake CV: History of atrial fibrillation status post ablation 2. Most recent ablation was 03/24/18. She has had persistent A. fib. Hyperlipidemia Continue flecainide 50 mg p.o. daily. Cardizem ER 120 mg p.o. daily (hold orders for blood pressure). Hold metoprolol 12.5 mg p.o. twice daily Continue atorvastatin 2D echo 07/26/17ejection fraction 35-40%, global hypokinesis, mild to moderate MR, mild to moderate TR, PAP 54 mmHg. GI: GI bleed History of diverticulosis/diverticulitis Asymptomatic cholelithiasis CT abdomen pelvislarge stones within gallbladder. No evidence of obstruction. No inflammatory changes. Transfusion as per below. Continue protonix drip for now. NPO except meds. GI consulted, discussed with Dr. Trevizo who requests stat NM bleeding scan. FEN/RENAL: Chronic kidney disease stage III Monitor electrolytes and replace as indicated per ICU electrolyte replacement protocol. Monitor I/O ID: Presumed diverticulitis Penicillin allergy Cipro IV/Flagyl IV for diverticulitis. HEME: Acute blood loss anemia Chronic anti-coagulation with Eliquis for A. fib Received K Centra 25 U/kg 06/08/18. Vitamin K 10 mg IV. Eliquis on hold. Serial hemoglobin every 6 hours. Transfuse 4units PRBC now. Normal platelet count and INR. ENDO: Euglycemic PROPH: SCDs for DVT prophylaxis. Pharmacologic DVT prophylaxis is contraindicated. Protonix 40 mg drip as per above. ACCESS: PIV Discussed with Dr. Trevizo. FULL CODE. Patient is critically ill with hemorrhagic shock and ongoing GI bleeding. She has high risk for further decompensation. Critical care time 40 minutes exclusive of separately billable procedures.
--- NOTE | 2018-06-08 04:52 | CT ---
EXAM DATE: 06/08/2018 4:35 AM EDT AGE/SEX: 68 years / Female INDICATIONS: Abdomen pain with blood in stool. CLINICAL DATA: This is the patient's initial encounter. Patient reports that signs and symptoms have been present for 1 day and indicates a pain score of 3/10. MEDICAL/SURGICAL HISTORY: Cardiovascular disease. Hypertension. Diverticulitis. None. ORAL CONTRAST: No oral contrast ingested. RADIATION DOSE: 6.92 CTDI (mGy) [place] [facility] [place]/12/2018. . TECHNIQUE: Multiple contiguous axial images were obtained through the abdomen and pelvis following b olus infusion of 50 ml Visipaque 320 (iodixanol) nonionic water-soluble contrast as a single exam d ose. No oral contrast ingested. Using automated exposure control and adjustment of the mA and/or kV according to patient size, radiation dose was kept as low as reasonably achievable to obtain optimal diagnostic quality images. DICOM format image data is available electronically for review and compar karla. FINDINGS: Lung bases are clear. Large gallstones in the gallbladder. Calcified granulomata in the liver and spl een. Severe coronary calcifications. Previous inflammatory changes around the sigmoid no longer ident ified. Comparison is February 12, 2018. Small amount of free fluid in the pelvis. No free air. No bowel obstruction. No acute findings. CONCLUSION: 1. No acute findings. 2. Stable large gallstones and small amount of free fluid in the deep pelvis. Dense coronary calcifi cations. Electronically signed by: Trevon Dorantes MD 06/08/2018 4:51 AM EDT
--- NOTE | 2018-06-08 04:53 | CT ---
EXAM DATE: 06/08/2018 4:33 AM EDT AGE/SEX: 68 years / Female INDICATIONS: Syncope. Contusion to forehead. CLINICAL DATA: This is the patient's initial encounter. Patient reports that signs and symptoms have been present for 1 day and indicates a pain score of 0/10. MEDICAL/SURGICAL HISTORY: Cardiovascular disease. Hypertension. Diverticulitis. None. RADIATION DOSE: 57.32 CTDI (mGy) ;Tabletop exam COMPARISON: No prior exams available for comparison. TECHNIQUE: CT of the head without contrast. Using automated exposure control and adjustment of the mA and/or kV according to patient size, radiation dose was kept as low as reasonably achievable to ob tain optimal diagnostic quality images. DICOM format image data is available electronically for revi ew and comparison. FINDINGS: Cerebrum: The ventricles are normal for age. No evidence of midline shift, mass lesion, hemorrhage or acute infarction. No extraaxial fluid collections are seen. Posterior Fossa: The cerebellum and brainstem are intact. The 4th ventricle is midline. The cerebe llopontine angle is unremarkable. Extracranial: The visualized portion of the orbits is intact. Skull: The calvaria is intact. No evidence of skull fracture. CONCLUSION: 1. No acute intracranial abnormalities. Right frontal scalp hematoma. . Electronically signed by: Trevon Dorantes MD 06/08/2018 4:52 AM EDT
[2018-06-08] MEDS ORDERED: Magnesium Sulfate Inj 4 GM in Sodium Chlor 0.9% Inj 92 ML IV.SIG PRN (05:01)
[2018-06-08] MEDS ORDERED: Sodium Phosphate Inj 30 MMOL in Sodium Chlor 0.9% Inj 250 ML IV.SIG PRN (05:01)
[2018-06-08] MEDS ORDERED: Magnesium Sulfate Inj 2 GM in Sodium Chlor 0.9% Inj 96 ML IV.SIG PRN (05:01)
[2018-06-08] MEDS ORDERED: Potassium Chlor 40 mEq Premix 40 MEQ/100 ML PIGGYBACK IV.SIG PRN ×2 (05:01)
[2018-06-08] MEDS ORDERED: Potassium Phosphate 500 MG Soluble Tablet PO PRN ×2 (05:01)
[2018-06-08] MEDS ORDERED: Potassium Chloride 25 MEQ Effervescent Tablet PO PRN (05:01)
[2018-06-08] MEDS ORDERED: Magnesium Oxide 400 MG Tablet PO PRN (05:01)
[2018-06-08] MEDS ORDERED: Potassium Chlor 20 mEq Premix 20 MEQ/100 ML PIGGYBACK IV.SIG PRN (05:01)
[2018-06-08] MEDS ORDERED: Potassium Phosphate Inj 30 MMOL in Sodium Chlor 0.9% Inj 250 ML IV.SIG PRN (05:01)
[2018-06-08 05:37] LABS: Bilirubin,Urine Negative (Negative); Clarity,Urine Hazy (Clear); Color,Urine Yellow (Yellw/Straw); Glucose,Urine (UA) Negative (Negative); Hyaline Casts,Urine 1 /lpf (0-3); Leukocyte Esterase,Urine Small (Negative); Nitrite,Urine Negative (Negative); Specific Gravity,Urine 1.038 (1.002-1.035); Squamous Epithelial Cell,Urine 2 /hpf (0-5)
[2018-06-08] MEDS: Ciprofloxacin 400 MG/200 ML 400 MG/200 ML PIGGYBACK IV.SIG SCH ×2 (06:40→18:31)
[2018-06-08] MEDS ORDERED: Morphine Sulfate Inj 2 MG/ML Vial IV.PUSH PRN (07:23)
[2018-06-08] MEDS ORDERED: Flecainide 100 MG Tablet PO SCH (09:00)
[2018-06-08] MEDS: dilTIAZem CD 120 MG Capsule PO SCH (09:44)
[2018-06-08] MEDS: Magnesium Oxide 400 MG Tablet PO SCH (09:50)
[2018-06-08] MEDS: Allopurinol 100 MG Tablet PO SCH (09:51)
--- NOTE | 2018-06-08 11:32 | P.CONGI ---
History of Present Illness Consult date: 06/08/18 Consult reason: Large bloody stools, GI bleed, on Eliquis Chief complaint: GI bleed History of Present Illness: This is a 68-year-old female who was admitted to the hospital on 06/08/2018 with acute onset of left lower quadrant pain and cramping and rectal bleeding. Patient states that she filled the toilet at least 4 times with blood and also had a syncopal episode when going to the bathroom with a left frontal laceration. Patient states initially the blood was bright red but then changed to a maroon color with some clotting. Patient denies any vomiting or dyspepsia , positive for some mild nausea but also was hypotensive during that time.. Patient denies any history of constipation and denies any straining with bowel movements. Patient denies any family history of heart disease and last EGD was in January 2018. Patient was seen per GI during this time and was noted to be treated for diverticulitis but never followed up in the office for colonoscopy. Patient states that she has been seen per cardiology multiple times and had her last cardiac ablation in on March 25, 2018 and has been on Eliquis. Current labs show hemoglobin initially 5.6 transfusions x4, PT/INR 1.2, positive alkaline phosphatase 216, bilirubin and LFTs normal. Elevated alkaline phosphatase could be related to stable large gallstones seen on CT scan and small amount of free fluid. Patient is pale but is able to answer simple questions. Patient is currently being monitored in the intensive care setting and is tentatively scheduled for bleeding scan. Patient continues to have some active rectal bleeding, incontinent. <La Nam - Last Filed: 06/08/18 17:12> Review of Systems All other systems reviewed negative except as stated in HPI <La Nam - Last Filed: 06/08/18 17:12> PMFSH - Medical History Medical History: Medical History (Last Updated 06/08/18 @ 04:49 by Doreen Saldana MD) CKD (chronic kidney disease) stage 3, GFR 30-59 ml/min Diverticulitis Gout Atrial fibrillation High cholesterol Hypertension - Surgical History Surgical History: Surgical History (Last Updated 06/08/18 @ 05:50 by Doreen Saldana MD) S/P ablation of atrial fibrillation - Family History Family History: Family History (Last Updated 06/08/18 @ 05:51 by Doreen Saldana MD) Other No significant family history <Jona Trevizo - Last Filed: 06/08/18 13:53> - History History Provided By: Patient - Medical History Medical History: Medical History (Last Updated 06/08/18 @ 04:49 by Doreen Saldana MD) CKD (chronic kidney disease) stage 3, GFR 30-59 ml/min Diverticulitis Gout Atrial fibrillation High cholesterol Hypertension - Surgical History Surgical History: Surgical History (Last Updated 06/08/18 @ 05:50 by Doreen Saldana MD) S/P ablation of atrial fibrillation - Family History Family History: Family History (Last Updated 06/08/18 @ 05:51 by Doreen Saldana MD) Other No significant family history - Tobacco History Second Hand Smoke Exposure: No Smoking Status: Never smoker - Alcohol History How Often Do You Have a Drink Containing Alcohol: Never - Substance Use History Substance History: No History of Abuse - Travel History Recent Travel in the [place] Within the Last 8 Weeks: No Recent Travel Out of the Country Within the Last 8 Weeks: No - Immunization History Tetanus Immunization: Unsure Hx Influenza Vaccine This Season: No <La Nam - Last Filed: 06/08/18 17:12> - Medical History Medical History: Medical History (Last Updated 06/08/18 @ 04:49 by Doreen Saldana MD) CKD (chronic kidney disease) stage 3, GFR 30-59 ml/min Diverticulitis Gout Atrial fibrillation High cholesterol Hypertension - Surgical History Surgical History: Surgical History (Last Updated 06/08/18 @ 05:50 by Doreen Saldana MD) S/P ablation of atrial fibrillation - Family History Family History: Family History (Last Updated 06/08/18 @ 05:51 by Doeren Saldana MD) Other No significant family history <Emre Marin - Last Filed: 06/08/18 18:14> Medications and Allergies Active Medications: Active Medications Acetaminophen (Tylenol) 650 mg PO Q6H PRN PRN Reason: PAIN 1-10 AND/OR FEVER >101F Allopurinol (Zyloprim) 100 mg PO DAILY [facility] Last Admin: 06/08/18 09:51 Dose: 100 mg Atorvastatin Calcium (Lipitor) 40 mg PO DAILY [facility] Last Admin: 06/08/18 09:51 Dose: 40 mg Diltiazem HCl (Cardizem Cd 24hr) 120 mg PO DAILY [facility] Last Admin: 06/08/18 09:44 Dose: Not Given Flecainide Acetate (Tambocor) 50 mg PO Q12HR [facility] Sodium Chloride (Ns Inj) 250 mls @ 15 mls/hr IV.SIG ONCE [facility] Stop: 06/08/18 20:39 Last Admin: 06/08/18 04:51 Dose: 15 mls/hr Sodium Chloride (Ns Inj) 250 mls @ 15 mls/hr IV.SIG ONCE [facility] Stop: 06/08/18 20:39 Magnesium Sulfate Inj 4 gm/ (Sodium Chloride) 100 mls @ 50 mls/hr IV.SIG UNSCH PRN PRN Reason: For Magnesium 0.9 - 1.1 mg/dL Magnesium Sulfate Inj 2 gm/ (Sodium Chloride) 100 mls @ 50 mls/hr IV.SIG UNSCH PRN PRN Reason: For Magnesium 1.2 - 1.6 mg/dL Potassium Chloride (Kcl 40 Meq Premix Inj) 40 meq in 100 mls @ 25 mls/hr IV.SIG Q2H PRN PRN Reason: For Potassium 2.8 - 3.2 mEq/L Potassium Chloride (Kcl 20 Meq Premix Inj) 20 meq in 100 mls @ 50 mls/hr IV.SIG Q2H PRN PRN Reason: For Potassium 3.3 - 3.5 mEq/L Potassium Chloride (Kcl 20 Meq Premix Inj) 20 meq in 100 mls @ 50 mls/hr IV.SIG Q2H PRN PRN Reason: For Potassium 2.8 - 3.2 mEq/L Potassium Phosphate 30 mmol/ (Sodium Chloride) 260 mls @ 42 mls/hr IV.SIG UNSCH PRN PRN Reason: SEE LABEL COMMENTS Sodium Phosphate 30 mmol/ (Sodium Chloride) 260 mls @ 42 mls/hr IV.SIG UNSCH PRN PRN Reason: For Phosphorus < 2.5 mg/dL Potassium Chloride (Kcl 40 Meq Premix Inj) 40 meq in 100 mls @ 25 mls/hr IV.SIG UNSCH PRN PRN Reason: For Potassium 3.3 - 3.5 mEq/L Ciprofloxacin/Dextrose (Cipro 400 Mg/200 Ml Inj) 400 mg in 200 mls @ 200 mls/ hr IV.SIG Q12H [facility] Last Infusion: 06/08/18 08:15 Dose: Infused Metronidazole/Sodium Chloride (Flagyl 500 Mg Inj) 100 mls @ 100 mls/hr IV.SIG Q8H [facility] Sodium Chloride (Ns Inj) 1,000 mls @ 84 mls/hr IV.CONT .[id number] [facility] Pantoprazole Sodium 80 mg/ (Sodium Chloride) 100 mls @ 10 mls/hr IV.CONT Q10H [facility] Magnesium Oxide (Mag-Ox) 800 mg PO UNSCH PRN PRN Reason: For Magnesium 1.2 - 1.6 mg/dL Magnesium Oxide (Mag-Ox) 400 mg PO DAILY [facility] Last Admin: 06/08/18 09:50 Dose: 400 mg Morphine Sulfate (Morphine Inj) 2 mg IV.PUSH Q2H PRN PRN Reason: pain 3-10 IF NO PO Ondansetron HCl (Zofran Inj) 4 mg IV.PUSH Q6H PRN PRN Reason: NAUSEA OR VOMITING Last Admin: 06/08/18 09:59 Dose: 4 mg Potassium Bicarb/Potassium Chloride (K-Lyte Cl Eff) 50 meq PO UNSCH PRN PRN Reason: For Potassium 3.3 - 3.5 mEq/L Potassium Phosphate (K-Phos Original) 2,000 mg PO Q4H PRN PRN Reason: Phosphorus Less Than 2.5 mg/dL Potassium Phosphate (K-Phos Original) 2,000 mg PO UNSCH PRN PRN Reason: SEE LABEL COMMENTS Sodium Chloride (Ns Flush) 2 ml IV.FLUSH PRN PRN PRN Reason: FLUSH AFTER USING IV ACCESS Sodium Chloride (Ns Flush) 2 ml IV.FLUSH BID [facility] Last Admin: 06/08/18 09:51 Dose: 2 ml Sodium Chloride (Ns Flush) 2 ml IV.FLUSH PRN PRN PRN Reason: FLUSH AFTER USING IV ACCESS <Jona Trevizo - Last Filed: 06/08/18 13:53> Active Medications: Active Medications Acetaminophen (Tylenol) 650 mg PO Q6H PRN PRN Reason: PAIN 1-10 AND/OR FEVER >101F Allopurinol (Zyloprim) 100 mg PO DAILY [facility] Last Admin: 06/08/18 09:51 Dose: 100 mg Atorvastatin Calcium (Lipitor) 40 mg PO DAILY [facility] Last Admin: 06/08/18 09:51 Dose: 40 mg Diltiazem HCl (Cardizem Cd 24hr) 120 mg PO DAILY [facility] Last Admin: 06/08/18 09:44 Dose: Not Given Flecainide Acetate (Tambocor) 50 mg PO Q12HR [facility] Pantoprazole Sodium 80 mg/ (Sodium Chloride) 100 mls @ 10 mls/hr IV.CONT CONT [facility] Last Admin: 06/08/18 03:52 Dose: 10 mls/hr Sodium Chloride (Ns Inj) 250 mls @ 15 mls/hr IV.SIG ONCE [facility] Stop: 06/08/18 20:39 Last Admin: 06/08/18 04:51 Dose: 15 mls/hr Sodium Chloride (Ns Inj) 250 mls @ 15 mls/hr IV.SIG ONCE [facility] Stop: 06/08/18 20:39 Magnesium Sulfate Inj 4 gm/ (Sodium Chloride) 100 mls @ 50 mls/hr IV.SIG UNSCH PRN PRN Reason: For Magnesium 0.9 - 1.1 mg/dL Magnesium Sulfate Inj 2 gm/ (Sodium Chloride) 100 mls @ 50 mls/hr IV.SIG UNSCH PRN PRN Reason: For Magnesium 1.2 - 1.6 mg/dL Potassium Chloride (Kcl 40 Meq Premix Inj) 40 meq in 100 mls @ 25 mls/hr IV.SIG Q2H PRN PRN Reason: For Potassium 2.8 - 3.2 mEq/L Potassium Chloride (Kcl 20 Meq Premix Inj) 20 meq in 100 mls @ 50 mls/hr IV.SIG Q2H PRN PRN Reason: For Potassium 3.3 - 3.5 mEq/L Potassium Chloride (Kcl 20 Meq Premix Inj) 20 meq in 100 mls @ 50 mls/hr IV.SIG Q2H PRN PRN Reason: For Potassium 2.8 - 3.2 mEq/L Potassium Phosphate 30 mmol/ (Sodium Chloride) 260 mls @ 42 mls/hr IV.SIG UNSCH PRN PRN Reason: SEE LABEL COMMENTS Sodium Phosphate 30 mmol/ (Sodium Chloride) 260 mls @ 42 mls/hr IV.SIG UNSCH PRN PRN Reason: For Phosphorus < 2.5 mg/dL Potassium Chloride (Kcl 40 Meq Premix Inj) 40 meq in 100 mls @ 25 mls/hr IV.SIG UNSCH PRN PRN Reason: For Potassium 3.3 - 3.5 mEq/L Ciprofloxacin/Dextrose (Cipro 400 Mg/200 Ml Inj) 400 mg in 200 mls @ 200 mls/ hr IV.SIG Q12H [facility] Last Infusion: 06/08/18 08:15 Dose: Infused Metronidazole/Sodium Chloride (Flagyl 500 Mg Inj) 100 mls @ 100 mls/hr IV.SIG Q8H [facility] Sodium Chloride (Ns Inj) 1,000 mls @ 84 mls/hr IV.CONT .[id number] [facility] Magnesium Oxide (Mag-Ox) 800 mg PO UNSCH PRN PRN Reason: For Magnesium 1.2 - 1.6 mg/dL Magnesium Oxide (Mag-Ox) 400 mg PO DAILY [facility] Last Admin: 06/08/18 09:50 Dose: 400 mg Morphine Sulfate (Morphine Inj) 2 mg IV.PUSH Q2H PRN PRN Reason: pain 3-10 IF NO PO Ondansetron HCl (Zofran Inj) 4 mg IV.PUSH Q6H PRN PRN Reason: NAUSEA OR VOMITING Last Admin: 06/08/18 09:59 Dose: 4 mg Potassium Bicarb/Potassium Chloride (K-Lyte Cl Eff) 50 meq PO UNSCH PRN PRN Reason: For Potassium 3.3 - 3.5 mEq/L Potassium Phosphate (K-Phos Original) 2,000 mg PO Q4H PRN PRN Reason: Phosphorus Less Than 2.5 mg/dL Potassium Phosphate (K-Phos Original) 2,000 mg PO UNSCH PRN PRN Reason: SEE LABEL COMMENTS Sodium Chloride (Ns Flush) 2 ml IV.FLUSH PRN PRN PRN Reason: FLUSH AFTER USING IV ACCESS Sodium Chloride (Ns Flush) 2 ml IV.FLUSH BID [facility] Last Admin: 06/08/18 09:51 Dose: 2 ml Sodium Chloride (Ns Flush) 2 ml IV.FLUSH PRN PRN PRN Reason: FLUSH AFTER USING IV ACCESS <La Nam - Last Filed: 06/08/18 17:12> Active Medications: Active Medications Acetaminophen (Tylenol) 650 mg PO Q6H PRN PRN Reason: PAIN 1-10 AND/OR FEVER >101F Allopurinol (Zyloprim) 100 mg PO DAILY [facility] Last Admin: 06/08/18 09:51 Dose: 100 mg Atorvastatin Calcium (Lipitor) 40 mg PO DAILY [facility] Last Admin: 06/08/18 09:51 Dose: 40 mg Diltiazem HCl (Cardizem Cd 24hr) 120 mg PO DAILY [facility] Last Admin: 06/08/18 09:44 Dose: Not Given Flecainide Acetate (Tambocor) 50 mg PO Q12HR [facility] Last Admin: 06/08/18 14:53 Dose: 50 mg Sodium Chloride (Ns Inj) 250 mls @ 15 mls/hr IV.SIG ONCE [facility] Stop: 06/08/18 20:39 Last Admin: 06/08/18 04:51 Dose: 15 mls/hr Sodium Chloride (Ns Inj) 250 mls @ 15 mls/hr IV.SIG ONCE [facility] Stop: 06/08/18 20:39 Magnesium Sulfate Inj 4 gm/ (Sodium Chloride) 100 mls @ 50 mls/hr IV.SIG UNSCH PRN PRN Reason: For Magnesium 0.9 - 1.1 mg/dL Magnesium Sulfate Inj 2 gm/ (Sodium Chloride) 100 mls @ 50 mls/hr IV.SIG UNSCH PRN PRN Reason: For Magnesium 1.2 - 1.6 mg/dL Potassium Chloride (Kcl 40 Meq Premix Inj) 40 meq in 100 mls @ 25 mls/hr IV.SIG Q2H PRN PRN Reason: For Potassium 2.8 - 3.2 mEq/L Potassium Chloride (Kcl 20 Meq Premix Inj) 20 meq in 100 mls @ 50 mls/hr IV.SIG Q2H PRN PRN Reason: For Potassium 3.3 - 3.5 mEq/L Potassium Chloride (Kcl 20 Meq Premix Inj) 20 meq in 100 mls @ 50 mls/hr IV.SIG Q2H PRN PRN Reason: For Potassium 2.8 - 3.2 mEq/L Potassium Phosphate 30 mmol/ (Sodium Chloride) 260 mls @ 42 mls/hr IV.SIG UNSCH PRN PRN Reason: SEE LABEL COMMENTS Sodium Phosphate 30 mmol/ (Sodium Chloride) 260 mls @ 42 mls/hr IV.SIG UNSCH PRN PRN Reason: For Phosphorus < 2.5 mg/dL Potassium Chloride (Kcl 40 Meq Premix Inj) 40 meq in 100 mls @ 25 mls/hr IV.SIG UNSCH PRN PRN Reason: For Potassium 3.3 - 3.5 mEq/L Ciprofloxacin/Dextrose (Cipro 400 Mg/200 Ml Inj) 400 mg in 200 mls @ 200 mls/ hr IV.SIG Q12H [facility] Last Infusion: 06/08/18 08:15 Dose: Infused Metronidazole/Sodium Chloride (Flagyl 500 Mg Inj) 100 mls @ 100 mls/hr IV.SIG Q8H [facility] Last Infusion: 06/08/18 16:00 Dose: Infused Sodium Chloride (Ns Inj) 1,000 mls @ 84 mls/hr IV.CONT .[id number] [facility] Last Admin: 06/08/18 16:20 Dose: Not Given Pantoprazole Sodium 80 mg/ (Sodium Chloride) 100 mls @ 10 mls/hr IV.CONT Q10H [facility] Last Admin: 06/08/18 14:28 Dose: 10 mls/hr Magnesium Oxide (Mag-Ox) 800 mg PO UNSCH PRN PRN Reason: For Magnesium 1.2 - 1.6 mg/dL Magnesium Oxide (Mag-Ox) 400 mg PO DAILY [facility] Last Admin: 06/08/18 09:50 Dose: 400 mg Morphine Sulfate (Morphine Inj) 2 mg IV.PUSH Q2H PRN PRN Reason: pain 3-10 IF NO PO Ondansetron HCl (Zofran Inj) 4 mg IV.PUSH Q6H PRN PRN Reason: NAUSEA OR VOMITING Last Admin: 06/08/18 09:59 Dose: 4 mg Potassium Bicarb/Potassium Chloride (K-Lyte Cl Eff) 50 meq PO UNSCH PRN PRN Reason: For Potassium 3.3 - 3.5 mEq/L Potassium Phosphate (K-Phos Original) 2,000 mg PO Q4H PRN PRN Reason: Phosphorus Less Than 2.5 mg/dL Potassium Phosphate (K-Phos Original) 2,000 mg PO UNSCH PRN PRN Reason: SEE LABEL COMMENTS Sodium Chloride (Ns Flush) 2 ml IV.FLUSH PRN PRN PRN Reason: FLUSH AFTER USING IV ACCESS Sodium Chloride (Ns Flush) 2 ml IV.FLUSH BID [facility] Last Admin: 06/08/18 09:51 Dose: 2 ml Sodium Chloride (Ns Flush) 2 ml IV.FLUSH PRN PRN PRN Reason: FLUSH AFTER USING IV ACCESS <Emre Marin - Last Filed: 06/08/18 18:14> Allergies Allergy/AdvReac Type Severity Reaction Status Date / Time Penicillins Allergy Intermediate Verified 03/20/18 09:14 Home Medications Medication Instructions Recorded Confirmed Type allopurinol 100 mg PO DAILY 06/02/18 06/08/18 History apixaban [Eliquis] 2.5 mg PO BID 06/02/18 06/08/18 History atorvastatin [Lipitor] 40 mg PO DAILY 06/02/18 06/08/18 History diltiazem HCl 120 mg PO DAILY 06/02/18 06/08/18 History flecainide 50 mg PO Q12H 06/02/18 06/08/18 History magnesium 400 mg PO DAILY 06/02/18 06/08/18 History metoprolol tartrate [Lopressor] 12.5 mg PO BID 06/02/18 06/08/18 History Exam Vital signs: Vital Signs 06/08/18 02:33 06/08/18 02:56 06/08/18 03:27 Temperature Pulse Rate 67 66 Respiratory Rate 16 18 Blood Pressure 78/60 L 99/55 L Pulse Oximetry 100 100 100 06/08/18 03:53 06/08/18 04:25 06/08/18 04:48 Temperature 97.7 F Pulse Rate 78 76 77 Respiratory Rate 18 18 18 Blood Pressure 94/53 L 85/50 L 92/61 L Pulse Oximetry 100 99 100 06/08/18 05:04 06/08/18 05:23 06/08/18 06:25 Temperature 97.8 F 97.9 F Pulse Rate 74 77 91 H Respiratory Rate 18 16 18 Blood Pressure 95/53 L 96/53 L 100/67 Pulse Oximetry 100 100 99 06/08/18 06:31 06/08/18 06:34 06/08/18 06:47 Temperature 97.9 F 98.0 F Pulse Rate 83 93 H Respiratory Rate 18 18 Blood Pressure 107/68 125/74 Pulse Oximetry 98 97 99 06/08/18 07:29 06/08/18 07:35 06/08/18 08:00 Temperature 98 F 98 F Pulse Rate 88 88 87 Respiratory Rate 16 15 15 Blood Pressure 127/72 110/60 115/68 Pulse Oximetry 100 100 06/08/18 08:15 06/08/18 08:52 06/08/18 09:08 Temperature 98.3 F 98.0 F 98.2 F Pulse Rate 57 L 54 L 54 L Respiratory Rate 13 20 14 Blood Pressure 115/55 L 124/67 111/61 Pulse Oximetry 98 100 Intake & Output 06/07/18 06/08/18 06/08/18 18:59 06:59 18:59 Intake Total 2461 / 2461 600 / 600 Balance 2461 / 2461 600 / 600 Weight 54 kg Intake: IV 1661 / 1661 200 / 200 Cipro 400 MG/200 ML Inj 400 mg 200 / 200 In 200 ml @ 200 mls/hr IV.SIG Q12H [facility] Rx#:[id number] Protonix Inj 80 MG In NS Inj 50 50 / 50 ML @ 600 mls/hr IV.SIG BOLUS [facility] Rx#:[id number] Vitamin K Inj 10 MG In NS Inj 51 / 51 50 ML @ 102 mls/hr IV.SIG ONCE [facility] Rx#:[id number] Kcentra Inj 1,500 UNIT In Bag/ 60 / 60 Syringe 1 EACH @ 500 mls/hr IV. SIG ONCE ONE Rx#:[id number] NS Inj 1,000 ML @ Wide Open IV. 1000 / 1000 SIG [facility] Rx#:[id number] NS Inj 500 ML @ Wide Open IV. 500 / 500 SIG BOLUS ONE Rx#:[id number] Intake (Blood Product) Amt 800 / 800 400 / 400 Rbc As-3 Leukoreduced Unit 400 / 400 [id number] Rbc As-3 Leukoreduced Unit 400 / 400 [id number] Rbc As-3 Leukoreduced Unit 0 / 0 [id number] Rbc As-3 Leukoreduced Unit 400 / 400 [id number] Other: Date of Last Bowel Movement 06/08/18 <Jona Trevizo - Last Filed: 06/08/18 13:53> Vital signs: Vital Signs 06/08/18 02:33 06/08/18 02:56 06/08/18 03:27 Temperature Pulse Rate 67 66 Respiratory Rate 16 18 Blood Pressure 78/60 L 99/55 L Pulse Oximetry 100 100 100 06/08/18 03:53 06/08/18 04:25 06/08/18 04:48 Temperature 97.7 F Pulse Rate 78 76 77 Respiratory Rate 18 18 18 Blood Pressure 94/53 L 85/50 L 92/61 L Pulse Oximetry 100 99 100 06/08/18 05:04 06/08/18 05:23 06/08/18 06:25 Temperature 97.8 F 97.9 F Pulse Rate 74 77 91 H Respiratory Rate 18 16 18 Blood Pressure 95/53 L 96/53 L 100/67 Pulse Oximetry 100 100 99 06/08/18 06:31 06/08/18 06:34 06/08/18 06:47 Temperature 97.9 F 98.0 F Pulse Rate 83 93 H Respiratory Rate 18 18 Blood Pressure 107/68 125/74 Pulse Oximetry 98 97 99 06/08/18 07:29 06/08/18 07:35 06/08/18 08:00 Temperature 98 F 98 F Pulse Rate 88 88 87 Respiratory Rate 16 15 15 Blood Pressure 127/72 110/60 115/68 Pulse Oximetry 100 100 06/08/18 08:15 06/08/18 08:52 06/08/18 09:08 Temperature 98.3 F 98.0 F 98.2 F Pulse Rate 57 L 54 L 54 L Respiratory Rate 13 20 14 Blood Pressure 115/55 L 124/67 111/61 Pulse Oximetry 98 100 Intake & Output 06/07/18 06/08/18 06/08/18 18:59 06:59 18:59 Intake Total 2461 / 2461 600 / 600 Balance 2461 / 2461 600 / 600 Weight 54 kg Intake: IV 1661 / 1661 200 / 200 Cipro 400 MG/200 ML Inj 400 mg 200 / 200 In 200 ml @ 200 mls/hr IV.SIG Q12H [facility] Rx#:[id number] Protonix Inj 80 MG In NS Inj 50 50 / 50 ML @ 600 mls/hr IV.SIG [facility] Rx#:[id number] Vitamin K Inj 10 MG In NS Inj 51 / 51 50 ML @ 102 mls/hr IV.SIG ONCE ONE Rx#:[id number] Kcentra Inj 1,500 UNIT In Bag/ 60 / 60 Syringe 1 EACH @ 500 mls/hr IV. SIG ONCE ONE Rx#:[id number] NS Inj 1,000 ML @ Wide Open IV. 1000 / 1000 SIG BOLUS ONE Rx#:[id number] NS Inj 500 ML @ Wide Open IV. 500 / 500 SIG BOLUS ONE Rx#:[id number] Intake (Blood Product) Amt 800 / 800 400 / 400 Rbc As-3 Leukoreduced Unit 400 / 400 [id number] Rbc As-3 Leukoreduced Unit 400 / 400 [id number] Rbc As-3 Leukoreduced Unit 0 / 0 [id number] Rbc As-3 Leukoreduced Unit 400 / 400 [id number] Other: Date of Last Bowel Movement 06/08/18 - Constitutional moderate distress, thin, chronically ill appearing - Routine HEENT Exam ENT: Present: mucous membranes dry - Routine Respiratory Exam Present: accessory muscle use (Low volumes, no obvious shortness of breath at rest, oxygen as needed) - Routine Cardiovascular Exam Present: S1, S2 (Rhythm is regular) - Routine Abdominal Exam Present: soft (Left lower quadrant mild cramping abdominal pain off and on) - Routine Skin Exam Present: dry, pallor <La Nam - Last Filed: 06/08/18 17:12> Vital signs: Vital Signs 06/08/18 02:33 06/08/18 02:56 06/08/18 03:27 Temperature Pulse Rate 67 66 Respiratory Rate 16 18 Blood Pressure 78/60 L 99/55 L Pulse Oximetry 100 100 100 06/08/18 03:53 06/08/18 04:25 06/08/18 04:48 Temperature 97.7 F Pulse Rate 78 76 77 Respiratory Rate 18 18 18 Blood Pressure 94/53 L 85/50 L 92/61 L Pulse Oximetry 100 99 100 06/08/18 05:04 06/08/18 05:23 06/08/18 06:25 Temperature 97.8 F 97.9 F Pulse Rate 74 77 91 H Respiratory Rate 18 16 18 Blood Pressure 95/53 L 96/53 L 100/67 Pulse Oximetry 100 100 99 06/08/18 06:31 06/08/18 06:34 06/08/18 06:47 Temperature 97.9 F 98.0 F Pulse Rate 83 93 H Respiratory Rate 18 18 Blood Pressure 107/68 125/74 Pulse Oximetry 98 97 99 06/08/18 07:29 06/08/18 07:35 06/08/18 08:00 Temperature 98 F 98 F Pulse Rate 88 88 87 Respiratory Rate 16 15 15 Blood Pressure 127/72 110/60 115/68 Pulse Oximetry 100 100 06/08/18 08:15 06/08/18 08:52 06/08/18 09:00 Temperature 98.3 F 98.0 F Pulse Rate 57 L 54 L Respiratory Rate 13 20 Blood Pressure 115/55 L 124/67 Pulse Oximetry 98 100 06/08/18 09:08 06/08/18 11:00 06/08/18 12:00 Temperature 98.2 F 98.4 F Pulse Rate 54 L 59 L 66 Respiratory Rate 14 15 18 Blood Pressure 111/61 109/62 127/64 Pulse Oximetry 100 100 100 06/08/18 13:00 06/08/18 14:00 06/08/18 15:00 Temperature Pulse Rate 69 68 69 Respiratory Rate 15 18 15 Blood Pressure 128/65 119/61 113/57 L Pulse Oximetry 100 100 100 06/08/18 16:00 06/08/18 17:00 Temperature 98 F Pulse Rate 68 68 Respiratory Rate 13 18 Blood Pressure 131/57 L 113/59 L Pulse Oximetry 100 100 Intake & Output 06/07/18 06/08/18 06/08/18 18:59 06:59 18:59 Intake Total 2461 / 2461 900 / 900 Output Total 1100 / 1100 Balance 2461 / 2461 -200 / -200 Weight 54 kg Intake: IV 1661 / 1661 500 / 500 Protonix Inj 80 MG In NS Inj 100 / 100 100 ML @ 10 mls/hr IV.CONT CONT [facility] Rx#:[id number] Cipro 400 MG/200 ML Inj 400 mg 200 / 200 In 200 ml @ 200 mls/hr IV.SIG Q12H [facility] Rx#:[id number] Protonix Inj 80 MG In NS Inj 50 50 / 50 ML @ 600 mls/hr IV.SIG BOLUS ONE Rx#:[id number] Vitamin K Inj 10 MG In NS Inj 51 / 51 50 ML @ 102 mls/hr IV.SIG ONCE ONE Rx#:[id number] Kcentra Inj 1,500 UNIT In Bag/ 60 / 60 Syringe 1 EACH @ 500 mls/hr IV. SIG ONCE ONE Rx#:[id number] NS Inj 1,000 ML @ Wide Open IV. 1000 / 1000 SIG BOLUS ONE Rx#:[id number] NS Inj 500 ML @ Wide Open IV. 500 / 500 SIG BOLUS ONE Rx#:[id number] Flagyl 500 MG Inj 100 ML @ 100 200 / 200 mls/hr IV.SIG Q8H [facility] Rx#: [id number] Intake (Blood Product) Amt 800 / 800 400 / 400 Rbc As-3 Leukoreduced Unit 400 / 400 [id number] Rbc As-3 Leukoreduced Unit 400 / 400 [id number] Rbc As-3 Leukoreduced Unit 0 / 0 [id number] Rbc As-3 Leukoreduced Unit 400 / 400 [id number] Output: Urine Amount (Catheter) 1099 Indwelling Urethral Catheter 1099 Other: Date of Last Bowel Movement 06/08/18 # Bowel Movements 1 <Emre Marin - Last Filed: 06/08/18 18:14> Results - Labs CBC & Chem 7: 06/08/18 03:15 06/08/18 03:15 Labs: Laboratory Results - last 24 hr 06/08/18 06/08/18 06/08/18 03:15 03:15 03:15 CBC w Diff Auto diff final WBC 29.7 H RBC 2.16 L Hgb 5.6 L* Hct 17.7 L* MCV 81.9 MCH 25.7 L MCHC 31.4 L RDW 15.3 Plt Count 340 MPV 7.4 Prelim Diff (Auto) Cartridge Loader Neut % (Auto) 91.3 H Lymph % (Auto) 2.1 L [place] % (Auto) 6.3 Eos % (Auto) 0.1 Baso % (Auto) 0.2 Neut # (Auto) 27.1 H Lymph # (Auto) 0.6 L [place] # (Auto) 1.9 H Eos # (Auto) 0.0 Baso # (Auto) 0.1 WBC Differential . Differential Comment . PT 12.5 H INR 1.2 APTT 31.3 H Sodium 142 Potassium 4.5 Chloride 108 H Carbon Dioxide 21.1 Anion Gap 13 BUN 27 H Creatinine 1.59 H Estimated GFR 32 L Random Glucose 122 H Calcium 7.9 L Magnesium 1.6 Total Bilirubin 0.4 AST 17 ALT 21 Alkaline Phosphatase 216 H Ammonia Total Creatine Kinase 47 Troponin I Less than 0.02 L B-Natriuretic Peptide Total Protein 5.8 L Albumin 2.2 L Lipase 172 Urine Color Urine Clarity Urine pH Ur Specific [place] Urine Protein Urine Glucose (UA) Urine Ketones Urine Occult Blood Urine Nitrate Urine Bilirubin Urine Urobilinogen Ur Leukocyte Esterase Urine RBC Urine WBC Ur Squamous Epith Cells Hyaline Casts Micro UA Comment Ur Microscopic Review Urine Culture Comments Blood Type Antibody Screen MTS Gel Crossmatch Bld Prod Order Comment 06/08/18 06/08/18 06/08/18 03:15 03:15 03:15 CBC w Diff WBC RBC Hgb Hct MCV MCH MCHC RDW Plt Count MPV Prelim Diff (Auto) Neut % (Auto) Lymph % (Auto) [place] % (Auto) Eos % (Auto) Baso % (Auto) Neut # (Auto) Lymph # (Auto) [place] # (Auto) Eos # (Auto) Baso # (Auto) WBC Differential Differential Comment PT INR APTT Sodium Potassium Chloride Carbon Dioxide Anion Gap BUN Creatinine Estimated GFR Random Glucose Calcium Magnesium Total Bilirubin AST ALT Alkaline Phosphatase Ammonia 20 Total Creatine Kinase Troponin I B-Natriuretic Peptide 79 Total Protein Albumin Lipase Urine Color Urine Clarity Urine pH Ur Specific [place] Urine Protein Urine Glucose (UA) Urine Ketones Urine Occult Blood Urine Nitrate Urine Bilirubin Urine Urobilinogen Ur Leukocyte Esterase Urine RBC Urine WBC Ur Squamous Epith Cells Hyaline Casts Micro UA Comment Ur Microscopic Review Urine Culture Comments Blood Type B Negative Antibody Screen Negative MTS Gel Crossmatch Bld Prod Order Comment 06/08/18 06/08/18 03:31 04:50 CBC w Diff WBC RBC Hgb Hct MCV MCH MCHC RDW Plt Count MPV Prelim Diff (Auto) Neut % (Auto) Lymph % (Auto) [place] % (Auto) Eos % (Auto) Baso % (Auto) Neut # (Auto) Lymph # (Auto) [place] # (Auto) Eos # (Auto) Baso # (Auto) WBC Differential Differential Comment PT INR APTT Sodium Potassium Chloride Carbon Dioxide Anion Gap BUN Creatinine Estimated GFR Random Glucose Calcium Magnesium Total Bilirubin AST ALT Alkaline Phosphatase Ammonia Total Creatine Kinase Troponin I B-Natriuretic Peptide Total Protein Albumin Lipase Urine Color Yellow Urine Clarity Hazy H Urine pH 5.0 Ur Specific [place] 1.038 H Urine Protein Negative Urine Glucose (UA) Negative Urine Ketones Negative Urine Occult Blood Negative Urine Nitrate Negative Urine Bilirubin Negative Urine Urobilinogen Less than 2 Ur Leukocyte Esterase Small H Urine RBC 2 Urine WBC 3 Ur Squamous Epith Cells 2 Hyaline Casts 1 Micro UA Comment Cath-culture not ind Ur Microscopic Review Not Reportable Urine Culture Comments Cath-cult not ind Blood Type Antibody Screen MTS Gel Crossmatch See Detail Bld Prod Order Comment - Imaging Impressions Abdomen/Pelvis CT 06/08/18 02:56 CONCLUSION: 1. No acute findings. 2. Stable large gallstones and small amount of free fluid in the deep pelvis. Dense coronary calcifications. Chest X-Ray 06/08/18 02:56 CONCLUSION: Cardiomegaly. No acute findings. Head CT 06/08/18 02:56 CONCLUSION: 1. No acute intracranial abnormalities. Right frontal scalp hematoma. . GI Bleed Scan Nuclear Medicine 06/08/18 07:13 CONCLUSION: 1. Negative for hemorrhage. <Jona Trevizo - Last Filed: 06/08/18 13:53> - Labs CBC & Chem 7: 06/08/18 14:00 06/08/18 03:15 Labs: Laboratory Results - last 24 hr 06/08/18 06/08/18 06/08/18 03:15 03:15 03:15 CBC w Diff Auto diff final WBC 29.7 H RBC 2.16 L Hgb 5.6 L* Hct 17.7 L* MCV 81.9 MCH 25.7 L MCHC 31.4 L RDW 15.3 Plt Count 340 MPV 7.4 Prelim Diff (Auto) Cartridge Loader Neut % (Auto) 91.3 H Lymph % (Auto) 2.1 L [place] % (Auto) 6.3 Eos % (Auto) 0.1 Baso % (Auto) 0.2 Neut # (Auto) 27.1 H Lymph # (Auto) 0.6 L [place] # (Auto) 1.9 H Eos # (Auto) 0.0 Baso # (Auto) 0.1 WBC Differential . Differential Comment . PT 12.5 H INR 1.2 APTT 31.3 H Sodium 142 Potassium 4.5 Chloride 108 H Carbon Dioxide 21.1 Anion Gap 13 BUN 27 H Creatinine 1.59 H Estimated GFR 32 L Random Glucose 122 H Calcium 7.9 L Magnesium 1.6 Total Bilirubin 0.4 AST 17 ALT 21 Alkaline Phosphatase 216 H Ammonia Total Creatine Kinase 47 Troponin I Less than 0.02 L B-Natriuretic Peptide Total Protein 5.8 L Albumin 2.2 L Lipase 172 Urine Color Urine Clarity Urine pH Ur Specific [place] Urine Protein Urine Glucose (UA) Urine Ketones Urine Occult Blood Urine Nitrate Urine Bilirubin Urine Urobilinogen Ur Leukocyte Esterase Urine RBC Urine WBC Ur Squamous Epith Cells Hyaline Casts Micro UA Comment Ur Microscopic Review Urine Culture Comments Blood Type Antibody Screen MTS Gel Crossmatch Bld Prod Order Comment 06/08/18 06/08/18 06/08/18 03:15 03:15 03:15 CBC w Diff WBC RBC Hgb Hct MCV MCH MCHC RDW Plt Count MPV Prelim Diff (Auto) Neut % (Auto) Lymph % (Auto) [place] % (Auto) Eos % (Auto) Baso % (Auto) Neut # (Auto) Lymph # (Auto) [place] # (Auto) Eos # (Auto) Baso # (Auto) WBC Differential Differential Comment PT INR APTT Sodium Potassium Chloride Carbon Dioxide Anion Gap BUN Creatinine Estimated GFR Random Glucose Calcium Magnesium Total Bilirubin AST ALT Alkaline Phosphatase Ammonia 20 Total Creatine Kinase Troponin I B-Natriuretic Peptide 79 Total Protein Albumin Lipase Urine Color Urine Clarity Urine pH Ur Specific [place] Urine Protein Urine Glucose (UA) Urine Ketones Urine Occult Blood Urine Nitrate Urine Bilirubin Urine Urobilinogen Ur Leukocyte Esterase Urine RBC Urine WBC Ur Squamous Epith Cells Hyaline Casts Micro UA Comment Ur Microscopic Review Urine Culture Comments Blood Type B Negative Antibody Screen Negative MTS Gel Crossmatch Bld Prod Order Comment 06/08/18 06/08/18 03:31 04:50 CBC w Diff WBC RBC Hgb Hct MCV MCH MCHC RDW Plt Count MPV Prelim Diff (Auto) Neut % (Auto) Lymph % (Auto) [place] % (Auto) Eos % (Auto) Baso % (Auto) Neut # (Auto) Lymph # (Auto) [place] # (Auto) Eos # (Auto) Baso # (Auto) WBC Differential Differential Comment PT INR APTT Sodium Potassium Chloride Carbon Dioxide Anion Gap BUN Creatinine Estimated GFR Random Glucose Calcium Magnesium Total Bilirubin AST ALT Alkaline Phosphatase Ammonia Total Creatine Kinase Troponin I B-Natriuretic Peptide Total Protein Albumin Lipase Urine Color Yellow Urine Clarity Hazy H Urine pH 5.0 Ur Specific [place] 1.038 H Urine Protein Negative Urine Glucose (UA) Negative Urine Ketones Negative Urine Occult Blood Negative Urine Nitrate Negative Urine Bilirubin Negative Urine Urobilinogen Less than 2 Ur Leukocyte Esterase Small H Urine RBC 2 Urine WBC 3 Ur Squamous Epith Cells 2 Hyaline Casts 1 Micro UA Comment Cath-culture not ind Ur Microscopic Review Not Reportable Urine Culture Comments Cath-cult not ind Blood Type Antibody Screen MTS Gel Crossmatch See Detail Bld Prod Order Comment - Imaging Impressions Abdomen/Pelvis CT 06/08/18 02:56 CONCLUSION: 1. No acute findings. 2. Stable large gallstones and small amount of free fluid in the deep pelvis. Dense coronary calcifications. Chest X-Ray 06/08/18 02:56 CONCLUSION: Cardiomegaly. No acute findings. Head CT 06/08/18 02:56 CONCLUSION: 1. No acute intracranial abnormalities. Right frontal scalp hematoma. . <La Nam - Last Filed: 06/08/18 17:12> - Labs CBC & Chem 7: 06/08/18 14:00 06/08/18 03:15 Labs: Laboratory Results - last 24 hr 06/08/18 06/08/18 06/08/18 03:15 03:15 03:15 CBC w Diff Auto diff final WBC 29.7 H RBC 2.16 L Hgb 5.6 L* Hct 17.7 L* MCV 81.9 MCH 25.7 L MCHC 31.4 L RDW 15.3 Plt Count 340 MPV 7.4 Prelim Diff (Auto) Cartridge Loader Neut % (Auto) 91.3 H Lymph % (Auto) 2.1 L [place] % (Auto) 6.3 Eos % (Auto) 0.1 Baso % (Auto) 0.2 Neut # (Auto) 27.1 H Lymph # (Auto) 0.6 L [place] # (Auto) 1.9 H Eos # (Auto) 0.0 Baso # (Auto) 0.1 WBC Differential . Differential Comment . PT 12.5 H INR 1.2 APTT 31.3 H Sodium 142 Potassium 4.5 Chloride 108 H Carbon Dioxide 21.1 Anion Gap 13 BUN 27 H Creatinine 1.59 H Estimated GFR 32 L Random Glucose 122 H Calcium 7.9 L Magnesium 1.6 Total Bilirubin 0.4 AST 17 ALT 21 Alkaline Phosphatase 216 H Ammonia Total Creatine Kinase 47 Troponin I Less than 0.02 L B-Natriuretic Peptide Total Protein 5.8 L Albumin 2.2 L Lipase 172 Urine Color Urine Clarity Urine pH Ur Specific [place] Urine Protein Urine Glucose (UA) Urine Ketones Urine Occult Blood Urine Nitrate Urine Bilirubin Urine Urobilinogen Ur Leukocyte Esterase Urine RBC Urine WBC Ur Squamous Epith Cells Hyaline Casts Micro UA Comment Ur Microscopic Review Urine Culture Comments Blood Type Antibody Screen MTS Gel Crossmatch Bld Prod Order Comment 06/08/18 06/08/18 06/08/18 03:15 03:15 03:15 CBC w Diff WBC RBC Hgb Hct MCV MCH MCHC RDW Plt Count MPV Prelim Diff (Auto) Neut % (Auto) Lymph % (Auto) [place] % (Auto) Eos % (Auto) Baso % (Auto) Neut # (Auto) Lymph # (Auto) [place] # (Auto) Eos # (Auto) Baso # (Auto) WBC Differential Differential Comment PT INR APTT Sodium Potassium Chloride Carbon Dioxide Anion Gap BUN Creatinine Estimated GFR Random Glucose Calcium Magnesium Total Bilirubin AST ALT Alkaline Phosphatase Ammonia 20 Total Creatine Kinase Troponin I B-Natriuretic Peptide 79 Total Protein Albumin Lipase Urine Color Urine Clarity Urine pH Ur Specific [place] Urine Protein Urine Glucose (UA) Urine Ketones Urine Occult Blood Urine Nitrate Urine Bilirubin Urine Urobilinogen Ur Leukocyte Esterase Urine RBC Urine WBC Ur Squamous Epith Cells Hyaline Casts Micro UA Comment Ur Microscopic Review Urine Culture Comments Blood Type B Negative Antibody Screen Negative MTS Gel Crossmatch Bld Prod Order Comment 06/08/18 06/08/18 06/08/18 03:31 04:50 14:00 CBC w Diff WBC RBC Hgb 11.1 L D Hct MCV MCH MCHC RDW Plt Count MPV Prelim Diff (Auto) Neut % (Auto) Lymph % (Auto) [place] % (Auto) Eos % (Auto) Baso % (Auto) Neut # (Auto) Lymph # (Auto) [place] # (Auto) Eos # (Auto) Baso # (Auto) WBC Differential Differential Comment PT INR APTT Sodium Potassium Chloride Carbon Dioxide Anion Gap BUN Creatinine Estimated GFR Random Glucose Calcium Magnesium Total Bilirubin AST ALT Alkaline Phosphatase Ammonia Total Creatine Kinase Troponin I B-Natriuretic Peptide Total Protein Albumin Lipase Urine Color Yellow Urine Clarity Hazy H Urine pH 5.0 Ur Specific [place] 1.038 H Urine Protein Negative Urine Glucose (UA) Negative Urine Ketones Negative Urine Occult Blood Negative Urine Nitrate Negative Urine Bilirubin Negative Urine Urobilinogen Less than 2 Ur Leukocyte Esterase Small H Urine RBC 2 Urine WBC 3 Ur Squamous Epith Cells 2 Hyaline Casts 1 Micro UA Comment Cath-culture not ind Ur Microscopic Review Not Reportable Urine Culture Comments Cath-cult not ind Blood Type Antibody Screen MTS Gel Crossmatch See Detail Bld Prod Order Comment - Imaging Impressions Abdomen/Pelvis CT 06/08/18 02:56 CONCLUSION: 1. No acute findings. 2. Stable large gallstones and small amount of free fluid in the deep pelvis. Dense coronary calcifications. Chest X-Ray 06/08/18 02:56 CONCLUSION: Cardiomegaly. No acute findings. Head CT 06/08/18 02:56 CONCLUSION: 1. No acute intracranial abnormalities. Right frontal scalp hematoma. . GI Bleed Scan Nuclear Medicine 06/08/18 07:13 CONCLUSION: 1. Negative for hemorrhage. <Emre Marin - Last Filed: 06/08/18 18:14> Assessment and Plan (1) GI bleed Status: Acute Code(s): K92.2 - Gastrointestinal hemorrhage, unspecified (2) Hemorrhagic shock Status: Acute Code(s): R57.8 - Other shock (3) Blood loss anemia Status: Acute Code(s): D50.0 - Iron deficiency anemia secondary to blood loss (chronic) <SanthoshClaire rhodeskevin Felipe - Last Filed: 06/08/18 13:53> (1) GI bleed Status: Acute Code(s): K92.2 - Gastrointestinal hemorrhage, unspecified (2) Hemorrhagic shock Status: Acute Code(s): R57.8 - Other shock (3) Blood loss anemia Status: Acute Code(s): D50.0 - Iron deficiency anemia secondary to blood loss (chronic) - Plan acute onset of left lower quadrant pain and cramping and rectal bleeding. Onset of symptoms approximately 24 hours ago patient states that she filled the toilet at least 4 times with blood and also had a syncopal episode when going to the bathroom with a left frontal laceration. Patient states initially the blood was bright red but then changed to a maroon color with some clotting. denies any vomiting or dyspepsia, positive for some mild nausea but also was hypotensive during that time denies any history of constipation and denies any straining with bowel movements. denies any family history of heart disease and last EGD was in January 2018. Patient was seen per GI during this time and was noted to be treated for diverticulitis but never followed up in the office for colonoscopy. seen per cardiology multiple times and had her last cardiac ablation in on March 25, 2018 and has been on Eliquis. Current labs show hemoglobin initially 5.6 transfusions x4, PT/INR 1.2, positive alkaline phosphatase 216, bilirubin and LFTs normal. Elevated alkaline phosphatase could be related to stable large gallstones seen on CT scan and small amount of free fluid. No documented, bowel duct dilatation. monitored in the intensive care setting and is tentatively scheduled for bleeding scan. Patient continues to have some active rectal bleeding, incontinent. Addendum note at 1500 patient has been cleared per cardiology for colonoscopy. Ordered for the a.m. and evaluate further her rectal bleeding Plan Diet n.p.o. for now Bleeding scan scheduled for today per frozen meat cutter. Possible bleeding related to diverticular versus hemorrhoids. PPI IV Consent for colonoscopy in a.m. n.p.o. at midnight, Prep magnesium citrate 2 bottles with Dulcolax 20 mg 1 N.p.o. at midnight, hold any blood thinners Consider cardiology input since patient is recent status post ablation and has been anticoagulated on Eliquis. Will need cardiology clearance and input PPI drip Monitor labs with special attention hemoglobin and transfuse as needed Supportive care Chey Further recommendations to follow Patient with be seen per myself and Dr. Marin, note was written on his behalf <La Nam - Last Filed: 06/08/18 17:12> (1) GI bleed Status: Acute Code(s): K92.2 - Gastrointestinal hemorrhage, unspecified (2) Hemorrhagic shock Status: Acute Code(s): R57.8 - Other shock (3) Blood loss anemia Status: Acute Code(s): D50.0 - Iron deficiency anemia secondary to blood loss (chronic) - Plan Patient was seen and examined, agree with above note, patient will need a colonoscopy, cardiology cleared the patient for that, we will plan on doing that tomorrow <Emre Marin - Last Filed: 06/08/18 18:14>
--- NOTE | 2018-06-08 13:32 | NM ---
EXAM DATE: 06/08/2018 1:26 PM EDT AGE/SEX: 68 years / Female INDICATIONS: Rectal bleeding. CLINICAL DATA: This is the patient's initial encounter. Patient reports that signs and symptoms have been present for 1 day and indicates a pain score of 0/10. MEDICAL/SURGICAL HISTORY: Renal failure, chronic. Hypertension. Atrial fibrillation. . Cardia c ablation. COMPARISON: [facility] [place]ED[place]AN, 02/07/2018. . TECHNIQUE: Following the modified in vitro labeling of autologous red cells, dynamic continuous image s were acquired for two hours. ?? DOSE: 21.7 mCi Tc 99m Ultratag Labeled Red Blood Cells IV IMAGING TIME: 2 hr FINDINGS: Biodistribution: There is a very good labeling of red cells without significant uptake in the gastri c wall. There is good delineation of the blood pool of the spleen and abdominal vessels. Bleeding: No episodes of active GI bleeding are observed during two hours of continuous observation . CONCLUSION: 1. Negative for hemorrhage. Electronically signed by: Harshad Arizmendi MD 06/08/2018 1:31 PM EDT
[2018-06-08] MEDS: Pantoprazole Inj 80 MG in Sodium Chlor 0.9% Inj 100 ML IV.CONT SCH (14:28)
[2018-06-08] MEDS: Flecainide 100 MG Tablet PO SCH ×2 (14:53→21:13)
--- NOTE | 2018-06-08 15:46 | P.PNADD ---
Addendum to Inpatient Note Reason for Addendum: Additional Documentation Additional information: I have seen and evaluated the patient in the ICU. In brief, 68yF with afib s/p ablation on eliquis that presents with active GI hemorrhage and life- threatening anemia. now s/p 4 units prbc with an appropriate response in hgb. tagged RBC scan negative for active hemorrhage. GI consulted. The patient denies chest pain, shortness of breath and is hemodynamically stable. The patient has been given Prothrombin Complex Concentrates in an effort to mitigate anticoagulant properties of Eliquis. Certainly the patient would ideally benefit from anticoagulation from a cardiac standpoint, but not currently with ongoing life-threatening bleeding. The patient does not have any emergent cardiac pathology that would preclude emergent GI procedure to intervene on active GI hemorrhage. Once GI hemorrhage is controlled, if possible , patient would need to be re-anticoagulated, but could wait at least 1-2 weeks post GI procedure if necessary to re-anticoagulate. Medically cleared from a cardiac standpoint to undergo emergent GI procedure for active bleeding.
[2018-06-08] MEDS: Sod Chloride 0.9% Inj 1,000 ML IV.CONT SCH (16:20)
--- NOTE | 2018-06-08 16:58 | ECG ---
Date Performed: 06/08/2018 Time Performed: 06:08:21 PTAGE: 68 years EKG: Underlying rhythm appears to be sinus with Wenckebach AV block With long Wenckebach cycle, with intermittent abberrant Conduction with secondart ST-T wave changes. Suspect Wenckebach is is old compared to previous tracing. ABNORMAL ECG PREVIOUS TRACING : 06/02/2018 10.24 DOCTOR: Kg Rivera Interpretating Date/Time 06/08/2018 16:57:12
[2018-06-08] MEDS ORDERED: Magnesium Citrate Liq 300 ML Bottle PO ONE ×2 (16:59→18:00)
[2018-06-08] MEDS ORDERED: PEG 3350/E-Lyte Soln 4000 ML Bottle PO ONE (20:00)
[2018-06-09] MEDS ORDERED: Chlorhexidine Gluconate 2% 1 Pack (2 Cloths) TOPICAL PRN (04:00)
[2018-06-09 06:04] LABS: Baso % (Auto) 0.2 % (0.0-2.0); Eos % (Auto) 0.2 % (0.0-4.0); Hematocrit 28.1 % (35.0-46.0); Hemoglobin 9.6 gm/dL (11.6-15.3); Lymph # (Auto) 0.7 th/mm3 (1.0-4.8); Lymph % (Auto) 3.5 % (9.0-44.0); Mean Corpuscular HGB Conc 34.2 % (32.0-36.0); Mean Corpuscular Hemoglobin 28.6 pg (27.0-34.0); Mean Corpuscular Volume 83.5 fL (80.0-100.0); Mean Platelet Volume 7.4 fL (7.0-11.0); Mono # (Auto) 1.3 th/mm3 (0.0-0.9); Mono % (Auto) 6.4 % (0.0-8.0); Neut # (Auto) 18.1 th/mm3 (1.8-7.7); Neut % (Auto) 89.7 % (16.0-70.0); Platelet Count 234 th/mm3 (150-450); Red Blood Count 3.37 mil/mm3 (4.00-5.30); Red Cell Distribution Width 16.3 % (11.6-17.2); White Blood Count 20.2 th/mm3 (4.0-11.0)
[2018-06-09 06:10] LABS: Activated Partial Thrombo Time 29.8 sec (24.3-30.1); INR 1.1 Ratio; Prothrombin Time 10.9 sec (9.8-11.6)
[2018-06-09 06:16] LABS: Alanine Aminotransferase 18 U/L (10-53); Albumin 1.9 g/dL (3.4-5.0); Alkaline Phosphatase 175 U/L (45-117); Anion Gap 10 meq/L (5-15); Aspartate Aminotransferase 11 U/L (15-37); Blood Urea Nitrogen 27 mg/dL (7-18); Calcium 7.8 mg/dL (8.5-10.1); Carbon Dioxide 22.2 meq/L (21.0-32.0); Chloride 113 meq/L (98-107); Glomerular Filtration Rate 46 mL/min (>89); Glucose,Random 87 mg/dL (74-106); Magnesium 1.9 mg/dL (1.5-2.5); Phosphorus 3.3 mg/dL (2.5-4.9); Potassium 3.4 meq/L (3.5-5.1); Sodium 145 meq/L (136-145); Total Protein 5.2 g/dL (6.4-8.2)
[2018-06-09] MEDS: Ciprofloxacin 400 MG/200 ML 400 MG/200 ML PIGGYBACK IV.SIG SCH ×2 (07:33→18:26)
[2018-06-09] MEDS: Sod Chloride 0.9% Inj 1,000 ML IV.CONT SCH ×3 (07:33→22:02)
[2018-06-09] MEDS: Chlorhexidine Gluconate 2% 1 Pack (2 Cloths) TOPICAL SCH (07:34)
[2018-06-09] MEDS: Pantoprazole Inj 80 MG in Sodium Chlor 0.9% Inj 100 ML IV.CONT SCH ×2 (07:34→18:28)
[2018-06-09] MEDS: Flecainide 100 MG Tablet PO SCH ×2 (09:27→20:20)
[2018-06-09] MEDS: dilTIAZem CD 120 MG Capsule PO SCH (09:27)
[2018-06-09] MEDS: Magnesium Oxide 400 MG Tablet PO SCH (09:28)
[2018-06-09] MEDS: Allopurinol 100 MG Tablet PO SCH (09:28)
[2018-06-09] MEDS: Potassium Chlor 20 mEq Premix 20 MEQ/100 ML PIGGYBACK IV.SIG PRN ×2 (09:29→16:24)
--- NOTE | 2018-06-09 12:26 | P.PNGI ---
Subjective Interval history: Patient is awake sitting in room Currently on bedpan with large amount of dark brown loose stool with solid particles Patient has drank an adequate amount of GoLYTELY and is not cleared per bowel prep needed for colonoscopy We will plan to reschedule in a.m. and continue prep and patient <La Nam - Last Filed: 06/09/18 12:33> Physical Exam Vital signs: Vital Signs 06/08/18 13:00 06/08/18 14:00 06/08/18 15:00 Temperature Pulse Rate 69 68 69 Respiratory Rate 15 18 15 Blood Pressure 128/65 119/61 113/57 L Pulse Oximetry 100 100 100 06/08/18 16:00 06/08/18 17:00 06/08/18 18:00 Temperature 98 F Pulse Rate 68 68 70 Respiratory Rate 13 18 18 Blood Pressure 131/57 L 113/59 L 105/55 L Pulse Oximetry 100 100 100 06/08/18 18:17 06/08/18 19:55 06/08/18 20:00 Temperature 98.6 F Pulse Rate 67 Respiratory Rate 15 Blood Pressure 131/67 Pulse Oximetry 98 98 98 06/08/18 22:00 06/09/18 00:00 06/09/18 02:00 Temperature Pulse Rate 71 69 71 Respiratory Rate 17 Blood Pressure 115/59 L Pulse Oximetry 97 06/09/18 04:00 06/09/18 06:00 06/09/18 07:00 Temperature Pulse Rate 70 74 Respiratory Rate 16 Blood Pressure 109/58 L Pulse Oximetry 95 100 06/09/18 08:00 06/09/18 09:00 06/09/18 10:00 Temperature 98.5 F Pulse Rate 73 73 73 Respiratory Rate 18 21 25 H Blood Pressure 147/59 H 134/73 130/63 Pulse Oximetry 93 L 93 L 90 L 06/09/18 11:00 Temperature Pulse Rate 74 Respiratory Rate 20 Blood Pressure 135/64 Pulse Oximetry 93 L Intake & Output 06/08/18 06/09/18 06/09/18 18:59 06:59 18:59 Intake Total 900 / 900 400 / 400 Output Total 1175 / 1175 1250 / 1250 Balance -275 / -275 -850 / -850 Intake: IV 500 / 500 400 / 400 Protonix Inj 80 MG In NS Inj 100 / 100 100 / 100 100 ML @ 10 mls/hr IV.CONT Q10H MARIANNA Rx#:[id number] Cipro 400 MG/200 ML Inj 400 mg 200 / 200 200 / 200 In 200 ml @ 200 mls/hr IV.SIG Q12H MARIANNA Rx#:[id number] Flagyl 500 MG Inj 100 ML @ 100 200 / 200 100 / 100 mls/hr IV.SIG Q8H MARIANNA Rx#: [id number] Intake (Blood Product) Amt 400 / 400 Rbc As-3 Leukoreduced Unit 400 / 400 [id number] Rbc As-3 Leukoreduced Unit 0 / 0 [id number] Output: Urine Amount (Catheter) 1175 / 1175 1250 / 1250 Indwelling Urethral Catheter 1175 / 1175 1250 / 1250 Other: Date of Last Bowel Movement 06/08/18 06/09/18 # Bowel Movements 1 1 - Constitutional mild distress, thin, chronically ill appearing - Routine HEENT Exam ENT: Present: mucous membranes moist - Routine Abdominal Exam Present: soft (Bowel sounds active no obvious rectal bleeding noted stool is loose dark brown with GoLYTELY prep) - Routine Neurological Exam Present: alert (Answering simple questions) - Urinary Catheter Management Indwelling Urethral Catheter Cath placed during this visit: yes Reason for continuing: Hourly intake/output Insertion date: 06/08/18 Insertion time: 04:50 <La Nam - Last Filed: 06/09/18 12:33> Vital signs: Vital Signs 06/08/18 15:00 06/08/18 16:00 06/08/18 17:00 Temperature 98 F Pulse Rate 69 68 68 Respiratory Rate 15 13 18 Blood Pressure 113/57 L 131/57 L 113/59 L Pulse Oximetry 100 100 100 06/08/18 18:00 06/08/18 18:17 06/08/18 19:55 Temperature Pulse Rate 70 Respiratory Rate 18 Blood Pressure 105/55 L Pulse Oximetry 100 98 98 06/08/18 20:00 06/08/18 22:00 06/09/18 00:00 Temperature 98.6 F Pulse Rate 67 71 69 Respiratory Rate 15 17 Blood Pressure 131/67 115/59 L Pulse Oximetry 98 97 06/09/18 02:00 06/09/18 04:00 06/09/18 06:00 Temperature Pulse Rate 71 70 74 Respiratory Rate 16 Blood Pressure 109/58 L Pulse Oximetry 95 06/09/18 07:00 06/09/18 08:00 06/09/18 09:00 Temperature 98.5 F Pulse Rate 73 73 Respiratory Rate 18 21 Blood Pressure 147/59 H 134/73 Pulse Oximetry 100 93 L 93 L 06/09/18 10:00 06/09/18 11:00 06/09/18 12:39 Temperature Pulse Rate 73 74 Respiratory Rate 25 H 20 Blood Pressure 130/63 135/64 Pulse Oximetry 90 L 93 L 96 Intake & Output 06/08/18 06/09/18 06/09/18 18:59 06:59 18:59 Intake Total 900 / 900 400 / 400 Output Total 1175 / 1175 1250 / 1250 Balance -275 / -275 -850 / -850 Intake: IV 500 / 500 400 / 400 Protonix Inj 80 MG In NS Inj 100 / 100 100 / 100 100 ML @ 10 mls/hr IV.CONT Q10H MARIANNA Rx#:[id number] Cipro 400 MG/200 ML Inj 400 mg 200 / 200 200 / 200 In 200 ml @ 200 mls/hr IV.SIG Q12H MARIANNA Rx#:[id number] Flagyl 500 MG Inj 100 ML @ 100 200 / 200 100 / 100 mls/hr IV.SIG Q8H MARIANNA Rx#: [id number] Intake (Blood Product) Amt 400 / 400 Rbc As-3 Leukoreduced Unit 400 / 400 [id number] Rbc As-3 Leukoreduced Unit 0 / 0 [id number] Output: Urine Amount (Catheter) 1175 / 1175 1250 / 1250 Indwelling Urethral Catheter 1175 / 1175 1250 / 1250 Other: Date of Last Bowel Movement 06/08/18 06/09/18 # Bowel Movements 1 1 - Urinary Catheter Management Indwelling Urethral Catheter Cath placed during this visit: no <Jona Trevizo - Last Filed: 06/09/18 14:56> Results - Labs CBC & Chem 7: 06/09/18 11:44 06/09/18 03:47 Laboratory Results - last 24 hr 06/08/18 06/08/18 06/09/18 14:00 21:06 00:20 WBC RBC Hgb 11.1 L D 10.4 L Hct MCV MCH MCHC RDW Plt Count MPV Neut % (Auto) Lymph % (Auto) Stephenson % (Auto) Eos % (Auto) Baso % (Auto) Neut # (Auto) Lymph # (Auto) Stephenson # (Auto) Eos # (Auto) Baso # (Auto) WBC Differential Differential Comment PT INR APTT Sodium Potassium Chloride Carbon Dioxide Anion Gap BUN Creatinine Estimated GFR Random Glucose Calcium Phosphorus Magnesium Total Bilirubin AST ALT Alkaline Phosphatase Total Protein Albumin Nasal Screen MRSA (PCR) Mrsa detected 06/09/18 06/09/18 06/09/18 03:47 03:47 03:47 WBC 20.2 H RBC 3.37 L Hgb 9.6 L Hct 28.1 L MCV 83.5 MCH 28.6 MCHC 34.2 RDW 16.3 Plt Count 234 D MPV 7.4 Neut % (Auto) 89.7 H Lymph % (Auto) 3.5 L Stephenson % (Auto) 6.4 Eos % (Auto) 0.2 Baso % (Auto) 0.2 Neut # (Auto) 18.1 H Lymph # (Auto) 0.7 L Stephenson # (Auto) 1.3 H Eos # (Auto) 0.0 Baso # (Auto) 0.0 WBC Differential . Differential Comment Auto diff final PT 10.9 INR 1.1 APTT 29.8 Sodium 145 Potassium 3.4 L D Chloride 113 H Carbon Dioxide 22.2 Anion Gap 10 BUN 27 H Creatinine 1.17 H Estimated GFR 46 L Random Glucose 87 Calcium 7.8 L Phosphorus 3.3 Magnesium 1.9 Total Bilirubin 0.6 AST 11 L ALT 18 Alkaline Phosphatase 175 H Total Protein 5.2 L D Albumin 1.9 L Nasal Screen MRSA (PCR) - Imaging Impressions GI Bleed Scan Nuclear Medicine 06/08/18 07:13 CONCLUSION: 1. Negative for hemorrhage. <La Nam - Last Filed: 06/09/18 12:33> - Labs CBC & Chem 7: 06/09/18 11:44 06/09/18 03:47 Laboratory Results - last 24 hr 06/08/18 06/09/18 06/09/18 21:06 00:20 03:47 WBC 20.2 H RBC 3.37 L Hgb 10.4 L 9.6 L Hct 28.1 L MCV 83.5 MCH 28.6 MCHC 34.2 RDW 16.3 Plt Count 234 D MPV 7.4 Neut % (Auto) 89.7 H Lymph % (Auto) 3.5 L Stephenson % (Auto) 6.4 Eos % (Auto) 0.2 Baso % (Auto) 0.2 Neut # (Auto) 18.1 H Lymph # (Auto) 0.7 L Stephenson # (Auto) 1.3 H Eos # (Auto) 0.0 Baso # (Auto) 0.0 WBC Differential . Differential Comment Auto diff final PT INR APTT Sodium Potassium Chloride Carbon Dioxide Anion Gap BUN Creatinine Estimated GFR Random Glucose Calcium Phosphorus Magnesium Total Bilirubin AST ALT Alkaline Phosphatase Total Protein Albumin Nasal Screen MRSA (PCR) Mrsa detected 06/09/18 06/09/18 06/09/18 03:47 03:47 11:44 WBC RBC Hgb 10.1 L Hct MCV MCH MCHC RDW Plt Count MPV Neut % (Auto) Lymph % (Auto) Stephenson % (Auto) Eos % (Auto) Baso % (Auto) Neut # (Auto) Lymph # (Auto) Stephenson # (Auto) Eos # (Auto) Baso # (Auto) WBC Differential Differential Comment PT 10.9 INR 1.1 APTT 29.8 Sodium 145 Potassium 3.4 L D Chloride 113 H Carbon Dioxide 22.2 Anion Gap 10 BUN 27 H Creatinine 1.17 H Estimated GFR 46 L Random Glucose 87 Calcium 7.8 L Phosphorus 3.3 Magnesium 1.9 Total Bilirubin 0.6 AST 11 L ALT 18 Alkaline Phosphatase 175 H Total Protein 5.2 L D Albumin 1.9 L Nasal Screen MRSA (PCR) <Jona Trevizo - Last Filed: 06/09/18 14:56> Assessment and Plan (1) GI bleed Status: Acute Code(s): K92.2 - Gastrointestinal hemorrhage, unspecified (2) Hemorrhagic shock Status: Acute Code(s): R57.8 - Other shock (3) Blood loss anemia Status: Acute Code(s): D50.0 - Iron deficiency anemia secondary to blood loss (chronic) - Plan -History on admission acute onset of left lower quadrant pain and cramping and rectal bleeding. Onset of symptoms approximately 24 hours ago patient states that she filled the toilet at least 4 times with blood and also had a syncopal episode when going to the bathroom with a left frontal laceration. Patient states initially the blood was bright red but then changed to a maroon color with some clotting. denies any vomiting or dyspepsia, positive for some mild nausea but also was hypotensive during that time denies any history of constipation and denies any straining with bowel movements. denies any family history of heart disease and last EGD was in January 2018. Patient was seen per GI during this time and was noted to be treated for diverticulitis but never followed up in the office for colonoscopy. seen per cardiology multiple times and had her last cardiac ablation in on March 25, 2018 and has been on Eliquis. Current labs show hemoglobin initially 5.6 transfusions x4, PT/INR 1.2, positive alkaline phosphatase 216, bilirubin and LFTs normal. Elevated alkaline phosphatase could be related to stable large gallstones seen on CT scan and small amount of free fluid. No documented, bowel duct dilatation. monitored in the intensive care setting and is tentatively scheduled for bleeding scan. Patient continues to have some active rectal bleeding, incontinent. Addendum note at 1500 patient has been cleared per cardiology for colonoscopy. Ordered for the a.m. and evaluate further her rectal bleeding 06/09/2018 checked on patient this a.m. who has not completed her GoLYTELY prep. Patient was currently removed from the bedpan and noted dark brown liquid stool with multiple particles but no obvious bleeding. Plan to reschedule colonoscopy for a.m. when patient has better bowel prep will also continue her clear liquids today discussed with patient the need for her to continue her prep. Bleeding scan performed on 06/08/2018 showed no active bleeding. Current labs include hemoglobin 9.6 after transfusions and appears stable PT/INR 1.1, leukocytosis decreased mild. Patient GI bleed appears to be controlled and patient's Eliquis continues to be held until at least after colonoscopy tomorrow and then reevaluate her needs. Patient does appear to be more stable from a GI perspective further recommendations to follow after colonoscopy tomorrow Plan Diet clear liquids today n.p.o. at midnight New consent for colonoscopy in a.m., continue GoLYTELY prep PPI drip Reanna Watts continue for now Monitor labs, transfuse as needed Zofran Further recommendations to follow Patient with be seen per myself and Dr. Trevizo, note was written on his behalf <La Nam - Last Filed: 06/09/18 12:33> (1) GI bleed Status: Acute Code(s): K92.2 - Gastrointestinal hemorrhage, unspecified (2) Hemorrhagic shock Status: Acute Code(s): R57.8 - Other shock (3) Blood loss anemia Status: Acute Code(s): D50.0 - Iron deficiency anemia secondary to blood loss (chronic) - Attending Attestation Colonoscopy postponed until tomorrow. Restart bowel prep. Further recommendations to follow. <Jona Trevizo - Last Filed: 06/09/18 14:56>
--- NOTE | 2018-06-09 17:35 | P.PNCC ---
Subjective Subjective Remarks/Hospital Course: 06/08: 68-year-old female with past medical history of diverticulitis, atrial fibrillation status post ablation 2 on chronic anticoagulation with Eliquis, hypertension, hyperlipidemia chronic kidney disease, gout. She says that she started having LLQ pain around 4 pm on 06/07. At around 10 pm she starting having large bloody BM's. She states she flushed the toilet 4 times when it was filled with blood. She walked back to bed and then got up again to have another large BM, got lightheaded while on the toilet and then passed out on the floor and hit her head with +LOC. She was unable to get up and her did not hear her calling for a couple of hours. He then found her and EVAC was called. Upon arrival to the emergency department her blood pressure was 78/68. Pulse was 67 ( but takes metoprolol). She was administered 1 L normal saline bolus. Blood pressure improved to 90s over 50s. Hemoglobin is 5.6 ( previously 9.4 on 06/02/18 ). She is receiving K Centra 25 U/kg. PRBC 4 units have been ordered to transfuse. She is on a protonix drip. Prior hx of GI bleed in January requiring transfusion; had diverticulitis with abscess at that time, bleed presumed diverticular. Never had colonoscopy. Had gastrograffin enema 02/13/18 with diverticulosis. Bleeding scan 02/07/18 negative. Had some nausea when she was hypotensive. No vomiting/hematemesis. No CP or SOB. 06/09: Resting comfortably in bed not in any acute distress. No fresh rectal bleeding Objective Vital Signs / I&O: Vital Signs 06/08/18 18:00 06/08/18 18:17 06/08/18 19:55 Temperature Pulse Rate 70 Respiratory Rate 18 Blood Pressure 105/55 L Pulse Oximetry 100 98 98 06/08/18 20:00 06/08/18 22:00 06/09/18 00:00 Temperature 98.6 F Pulse Rate 67 71 69 Respiratory Rate 15 17 Blood Pressure 131/67 115/59 L Pulse Oximetry 98 97 06/09/18 02:00 06/09/18 04:00 06/09/18 06:00 Temperature Pulse Rate 71 70 74 Respiratory Rate 16 Blood Pressure 109/58 L Pulse Oximetry 95 06/09/18 07:00 06/09/18 08:00 06/09/18 09:00 Temperature 98.5 F Pulse Rate 73 73 Respiratory Rate 18 21 Blood Pressure 147/59 H 134/73 Pulse Oximetry 100 93 L 93 L 06/09/18 10:00 06/09/18 11:00 06/09/18 12:00 Temperature Pulse Rate 73 74 73 Respiratory Rate 25 H 20 Blood Pressure 130/63 135/64 121/57 L Pulse Oximetry 90 L 93 L 06/09/18 12:39 Temperature Pulse Rate Respiratory Rate Blood Pressure Pulse Oximetry 96 Intake & Output 06/08/18 06/09/18 06/09/18 18:59 06:59 18:59 Intake Total 900 / 900 400 / 400 500 / 500 Output Total 1175 / 1175 1250 / 1250 850 / 850 Balance -275 / -275 -850 / -850 -350 / -350 Intake: IV 500 / 500 400 / 400 500 / 500 Protonix Inj 80 MG In NS Inj 100 / 100 100 / 100 100 ML @ 10 mls/hr IV.CONT Q10H MARIANNA Rx#:[id number] Cipro 400 MG/200 ML Inj 400 mg 200 / 200 200 / 200 200 / 200 In 200 ml @ 200 mls/hr IV.SIG Q12H MARIANNA Rx#:[id number] KCl 20 mEq Premix Inj 20 meq In 100 / 100 100 ml @ 50 mls/hr IV.SIG Q2H PRN Rx#:[id number] Flagyl 500 MG Inj 100 ML @ 100 200 / 200 100 / 100 200 / 200 mls/hr IV.SIG Q8H MARIANNA Rx#: [id number] Intake (Blood Product) Amt 400 / 400 Rbc As-3 Leukoreduced Unit 400 / 400 [id number] Rbc As-3 Leukoreduced Unit 0 / 0 [id number] Output: Urine 850 / 850 Urine Amount (Catheter) 1175 / 1175 1250 / 1250 Indwelling Urethral Catheter 1175 / 1175 1250 / 1250 Other: Date of Last Bowel Movement 06/08/18 06/09/18 06/09/18 # Bowel Movements 1 1 Result Diagrams: 06/09/18 16:16 06/09/18 03:47 Other Results: Laboratory Results - last 24 hr 0906/09/18 06/09/18 21:06 00:20 03:47 WBC 20.2 H RBC 3.37 L Hgb 10.4 L 9.6 L Hct 28.1 L MCV 83.5 MCH 28.6 MCHC 34.2 RDW 16.3 Plt Count 234 D MPV 7.4 Neut % (Auto) 89.7 H Lymph % (Auto) 3.5 L Cache % (Auto) 6.4 Eos % (Auto) 0.2 Baso % (Auto) 0.2 Neut # (Auto) 18.1 H Lymph # (Auto) 0.7 L Cache # (Auto) 1.3 H Eos # (Auto) 0.0 Baso # (Auto) 0.0 WBC Differential . Differential Comment Auto diff final PT INR APTT Sodium Potassium Chloride Carbon Dioxide Anion Gap BUN Creatinine Estimated GFR Random Glucose Calcium Phosphorus Magnesium Total Bilirubin AST ALT Alkaline Phosphatase Total Protein Albumin Nasal Screen MRSA (PCR) Mrsa detected 06/09/18 06/09/18 06/09/18 03:47 03:47 11:44 WBC RBC Hgb 10.1 L Hct MCV MCH MCHC RDW Plt Count MPV Neut % (Auto) Lymph % (Auto) Cache % (Auto) Eos % (Auto) Baso % (Auto) Neut # (Auto) Lymph # (Auto) Cache # (Auto) Eos # (Auto) Baso # (Auto) WBC Differential Differential Comment PT 10.9 INR 1.1 APTT 29.8 Sodium 145 Potassium 3.4 L D Chloride 113 H Carbon Dioxide 22.2 Anion Gap 10 BUN 27 H Creatinine 1.17 H Estimated GFR 46 L Random Glucose 87 Calcium 7.8 L Phosphorus 3.3 Magnesium 1.9 Total Bilirubin 0.6 AST 11 L ALT 18 Alkaline Phosphatase 175 H Total Protein 5.2 L D Albumin 1.9 L Nasal Screen MRSA (PCR) 06/09/18 16:16 WBC RBC Hgb 9.4 L Hct MCV MCH MCHC RDW Plt Count MPV Neut % (Auto) Lymph % (Auto) Cache % (Auto) Eos % (Auto) Baso % (Auto) Neut # (Auto) Lymph # (Auto) Cache # (Auto) Eos # (Auto) Baso # (Auto) WBC Differential Differential Comment PT INR APTT Sodium Potassium Chloride Carbon Dioxide Anion Gap BUN Creatinine Estimated GFR Random Glucose Calcium Phosphorus Magnesium Total Bilirubin AST ALT Alkaline Phosphatase Total Protein Albumin Nasal Screen MRSA (PCR) Objective Remarks: HEENT/Neuro: No pallor or icterus, tongue moist, REBECCA, Awake alert oriented 3 , nonfocal grossly, moving all 4 extremities Neck: No JVD Chest/pulmonary: CTA bilaterally Cardiovascular: S1-S2 regular no gallop or murmur GI/abdomen: Soft, tenderness in left lumbar region, bowel sounds present Extremities: Warm bilaterally, no edema Assessment and Plan - Problem List (1) GI bleed Code(s): K92.2 - Gastrointestinal hemorrhage, unspecified Status: Acute (2) Diverticulitis Code(s): K57.92 - Diverticulitis of intestine, part unspecified, without perforation or abscess without bleeding Status: Acute (3) Hemorrhagic shock Code(s): R57.8 - Other shock Status: Acute (4) Blood loss anemia Code(s): D50.0 - Iron deficiency anemia secondary to blood loss (chronic) Status: Acute (5) HLD (hyperlipidemia) Code(s): E78.5 - Hyperlipidemia, unspecified Status: Chronic (6) Atrial fibrillation with normal ventricular rate Code(s): I48.91 - Unspecified atrial fibrillation Status: Chronic (7) CKD (chronic kidney disease) stage 3, GFR 30-59 ml/min Code(s): N18.3 - Chronic kidney disease, stage 3 (moderate) Status: Acute (8) Anticoagulated by anticoagulation treatment Code(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 Most recent ablation was 03/24/18. She has had persistent A. fib. Hyperlipidemia Continue flecainide 50 mg p.o. daily. Cardizem ER 120 mg p.o. daily (hold orders for blood pressure). Hold metoprolol 12.5 mg p.o. twice daily Continue atorvastatin 2D echo 07/26/17ejection fraction 35-40%, global hypokinesis, mild to moderate MR, mild to moderate TR, PAP 54 mmHg. GI: GI bleed History of diverticulosis/diverticulitis Asymptomatic cholelithiasis CT abdomen pelvislarge stones within gallbladder. No evidence of obstruction. No inflammatory changes. Transfusion as per below. Continue protonix drip for now. Clear liquids per GI GI consulted, discussed with Dr. Trevizo. Bleeding scan negative. Awaiting colonoscopy FEN/RENAL: Chronic kidney disease stage III Monitor electrolytes and replace as indicated per ICU electrolyte replacement protocol. Monitor I/O ID: Presumed diverticulitis Penicillin allergy Cipro IV/Flagyl IV for diverticulitis. HEME: Acute blood loss anemia Chronic anti-coagulation with Eliquis for A. fib Received K Centra 25 U/kg 06/08/18. Vitamin K 10 mg IV. Eliquis on hold. Serial hemoglobin every 6 hours. Transfused 4units PRBC 06/08. Normal platelet count and INR. ENDO: Euglycemic PROPH: SCDs for DVT prophylaxis. Pharmacologic DVT prophylaxis is contraindicated. Protonix 40 mg drip as per above. ACCESS: PIV Discussed with Dr. Trevizo. FULL CODE.
[2018-06-10 04:02] LABS: Baso % (Auto) 0.3 % (0.0-2.0); Eos # (Auto) 0.2 th/mm3 (0.0-0.4); Eos % (Auto) 1.3 % (0.0-4.0); Hematocrit 28.7 % (35.0-46.0); Hemoglobin 9.8 gm/dL (11.6-15.3); Lymph % (Auto) 6.6 % (9.0-44.0); Mean Corpuscular HGB Conc 34.2 % (32.0-36.0); Mean Corpuscular Hemoglobin 28.7 pg (27.0-34.0); Mean Corpuscular Volume 83.8 fL (80.0-100.0); Mean Platelet Volume 7.1 fL (7.0-11.0); Mono # (Auto) 0.8 th/mm3 (0.0-0.9); Mono % (Auto) 5.6 % (0.0-8.0); Neut # (Auto) 12.7 th/mm3 (1.8-7.7); Neut % (Auto) 86.2 % (16.0-70.0); Platelet Count 220 th/mm3 (150-450); Red Blood Count 3.43 mil/mm3 (4.00-5.30); Red Cell Distribution Width 15.5 % (11.6-17.2); White Blood Count 14.8 th/mm3 (4.0-11.0)
[2018-06-10 04:16] LABS: Activated Partial Thrombo Time 30.3 sec (24.3-30.1); INR 1.1 Ratio; Prothrombin Time 11.4 sec (9.8-11.6)
[2018-06-10] MEDS: Pantoprazole Inj 80 MG in Sodium Chlor 0.9% Inj 100 ML IV.CONT SCH ×4 (04:27→16:53)
[2018-06-10 04:28] LABS: Alanine Aminotransferase 14 U/L (10-53); Albumin 1.8 g/dL (3.4-5.0); Alkaline Phosphatase 158 U/L (45-117); Anion Gap 10 meq/L (5-15); Aspartate Aminotransferase 7 U/L (15-37); Blood Urea Nitrogen 14 mg/dL (7-18); Calcium 7.8 mg/dL (8.5-10.1); Chloride 112 meq/L (98-107); Glomerular Filtration Rate 56 mL/min (>89); Glucose,Random 94 mg/dL (74-106); Magnesium 1.5 mg/dL (1.5-2.5); Phosphorus 2.3 mg/dL (2.5-4.9); Sodium 144 meq/L (136-145)
[2018-06-10] MEDS: Chlorhexidine Gluconate 2% 1 Pack (2 Cloths) TOPICAL SCH (04:29)
[2018-06-10] MEDS: Ciprofloxacin 400 MG/200 ML 400 MG/200 ML PIGGYBACK IV.SIG SCH ×2 (05:36→19:47)
--- NOTE | 2018-06-10 09:50 | GIPROC ---
[facility] [address] [facility]. [facility], [address] COLONOSCOPY PROCEDURE REPORT EXAM DATE: 06/10/2018 PATIENT NAME: Nasra Nicole MR #: [id number] BIRTHDATE: 1950 ENDOSCOPIST: Jona Trevizo MD ORDER #: [id number] PAPER PATTERN INSPECTOR: Anali Gresham and Ingrid Zhang STATUS: inpatient INDICATIONS: The patient is a 68 yr old female here for a colonoscopy due to rectal bleeding PROCEDURE PERFORMED: Sigmoidoscopy, diagnostic MEDICATIONS: None and Per Anesthesia. PREP QUALITY: inadequate PREP TYPE:Magnesium Citrate ESTIMATED BLOOD LOSS: None CONSENT: The patient understands the risks and benefits of the procedure and understands that these risks include, but are not limited to: sedation, allergic reaction, infection, perforation and/or bleeding. Alternative means of evaluation and treatment include, among others: physical exam, x-rays, and/or surgical intervention. The patient elects to proceed with this endoscopic procedure. medical equipment was checked for proper function. Hand hygiene and appropriate measures for infection prevention was taken. After the risks, benefits and alternatives of the procedure were thoroughly explained, Informed consent was verified, confirmed and timeout was successfully executed by the treatment team. A digital exam revealed no abnormalities of the rectum The Pentax [id number] endoscope was introduced through the anus and advanced to the mid sigmoid. The instrument was then slowly withdrawn as the colon was not preped enough COLON FINDINGS: Severe diverticulosis was noted in the sigmoid colon. Retroflexed views revealed internal hemorrhoids and Retroflexed views revealed medium internal hemorrhoids The scope was then completely withdrawn from the patient and the procedure terminated. PROCEDURE WITHDRAWAL TIME:5minutes ADVERSE EVENTS: There were no complications. IMPRESSIONS: 1. Severe diverticulosis was noted in the sigmoid colon 2. Retroflexed views revealed internal hemorrhoids 3. Incomplete study secondary to poor prep. RECOMMENDATIONS: Repeat Colonoscopy in AM with better prep. RECALL: Return 1 day Colonoscopy Jona Trevizo MD eSigned: Jona Trevizo MD 06/10/2018 9:50 AM cc:
[2018-06-10] MEDS: dilTIAZem CD 120 MG Capsule PO SCH (10:17)
[2018-06-10] MEDS: Magnesium Oxide 400 MG Tablet PO SCH (10:17)
[2018-06-10] MEDS: Flecainide 100 MG Tablet PO SCH ×2 (10:17→21:46)
[2018-06-10] MEDS: Allopurinol 100 MG Tablet PO SCH (10:18)
[2018-06-10] MEDS: Sod Chloride 0.9% Inj 1,000 ML IV.CONT SCH ×2 (12:07→19:48)
[2018-06-10] MEDS ORDERED: PEG 3350/E-Lyte Soln 4000 ML Bottle PO ONE (16:00)
--- NOTE | 2018-06-10 18:08 | P.PNCC ---
Subjective Subjective Remarks/Hospital Course: 06/08: 68-year-old female with past medical history of diverticulitis, atrial fibrillation status post ablation 2 on chronic anticoagulation with Eliquis, hypertension, hyperlipidemia chronic kidney disease, gout. She says that she started having LLQ pain around 4 pm on 06/07. At around 10 pm she starting having large bloody BM's. She states she flushed the toilet 4 times when it was filled with blood. She walked back to bed and then got up again to have another large BM, got lightheaded while on the toilet and then passed out on the floor and hit her head with +LOC. She was unable to get up and her did not hear her calling for a couple of hours. He then found her and EVAC was called. Upon arrival to the emergency department her blood pressure was 78/68. Pulse was 67 ( but takes metoprolol). She was administered 1 L normal saline bolus. Blood pressure improved to 90s over 50s. Hemoglobin is 5.6 ( previously 9.4 on 06/02/18 ). She is receiving K Centra 25 U/kg. PRBC 4 units have been ordered to transfuse. She is on a protonix drip. Prior hx of GI bleed in January requiring transfusion; had diverticulitis with abscess at that time, bleed presumed diverticular. Never had colonoscopy. Had gastrograffin enema 02/13/18 with diverticulosis. Bleeding scan 02/07/18 negative. Had some nausea when she was hypotensive. No vomiting/hematemesis. No CP or SOB. 06/09: Resting comfortably in bed not in any acute distress. No fresh rectal bleeding 06/10: Resting comfortably in bed, not in any acute distress. Still awaiting colonoscopy as bowel prep still not complete. No fresh bleeding noted. Transfuse 1 unit PRBCs overnight for drop in hemoglobin. Objective Vital Signs / I&O: Vital Signs 06/09/18 19:00 06/09/18 20:00 06/09/18 21:17 Temperature 98 F Pulse Rate 67 Respiratory Rate 18 Blood Pressure 119/57 L Pulse Oximetry 91 L 98 92 L 06/10/18 00:00 06/10/18 03:00 06/10/18 03:30 Temperature 97.6 F Pulse Rate 65 64 68 Respiratory Rate 10 L 16 18 Blood Pressure 101/52 L 105/52 L 127/63 Pulse Oximetry 94 L 93 L 95 06/10/18 04:00 06/10/18 04:30 06/10/18 05:00 Temperature 97.7 F Pulse Rate 66 67 68 Respiratory Rate 9 L 8 L 9 L Blood Pressure 133/62 131/63 140/65 Pulse Oximetry 94 L 95 93 L 06/10/18 05:30 06/10/18 06:00 06/10/18 06:31 Temperature Pulse Rate 68 67 63 Respiratory Rate 6 L 10 L 4 L Blood Pressure 136/63 126/61 137/60 Pulse Oximetry 94 L 94 L 95 06/10/18 07:00 06/10/18 07:30 06/10/18 08:00 Temperature Pulse Rate 66 66 74 Respiratory Rate 21 17 15 Blood Pressure 138/65 137/64 Pulse Oximetry 96 95 97 06/10/18 08:08 06/10/18 09:50 06/10/18 10:00 Temperature 98.6 F 98.0 F Pulse Rate 74 70 74 Respiratory Rate 25 H 12 12 Blood Pressure 159/72 H 129/67 134/66 Pulse Oximetry 96 95 95 06/10/18 10:14 06/10/18 10:15 06/10/18 10:30 Temperature Pulse Rate 74 75 72 Respiratory Rate 30 H 27 H 20 Blood Pressure 150/81 H 152/75 H Pulse Oximetry 94 L 94 L 94 L 06/10/18 11:00 06/10/18 11:01 06/10/18 11:30 Temperature Pulse Rate 70 70 71 Respiratory Rate 22 22 24 Blood Pressure 154/67 H 148/82 H Pulse Oximetry 93 L 89 L 96 06/10/18 12:00 06/10/18 12:09 06/10/18 12:30 Temperature 98.9 F Pulse Rate 69 74 Respiratory Rate 25 H 25 H Blood Pressure 150/74 H 139/78 Pulse Oximetry 96 96 95 06/10/18 13:00 06/10/18 13:01 06/10/18 13:30 Temperature Pulse Rate 76 75 80 Respiratory Rate 24 23 23 Blood Pressure 130/72 136/63 Pulse Oximetry 91 L 85 L 95 06/10/18 14:00 06/10/18 14:30 06/10/18 15:00 Temperature Pulse Rate 78 79 73 Respiratory Rate 24 28 H 23 Blood Pressure 128/69 148/70 H 136/70 Pulse Oximetry 97 95 94 L 06/10/18 15:30 06/10/18 16:00 06/10/18 16:30 Temperature 99.3 F Pulse Rate 71 71 73 Respiratory Rate 23 24 23 Blood Pressure 136/69 147/77 H 154/76 H Pulse Oximetry 96 95 96 Intake & Output 06/09/18 06/10/18 06/10/18 18:59 06:59 18:59 Intake Total 1600 / 1600 6760 / 6760 1300 / 1300 Output Total 850 / 850 4050 / 4050 Balance 750 / 750 2710 / 2710 1300 / 1300 Intake: IV 1600 / 1600 1800 / 1800 1100 / 1100 Protonix Inj 80 MG In NS Inj 100 / 100 100 / 100 100 / 100 100 ML @ 10 mls/hr IV.CONT Q10H MARIANNA Rx#:[id number] NS Inj 1,000 ML @ 84 mls/hr IV. 1000 / 1000 1000 / 1000 1000 / 1000 CONT .[id number] MARIANNA Rx#:[id number] Cipro 400 MG/200 ML Inj 400 mg 200 / 200 400 / 400 In 200 ml @ 200 mls/hr IV.SIG Q12H MARIANNA Rx#:[id number] KCl 20 mEq Premix Inj 20 meq In 100 / 100 100 / 100 100 ml @ 50 mls/hr IV.SIG Q2H PRN Rx#:[id number] Flagyl 500 MG Inj 100 ML @ 100 200 / 200 200 / 200 mls/hr IV.SIG Q8H MARIANNA Rx#: [id number] Oral 4160 / 4160 Anesthesia Amount 200 / 200 Intake (Blood Product) Amt 800 / 800 Rbc As-3 Leukoreduced Unit 400 / 400 [id number] Rbc Cp2d Leukoreduced Unit 400 / 400 [id number] Output: Urine 850 / 850 Stool 1999 / 1999 Urine Amount (Catheter) 2049 Indwelling Urethral Catheter 2049 Other: Date of Last Bowel Movement 06/09/18 06/10/18 06/10/18 Result Diagrams: 06/10/18 03:24 06/10/18 03:24 Objective Remarks: HEENT/Neuro: No pallor or icterus, tongue moist, REBECCA, Awake alert oriented 3 , nonfocal grossly, moving all 4 extremities Neck: No JVD Chest/pulmonary: CTA bilaterally Cardiovascular: S1-S2 regular no gallop or murmur GI/abdomen: Soft, tenderness in left lumbar region, bowel sounds present Extremities: Warm bilaterally, no edema Assessment and Plan - Problem List (1) GI bleed Code(s): K92.2 - Gastrointestinal hemorrhage, unspecified Status: Acute (2) Diverticulitis Code(s): K57.92 - Diverticulitis of intestine, part unspecified, without perforation or abscess without bleeding Status: Acute (3) Hemorrhagic shock Code(s): R57.8 - Other shock Status: Acute (4) Blood loss anemia Code(s): D50.0 - Iron deficiency anemia secondary to blood loss (chronic) Status: Acute (5) HLD (hyperlipidemia) Code(s): E78.5 - Hyperlipidemia, unspecified Status: Chronic (6) Atrial fibrillation with normal ventricular rate Code(s): I48.91 - Unspecified atrial fibrillation Status: Chronic (7) CKD (chronic kidney disease) stage 3, GFR 30-59 ml/min Code(s): N18.3 - Chronic kidney disease, stage 3 (moderate) Status: Acute (8) Anticoagulated by anticoagulation treatment Code(s): Z79.01 - terminal worker (current) use of anticoagulants Status: Acute - Assessment and Plan Plan: NEURO: Right frontal scalp hematoma Syncope secondary to hypovolemia/anemia CT brain -no evidence of intracranial hemorrhage RESP: IS q1 hour awake CV: History of atrial fibrillation status post ablation 2. Most recent ablation was 03/24/18. She has had persistent A. fib. Hyperlipidemia Continue flecainide 50 mg p.o. daily. Cardizem ER 120 mg p.o. daily (hold orders for blood pressure). Hold metoprolol 12.5 mg p.o. twice daily Continue atorvastatin 2D echo 07/26/17ejection fraction 35-40%, global hypokinesis, mild to moderate MR, mild to moderate TR, PAP 54 mmHg. GI: GI bleed History of diverticulosis/diverticulitis Asymptomatic cholelithiasis CT abdomen pelvislarge stones within gallbladder. No evidence of obstruction. No inflammatory changes. Transfusion as per below. Continue protonix drip for now. Clear liquids per GI GI consulted, discussed with Dr. Trevizo. Bleeding scan negative. Awaiting colonoscopy FEN/RENAL: Chronic kidney disease stage III Monitor electrolytes and replace as indicated per ICU electrolyte replacement protocol. Monitor I/O ID: Presumed diverticulitis Penicillin allergy Cipro IV/Flagyl IV for diverticulitis. HEME: Acute blood loss anemia Chronic anti-coagulation with Eliquis for A. fib Received K Centra 25 U/kg 06/08/18. Vitamin K 10 mg IV. Eliquis on hold. Serial hemoglobin every 6 hours. Transfused 4units PRBC 06/08. Normal platelet count and INR. ENDO: Euglycemic PROPH: SCDs for DVT prophylaxis. Pharmacologic DVT prophylaxis is contraindicated. Protonix 40 mg drip as per above. ACCESS: PIV FULL CODE. Consult and transfer to hospitalist service for further medical management, critical care will be signing off, please reconsult if needed.
[2018-06-11] MEDS: Pantoprazole Inj 80 MG in Sodium Chlor 0.9% Inj 100 ML IV.CONT SCH ×2 (01:15→12:14)
[2018-06-11] MEDS: Chlorhexidine Gluconate 2% 1 Pack (2 Cloths) TOPICAL SCH (04:20)
[2018-06-11] MEDS: Ciprofloxacin 400 MG/200 ML 400 MG/200 ML PIGGYBACK IV.SIG SCH ×2 (06:11→17:32)
--- NOTE | 2018-06-11 08:34 | P.PNIM ---
Subjective Interval history: Patient doing well overnight. Reports that she is completing her GoLYTELY with no difficulty. No new concerns overnight. Denies fever, chills, shortness of breath, and chest pain. Physical Exam Vital signs: Vital Signs 06/10/18 09:50 06/10/18 10:00 06/10/18 10:14 Temperature 98.0 F Pulse Rate 70 74 74 Respiratory Rate 12 12 30 H Blood Pressure 129/67 134/66 Pulse Oximetry 95 95 94 L 06/10/18 10:15 06/10/18 10:30 06/10/18 11:00 Temperature Pulse Rate 75 72 70 Respiratory Rate 27 H 20 22 Blood Pressure 150/81 H 152/75 H Pulse Oximetry 94 L 94 L 93 L 06/10/18 11:01 06/10/18 11:30 06/10/18 12:00 Temperature 98.9 F Pulse Rate 70 71 69 Respiratory Rate 22 24 25 H Blood Pressure 154/67 H 148/82 H 150/74 H Pulse Oximetry 89 L 96 96 06/10/18 12:09 06/10/18 12:30 06/10/18 13:00 Temperature Pulse Rate 74 76 Respiratory Rate 25 H 24 Blood Pressure 139/78 Pulse Oximetry 96 95 91 L 06/10/18 13:01 06/10/18 13:30 06/10/18 14:00 Temperature Pulse Rate 75 80 78 Respiratory Rate 23 23 24 Blood Pressure 130/72 136/63 128/69 Pulse Oximetry 85 L 95 97 06/10/18 14:30 06/10/18 15:00 06/10/18 15:30 Temperature Pulse Rate 79 73 71 Respiratory Rate 28 H 23 23 Blood Pressure 148/70 H 136/70 136/69 Pulse Oximetry 95 94 L 96 06/10/18 16:00 06/10/18 16:30 06/10/18 19:00 Temperature 99.3 F Pulse Rate 71 73 Respiratory Rate 24 23 Blood Pressure 147/77 H 154/76 H Pulse Oximetry 95 96 96 06/10/18 20:00 06/10/18 20:40 06/11/18 00:00 Temperature Pulse Rate 80 65 Respiratory Rate 22 13 Blood Pressure 166/91 H 135/73 Pulse Oximetry 95 96 90 L 06/11/18 04:00 06/11/18 04:55 Temperature Pulse Rate 62 Respiratory Rate 16 Blood Pressure 132/65 Pulse Oximetry 99 100 Intake & Output 06/10/18 06/11/18 06/11/18 18:59 06:59 18:59 Intake Total 2200 / 2200 1859 / 1860 Output Total 1400 / 1400 Balance 800 / 800 1859 / 0 Intake: IV 1100 / 1100 1859 / 0 Protonix Inj 80 MG In NS Inj 100 / 100 100 / 100 100 ML @ 10 mls/hr IV.CONT Q10H MARIANNA Rx#:[id number] NS Inj 1,000 ML @ 84 mls/hr IV. 1000 / 1000 1000 / 1000 CONT .[id number] MARIANNA Rx#:[id number] Cipro 400 MG/200 ML Inj 400 mg 200 / 200 In 200 ml @ 200 mls/hr IV.SIG Q12H MARIANNA Rx#:[id number] Magnesium Sulfate Inj 2 GM In 100 / 100 NS Inj 96 ML @ 50 mls/hr IV.SIG UNSCH PRN Rx#:[id number] Sodium Phosphate Inj 30 MMOL In 260 / 260 NS Inj 250 ML @ 42 mls/hr IV. SIG UNSCH PRN Rx#:[id number] Flagyl 500 MG Inj 100 ML @ 100 200 / 200 mls/hr IV.SIG Q8H MARIANNA Rx#: [id number] Oral 900 / 900 Anesthesia Amount 200 / 200 Output: Urine Amount (Catheter) 1400 / 1400 Indwelling Urethral Catheter 1400 / 1400 Other: Date of Last Bowel Movement 06/10/18 06/10/18 # Bowel Movements 3 10 Narrative: GENERAL: NAD, lying comfortably in bed, pleasant SKIN: Warm and dry. HEAD: Normocephalic. 2x2cm right frontal lobe abrasion with small hematoma, not actively bleeding. EYES: No scleral icterus. No injection or drainage. EOMIx2. NECK: Supple, trachea midline. No JVD or lymphadenopathy. CARDIOVASCULAR: Regular rate and rhythm without murmurs, gallops, or rubs. RESPIRATORY: Breath sounds equal bilaterally. No accessory muscle use. GASTROINTESTINAL: Abdomen soft, non-tender, nondistended. MUSCULOSKELETAL: No cyanosis, or edema. BACK: Nontender without obvious deformity. No CVA tenderness. NEURO: AAOx3, motor function 5/5, reflexes 2+ - Urinary Catheter Management Indwelling Urethral Catheter Cath placed during this visit: yes, but has since been removed by the nurse Reason for continuing: Decision to DC catheter Insertion date: 06/08/18 Insertion time: 04:50 Removal date: 06/10/18 Removal time: 17:25 Results - Labs CBC & Chem 7: 06/10/18 03:24 06/10/18 03:24 Assessment and Plan - Assessment (1) GI bleed Code(s): K92.2 - Gastrointestinal hemorrhage, unspecified Status: Acute (2) Diverticulitis Code(s): K57.92 - Diverticulitis of intestine, part unspecified, without perforation or abscess without bleeding Status: Acute (3) CKD (chronic kidney disease) stage 3, GFR 30-59 ml/min Code(s): N18.3 - Chronic kidney disease, stage 3 (moderate) Status: Chronic (4) Blood loss anemia Code(s): D50.0 - Iron deficiency anemia secondary to blood loss (chronic) Status: Acute (5) Anticoagulated by anticoagulation treatment Code(s): Z79.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 Patient has been managed by GI and CC since admission on 06/08 and we have now been asked to take over her medical care along with GI assistance, HD#4 1. GI BLEED: sx resolved since admission History of diverticulosis/diverticulitis CT abdomen pelvislarge stones within gallbladder. No evidence of obstruction. No inflammatory changes. Transfused 5U total of pRBC's, started with 4U on 06/08, last transfusion 1U on , Hgb 9.8 today from 6.9. Continue protonix drip for now. Clear liquids per GI. GI managing, bleeding scan negative. Awaiting colonoscopy scheduled for later this afternoon. Cardiology consulted today for reccs on anticoagulation based of cardiac hx as patient is on Eliquis which caused the bleed. 2. NEURO: Right frontal scalp hematoma after a fall resulting from syncope at home Neg CT Head 3. CV: HX OF AFIB- status post ablation 2. Most recent ablation was 03/24/18. Cont. Flecanide and Diltiazem. Cards consulted for anticoagulation reccs. Previously on Eliquis since July. HLD- continue Atorvastatin (2D echo 07/26/17ejection fraction 35-40%, global hypokinesis, mild to moderate MR, mild to moderate TR) 4. RENAL: Creatinine .98, Hx of Chronic kidney disease stage III Monitor electrolytes and replace as indicated per ICU electrolyte replacement protocol. Monitor I/O 5. ID: Presumed Diverticulitis Penicillin allergy Cipro IV/Flagyl IV started on 06/08 6. HEME: Acute blood loss anemia- likely due to Eliquis for A. fib Received K Centra 25 U/kg 06/08/18. Vitamin K 10 mg IV. Eliquis on hold for now. Transfused 5units PRBC todal, Normal platelet count and INR. Leukocytosis-Likely due infection, WBC 14.8 from 20, afebrile. 7. CHRONIC HEP B: Dx per admission labs, nursing aware for adequate precautions. 8. PROPHYLAXIS: DVT- SCD's, pharmacologic DVT prophylaxis is contraindicated. GI- Protonix 40 mg drip as per above. 9. DISPO: Cont. ABX for Diverticulitis, Colonoscopy today to further assess GI bleed.
[2018-06-11] MEDS: Flecainide 100 MG Tablet PO SCH ×2 (10:10→21:45)
[2018-06-11] MEDS: dilTIAZem CD 120 MG Capsule PO SCH (10:10)
[2018-06-11] MEDS: Magnesium Oxide 400 MG Tablet PO SCH (10:10)
[2018-06-11] MEDS: Allopurinol 100 MG Tablet PO SCH (10:11)
[2018-06-11] MEDS ORDERED: Lidocaine PF 1% Inj 5 ML Syringe INFILTRATN ONE (13:45)
--- NOTE | 2018-06-11 14:34 | GIPROC ---
[facility] [place] [address] [facility]. [facility], [id number] COLONOSCOPY PROCEDURE REPORT EXAM DATE: 06/11/2018 PATIENT NAME: Nasra Nicole MR #: [id number] BIRTHDATE: 1950 ENDOSCOPIST: Jona Trevizo MD ORDER #: [id number] PERSONAL FINANCIAL ADVISOR: Alyce Pineda and Ingrid Zhang STATUS: inpatient INDICATIONS: The patient is a 68 yr old female here for a colonoscopy due to hematochezia PROCEDURE PERFORMED: Colonoscopy with control of bleeding MEDICATIONS: None and Per Anesthesia. PREP QUALITY: good PREP TYPE:GoLytely PREP TYPE:Type: ESTIMATED BLOOD LOSS: None CONSENT: The patient understands the risks and benefits of the procedure and understands that these risks include, but are not limited to: sedation, allergic reaction, infection, perforation and/or bleeding. Alternative means of evaluation and treatment include, among others: physical exam, x-rays, and/or surgical intervention. The patient elects to proceed with this endoscopic procedure. medical equipment was checked for proper function. Hand hygiene and appropriate measures for infection prevention was taken. After the risks, benefits and alternatives of the procedure were thoroughly explained, Informed consent was verified, confirmed and timeout was successfully executed by the treatment team. A digital exam revealed no abnormalities of the rectum The Pentax [id number] endoscope was introduced through the anus and advanced to the hepatic flexure. The instrument was then slowly withdrawn as the colon was fully examined. COLON FINDINGS: There was severe diverticulosis noted throughout the entire examined colon with associated muscular hypertrophy and colonic narrowing. There was active oozing of blood noted from the diverticulosis. Retroflexed views revealed internal hemorrhoids and Retroflexed views revealed large internal hemorrhoids The scope was then completely withdrawn from the patient and the procedure terminated. PROCEDURE WITHDRAWAL TIME:15minutes ADVERSE EVENTS: There were no complications. IMPRESSIONS: 1. There was severe diverticulosis noted throughout the entire examined colon , diverticulitis noted and one inverted diverticulum in the sigmoid colon with visible vessel, endoclip placed successfully with complete hemostasis. exam limited to hepatic flexure secondary to active diverticulitis. 2. Retroflexed views revealed internal hemorrhoids RECOMMENDATIONS: No seeds, nuts and popcorn in diet RECALL: Return 3 months Colonoscopy after resolution of the diverticulitis. Jona Trevizo MD eSigned: Jona Trevizo MD 06/11/2018 2:34 PM cc: PATIENT NAME: Nasra Nicole MR#: [id number]
[2018-06-11] MEDS: Sod Chloride 0.9% Inj 1,000 ML IV.CONT SCH ×2 (17:33→19:43)
--- NOTE | 2018-06-11 18:55 | MB ---
cc: Michelle Abebe MD DATE: 06/11/2018 REASON FOR CONSULTATION: Atrial fibrillation, for anticoagulation management. HISTORY OF PRESENT ILLNESS: Ms. Nicole is a 68-year-old female with a history of atrial fibrillation, previous ablation in February, admitted due to abdominal pain and diverticulitis. During hospitalization, anticoagulation was discontinued. A colonoscopy was performed. I was consulted for evaluation and management. The chart was reviewed. The patient was evaluated. ALLERGIES: PENICILLIN. SOCIAL HISTORY: Negative for smoking and drinking. FAMILY HISTORY: Noncontributory to her current medical condition. MEDICATIONS: She is on: 1. Allopurinol. 2. Lipitor 40 mg a day. 3. Tylenol. 4. Cardizem-CD 120 mg a day. 5. Flecainide 20 mg q.12 hours. 6. Magnesium. 7. Protonix. 8. Potassium. REVIEW OF SYSTEMS: Currently, she refers no chest pain, no palpitations, no fever. PHYSICAL EXAMINATION: GENERAL: Alert, fully oriented. VITAL SIGNS: Blood pressure currently 168/81, pulse 80, respiratory rate 18. LUNGS: Ventilated. CARDIOVASCULAR: S1, S2. No gallop, no murmur. ABDOMEN: Soft. No mass, no pain, no bruits. EXTREMITIES: No edema. DIAGNOSTIC DATA: Electrocardiogram shows sinus rhythm, diffuse ST changes. LABORATORY DATA: Potassium 4.0, creatinine 0.98. INR 1.1. Hemoglobin 9.8. ASSESSMENT AND RECOMMENDATIONS: Ms. Nicole is stable. There is no sign of gastrointestinal bleeding. Her blood pressure is high. I am not sure her medication was given. I am going to increase the Cardizem to 240 mg once a day. Ms. Nicole' Eliquis was discontinued. She is stable. The decision about resuming the Eliquis should be taken by the GI doctor. Cardiovascularly, this medication should be reinitiated, but Eliquis should be taken by the band singer. Medication can be reinitiated whenever it is safe with them. Case discussed with Ms. Nicole. I will monitor her during hospitalization. MD CHIVO Roche/agustina , 05:09 PM , 05:19 PM
[2018-06-11] MEDS: Metoprolol Tartrate 25 MG Tablet PO SCH (19:41)
[2018-06-12] MEDS: Pantoprazole Inj 80 MG in Sodium Chlor 0.9% Inj 100 ML IV.CONT SCH ×2 (00:21→23:09)
[2018-06-12 04:27] LABS: Baso # (Auto) 0.1 th/mm3 (0.0-0.2); Baso % (Auto) 0.5 % (0.0-2.0); Eos # (Auto) 0.4 th/mm3 (0.0-0.4); Eos % (Auto) 3.8 % (0.0-4.0); Lymph # (Auto) 1.2 th/mm3 (1.0-4.8); Lymph % (Auto) 11.1 % (9.0-44.0); Mean Corpuscular HGB Conc 33.3 % (32.0-36.0); Mean Corpuscular Hemoglobin 28.5 pg (27.0-34.0); Mean Corpuscular Volume 85.6 fL (80.0-100.0); Mean Platelet Volume 7.1 fL (7.0-11.0); Mono # (Auto) 0.8 th/mm3 (0.0-0.9); Mono % (Auto) 7.7 % (0.0-8.0); Neut # (Auto) 8.4 th/mm3 (1.8-7.7); Neut % (Auto) 76.9 % (16.0-70.0); Platelet Count 302 th/mm3 (150-450); Red Cell Distribution Width 15.7 % (11.6-17.2); White Blood Count 10.9 th/mm3 (4.0-11.0)
[2018-06-12 04:38] LABS: Albumin 1.9 g/dL (3.4-5.0); Anion Gap 11 meq/L (5-15); Aspartate Aminotransferase 11 U/L (15-37); Blood Urea Nitrogen 7 mg/dL (7-18); Calcium 7.8 mg/dL (8.5-10.1); Carbon Dioxide 22.9 meq/L (21.0-32.0); Chloride 110 meq/L (98-107); Glomerular Filtration Rate 67 mL/min (>89); Glucose,Random 95 mg/dL (74-106); Potassium 3.5 meq/L (3.5-5.1); Sodium 144 meq/L (136-145)
[2018-06-12 04:42] LABS: Alanine Aminotransferase 13 U/L (10-53); Alkaline Phosphatase 206 U/L (45-117); Total Protein 5.5 g/dL (6.4-8.2)
[2018-06-12] MEDS: Chlorhexidine Gluconate 2% 1 Pack (2 Cloths) TOPICAL SCH (04:59)
[2018-06-12] MEDS: Ciprofloxacin 400 MG/200 ML 400 MG/200 ML PIGGYBACK IV.SIG SCH (05:53)
[2018-06-12] MEDS: Flecainide 100 MG Tablet PO SCH ×2 (08:21→20:23)
[2018-06-12] MEDS: Metoprolol Tartrate 25 MG Tablet PO SCH ×2 (08:22→20:30)
[2018-06-12] MEDS: Allopurinol 100 MG Tablet PO SCH (08:22)
[2018-06-12] MEDS: Magnesium Oxide 400 MG Tablet PO SCH (08:22)
[2018-06-12] MEDS: Sod Chloride 0.9% Inj 1,000 ML IV.CONT SCH (08:23)
--- NOTE | 2018-06-12 08:31 | P.PNCA ---
Subjective Interval history: Feeling better. Physical Exam Vital signs: Vital Signs 06/11/18 09:00 06/11/18 09:16 06/11/18 10:00 Temperature Pulse Rate 67 70 Respiratory Rate 17 23 Blood Pressure 169/84 H 183/108 H Pulse Oximetry 100 100 96 06/11/18 10:01 06/11/18 10:30 06/11/18 11:00 Temperature Pulse Rate 76 71 69 Respiratory Rate 42 H 19 18 Blood Pressure 192/99 H 178/93 H 185/89 H Pulse Oximetry 97 96 97 06/11/18 12:01 06/11/18 12:40 06/11/18 13:43 Temperature 97.6 F Pulse Rate 72 79 79 Respiratory Rate 19 18 18 Blood Pressure 172/84 H 172/86 H 172/86 H Pulse Oximetry 98 98 98 06/11/18 14:33 06/11/18 15:05 06/11/18 16:00 Temperature 97.8 F 97.8 F Pulse Rate 71 73 74 Respiratory Rate 14 22 23 Blood Pressure 139/76 177/85 H Pulse Oximetry 96 98 98 06/11/18 16:01 06/11/18 17:00 06/11/18 20:00 Temperature 97.6 F Pulse Rate 74 77 128 H Respiratory Rate 18 22 22 Blood Pressure 199/95 H 168/81 H 150/96 H Pulse Oximetry 98 97 94 L 06/12/18 00:00 06/12/18 04:00 Temperature 97.9 F 97.7 F Pulse Rate 112 H 112 H Respiratory Rate 16 18 Blood Pressure 134/90 137/86 Pulse Oximetry 98 98 Intake & Output 06/11/18 06/12/18 06/12/18 18:59 06:59 18:59 Intake Total 2400 / 2400 1400 / 1400 300 / 300 Output Total 685 / 685 Balance 1715 / 1715 1400 / 1400 300 / 300 Intake: IV 1500 / 1500 1400 / 1400 300 / 300 Protonix Inj 80 MG In NS Inj 100 / 100 100 / 100 100 ML @ 10 mls/hr IV.CONT Q10H MARIANNA Rx#:[id number] NS Inj 1,000 ML @ 84 mls/hr IV. 1000 / 1000 1000 / 1000 CONT .[id number] MARIANNA Rx#:[id number] Cipro 400 MG/200 ML Inj 400 mg 200 / 200 200 / 200 200 / 200 In 200 ml @ 200 mls/hr IV.SIG Q12H MARIANNA Rx#:[id number] Flagyl 500 MG Inj 100 ML @ 100 200 / 200 100 / 100 100 / 100 mls/hr IV.SIG Q8H MARIANNA Rx#: [id number] Oral 400 / 400 Anesthesia Amount 500 / 500 Output: Urine 685 / 685 Other: # Voids 6 Date of Last Bowel Movement 06/11/18 06/11/18 # Bowel Movements 9 6 Narrative: GENERAL: Well-developed, well-nourished, no acute distress. SKIN: Warm and dry. HEAD: Large bruise with small laceration on forehead/christian. Normocephalic. EYES: Pupils equal and round. No scleral icterus. No injection or drainage. ENT: No nasal bleeding or discharge. Mucous membranes pink and moist. NECK: Trachea midline. No JVD. CARDIOVASCULAR: Irregular rhythm, tachycardic rate, heart rate 106, no rub murmur or gallop. RESPIRATORY: No accessory muscle use. Clear to auscultation. Breath sounds equal bilaterally. GASTROINTESTINAL: Abdomen soft, non-tender, nondistended. Hepatic and splenic margins not palpable. MUSCULOSKELETAL: Extremities without clubbing, cyanosis, or edema. No obvious deformities. NEUROLOGICAL: Awake and alert. No obvious cranial nerve deficits. Motor grossly within normal limits. Five out of 5 muscle strength in the arms and legs. Normal speech. PSYCHIATRIC: Appropriate mood and affect; insight and judgment normal. - Urinary Catheter Management Indwelling Urethral Catheter Cath placed during this visit: yes, but has since been removed by the nurse Reason for continuing: Decision to DC catheter Insertion date: 06/08/18 Insertion time: 04:50 Removal date: 06/10/18 Removal time: 17:25 Assessment and Plan - Assessment (1) Atrial fibrillation with rapid ventricular response Code(s): I48.91 - Unspecified atrial fibrillation Status: Chronic Plan: While from a cardiovascular standpoint, Eben would provide the greatest stroke protection, her bleeding risk is better assessed by GI. Dr. Padilla has deferred to GI if and when to resume anticoagulation. She remains in atrial fibrillation with minimal RVR. Follow-up with Dr. Abebe as scheduled post discharge per my discussion with him.
[2018-06-12] MEDS ORDERED: dilTIAZem CD 240 MG Capsule PO SCH (09:00)
--- NOTE | 2018-06-12 12:31 | P.PNGI ---
Subjective Interval history: Patient is awake alert resting in the bed beginning to feel somewhat better but still very weakened. Currently atrial fib heart rate 95 Continues with PPI drip currently denies any nausea vomiting or abdominal pain <La Nam Mitul - Last Filed: 06/12/18 12:32> Physical Exam Vital signs: Vital Signs 06/11/18 12:40 06/11/18 13:43 06/11/18 14:33 Temperature 97.6 F 97.8 F Pulse Rate 79 79 71 Respiratory Rate 18 18 14 Blood Pressure 172/86 H 172/86 H 139/76 Pulse Oximetry 98 98 96 06/11/18 15:05 06/11/18 16:00 06/11/18 16:01 Temperature 97.8 F Pulse Rate 73 74 74 Respiratory Rate 22 23 18 Blood Pressure 177/85 H 199/95 H Pulse Oximetry 98 98 98 06/11/18 17:00 06/11/18 20:00 06/12/18 00:00 Temperature 97.6 F 97.9 F Pulse Rate 77 128 H 112 H Respiratory Rate 22 22 16 Blood Pressure 168/81 H 150/96 H 134/90 Pulse Oximetry 97 94 L 98 06/12/18 04:00 06/12/18 07:00 06/12/18 08:00 Temperature 97.7 F Pulse Rate 112 H 101 H 101 H Respiratory Rate 18 24 11 L Blood Pressure 137/86 145/91 H 140/100 H Pulse Oximetry 98 97 99 06/12/18 08:09 06/12/18 09:00 Temperature Pulse Rate 104 H 106 H Respiratory Rate 22 27 H Blood Pressure 142/101 H 132/98 H Pulse Oximetry 100 80 L Intake & Output 06/11/18 06/12/18 06/12/18 18:59 06:59 18:59 Intake Total 2400 / 2400 1400 / 1400 300 / 300 Output Total 685 / 685 Balance 1715 / 1715 1400 / 1400 300 / 300 Intake: IV 1500 / 1500 1400 / 1400 300 / 300 Protonix Inj 80 MG In NS Inj 100 / 100 100 / 100 100 ML @ 10 mls/hr IV.CONT Q10H [facility] Rx#:[id number] NS Inj 1,000 ML @ 84 mls/hr IV. 1000 / 1000 1000 / 1000 CONT .[id number] MARIANNA Rx#:[id number] Cipro 400 MG/200 ML Inj 400 mg 200 / 200 200 / 200 200 / 200 In 200 ml @ 200 mls/hr IV.SIG Q12H [facility]NA Rx#:[id number] Flagyl 500 MG Inj 100 ML @ 100 200 / 200 100 / 100 100 / 100 mls/hr IV.SIG Q8H MARIANNA Rx#: [id number] Oral 400 / 400 Anesthesia Amount 500 / 500 Output: Urine 685 / 685 Other: # Voids 6 Date of Last Bowel Movement 06/11/18 06/11/18 06/12/18 # Bowel Movements 9 6 - Constitutional mild distress, thin, cachectic - Routine HEENT Exam ENT: Present: mucous membranes dry - Routine Neck Exam Present: supple - Routine Respiratory Exam Present: accessory muscle use (Soft low volumes but no obvious wheezing or rhonchi) - Routine Cardiovascular Exam Present: S1, S2, irregular rhythm - Routine Abdominal Exam Present: soft (No abdominal pain no tenderness) - Routine Skin Exam Present: intact, pallor - Urinary Catheter Management Indwelling Urethral Catheter Cath placed during this visit: yes, but has since been removed by the nurse Reason for continuing: Decision to DC catheter Insertion date: 06/08/18 Insertion time: 04:50 Removal date: 06/10/18 Removal time: 17:25 <La Nam - Last Filed: 06/12/18 12:32> Vital signs: Vital Signs 06/11/18 13:43 06/11/18 14:33 06/11/18 15:05 Temperature 97.8 F 97.8 F Pulse Rate 79 71 73 Respiratory Rate 18 14 22 Blood Pressure 172/86 H 139/76 177/85 H Pulse Oximetry 98 96 98 06/11/18 16:00 06/11/18 16:01 06/11/18 17:00 Temperature Pulse Rate 74 74 77 Respiratory Rate 23 18 22 Blood Pressure 199/95 H 168/81 H Pulse Oximetry 98 98 97 06/11/18 20:00 06/12/18 00:00 06/12/18 04:00 Temperature 97.6 F 97.9 F 97.7 F Pulse Rate 128 H 112 H 112 H Respiratory Rate 22 16 18 Blood Pressure 150/96 H 134/90 137/86 Pulse Oximetry 94 L 98 98 06/12/18 07:00 06/12/18 08:00 06/12/18 08:09 Temperature Pulse Rate 101 H 101 H 104 H Respiratory Rate 24 11 L 22 Blood Pressure 145/91 H 140/100 H 142/101 H Pulse Oximetry 97 99 100 06/12/18 09:00 06/12/18 10:00 06/12/18 11:00 Temperature Pulse Rate 106 H 96 H 84 Respiratory Rate 27 H 22 19 Blood Pressure 132/98 H 142/84 H 129/73 Pulse Oximetry 80 L 97 94 L 06/12/18 12:00 Temperature Pulse Rate 78 Respiratory Rate 13 Blood Pressure 129/74 Pulse Oximetry 95 Intake & Output 06/11/18 06/12/18 06/12/18 18:59 06:59 18:59 Intake Total 2400 / 2400 1400 / 1400 300 / 300 Output Total 685 / 685 Balance 1715 / 1715 1400 / 1400 300 / 300 Intake: IV 1500 / 1500 1400 / 1400 300 / 300 Protonix Inj 80 MG In NS Inj 100 / 100 100 / 100 100 ML @ 10 mls/hr IV.CONT Q10H [facility] Rx#:[id number] NS Inj 1,000 ML @ 84 mls/hr IV. 1000 / 1000 1000 / 1000 CONT .[id number] [facility]NA Rx#:[id number] Cipro 400 MG/200 ML Inj 400 mg 200 / 200 200 / 200 200 / 200 In 200 ml @ 200 mls/hr IV.SIG Q12H [facility]IANNA Rx#:[id number] Flagyl 500 MG Inj 100 ML @ 100 200 / 200 100 / 100 100 / 100 mls/hr IV.SIG Q8H MARIANNA Rx#: [id number] Oral 400 / 400 Anesthesia Amount 500 / 500 Output: Urine 685 / 685 Other: # Voids 6 Date of Last Bowel Movement 06/11/18 06/11/18 06/12/18 # Bowel Movements 9 6 - Urinary Catheter Management Indwelling Urethral Catheter Cath placed during this visit: no <Jona Trevizo - Last Filed: 06/12/18 13:44> Results - Labs CBC & Chem 7: 06/12/18 02:55 06/12/18 02:55 Laboratory Results - last 24 hr 06/12/18 06/12/18 02:55 02:55 WBC 10.9 RBC 4.20 Hgb 12.0 D Hct 36.0 MCV 85.6 MCH 28.5 MCHC 33.3 RDW 15.7 Plt Count 302 D MPV 7.1 Neut % (Auto) 76.9 H Lymph % (Auto) 11.1 [place] % (Auto) 7.7 Eos % (Auto) 3.8 Baso % (Auto) 0.5 Neut # (Auto) 8.4 H Lymph # (Auto) 1.2 [place] # (Auto) 0.8 Eos # (Auto) 0.4 Baso # (Auto) 0.1 WBC Differential . Differential Comment Auto diff final Sodium 144 Potassium 3.5 Chloride 110 H Carbon Dioxide 22.9 Anion Gap 11 BUN 7 Creatinine 0.84 Estimated GFR 67 L Random Glucose 95 Calcium 7.8 L Total Bilirubin 0.4 AST 11 L ALT 13 Alkaline Phosphatase 206 H Total Protein 5.5 L Albumin 1.9 L <La Nam - Last Filed: 06/12/18 12:32> - Labs CBC & Chem 7: 06/12/18 02:55 06/12/18 02:55 Laboratory Results - last 24 hr 06/12/18 06/12/18 02:55 02:55 WBC 10.9 RBC 4.20 Hgb 12.0 D Hct 36.0 MCV 85.6 MCH 28.5 MCHC 33.3 RDW 15.7 Plt Count 302 D MPV 7.1 Neut % (Auto) 76.9 H Lymph % (Auto) 11.1 [place] % (Auto) 7.7 Eos % (Auto) 3.8 Baso % (Auto) 0.5 Neut # (Auto) 8.4 H Lymph # (Auto) 1.2 [place] # (Auto) 0.8 Eos # (Auto) 0.4 Baso # (Auto) 0.1 WBC Differential . Differential Comment Auto diff final Sodium 144 Potassium 3.5 Chloride 110 H Carbon Dioxide 22.9 Anion Gap 11 BUN 7 Creatinine 0.84 Estimated GFR 67 L Random Glucose 95 Calcium 7.8 L Total Bilirubin 0.4 AST 11 L ALT 13 Alkaline Phosphatase 206 H Total Protein 5.5 L Albumin 1.9 L <Jona Trevizo - Last Filed: 06/12/18 13:44> Assessment and Plan (1) GI bleed Status: Acute Code(s): K92.2 - Gastrointestinal hemorrhage, unspecified (2) Hemorrhagic shock Status: Resolved Code(s): R57.8 - Other shock (3) Blood loss anemia Status: Acute Code(s): D50.0 - Iron deficiency anemia secondary to blood loss (chronic) - Plan -History on admission acute onset of left lower quadrant pain and cramping and rectal bleeding. Onset of symptoms approximately 24 hours ago patient states that she filled the toilet at least 4 times with blood and also had a syncopal episode when going to the bathroom with a left frontal laceration. Patient states initially the blood was bright red but then changed to a maroon color with some clotting. denies any vomiting or dyspepsia, positive for some mild nausea but also was hypotensive during that time denies any history of constipation and denies any straining with bowel movements. denies any family history of heart disease and last EGD was in January 2018. Patient was seen per GI during this time and was noted to be treated for diverticulitis but never followed up in the office for colonoscopy. seen per cardiology multiple times and had her last cardiac ablation in on March 25, 2018 and has been on Eliquis. Current labs show hemoglobin initially 5.6 transfusions x4, PT/INR 1.2, positive alkaline phosphatase 216, bilirubin and LFTs normal. Elevated alkaline phosphatase could be related to stable large gallstones seen on CT scan and small amount of free fluid. No documented, bowel duct dilatation. monitored in the intensive care setting and is tentatively scheduled for bleeding scan. Patient continues to have some active rectal bleeding, incontinent. Addendum note at 1500 patient has been cleared per cardiology for colonoscopy. Ordered for the a.m. and evaluate further her rectal bleeding 06/09/2018 checked on patient this a.m. who has not completed her GoLYTELY prep. Patient was currently removed from the bedpan and noted dark brown liquid stool with multiple particles but no obvious bleeding. Plan to reschedule colonoscopy for a.m. when patient has better bowel prep will also continue her clear liquids today discussed with patient the need for her to continue her prep. Bleeding scan performed on 06/08/2018 showed no active bleeding. Current labs include hemoglobin 9.6 after transfusions and appears stable PT/INR 1.1, leukocytosis decreased mild. Patient GI bleed appears to be controlled and patient's Eliquis continues to be held until at least after colonoscopy tomorrow and then reevaluate her needs. Patient does appear to be more stable from a GI perspective further recommendations to follow after colonoscopy tomorrow 06/12/2018 patient is resting in the bed continues in the intensive care setting has transitioned back into atrial fib heart rate 95. Eliquis still on hold current hemoglobin 12 no obvious bleeding patient is status post colonoscopy 2 , poor preps. Severe diverticulitis was noted and one inverted diverticulum in the sigmoid colon was friable vessel, Endo Clip placed successfully with complete hemostasis, internal hemorrhoids. Currently patient is still on hold with Eliquis but will need further discussion between cardiology and gastroenterology for her Eliquis needs. Currently patient has no obvious bleeding if we want to trial Eliquis again and monitor her hemoglobin for several days. Patient will need to follow-up in the GI office in 2-4 weeks after she is stable for discharge Plan Diet cardiac as tolerated Monitor labs, transfuse as needed, monitor H&H Recommend no notes no seeds and no popcorn Will need to return in 3 months after resolution of diverticulitis for repeat colonoscopy as an outpatient Bowel regimen monitor Okay to restart Eliquis, monitor for any GI bleed Supportive care Patient was seen per myself and Dr. Trevizo, note was written on his behalf <La Nam - Last Filed: 06/12/18 12:32> (1) GI bleed Status: Acute Code(s): K92.2 - Gastrointestinal hemorrhage, unspecified (2) Hemorrhagic shock Status: Resolved Code(s): R57.8 - Other shock (3) Blood loss anemia Status: Acute Code(s): D50.0 - Iron deficiency anemia secondary to blood loss (chronic) - Attending Attestation Doing well and tolerating diet well. Will need to schedule outpatient Colonoscopy after 6-8 weeks. No active bleeding after the colonoscopy and endoclip of spurting vessel. <Jona Trevizo - Last Filed: 06/12/18 13:44>
--- NOTE | 2018-06-12 14:17 | P.PNIM ---
Subjective Interval history: Reports she is tolerating her diet and not as much abdominal pain. Reports some tachycardia palpitations overnight which improved after medication was given. No complaints of chest pain at this time. Physical Exam Vital signs: Vital Signs 06/11/18 14:33 06/11/18 15:05 06/11/18 16:00 Temperature 97.8 F 97.8 F Pulse Rate 71 73 74 Respiratory Rate 14 22 23 Blood Pressure 139/76 177/85 H Pulse Oximetry 96 98 98 06/11/18 16:01 06/11/18 17:00 06/11/18 20:00 Temperature 97.6 F Pulse Rate 74 77 128 H Respiratory Rate 18 22 22 Blood Pressure 199/95 H 168/81 H 150/96 H Pulse Oximetry 98 97 94 L 06/12/18 00:00 06/12/18 04:00 06/12/18 07:00 Temperature 97.9 F 97.7 F Pulse Rate 112 H 112 H 101 H Respiratory Rate 16 18 24 Blood Pressure 134/90 137/86 145/91 H Pulse Oximetry 98 98 97 06/12/18 08:00 06/12/18 08:09 06/12/18 09:00 Temperature Pulse Rate 101 H 104 H 106 H Respiratory Rate 11 L 22 27 H Blood Pressure 140/100 H 142/101 H 132/98 H Pulse Oximetry 99 100 80 L 06/12/18 10:00 06/12/18 11:00 06/12/18 12:00 Temperature Pulse Rate 96 H 84 78 Respiratory Rate 22 19 13 Blood Pressure 142/84 H 129/73 129/74 Pulse Oximetry 97 94 L 95 Intake & Output 06/11/18 06/12/18 06/12/18 18:59 06:59 18:59 Intake Total 2400 / 2400 1400 / 1400 300 / 300 Output Total 685 / 685 Balance 1715 / 1715 1400 / 1400 300 / 300 Intake: IV 1500 / 1500 1400 / 1400 300 / 300 Protonix Inj 80 MG In NS Inj 100 / 100 100 / 100 100 ML @ 10 mls/hr IV.CONT Q10H [facility] Rx#:[id number] NS Inj 1,000 ML @ 84 mls/hr IV. 1000 / 1000 1000 / 1000 CONT .[id number] [facility]NA Rx#:[id number] Cipro 400 MG/200 ML Inj 400 mg 200 / 200 200 / 200 200 / 200 In 200 ml @ 200 mls/hr IV.SIG Q12H [facility]NA Rx#:[id number] Flagyl 500 MG Inj 100 ML @ 100 200 / 200 100 / 100 100 / 100 mls/hr IV.SIG Q8H [facility]IANNA Rx#: [id number] Oral 400 / 400 Anesthesia Amount 500 / 500 Output: Urine 685 / 685 Other: # Voids 6 Date of Last Bowel Movement 06/11/18 06/11/18 06/12/18 # Bowel Movements 9 6 Narrative: GENERAL: Well-developed, well-nourished, no acute distress. CARDIOVASCULAR: Irregular rhythm, tachycardic rate, RESPIRATORY: No accessory muscle use. Clear to auscultation. Breath sounds equal bilaterally. GASTROINTESTINAL: Abdomen soft, non-tender, nondistended. Hepatic and splenic margins not palpable. Normoactive bowel sounds MUSCULOSKELETAL: Extremities without clubbing, cyanosis, or edema. No obvious deformities. NEUROLOGICAL: Awake and alert. No obvious cranial nerve deficits. PSYCHIATRIC: Appropriate mood and affect; insight and judgment normal. - Urinary Catheter Management Indwelling Urethral Catheter Cath placed during this visit: yes, but has since been removed by the nurse Reason for continuing: Decision to DC catheter Insertion date: 06/08/18 Insertion time: 04:50 Removal date: 06/10/18 Removal time: 17:25 Results - Labs CBC & Chem 7: 06/12/18 02:55 06/12/18 02:55 Laboratory Results - last 24 hr 06/12/18 06/12/18 02:55 02:55 WBC 10.9 RBC 4.20 Hgb 12.0 D Hct 36.0 MCV 85.6 MCH 28.5 MCHC 33.3 RDW 15.7 Plt Count 302 D MPV 7.1 Neut % (Auto) 76.9 H Lymph % (Auto) 11.1 [place] % (Auto) 7.7 Eos % (Auto) 3.8 Baso % (Auto) 0.5 Neut # (Auto) 8.4 H Lymph # (Auto) 1.2 [place] # (Auto) 0.8 Eos # (Auto) 0.4 Baso # (Auto) 0.1 WBC Differential . Differential Comment Auto diff final Sodium 144 Potassium 3.5 Chloride 110 H Carbon Dioxide 22.9 Anion Gap 11 BUN 7 Creatinine 0.84 Estimated GFR 67 L Random Glucose 95 Calcium 7.8 L Total Bilirubin 0.4 AST 11 L ALT 13 Alkaline Phosphatase 206 H Total Protein 5.5 L Albumin 1.9 L - Procedures 06/10 06/11 colonoscopy Assessment and Plan - Assessment (1) GI bleed Code(s): K92.2 - Gastrointestinal hemorrhage, unspecified Status: Acute (2) Diverticulitis Code(s): K57.92 - Diverticulitis of intestine, part unspecified, without perforation or abscess without bleeding Status: Acute (3) CKD (chronic kidney disease) stage 3, GFR 30-59 ml/min Code(s): N18.3 - Chronic kidney disease, stage 3 (moderate) Status: Chronic (4) Blood loss anemia Code(s): D50.0 - Iron deficiency anemia secondary to blood loss (chronic) Status: Acute (5) Anticoagulated by anticoagulation treatment Code(s): Z79.01 - FCI (current) use of anticoagulants Status: Acute (6) Atrial fibrillation with rapid ventricular response Code(s): I48.91 - Unspecified atrial fibrillation Status: Chronic (7) HLD (hyperlipidemia) Code(s): E78.5 - Hyperlipidemia, unspecified Status: Chronic (8) Hemorrhagic shock Code(s): R57.8 - Other shock Status: Resolved - Plan This is a 68 y/o CF with PMHx of Afib s/p Ablation on Eliquis, CKD, HLD on statin, and HTN admitted for GI bleed and Diverticulitis, patient at the time of admission was hemodynamically unstable with Anemia of 5.6 and required transfusion of 5U pRBC's since admission. Patient has been managed by GI and CC since admission on 06/08 and we have now been asked to take over her medical care along with GI assistance, HD#4 1. GI BLEED: Has resolved since admission History of diverticulosis/diverticulitis CT abdomen pelvislarge stones within gallbladder. No evidence of obstruction. No inflammatory changes. Transfused 5U total of pRBC's, started with 4U on 06/08, last transfusion 1U on , Hgb 12.0 today Changed to p.o. Protonix, advance to heart healthy diet. GI managing, bleeding scan negative. Colonoscopy revealed severe diverticulosis noted throughout the entire examined colon , diverticulitis noted and one inverted diverticulum in the sigmoid colon with visible vessel, endoclip placed successfully with complete hemostasis. exam limited to hepatic flexure secondary to active diverticulitis. Retroflexed views revealed internal hemorrhoids Cardiology consulted today for recommendations on anticoagulation based of cardiac hx as patient is on Eliquis which caused the bleed. Dr. Abebe, cardiology defer decision to GI. GI did clear the patient for restart her home Eliquis, repeat hemoglobin the morning after anticoagulation restarted. 2. Right frontal scalp hematoma after a fall resulting from syncope at home Neg CT Head 3. HX OF AFIB- status post ablation 2. Most recent ablation was 03/24/18. Cont. Flecanide and Diltiazem and metoprolol. Restart Eliquis (2D echo 07/26/17ejection fraction 35-40%, global hypokinesis, mild to moderate MR, mild to moderate TR) 4 HLD- continue Atorvastatin 5. Hx of Chronic kidney disease stage III Monitor electrolytes and replace as indicated per ICU electrolyte replacement protocol. Monitor I/O 6 presumed Diverticulitis Penicillin allergy Cipro IV/Flagyl IV started on 06/08 and was switched to p.o. today. 7. Acute blood loss anemia- likely due to Eliquis for A. fib Received K Centra 25 U/kg 06/08/18. Vitamin K 10 mg IV. Transfused 5units PRBC todal, 7. CHRONIC HEP B: Dx per admission labs, nursing aware for adequate precautions. 8. PROPHYLAXIS: DVT- SCD's, Eliquis to be restarted GI- Protonix 40 mg drip as per above. Transfer patient out of the intensive care unit to [facility]. Discharge Planning: Likely could be discharged to home in the morning if hemoglobin remained stable.
[2018-06-12] MEDS ORDERED: Naloxone Inj 0.4 MG/ML Vial IV.PUSH PRN (14:19)
[2018-06-12] MEDS: Ciprofloxacin 500 MG Tablet PO SCH (20:23)
[2018-06-12] MEDS: metroNIDAZOLE 500 MG Tablet PO SCH (22:51)
[2018-06-13] MEDS: Chlorhexidine Gluconate 2% 1 Pack (2 Cloths) TOPICAL SCH (04:29)
[2018-06-13] MEDS: metroNIDAZOLE 500 MG Tablet PO SCH ×3 (06:09→23:20)
[2018-06-13] MEDS: Allopurinol 100 MG Tablet PO SCH (08:22)
[2018-06-13] MEDS: Flecainide 100 MG Tablet PO SCH ×2 (08:22→23:23)
[2018-06-13] MEDS: Metoprolol Tartrate 25 MG Tablet PO SCH ×2 (08:23→23:20)
[2018-06-13] MEDS: Magnesium Oxide 400 MG Tablet PO SCH (08:24)
[2018-06-13] MEDS: Ciprofloxacin 500 MG Tablet PO SCH ×2 (08:24→23:21)
[2018-06-13 09:58] LABS: Baso % (Auto) 0.3 % (0.0-2.0); Eos # (Auto) 0.4 th/mm3 (0.0-0.4); Hemoglobin 11.6 gm/dL (11.6-15.3); Lymph # (Auto) 1.1 th/mm3 (1.0-4.8); Lymph % (Auto) 7.5 % (9.0-44.0); Mean Corpuscular Volume 84.9 fL (80.0-100.0); Mean Platelet Volume 7.2 fL (7.0-11.0); Mono % (Auto) 7.2 % (0.0-8.0); Neut # (Auto) 11.8 th/mm3 (1.8-7.7); Platelet Count 303 th/mm3 (150-450); Red Blood Count 4.12 mil/mm3 (4.00-5.30); Red Cell Distribution Width 15.8 % (11.6-17.2); White Blood Count 14.4 th/mm3 (4.0-11.0)
--- NOTE | 2018-06-13 10:57 | P.PNGI ---
Subjective Interval history: Pt is resting in bed, watching TV, doing good no bleeding, no nausea or vomiting , no abd pain. <Dianne Palacios - Last Filed: 06/13/18 10:52> Physical Exam Vital signs: Vital Signs 06/12/18 11:00 06/12/18 12:00 06/12/18 13:00 Temperature Pulse Rate 84 78 78 Respiratory Rate 19 13 29 H Blood Pressure 129/73 129/74 139/85 Pulse Oximetry 94 L 95 84 L 06/12/18 14:00 06/12/18 14:15 06/12/18 15:00 Temperature Pulse Rate 82 50 L 42 L Respiratory Rate 26 H 25 H 22 Blood Pressure 131/72 143/67 H Pulse Oximetry 95 96 97 06/12/18 16:00 06/12/18 17:00 06/12/18 18:00 Temperature Pulse Rate 36 L 59 L 61 Respiratory Rate 25 H 19 17 Blood Pressure 111/60 Pulse Oximetry 97 98 95 06/12/18 18:01 06/12/18 19:00 06/12/18 19:02 Temperature Pulse Rate 61 62 Respiratory Rate 19 34 H Blood Pressure 120/59 L Pulse Oximetry 97 92 L 98 06/12/18 20:00 06/12/18 21:00 06/12/18 22:00 Temperature 99 F Pulse Rate 59 L 60 60 Respiratory Rate 20 20 17 Blood Pressure 127/66 Pulse Oximetry 97 96 92 L 06/12/18 22:01 06/12/18 23:00 06/13/18 00:00 Temperature 98.8 F Pulse Rate 61 66 59 L Respiratory Rate 16 26 H 17 Blood Pressure 165/78 H 157/76 H Pulse Oximetry 98 96 90 L 06/13/18 01:00 06/13/18 02:00 06/13/18 03:00 Temperature Pulse Rate 57 L 61 66 Respiratory Rate 19 18 31 H Blood Pressure 163/80 H Pulse Oximetry 97 94 L 98 06/13/18 04:00 06/13/18 07:00 06/13/18 08:00 Temperature 98.8 F 98.6 F Pulse Rate 63 70 Respiratory Rate 26 H 17 Blood Pressure 160/75 H 175/87 H Pulse Oximetry 99 98 99 06/13/18 09:00 Temperature Pulse Rate 70 Respiratory Rate Blood Pressure Pulse Oximetry Intake & Output 09/06/13/18 06/13/18 18:59 06:59 18:59 Intake Total 800 / 800 1350 / 1350 Output Total 450 / 450 Balance 350 / 350 1350 / 1350 Intake: IV 300 / 300 1100 / 1100 Protonix Inj 80 MG In NS Inj 100 / 100 100 ML @ 10 mls/hr IV.CONT Q10H MARIANNA Rx#:[id number] NS Inj 1,000 ML @ 84 mls/hr IV. 1000 / 1000 CONT .[id number] MARIANNA Rx#:[id number] Cipro 400 MG/200 ML Inj 400 mg 200 / 200 In 200 ml @ 200 mls/hr IV.SIG Q12H MARIANNA Rx#:[id number] Flagyl 500 MG Inj 100 ML @ 100 100 / 100 mls/hr IV.SIG Q8H MARIANNA Rx#: [id number] Oral 500 / 500 250 / 250 Output: Urine 450 / 450 Other: # Voids 7 4 Date of Last Bowel Movement 06/12/18 06/12/18 06/12/18 # Bowel Movements 3 - Constitutional no acute distress - Routine HEENT Exam Head: Present: normocephalic, abrasion - Routine Neck Exam Present: supple - Routine Respiratory Exam Present: CTA bilaterally - Routine Cardiovascular Exam Present: RRR - Routine Abdominal Exam Present: soft, normoactive bowel sounds. Absent: tenderness, distended - Routine Skin Exam Present: dry. Absent: jaundice - Routine Neurological Exam Present: alert, oriented X3 - Urinary Catheter Management Indwelling Urethral Catheter Cath placed during this visit: yes, but has since been removed by the nurse Reason for continuing: Decision to DC catheter Insertion date: 06/08/18 Insertion time: 04:50 Removal date: 06/10/18 Removal time: 17:25 <Dianne Palacios - Last Filed: 06/13/18 10:52> Vital signs: Vital Signs 06/12/18 18:00 06/12/18 18:01 06/12/18 19:00 Temperature Pulse Rate 61 61 62 Respiratory Rate 17 19 34 H Blood Pressure 120/59 L Pulse Oximetry 95 97 92 L 06/12/18 19:02 06/12/18 20:00 06/12/18 21:00 Temperature 99 F Pulse Rate 59 L 60 Respiratory Rate 20 20 Blood Pressure 127/66 Pulse Oximetry 98 97 96 06/12/18 22:00 06/12/18 22:01 06/12/18 23:00 Temperature Pulse Rate 60 61 66 Respiratory Rate 17 16 26 H Blood Pressure 165/78 H Pulse Oximetry 92 L 98 96 06/13/18 00:00 06/13/18 01:00 06/13/18 02:00 Temperature 98.8 F Pulse Rate 59 L 57 L 61 Respiratory Rate 17 19 18 Blood Pressure 157/76 H 163/80 H Pulse Oximetry 90 L 97 94 L 06/13/18 03:00 06/13/18 04:00 06/13/18 07:00 Temperature 98.8 F Pulse Rate 66 63 Respiratory Rate 31 H 26 H Blood Pressure 160/75 H Pulse Oximetry 98 99 98 06/13/18 08:00 06/13/18 09:00 06/13/18 12:00 Temperature 98.6 F 98.7 F Pulse Rate 70 70 63 Respiratory Rate 17 12 Blood Pressure 175/87 H 158/75 H Pulse Oximetry 99 99 Intake & Output 06/12/18 06/13/18 06/13/18 18:59 06:59 18:59 Intake Total 800 / 800 1350 / 1350 Output Total 450 / 450 Balance 350 / 350 1350 / 1350 Intake: IV 300 / 300 1100 / 1100 Protonix Inj 80 MG In NS Inj 100 / 100 100 ML @ 10 mls/hr IV.CONT Q10H MARIANNA Rx#:[id number] NS Inj 1,000 ML @ 84 mls/hr IV. 1000 / 1000 CONT .[id number] MARIANNA Rx#:[id number] Cipro 400 MG/200 ML Inj 400 mg 200 / 200 In 200 ml @ 200 mls/hr IV.SIG Q12H MARIANNA Rx#:[id number] Flagyl 500 MG Inj 100 ML @ 100 100 / 100 mls/hr IV.SIG Q8H MARIANNA Rx#: [id number] Oral 500 / 500 250 / 250 Output: Urine 450 / 450 Other: # Voids 7 4 Date of Last Bowel Movement 06/12/18 06/12/18 06/12/18 # Bowel Movements 3 - Urinary Catheter Management Indwelling Urethral Catheter Cath placed during this visit: no <Tara Lomeli - Last Filed: 06/13/18 17:53> Results - Labs CBC & Chem 7: 06/13/18 09:26 06/12/18 02:55 Laboratory Results - last 24 hr 06/13/18 09:26 WBC 14.4 H RBC 4.12 Hgb 11.6 Hct 35.0 MCV 84.9 MCH 28.0 MCHC 33.0 RDW 15.8 Plt Count 303 MPV 7.2 Neut % (Auto) 82.0 H Lymph % (Auto) 7.5 L Stearns % (Auto) 7.2 Eos % (Auto) 3.0 Baso % (Auto) 0.3 Neut # (Auto) 11.8 H Lymph # (Auto) 1.1 Stearns # (Auto) 1.0 H Eos # (Auto) 0.4 Baso # (Auto) 0.0 WBC Differential . Differential Comment Auto diff final - Procedures 06/10 06/11 colonoscopy <Dianne Palacios - Last Filed: 06/13/18 10:52> - Labs CBC & Chem 7: 06/13/18 09:26 06/12/18 02:55 Laboratory Results - last 24 hr 06/13/18 09:26 WBC 14.4 H RBC 4.12 Hgb 11.6 Hct 35.0 MCV 84.9 MCH 28.0 MCHC 33.0 RDW 15.8 Plt Count 303 MPV 7.2 Neut % (Auto) 82.0 H Lymph % (Auto) 7.5 L Stearns % (Auto) 7.2 Eos % (Auto) 3.0 Baso % (Auto) 0.3 Neut # (Auto) 11.8 H Lymph # (Auto) 1.1 Stearns # (Auto) 1.0 H Eos # (Auto) 0.4 Baso # (Auto) 0.0 WBC Differential . Differential Comment Auto diff final <Tara Lomeli - Last Filed: 06/13/18 17:53> Assessment and Plan (1) GI bleed Status: Acute Code(s): K92.2 - Gastrointestinal hemorrhage, unspecified (2) Hemorrhagic shock Status: Resolved Code(s): R57.8 - Other shock (3) Blood loss anemia Status: Acute Code(s): D50.0 - Iron deficiency anemia secondary to blood loss (chronic) - Plan -History on admission acute onset of left lower quadrant pain and cramping and rectal bleeding. Onset of symptoms approximately 24 hours ago patient states that she filled the toilet at least 4 times with blood and also had a syncopal episode when going to the bathroom with a left frontal laceration. Patient states initially the blood was bright red but then changed to a maroon color with some clotting. denies any vomiting or dyspepsia, positive for some mild nausea but also was hypotensive during that time denies any history of constipation and denies any straining with bowel movements. denies any family history of heart disease and last EGD was in January 2018. Patient was seen per GI during this time and was noted to be treated for diverticulitis but never followed up in the office for colonoscopy. seen per cardiology multiple times and had her last cardiac ablation in on March 25, 2018 and has been on Eliquis. Current labs show hemoglobin initially 5.6 transfusions x4, PT/INR 1.2, positive alkaline phosphatase 216, bilirubin and LFTs normal. Elevated alkaline phosphatase could be related to stable large gallstones seen on CT scan and small amount of free fluid. No documented, bowel duct dilatation. monitored in the intensive care setting and is tentatively scheduled for bleeding scan. Patient continues to have some active rectal bleeding, incontinent. Addendum note at 1500 patient has been cleared per cardiology for colonoscopy. Ordered for the a.m. and evaluate further her rectal bleeding 06/09/2018 checked on patient this a.m. who has not completed her GoLYTELY prep. Patient was currently removed from the bedpan and noted dark brown liquid stool with multiple particles but no obvious bleeding. Plan to reschedule colonoscopy for a.m. when patient has better bowel prep will also continue her clear liquids today discussed with patient the need for her to continue her prep. Bleeding scan performed on 06/08/2018 showed no active bleeding. Current labs include hemoglobin 9.6 after transfusions and appears stable PT/INR 1.1, leukocytosis decreased mild. Patient GI bleed appears to be controlled and patient's Eliquis continues to be held until at least after colonoscopy tomorrow and then reevaluate her needs. Patient does appear to be more stable from a GI perspective further recommendations to follow after colonoscopy tomorrow 06/12/2018 patient is resting in the bed continues in the intensive care setting has transitioned back into atrial fib heart rate 95. Eliquis still on hold current hemoglobin 12 no obvious bleeding patient is status post colonoscopy 2 , poor preps. Severe diverticulitis was noted and one inverted diverticulum in the sigmoid colon was friable vessel, Endo Clip placed successfully with complete hemostasis, internal hemorrhoids. Currently patient is still on hold with Eliquis but will need further discussion between cardiology and gastroenterology for her Eliquis needs. Currently patient has no obvious bleeding if we want to trial Eliquis again and monitor her hemoglobin for several days. Patient will need to follow-up in the GI office in 2-4 weeks after she is stable for discharge 06/13/18 Doing good today, no bleeding, no abd pain, hgb is 11.6, stable Plan Diet cardiac as tolerated Monitor labs, transfuse as needed, monitor H&H Will need to return in 3 months after resolution of diverticulitis for repeat colonoscopy as an outpatient Bowel regimen monitor okay to transfer to regular floor f/u with GI upon discharge Gi will sign off Patient was seen per myself and Dr. Lomeli note was written on her behalf <Dianne Palacios - Last Filed: 06/13/18 10:52> (1) GI bleed Status: Acute Code(s): K92.2 - Gastrointestinal hemorrhage, unspecified (2) Hemorrhagic shock Status: Resolved Code(s): R57.8 - Other shock (3) Blood loss anemia Status: Acute Code(s): D50.0 - Iron deficiency anemia secondary to blood loss (chronic) - Attending Attestation seen, examined agree with above <Tara Lomeli - Last Filed: 06/13/18 17:53>
--- NOTE | 2018-06-13 13:05 | P.PNIM ---
Subjective Interval history: Patient reports tolerating a diet. Yesterday she was extremely dizzy and lightheaded due to heart rate going down as low as 29-35. Her Dilitizem was stopped. Today reports heart rate does fluctuate when she is does move or stand up. Physical Exam Vital signs: Vital Signs 06/12/18 14:00 06/12/18 14:15 06/12/18 15:00 Temperature Pulse Rate 82 50 L 42 L Respiratory Rate 26 H 25 H 22 Blood Pressure 131/72 143/67 H Pulse Oximetry 95 96 97 06/12/18 16:00 06/12/18 17:00 06/12/18 18:00 Temperature Pulse Rate 36 L 59 L 61 Respiratory Rate 25 H 19 17 Blood Pressure 111/60 Pulse Oximetry 97 98 95 06/12/18 18:01 06/12/18 19:00 06/12/18 19:02 Temperature Pulse Rate 61 62 Respiratory Rate 19 34 H Blood Pressure 120/59 L Pulse Oximetry 97 92 L 98 06/12/18 20:00 06/12/18 21:00 06/12/18 22:00 Temperature 99 F Pulse Rate 59 L 60 60 Respiratory Rate 20 20 17 Blood Pressure 127/66 Pulse Oximetry 97 96 92 L 06/12/18 22:01 06/12/18 23:00 06/13/18 00:00 Temperature 98.8 F Pulse Rate 61 66 59 L Respiratory Rate 16 26 H 17 Blood Pressure 165/78 H 157/76 H Pulse Oximetry 98 96 90 L 06/13/18 01:00 06/13/18 02:00 06/13/18 03:00 Temperature Pulse Rate 57 L 61 66 Respiratory Rate 19 18 31 H Blood Pressure 163/80 H Pulse Oximetry 97 94 L 98 06/13/18 04:00 06/13/18 07:00 06/13/18 08:00 Temperature 98.8 F 98.6 F Pulse Rate 63 70 Respiratory Rate 26 H 17 Blood Pressure 160/75 H 175/87 H Pulse Oximetry 99 98 99 06/13/18 09:00 06/13/18 12:00 Temperature 98.7 F Pulse Rate 70 63 Respiratory Rate 12 Blood Pressure 158/75 H Pulse Oximetry 99 Intake & Output 06/12/18 06/13/18 06/13/18 18:59 06:59 18:59 Intake Total 800 / 800 1350 / 1350 Output Total 450 / 450 Balance 350 / 350 1350 / 1350 Intake: IV 300 / 300 1100 / 1100 Protonix Inj 80 MG In NS Inj 100 / 100 100 ML @ 10 mls/hr IV.CONT Q10H [facility] Rx#:[id number] NS Inj 1,000 ML @ 84 mls/hr IV. 1000 / 1000 CONT .[id number] [facility]IANNA Rx#:[id number] Cipro 400 MG/200 ML Inj 400 mg 200 / 200 In 200 ml @ 200 mls/hr IV.SIG Q12H MARIANNA Rx#:[id number] Flagyl 500 MG Inj 100 ML @ 100 100 / 100 mls/hr IV.SIG Q8H MARIANNA Rx#: [id number] Oral 500 / 500 250 / 250 Output: Urine 450 / 450 Other: # Voids 7 4 Date of Last Bowel Movement 06/12/18 06/12/18 06/12/18 # Bowel Movements 3 Narrative: GENERAL: Well-developed, well-nourished, no acute distress. CARDIOVASCULAR: Irregular rhythm, tachycardic rate, RESPIRATORY: No accessory muscle use. Clear to auscultation. Breath sounds equal bilaterally. GASTROINTESTINAL: Abdomen soft, non-tender, nondistended. Normoactive bowel sounds MUSCULOSKELETAL: Extremities without clubbing, cyanosis, or edema. No obvious deformities. NEUROLOGICAL: Awake and alert. No obvious cranial nerve deficits. PSYCHIATRIC: Appropriate mood and affect; insight and judgment normal. - Urinary Catheter Management Indwelling Urethral Catheter Cath placed during this visit: yes, but has since been removed by the nurse Reason for continuing: Decision to DC catheter Insertion date: 06/08/18 Insertion time: 04:50 Removal date: 06/10/18 Removal time: 17:25 Results - Labs CBC & Chem 7: 06/13/18 09:26 06/12/18 02:55 Laboratory Results - last 24 hr 06/13/18 09:26 WBC 14.4 H RBC 4.12 Hgb 11.6 Hct 35.0 MCV 84.9 MCH 28.0 MCHC 33.0 RDW 15.8 Plt Count 303 MPV 7.2 Neut % (Auto) 82.0 H Lymph % (Auto) 7.5 L Jones % (Auto) 7.2 Eos % (Auto) 3.0 Baso % (Auto) 0.3 Neut # (Auto) 11.8 H Lymph # (Auto) 1.1 Jones # (Auto) 1.0 H Eos # (Auto) 0.4 Baso # (Auto) 0.0 WBC Differential . Differential Comment Auto diff final - Procedures 06/10 06/11 colonoscopy Assessment and Plan - Assessment (1) GI bleed Code(s): K92.2 - Gastrointestinal hemorrhage, unspecified Status: Acute (2) Diverticulitis Code(s): K57.92 - Diverticulitis of intestine, part unspecified, without perforation or abscess without bleeding Status: Acute (3) CKD (chronic kidney disease) stage 3, GFR 30-59 ml/min Code(s): N18.3 - Chronic kidney disease, stage 3 (moderate) Status: Chronic (4) Blood loss anemia Code(s): D50.0 - Iron deficiency anemia secondary to blood loss (chronic) Status: Acute (5) Anticoagulated by anticoagulation treatment Code(s): Z79.01 - intermodal owner operator truck driver (current) use of anticoagulants Status: Acute (6) Atrial fibrillation with rapid ventricular response Code(s): I48.91 - Unspecified atrial fibrillation Status: Chronic (7) HLD (hyperlipidemia) Code(s): E78.5 - Hyperlipidemia, unspecified Status: Chronic (8) Hemorrhagic shock Code(s): R57.8 - Other shock Status: Resolved - Plan This is a 68 y/o CF with PMHx of Afib s/p Ablation on Eliquis, CKD, HLD on statin, and HTN admitted for GI bleed and Diverticulitis, patient at the time of admission was hemodynamically unstable with Anemia of 5.6 and required transfusion of 5U pRBC's since admission. Patient has been managed by GI and CC since admission on 06/08 and we have now been asked to take over her medical care along with GI assistance, HD#4 1. GI BLEED: Has resolved since admission History of diverticulosis/diverticulitis CT abdomen pelvislarge stones within gallbladder. No evidence of obstruction. No inflammatory changes. Transfused 5U total of pRBC's, started with 4U on 06/08, last transfusion 1U on , Hgb 12.0 today Changed to p.o. Protonix, advance to heart healthy diet. GI managing, bleeding scan negative. Colonoscopy revealed severe diverticulosis noted throughout the entire examined colon , diverticulitis noted and one inverted diverticulum in the sigmoid colon with visible vessel, endoclip placed successfully with complete hemostasis. exam limited to hepatic flexure secondary to active diverticulitis. Retroflexed views revealed internal hemorrhoids Cardiology consulted today for recommendations on anticoagulation based of cardiac hx as patient is on Eliquis which caused the bleed. Dr. Abebe, cardiology defer decision to GI. GI did clear the patient for restart her home Eliquis, repeat hemoglobin after anticoagulation started has remained stable. 2. Right frontal scalp hematoma after a fall resulting from syncope at home Neg CT Head 3. HX OF AFIB- status post ablation 2. Most recent ablation was 03/24/18. Cont. Flecanide an increase metoprolol. dilitiazem stopped due to bradycardia yesterday Restart Eliquis (2D echo 07/26/17ejection fraction 35-40%, global hypokinesis, mild to moderate MR, mild to moderate TR) 4 HLD- continue Atorvastatin 5. Hx of Chronic kidney disease stage III Monitor electrolytes and replace as indicated per ICU electrolyte replacement protocol. Monitor I/O 6 presumed Diverticulitis Penicillin allergy Cipro IV/Flagyl IV started on 06/08 and was switched to p.o. yesterday 7. Acute blood loss anemia- likely due to Eliquis for A. fib Received K Centra 25 U/kg 06/08/18. Vitamin K 10 mg IV. Transfused 5units PRBC todal, 7. CHRONIC HEP B: Dx per admission labs, nursing aware for adequate precautions. 8. PROPHYLAXIS: DVT- SCD's, Eliquis to be restarted GI- Protonix 40 mg drip as per above. Transfer held out of intensive care yesterday due to bradycardia Transfer patient out of the intensive care unit to [facility]. Discharge Planning: Likely could be discharged to home in the morning if hemoglobin remained stable.
[2018-06-13] MEDS: Acetaminophen 325 MG Tablet PO PRN (23:44)
[2018-06-14] MEDS: Acetaminophen 325 MG Tablet PO PRN (05:53)
[2018-06-14] MEDS: metroNIDAZOLE 500 MG Tablet PO SCH ×3 (05:54→22:58)
[2018-06-14] MEDS: Magnesium Oxide 400 MG Tablet PO SCH (09:15)
[2018-06-14] MEDS: Ciprofloxacin 500 MG Tablet PO SCH ×2 (09:16→22:58)
[2018-06-14] MEDS: Metoprolol Tartrate 25 MG Tablet PO SCH ×2 (09:16→22:57)
[2018-06-14] MEDS: Allopurinol 100 MG Tablet PO SCH (09:16)
[2018-06-14] MEDS: Flecainide 100 MG Tablet PO SCH ×2 (09:51→23:00)
--- NOTE | 2018-06-14 14:42 | P.PNIM ---
Subjective Interval history: Patient reports she is feeling stronger today. However complains of left knee pain and swelling. Physical Exam Vital signs: Vital Signs 06/13/18 16:00 06/13/18 20:00 06/13/18 21:20 Temperature 98.6 F 98.4 F Pulse Rate 68 74 72 Respiratory Rate 18 18 Blood Pressure 177/94 H 161/82 H Pulse Oximetry 97 97 06/14/18 00:00 06/14/18 04:00 06/14/18 08:00 Temperature 97.7 F 98.1 F 97.8 F Pulse Rate 67 63 63 Respiratory Rate 18 18 20 Blood Pressure 160/77 H 158/74 H 140/85 Pulse Oximetry 94 L 96 97 06/14/18 12:00 Temperature 97.4 F L Pulse Rate 58 L Respiratory Rate 20 Blood Pressure 149/83 H Pulse Oximetry 96 Intake & Output 06/13/18 06/14/18 06/14/18 18:59 06:59 18:59 Output Total 5 / 5 Balance -5 / -5 Weight 62.1 kg 61.4 kg Output: Urine 4 / 4 Stool / Other: # Voids 1 Date of Last Bowel Movement 06/12/18 06/13/18 06/14/18 Weight On Admission 54 kg Narrative: GENERAL: Well-developed, well-nourished, no acute distress. CARDIOVASCULAR: Irregular rhythm, normal rate, RESPIRATORY: No accessory muscle use. Clear to auscultation. Breath sounds equal bilaterally. GASTROINTESTINAL: Abdomen soft, non-tender, nondistended. Normoactive bowel sounds MUSCULOSKELETAL: Left knee with mild swelling. Range of motion somewhat limited due to pain. NEUROLOGICAL: Awake and alert. No obvious cranial nerve deficits. PSYCHIATRIC: Appropriate mood and affect; insight and judgment normal. - Urinary Catheter Management Indwelling Urethral Catheter Cath placed during this visit: yes, but has since been removed by the nurse Reason for continuing: Decision to DC catheter Insertion date: 06/08/18 Insertion time: 04:50 Removal date: 06/10/18 Removal time: 17:25 Results - Labs CBC & Chem 7: 06/13/18 09:26 06/12/18 02:55 - Procedures 06/10 06/11 colonoscopy Assessment and Plan - Assessment (1) GI bleed Code(s): K92.2 - Gastrointestinal hemorrhage, unspecified Status: Acute (2) Diverticulitis Code(s): K57.92 - Diverticulitis of intestine, part unspecified, without perforation or abscess without bleeding Status: Acute (3) CKD (chronic kidney disease) stage 3, GFR 30-59 ml/min Code(s): N18.3 - Chronic kidney disease, stage 3 (moderate) Status: Chronic (4) Blood loss anemia Code(s): D50.0 - Iron deficiency anemia secondary to blood loss (chronic) Status: Acute (5) Anticoagulated by anticoagulation treatment 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 Patient has been managed by GI and CC since admission on 06/08, patient have stabilized and care transferred to the hospitalist service. 1. GI BLEED: Has resolved since admission History of diverticulosis/diverticulitis CT abdomen pelvislarge stones within gallbladder. No evidence of obstruction. No inflammatory changes. Transfused 5U total of pRBC's, started with 4U on 06/08, last transfusion 1U on , Hgb 12.0 today Changed to p.o. Protonix, advance to heart healthy diet. GI managing, bleeding scan negative. Colonoscopy revealed severe diverticulosis noted throughout the entire examined colon , diverticulitis noted and one inverted diverticulum in the sigmoid colon with visible vessel, endoclip placed successfully with complete hemostasis. exam limited to hepatic flexure secondary to active diverticulitis. Retroflexed views revealed internal hemorrhoids Cardiology consulted for recommendations on anticoagulation based of cardiac hx as patient is on Eliquis which caused the bleed. Dr. Abebe, cardiology defer decision to GI. GI did clear the patient for restart her home Eliquis, repeat hemoglobin after anticoagulation started has remained stable. 2. Right frontal scalp hematoma after a fall resulting from syncope at home Neg CT Head 3. HX OF AFIB- status post ablation 2. Most recent ablation was 03/24/18. Cont. Flecanide an increase metoprolol. dilitiazem stopped due to bradycardia yesterday Restart Eliquis (2D echo 07/26/17ejection fraction 35-40%, global hypokinesis, mild to moderate MR, mild to moderate TR) 4 HLD- continue Atorvastatin 5. Hx of Chronic kidney disease stage III Monitor electrolytes and replace as indicated per ICU electrolyte replacement protocol. Monitor I/O 6 presumed Diverticulitis Penicillin allergy Cipro IV/Flagyl IV started on 06/08 and was switched to p.o. yesterday 7. Acute blood loss anemia- likely due to Eliquis for A. fib Received K Centra 25 U/kg 06/08/18. Vitamin K 10 mg IV. Transfused 5units PRBC todal, 7. CHRONIC HEP B: Dx per admission labs, outpatient follow up advised. 8. Physical deconditioning/left knee swelling and pain: - Patient did have a fall prior to hospitalization. Will obtain x-ray of the knee. Discussed with physical therapy. She remained deconditioned and will need rehab. 9. PROPHYLAXIS: DVT- SCD's, Eliquis GI- Protonix Discharge Planning: Can consider DC to SNF tomorrow. Need insurance authorization.
--- NOTE | 2018-06-14 16:56 | XR ---
EXAM DATE: 06/14/2018 4:53 PM EDT AGE/SEX: 68 years / Female INDICATIONS: Left anterior knee pain, denies injury CLINICAL DATA: This is the patient's initial encounter. Patient reports that signs and symptoms have been present for 3 days and indicates a pain score of 8/10. MEDICAL/SURGICAL HISTORY: . atrial fibrillation. Spinal stenosis None. COMPARISON: No prior exams available for comparison. FINDINGS: 4 views of the right knee large joint effusion.. Bone alignment within normal limits. No evidence of fracture. Small tract marginal osteophytes. CONCLUSION: 1. Large knee joint effusion. 2. No evidence of fracture. 3. Minimal osteoarthritic findings. Electronically signed by: Asad Gresham MD 06/14/2018 4:55 PM EDT
[2018-06-15] MEDS: metroNIDAZOLE 500 MG Tablet PO SCH ×3 (06:58→21:11)
[2018-06-15] MEDS: Acetaminophen 325 MG Tablet PO PRN ×2 (06:58→13:03)
[2018-06-15] MEDS: Metoprolol Tartrate 25 MG Tablet PO SCH ×2 (09:25→21:10)
[2018-06-15] MEDS: Ciprofloxacin 500 MG Tablet PO SCH ×2 (09:25→21:10)
[2018-06-15] MEDS: Magnesium Oxide 400 MG Tablet PO SCH (09:25)
[2018-06-15] MEDS: Allopurinol 100 MG Tablet PO SCH (09:25)
[2018-06-15] MEDS: Flecainide 100 MG Tablet PO SCH ×2 (09:33→21:10)
--- NOTE | 2018-06-15 16:36 | P.PNIM ---
Subjective Interval history: 06/08: 68-year-old female with past medical history of diverticulitis, atrial fibrillation status post ablation 2 on chronic anticoagulation with Eliquis, hypertension, hyperlipidemia chronic kidney disease, gout. She says that she started having LLQ pain around 4 pm on 06/07. At around 10 pm she starting having large bloody BM's. She states she flushed the toilet 4 times when it was filled with blood. She walked back to bed and then got up again to have another large BM, got lightheaded while on the toilet and then passed out on the floor and hit her head with +LOC. She was unable to get up and her did not hear her calling for a couple of hours. He then found her and [facility]AC was called. Upon arrival to the emergency department her blood pressure was 78/68. Pulse was 67 ( but takes metoprolol). She was administered 1 L normal saline bolus. Blood pressure improved to 90s over 50s. Hemoglobin is 5.6 ( previously 9.4 on 06/02/18 ). She is receiving K Centra 25 U/kg. PRBC 4 units have been ordered to transfuse. She is on a protonix drip. Prior hx of GI bleed in January requiring transfusion; had diverticulitis with abscess at that time, bleed presumed diverticular. Never had colonoscopy. Had gastrograffin enema 02/13/18 with diverticulosis. Bleeding scan 02/07/18 negative. Had some nausea when she was hypotensive. No vomiting/hematemesis. No CP or SOB. 06/09: Resting comfortably in bed not in any acute distress. No fresh rectal bleeding 06/10: Resting comfortably in bed, not in any acute distress. Still awaiting colonoscopy as bowel prep still not complete. No fresh bleeding noted. Transfuse 1 unit PRBCs overnight for drop in hemoglobin. 06-11 TRANSFERRED TO [facility] Patient doing well overnight. Reports that she is completing her GoLYTELY with no difficulty. No new concerns overnight. Denies fever, chills, shortness of breath, and chest pain. HAD COLONOSCOPY SEEN BY DR VEGA 06-12 Reports she is tolerating her diet and not as much abdominal pain. Reports some tachycardia palpitations overnight which improved after medication was given. No complaints of chest pain at this time. MEDS ADJUSTED DU TO BRADYCARDIA 9-15 Patient reports tolerating a diet. Yesterday she was extremely dizzy and lightheaded due to heart rate going down as low as 29-35. Her Dilitizem was stopped. Today reports heart rate does fluctuate when she is does move or stand up. 06-14 Patient reports she is feeling stronger today. However complains of left knee pain and swelling. 06-15 Physical Exam Vital signs: Vital Signs 06/14/18 20:00 06/15/18 00:00 06/15/18 04:00 Temperature 98.3 F 98.3 F 98 F Pulse Rate 65 64 60 Respiratory Rate 18 16 16 Blood Pressure 158/77 H 154/74 H 158/77 H Pulse Oximetry 97 99 98 06/15/18 08:00 06/15/18 12:00 06/15/18 13:35 Temperature 97.8 F 98.4 F Pulse Rate 60 54 L 53 L Respiratory Rate 18 14 Blood Pressure 148/74 H 131/69 Pulse Oximetry 97 97 06/15/18 16:10 Temperature 97.5 F L Pulse Rate 55 L Respiratory Rate 18 Blood Pressure 137/70 Pulse Oximetry 97 Intake & Output 06/14/18 06/15/18 06/15/18 18:59 06:59 18:59 Intake Total 720 / 720 Output Total 8 / 8 Balance -8 / -8 720 / 720 Weight 58.2 kg Intake: Oral 720 / 720 Output: Urine 7 / 7 Stool Other: # Voids 2 5 2 Date of Last Bowel Movement 06/14/18 06/15/18 # Bowel Movements 1 2 Narrative: GENERAL: Well-developed, well-nourished, no acute distress. CARDIOVASCULAR: Irregular rhythm, normal rate, RESPIRATORY: No accessory muscle use. Clear to auscultation. Breath sounds equal bilaterally. GASTROINTESTINAL: Abdomen soft, non-tender, nondistended. Normoactive bowel sounds MUSCULOSKELETAL: Left knee with mild swelling. Range of motion somewhat limited due to pain. NEUROLOGICAL: Awake and alert. No obvious cranial nerve deficits. PSYCHIATRIC: Appropriate mood and affect; insight and judgment normal. - Urinary Catheter Management Indwelling Urethral Catheter Cath placed during this visit: yes, but has since been removed by the nurse Reason for continuing: Decision to DC catheter Insertion date: 06/08/18 Insertion time: 04:50 Removal date: 06/10/18 Removal time: 17:25 Results - Labs CBC & Chem 7: 06/13/18 09:26 06/12/18 02:55 - Imaging Impressions Knee X-Ray 06/14/18 00:00 CONCLUSION: 1. Large knee joint effusion. 2. No evidence of fracture. 3. Minimal osteoarthritic findings. - Procedures 06/10 06/11 colonoscopy Assessment and Plan - Assessment (1) GI bleed Code(s): K92.2 - Gastrointestinal hemorrhage, unspecified Status: Acute (2) Diverticulitis Code(s): K57.92 - Diverticulitis of intestine, part unspecified, without perforation or abscess without bleeding Status: Acute (3) CKD (chronic kidney disease) stage 3, GFR 30-59 ml/min Code(s): N18.3 - Chronic kidney disease, stage 3 (moderate) Status: Chronic (4) Blood loss anemia Code(s): D50.0 - Iron deficiency anemia secondary to blood loss (chronic) Status: Acute (5) Anticoagulated by anticoagulation treatment Code(s): Z79.01 - FDC (current) use of anticoagulants Status: Acute (6) Atrial fibrillation with rapid ventricular response Code(s): I48.91 - Unspecified atrial fibrillation Status: Chronic (7) HLD (hyperlipidemia) Code(s): E78.5 - Hyperlipidemia, unspecified Status: Chronic (8) Hemorrhagic shock Code(s): R57.8 - Other shock Status: Resolved - Plan 68 y/o CF with PMHx of Afib s/p Ablation on Eliquis, CKD, HLD on statin, and HTN admitted for GI bleed and Diverticulitis, patient at the time of admission was hemodynamically unstable with Anemia of 5.6 and required transfusion of 5U pRBC's since admission. Patient has been managed by GI and CC since admission on 06/08, patient have stabilized and care transferred to the hospitalist service. 1. GI BLEED: Has resolved since admission History of diverticulosis/diverticulitis CT abdomen pelvislarge stones within gallbladder. No evidence of obstruction. No inflammatory changes. Transfused 5U total of pRBC's, started with 4U on 06/08, last transfusion 1U on , Hgb 12.0 today Changed to p.o. Protonix, advance to heart healthy diet. GI managing, bleeding scan negative. Colonoscopy revealed severe diverticulosis noted throughout the entire examined colon , diverticulitis noted and one inverted diverticulum in the sigmoid colon with visible vessel, endoclip placed successfully with complete hemostasis. exam limited to hepatic flexure secondary to active diverticulitis. Retroflexed views revealed internal hemorrhoids Cardiology consulted for recommendations on anticoagulation based of cardiac hx as patient is on Eliquis which caused the bleed. Dr. Vega, cardiology defer decision to GI. GI did clear the patient for restart her home Eliquis, repeat hemoglobin after anticoagulation started has remained stable. 2. Right frontal scalp hematoma after a fall resulting from syncope at home Neg CT Head 3. HX OF AFIB- status post ablation 2. Most recent ablation was 03/24/18. Cont. Flecanide an increase metoprolol. dilitiazem stopped due to bradycardia yesterday Restart Eliquis (2D echo 07/26/17ejection fraction 35-40%, global hypokinesis, mild to moderate MR, mild to moderate TR) 4 HLD- continue Atorvastatin 5. Hx of Chronic kidney disease stage III Monitor electrolytes and replace as indicated per ICU electrolyte replacement protocol. Monitor I/O 6 presumed Diverticulitis Penicillin allergy Cipro IV/Flagyl IV started on 06/08 and was switched to p.o. yesterday 7. Acute blood loss anemia- likely due to Eliquis for A. fib Received K Centra 25 U/kg 06/08/18. Vitamin K 10 mg IV. Transfused 5units PRBC todal, 7. CHRONIC HEP B: Dx per admission labs, outpatient follow up advised. 8. Physical deconditioning/left knee swelling and pain: - Patient did have a fall prior to hospitalization. Will obtain x-ray of the knee. Discussed with physical therapy. She remained deconditioned and will need rehab. 9. PROPHYLAXIS: DVT- SCD's, Eliquis GI- Protonix Code Status: FULL CODE Discussed Condition With: RN AND PT AND CM Discharge Planning: PENDING [employer] APPROVAL FOR SNF
--- NOTE | 2018-06-16 06:44 | P.CONOP ---
[facility] Orthopedics Consult Note - [facility] Consult date: 06/16/18 Chief complaint: GI bleed Narrative: Nasra is a 68-year-old female with multiple medical problems including diverticulitis, atrial fibrillation, hypertension, chronic kidney disease, and gout. She was initially admitted on 06/08/2018. She initially had a GI bleed. She had a fall. She had loss of consciousness. She hit her head and her right knee. She has noticed increasing left knee pain and swelling. She has difficulty moving her knee. Pain is worse with knee motion and weightbearing. Pain is improved with rest. She states that she did not hit her left knee when she fell. She is currently awake alert on the fifth floor. Review of Systems Patient denies fevers, chills, weight loss, headache, visual changes, hearing loss, chest pain, palpitations, shortness of breath, nausea, vomiting, no urinary changes, diarrhea, bowel changes, neck pain, back pain, skin rashes, weakness of extremities, easy bleeding, enlarged lymph nodes, numbness of extremities, anxiety, or depression. She complains of left knee pain and swelling. She does have history of gout. Patient's social history, past medical history, and family history were reviewed on chart and with patient. [facility] - History History Provided By: Patient - Medical History Medical History: Medical History (Last Reviewed 06/16/18 @ 06:41 by Alvarez More MD) CKD (chronic kidney disease) stage 3, GFR 30-59 ml/min Diverticulitis Gout Atrial fibrillation High cholesterol Hypertension - Surgical History Surgical History: Surgical History (Last Reviewed 06/16/18 @ 06:41 by Alvarez More MD) S/P ablation of atrial fibrillation - Family History Family History: Family History (Last Reviewed 06/16/18 @ 06:41 by Alvarez More MD) Other No significant family history - Social History I have reviewed the patient's Social History: Yes - Tobacco History Second Hand Smoke Exposure: No Smoking Status: Never smoker - Alcohol History How Often Do You Have a Drink Containing Alcohol: Never - Substance Use History Substance History: No History of Abuse - Travel History Recent Travel in the [place] Within the Last 8 Weeks: No Recent Travel Out of the Country Within the Last 8 Weeks: No - Immunization History Tetanus Immunization: Unsure Hx Influenza Vaccine This Season: No Medications and Allergies Active Medications: Active Medications Acetaminophen (Tylenol) 650 mg PO Q6H PRN PRN Reason: PAIN 1-10 AND/OR FEVER >101F Last Admin: 06/15/18 13:03 Dose: 650 mg Allopurinol (Zyloprim) 100 mg PO DAILY ON LICENSE OF [facility] Last Admin: 06/15/18 09:25 Dose: 100 mg Apixaban (Eliquis) 2.5 mg PO BID ON LICENSE OF [facility] Last Admin: 06/15/18 21:10 Dose: 2.5 mg Atorvastatin Calcium (Lipitor) 40 mg PO DAILY ON LICENSE OF [facility] Last Admin: 06/15/18 09:25 Dose: 40 mg Ciprofloxacin HCl (Cipro) 500 mg PO Q12HR ON LICENSE OF [facility] Last Admin: 06/15/18 21:10 Dose: 500 mg Flecainide Acetate (Tambocor) 50 mg PO BID ON LICENSE OF [facility] Last Admin: 06/15/18 21:10 Dose: 50 mg Magnesium Oxide (Mag-Ox) 400 mg PO DAILY ON LICENSE OF [facility] Last Admin: 06/15/18 09:25 Dose: 400 mg Metoprolol Tartrate (Lopressor) 25 mg PO BID ON LICENSE OF [facility] Last Admin: 06/15/18 21:10 Dose: 25 mg Metronidazole (Flagyl) 500 mg PO Q8HR ON LICENSE OF [facility] Last Admin: 06/15/18 21:11 Dose: 500 mg Miscellaneous (Pill Splitter) 1 each OTHER UNSCH PRN PRN Reason: SEE LABEL COMMENTS Naloxone HCl (Narcan Inj) 0.4 mg IV.PUSH UNSCH PRN PRN Reason: SEE LABEL COMMENTS Ondansetron HCl (Zofran Inj) 4 mg IV.PUSH Q6H PRN PRN Reason: NAUSEA OR VOMITING Last Admin: 06/08/18 09:59 Dose: 4 mg Pantoprazole Sodium (Protonix) 40 mg PO DAILY ON LICENSE OF [facility] Last Admin: 06/15/18 09:25 Dose: 40 mg Sodium Chloride (Ns Flush) 2 ml IV.FLUSH BID ON LICENSE OF [facility] Last Admin: 06/15/18 21:11 Dose: 2 ml Sodium Chloride (Ns Flush) 2 ml IV.FLUSH PRN PRN PRN Reason: FLUSH AFTER USING IV ACCESS Allergies Allergy/AdvReac Type Severity Reaction Status Date / Time Penicillins Allergy Intermediate Verified 03/20/18 09:14 Home Medications Medication Instructions Recorded Confirmed Type allopurinol 100 mg PO DAILY 06/02/18 06/08/18 History apixaban [Eliquis] 2.5 mg PO BID 06/02/18 06/08/18 History atorvastatin [Lipitor] 40 mg PO DAILY 06/02/18 06/08/18 History diltiazem HCl 120 mg PO DAILY 06/02/18 06/08/18 History flecainide 50 mg PO Q12H 06/02/18 06/08/18 History magnesium 400 mg PO DAILY 06/02/18 06/08/18 History metoprolol tartrate [Lopressor] 12.5 mg PO BID 06/02/18 06/08/18 History Exam Vital signs: Vital Signs 06/15/18 08:00 06/15/18 12:00 06/15/18 13:35 Temperature 97.8 F 98.4 F Pulse Rate 60 54 L 53 L Respiratory Rate 18 14 Blood Pressure 148/74 H 131/69 Pulse Oximetry 97 97 06/15/18 16:10 06/15/18 18:42 06/15/18 20:00 Temperature 97.5 F L 98.4 F Pulse Rate 55 L 52 L 60 Respiratory Rate 18 17 Blood Pressure 137/70 138/71 Pulse Oximetry 97 99 06/16/18 03:42 Temperature 98.2 F Pulse Rate 58 L Respiratory Rate 19 Blood Pressure 143/67 H Pulse Oximetry 98 Intake & Output 06/15/18 06/15/18 06/16/18 06:59 18:59 06:59 Intake Total 720 / 720 663 / 663 Output Total 400 / 400 Balance 720 / 720 263 / 263 Weight 58.2 kg 58.2 kg Intake: Oral 720 / 720 663 / 663 Output: Urine 400 / 400 Other: # Voids 5 2 2 Date of Last Bowel Movement 06/15/18 06/15/18 # Bowel Movements 1 2 Narrative: Nasra is a 68-year-old female. General: Awake and alert. No acute distress. Appears well-developed well- nourished Head: Normocephalic, large contusion on her forehead, pupils are equal Neck: Soft, nontender, trachea midline Abdomen: Soft, nondistended Examination of right arm reveals no pain or deformity with shoulder, elbow, or wrist motion. Skin is intact. Radial pulse is palpable. Normal capillary refill in fingers. Sensation is intact in radial, ulnar, and median nerve distributions. Overlay Operator strength is +5. No lymphadenopathy noted. Examination of left arm reveals no pain or deformity with shoulder, elbow, or wrist motion. Skin is intact. Radial pulse is palpable. Normal capillary refill in fingers. Sensation is intact in radial, ulnar, and median nerve distributions. Overlay Operator strength is +5. No lymphadenopathy noted. Examination of left lower extremity reveals no pain or deformity with hip or ankle motion. Examination of her knee reveals a large joint effusion. Knee range of motion is from 5 to 20. She has significant pain with any further motion. Skin is intact. Sensation is intact in left foot. Dorsalis pedis pulse is palpable. Normal capillary refill and feet. Thigh and calf compartments are soft. No lymphadenopathy noted. +5 strength of ankle dorsiflexion and plantarflexion. Examination of right lower extremity reveals no pain or deformity with hip, knee , or ankle motion. Skin is intact. Sensation is intact in right foot. Dorsalis pedis pulse is palpable. Normal capillary refill and feet. Thigh and calf compartments are soft. No lymphadenopathy noted. +5 strength of ankle dorsiflexion and plantarflexion. Results - Labs Result Diagrams: 06/13/18 09:26 06/12/18 02:55 - Diagnostic results Knee x-ray: report reviewed, image reviewed Assessment and Plan - Assessment and Plan Nasra has left knee pain and swelling. Pain and swelling have been increasing for several days. She does have history of gout. She also has a history of recent diverticulitis with abscess. I discussed with her the possibility of having infection of her knee. At this point I would recommend left knee aspiration to evaluate for possible gout versus septic arthritis. Patient is in agreement with this plan. The risks and benefits of aspiration were discussed with patient and informed consent was given. Her left knee will be aspirated today. If she has infection of her knee, she will need irrigation and debridement of her left knee. If the fluid is positive for crystals and gout she will need further medical treatment of her gout. All of her questions were answered. A mid-level provider in my office (nurse practitioner or physician research assistant member) may see this patient on follow-up visits and continue to implement the objectives of this plan including: Starting or adjusting medications, injections , cast application, orthotics, brace application, physical therapy, radiological studies (including x-ray, MRI, CT, ultrasound, bone scan), vascular studies, neurologic studies, specialist consultation, and proceeding with surgical management, as appropriate.
[2018-06-16] MEDS: metroNIDAZOLE 500 MG Tablet PO SCH ×3 (06:58→21:12)
--- NOTE | 2018-06-16 07:40 | P.PCN ---
Date of procedure: 06/16/18 Pre-op diagnosis: left knee effusion Post-op diagnosis: same Procedure: needle aspiration of left knee Consent was given for needle aspiration of left knee. The left knee was prepped with alcohol and Betadine. A 20-gauge spinal needle was used to aspirate the knee joint. Only 10 cc of serosanguineous fluid was able to be aspirated. The area was cleaned with alcohol and a dressing was placed. Anesthesia: none Surgeon: Jeremiah Sánchez Pathology: other (aspirate sent for cultures and crystals) Condition: stable Disposition: floor
[2018-06-16 08:16] LABS: Baso % (Auto) 0.3 % (0.0-2.0); Eos # (Auto) 0.3 th/mm3 (0.0-0.4); Eos % (Auto) 1.7 % (0.0-4.0); Hematocrit 34.5 % (35.0-46.0); Hemoglobin 11.7 gm/dL (11.6-15.3); Lymph # (Auto) 1.6 th/mm3 (1.0-4.8); Lymph % (Auto) 10.6 % (9.0-44.0); Mean Corpuscular HGB Conc 33.8 % (32.0-36.0); Mean Corpuscular Hemoglobin 28.4 pg (27.0-34.0); Mean Platelet Volume 7.5 fL (7.0-11.0); Mono % (Auto) 6.7 % (0.0-8.0); Neut # (Auto) 12.4 th/mm3 (1.8-7.7); Neut % (Auto) 80.7 % (16.0-70.0); Platelet Count 446 th/mm3 (150-450); Red Blood Count 4.11 mil/mm3 (4.00-5.30); Red Cell Distribution Width 15.9 % (11.6-17.2); White Blood Count 15.4 th/mm3 (4.0-11.0)
[2018-06-16 08:50] LABS: Anion Gap 10 meq/L (5-15); Aspartate Aminotransferase 9 U/L (15-37); Blood Urea Nitrogen 13 mg/dL (7-18); Calcium 8.3 mg/dL (8.5-10.1); Carbon Dioxide 26.3 meq/L (21.0-32.0); Chloride 104 meq/L (98-107); Glomerular Filtration Rate 58 mL/min (>89); Glucose,Random 91 mg/dL (74-106); Magnesium 1.4 mg/dL (1.5-2.5); Potassium 3.3 meq/L (3.5-5.1); Sodium 140 meq/L (136-145)
[2018-06-16 09:01] LABS: Alanine Aminotransferase 9 U/L (10-53); Alkaline Phosphatase 159 U/L (45-117); Free T4 (Free Thyroxine) 2.18 ng/dL (0.76-1.46); Phosphorus 2.3 mg/dL (2.5-4.9); Total Protein 6.1 g/dL (6.4-8.2)
[2018-06-16] MEDS: Metoprolol Tartrate 25 MG Tablet PO SCH ×2 (09:31→21:13)
[2018-06-16] MEDS: Allopurinol 100 MG Tablet PO SCH (09:31)
[2018-06-16] MEDS: Magnesium Oxide 400 MG Tablet PO SCH (09:31)
[2018-06-16] MEDS: Ciprofloxacin 500 MG Tablet PO SCH ×2 (09:31→21:12)
[2018-06-16] MEDS: Flecainide 100 MG Tablet PO SCH ×2 (09:32→21:12)
[2018-06-16 09:48] LABS: Color,Synovial Fluid Red (Straw)
[2018-06-16 09:54] LABS: Hemoglobin A1c 5.5 % (4.3-6.0)
[2018-06-16 10:06] LABS: Lymphocytes,Synovial Fluid 2 %; Neutrophils,Synovial Fluid 97 % (0-25)
[2018-06-16 10:07] LABS: Appearance,Synovial Fluid Bloody (Clear)
--- NOTE | 2018-06-16 15:37 | P.PNIM ---
Subjective Interval history: 06/08: 68-year-old female with past medical history of diverticulitis, atrial fibrillation status post ablation 2 on chronic anticoagulation with Eliquis, hypertension, hyperlipidemia chronic kidney disease, gout. She says that she started having LLQ pain around 4 pm on 06/07. At around 10 pm she starting having large bloody BM's. She states she flushed the toilet 4 times when it was filled with blood. She walked back to bed and then got up again to have another large BM, got lightheaded while on the toilet and then passed out on the floor and hit her head with +LOC. She was unable to get up and her did not hear her calling for a couple of hours. He then found her and [facility]AC was called. Upon arrival to the emergency department her blood pressure was 78/68. Pulse was 67 ( but takes metoprolol). She was administered 1 L normal saline bolus. Blood pressure improved to 90s over 50s. Hemoglobin is 5.6 ( previously 9.4 on 06/02/18 ). She is receiving K Centra 25 U/kg. PRBC 4 units have been ordered to transfuse. She is on a protonix drip. Prior hx of GI bleed in January requiring transfusion; had diverticulitis with abscess at that time, bleed presumed diverticular. Never had colonoscopy. Had gastrograffin enema 02/13/18 with diverticulosis. Bleeding scan 02/07/18 negative. Had some nausea when she was hypotensive. No vomiting/hematemesis. No CP or SOB. 06/09: Resting comfortably in bed not in any acute distress. No fresh rectal bleeding 06/10: Resting comfortably in bed, not in any acute distress. Still awaiting colonoscopy as bowel prep still not complete. No fresh bleeding noted. Transfuse 1 unit PRBCs overnight for drop in hemoglobin. 06-11 TRANSFERRED TO [facility] Patient doing well overnight. Reports that she is completing her GoLYTELY with no difficulty. No new concerns overnight. Denies fever, chills, shortness of breath, and chest pain. HAD COLONOSCOPY SEEN BY DR VEGA 06-12 Reports she is tolerating her diet and not as much abdominal pain. Reports some tachycardia palpitations overnight which improved after medication was given. No complaints of chest pain at this time. MEDS ADJUSTED DU TO BRADYCARDIA 06-13 Patient reports tolerating a diet. Yesterday she was extremely dizzy and lightheaded due to heart rate going down as low as 29-35. Her Dilitizem was stopped. Today reports heart rate does fluctuate when she is does move or stand up. 06-14 Patient reports she is feeling stronger today. However complains of left knee pain and swelling. 06-15 CONSULT ORTHO REGARDING HOT LEFT KNEE WITH SWELLING 06-16 HAD ASPIRATION OF LEFT KNEE ON ON 06-16 AWAIT CULTURES AWAIT SNF APPROVAL AM LABS HYPOKALEMIA AND HYPOMAG WILL REPLACE Physical Exam Vital signs: Vital Signs 06/15/18 16:10 06/15/18 18:42 06/15/18 20:00 Temperature 97.5 F L 98.4 F Pulse Rate 55 L 52 L 60 Respiratory Rate 18 17 Blood Pressure 137/70 138/71 Pulse Oximetry 97 99 06/16/18 03:42 06/16/18 08:00 06/16/18 12:00 Temperature 98.2 F 97.5 F L 97.9 F Pulse Rate 58 L 62 57 L Respiratory Rate 19 20 20 Blood Pressure 143/67 H 179/78 H 140/80 Pulse Oximetry 98 98 98 Intake & Output 06/15/18 06/16/18 06/16/18 18:59 06:59 18:59 Intake Total 663 / 663 Output Total 400 / 400 Balance 263 / 263 - -1 Weight 58.2 kg Intake: Oral 663 / 663 Output: Urine 400 / 400 Other: # Voids 2 2 Date of Last Bowel Movement 06/15/18 06/16/18 # Bowel Movements 2 Narrative: GENERAL: Well-developed, well-nourished, no acute distress. CARDIOVASCULAR: Irregular rhythm, normal rate, RESPIRATORY: No accessory muscle use. Clear to auscultation. Breath sounds equal bilaterally. GASTROINTESTINAL: Abdomen soft, non-tender, nondistended. Normoactive bowel sounds MUSCULOSKELETAL: Left knee with mild swelling- IMPROVED AFTER LEFT KNEE ASPIRATION. Range of motion somewhat limited due to pain. NEUROLOGICAL: Awake and alert. No obvious cranial nerve deficits. PSYCHIATRIC: Appropriate mood and affect; insight and judgment normal. - Urinary Catheter Management Indwelling Urethral Catheter Cath placed during this visit: yes, but has since been removed by the nurse Reason for continuing: Decision to DC catheter Insertion date: 06/08/18 Insertion time: 04:50 Removal date: 06/10/18 Removal time: 17:25 Results - Labs CBC & Chem 7: 06/16/18 07:41 06/16/18 07:41 Laboratory Results - last 24 hr 06/16/18 06/16/18 06/16/18 07:35 07:35 07:41 WBC 15.4 H RBC 4.11 Hgb 11.7 Hct 34.5 L MCV 84.0 MCH 28.4 MCHC 33.8 RDW 15.9 Plt Count 446 D MPV 7.5 Neut % (Auto) 80.7 H Lymph % (Auto) 10.6 Esmeralda % (Auto) 6.7 Eos % (Auto) 1.7 Baso % (Auto) 0.3 Neut # (Auto) 12.4 H Lymph # (Auto) 1.6 Esmeralda # (Auto) 1.0 H Eos # (Auto) 0.3 Baso # (Auto) 0.0 WBC Differential . Differential Comment Auto diff final Sodium Potassium Chloride Carbon Dioxide Anion Gap BUN Creatinine Estimated GFR Random Glucose Hemoglobin A1c Calcium Phosphorus Magnesium Total Bilirubin AST ALT Alkaline Phosphatase Total Protein Albumin TSH Free T4 Synovial Color Red H Synovial Appearance Bloody H Synovial RBC 71179 H Synovial Nuc Cells 2000 H Synovial Neutrophils 97 H Synovial Lymphocytes 2 Synovial Monocytes 1 Synovial Crystals None 06/16/18 06/16/18 07:41 07:41 WBC RBC Hgb Hct MCV MCH MCHC RDW Plt Count MPV Neut % (Auto) Lymph % (Auto) Esmeralda % (Auto) Eos % (Auto) Baso % (Auto) Neut # (Auto) Lymph # (Auto) Esmeralda # (Auto) Eos # (Auto) Baso # (Auto) WBC Differential Differential Comment Sodium 140 Potassium 3.3 L Chloride 104 Carbon Dioxide 26.3 Anion Gap 10 BUN 13 Creatinine 0.95 Estimated GFR 58 L Random Glucose 91 Hemoglobin A1c 5.5 Calcium 8.3 L Phosphorus 2.3 L Magnesium 1.4 L Total Bilirubin 0.3 AST 9 L ALT 9 L Alkaline Phosphatase 159 H Total Protein 6.1 L D Albumin 2.0 L TSH 3.350 Free T4 2.18 H Synovial Color Synovial Appearance Synovial RBC Synovial Nuc Cells Synovial Neutrophils Synovial Lymphocytes Synovial Monocytes Synovial Crystals Microbiology 06/16/18 07:35 Fluid - Synovial Fluid Gram Stain - Final - Procedures 06/10 06/11 colonoscopy LEFT KNEE NEEDLE ASPIRATION BY ORTHO 06-16 Assessment and Plan - Assessment (1) GI bleed Code(s): K92.2 - Gastrointestinal hemorrhage, unspecified Status: Acute (2) Diverticulitis Code(s): K57.92 - Diverticulitis of intestine, part unspecified, without perforation or abscess without bleeding Status: Acute (3) CKD (chronic kidney disease) stage 3, GFR 30-59 ml/min Code(s): N18.3 - Chronic kidney disease, stage 3 (moderate) Status: Chronic (4) Blood loss anemia Code(s): D50.0 - Iron deficiency anemia secondary to blood loss (chronic) Status: Acute (5) Anticoagulated by anticoagulation treatment Code(s): Z79.01 - intermediate (current) use of anticoagulants Status: Acute (6) Atrial fibrillation with rapid ventricular response Code(s): I48.91 - Unspecified atrial fibrillation Status: Chronic (7) HLD (hyperlipidemia) Code(s): E78.5 - Hyperlipidemia, unspecified Status: Chronic (8) Hemorrhagic shock Code(s): R57.8 - Other shock Status: Resolved - Plan 68 y/o CF with PMHx of Afib s/p Ablation on Eliquis, CKD, HLD on statin, and HTN admitted for GI bleed and Diverticulitis, patient at the time of admission was hemodynamically unstable with Anemia of 5.6 and required transfusion of 5U pRBC's since admission. Patient has been managed by GI and CC since admission on 06/08, patient have stabilized and care transferred to the hospitalist service. 1. GI BLEED: Has resolved since admission History of diverticulosis/diverticulitis CT abdomen pelvislarge stones within gallbladder. No evidence of obstruction. No inflammatory changes. Transfused 5U total of pRBC's, started with 4U on 06/08, last transfusion 1U on , Hgb 12.0 today Changed to p.o. Protonix, advance to heart healthy diet. GI managing, bleeding scan negative. Colonoscopy revealed severe diverticulosis noted throughout the entire examined colon , diverticulitis noted and one inverted diverticulum in the sigmoid colon with visible vessel, endoclip placed successfully with complete hemostasis. exam limited to hepatic flexure secondary to active diverticulitis. Retroflexed views revealed internal hemorrhoids Cardiology consulted for recommendations on anticoagulation based of cardiac hx as patient is on Eliquis which caused the bleed. Dr. Vega, cardiology defer decision to GI. GI did clear the patient for restart her home Eliquis, repeat hemoglobin after anticoagulation started has remained stable. 2. Right frontal scalp hematoma after a fall resulting from syncope at home Neg CT Head 3. HX OF AFIB- status post ablation 2. Most recent ablation was 03/24/18. Cont. Flecanide an increase metoprolol. dilitiazem stopped due to bradycardia yesterday Restart Eliquis (2D echo 07/26/17ejection fraction 35-40%, global hypokinesis, mild to moderate MR, mild to moderate TR) 4 HLD- continue Atorvastatin 5. Hx of Chronic kidney disease stage III Monitor electrolytes and replace as indicated per ICU electrolyte replacement protocol. Monitor I/O 6 presumed Diverticulitis Penicillin allergy Cipro IV/Flagyl IV started on 06/08 and was switched to p.o. yesterday 7. Acute blood loss anemia- likely due to Eliquis for A. fib Received K Centra 25 U/kg 06/08/18. Vitamin K 10 mg IV. Transfused 5units PRBC todal, 7. CHRONIC HEP B: Dx per admission labs, outpatient follow up advised. 8. Physical deconditioning/left knee swelling and pain: - Patient did have a fall prior to hospitalization. Will obtain x-ray of the knee. Discussed with physical therapy. She remained deconditioned and will need rehab. LEFT KNEE SWELLING SP ASPIRATION -18 BY ORTHO HYPOKALEMIA WILL REPLACE HYPOMAGNESIA WILL REPLACE 9. PROPHYLAXIS: DVT- SCD's, Eliquis GI- Protonix Code Status: FULL CODE Discussed Condition With: JOSE RN AND PT AND CM Discharge Planning: PENDING [facility] APPROVAL FOR SNF
[2018-06-16] MEDS ORDERED: Magnesium Sulfate Inj 2 GM in Sodium Chlor 0.9% Inj 96 ML IV.SIG ONE (17:00)
[2018-06-17] MEDS: Acetaminophen 325 MG Tablet PO PRN (00:30)
[2018-06-17] MEDS: metroNIDAZOLE 500 MG Tablet PO SCH ×2 (05:01→14:55)
[2018-06-17 05:51] LABS: Baso % (Auto) 0.3 % (0.0-2.0); Eos # (Auto) 0.2 th/mm3 (0.0-0.4); Eos % (Auto) 1.6 % (0.0-4.0); Hematocrit 40.7 % (35.0-46.0); Hemoglobin 13.3 gm/dL (11.6-15.3); Lymph % (Auto) 7.5 % (9.0-44.0); Mean Corpuscular HGB Conc 32.8 % (32.0-36.0); Mean Corpuscular Hemoglobin 28.2 pg (27.0-34.0); Mean Corpuscular Volume 85.9 fL (80.0-100.0); Mean Platelet Volume 7.4 fL (7.0-11.0); Mono # (Auto) 0.9 th/mm3 (0.0-0.9); Mono % (Auto) 6.4 % (0.0-8.0); Neut # (Auto) 11.6 th/mm3 (1.8-7.7); Neut % (Auto) 84.2 % (16.0-70.0); Platelet Count 430 th/mm3 (150-450); Red Blood Count 4.73 mil/mm3 (4.00-5.30); Red Cell Distribution Width 16.1 % (11.6-17.2); White Blood Count 13.8 th/mm3 (4.0-11.0)
[2018-06-17 06:29] LABS: Alanine Aminotransferase 9 U/L (10-53); Albumin 2.2 g/dL (3.4-5.0); Alkaline Phosphatase 167 U/L (45-117); Anion Gap 10 meq/L (5-15); Aspartate Aminotransferase 14 U/L (15-37); Blood Urea Nitrogen 12 mg/dL (7-18); Calcium 8.7 mg/dL (8.5-10.1); Carbon Dioxide 24.8 meq/L (21.0-32.0); Chloride 103 meq/L (98-107); Glomerular Filtration Rate 61 mL/min (>89); Glucose,Random 96 mg/dL (74-106); Magnesium 1.5 mg/dL (1.5-2.5); Phosphorus 2.5 mg/dL (2.5-4.9); Potassium 4.3 meq/L (3.5-5.1); Sodium 138 meq/L (136-145); Total Protein 6.4 g/dL (6.4-8.2)
[2018-06-17] MEDS: Ciprofloxacin 500 MG Tablet PO SCH (08:26)
[2018-06-17] MEDS: Flecainide 100 MG Tablet PO SCH (08:26)
[2018-06-17] MEDS: Allopurinol 100 MG Tablet PO SCH (08:26)
[2018-06-17] MEDS: Magnesium Oxide 400 MG Tablet PO SCH (08:26)
[2018-06-17] MEDS: Metoprolol Tartrate 25 MG Tablet PO SCH (08:27)
[2018-06-17 09:55] VITALS: RESP 16
--- NOTE | 2018-06-17 11:56 | P.PNIM ---
Subjective Interval history: 06/08: 68-year-old female with past medical history of diverticulitis, atrial fibrillation status post ablation 2 on chronic anticoagulation with Eliquis, hypertension, hyperlipidemia chronic kidney disease, gout. She says that she started having LLQ pain around 4 pm on 06/07. At around 10 pm she starting having large bloody BM's. She states she flushed the toilet 4 times when it was filled with blood. She walked back to bed and then got up again to have another large BM, got lightheaded while on the toilet and then passed out on the floor and hit her head with +LOC. She was unable to get up and her did not hear her calling for a couple of hours. He then found her and [facility] was called. Upon arrival to the emergency department her blood pressure was 78/68. Pulse was 67 ( but takes metoprolol). She was administered 1 L normal saline bolus. Blood pressure improved to 90s over 50s. Hemoglobin is 5.6 ( previously 9.4 on 06/02/18 ). She is receiving K Centra 25 U/kg. PRBC 4 units have been ordered to transfuse. She is on a protonix drip. Prior hx of GI bleed in January requiring transfusion; had diverticulitis with abscess at that time, bleed presumed diverticular. Never had colonoscopy. Had gastrograffin enema 02/13/18 with diverticulosis. Bleeding scan 02/07/18 negative. Had some nausea when she was hypotensive. No vomiting/hematemesis. No CP or SOB. 06/09: Resting comfortably in bed not in any acute distress. No fresh rectal bleeding 06/10: Resting comfortably in bed, not in any acute distress. Still awaiting colonoscopy as bowel prep still not complete. No fresh bleeding noted. Transfuse 1 unit PRBCs overnight for drop in hemoglobin. 06-11 TRANSFERRED TO [facility] Patient doing well overnight. Reports that she is completing her GoLYTELY with no difficulty. No new concerns overnight. Denies fever, chills, shortness of breath, and chest pain. HAD COLONOSCOPY SEEN BY DR VEGA 06-12 Reports she is tolerating her diet and not as much abdominal pain. Reports some tachycardia palpitations overnight which improved after medication was given. No complaints of chest pain at this time. MEDS ADJUSTED DU TO BRADYCARDIA 06-13 Patient reports tolerating a diet. Yesterday she was extremely dizzy and lightheaded due to heart rate going down as low as 29-35. Her Dilitizem was stopped. Today reports heart rate does fluctuate when she is does move or stand up. 06-14 Patient reports she is feeling stronger today. However complains of left knee pain and swelling. 06-15 CONSULT ORTHO REGARDING HOT LEFT KNEE WITH SWELLING 06-16 HAD ASPIRATION OF LEFT KNEE ON ON 06-16 AWAIT CULTURES AWAIT SNF APPROVAL AM LABS HYPOKALEMIA AND HYPOMAG WILL REPLACE 06-17 CAN GO TO SNF TODAY' [address] RN AND PT AND CM AND FAMILY SEE PAPERWORK Physical Exam Vital signs: Vital Signs 06/16/18 12:00 06/16/18 16:00 06/16/18 20:00 Temperature 97.9 F 98.5 F 97.5 F L Pulse Rate 57 L 62 58 L Respiratory Rate 20 20 16 Blood Pressure 140/80 125/59 L 138/75 Pulse Oximetry 98 97 99 06/16/18 20:07 06/17/18 00:00 06/17/18 04:00 Temperature 98.1 F 97.4 F L Pulse Rate 71 62 60 Respiratory Rate 20 18 Blood Pressure 146/76 H 152/72 H Pulse Oximetry 96 98 06/17/18 08:00 Temperature 97.7 F Pulse Rate 62 Respiratory Rate 16 Blood Pressure 161/74 H Pulse Oximetry 97 Intake & Output 06/16/18 06/17/18 06/17/18 18:59 06:59 18:59 Intake Total 480 / 480 100 / 100 Output Total 4 / 4 Balance 476 / 476 100 / 100 Intake: IV 100 / 100 Magnesium Sulfate Inj 2 GM In 100 / 100 NS Inj 96 ML @ 50 mls/hr IV.SIG ONCE ONE Rx#:[id number] Oral 480 / 480 Output: Urine 4 / 4 Other: # Voids 3 Date of Last Bowel Movement 06/16/18 06/16/18 Narrative: GENERAL: Well-developed, well-nourished, no acute distress. CARDIOVASCULAR: Irregular rhythm, normal rate, RESPIRATORY: No accessory muscle use. Clear to auscultation. Breath sounds equal bilaterally. GASTROINTESTINAL: Abdomen soft, non-tender, nondistended. Normoactive bowel sounds MUSCULOSKELETAL: Left knee with mild swelling- IMPROVED AFTER LEFT KNEE ASPIRATION. Range of motion somewhat limited due to pain. NEUROLOGICAL: Awake and alert. No obvious cranial nerve deficits. PSYCHIATRIC: Appropriate mood and affect; insight and judgment normal. - Urinary Catheter Management Indwelling Urethral Catheter Cath placed during this visit: yes, but has since been removed by the nurse Reason for continuing: Decision to DC catheter Insertion date: 06/08/18 Insertion time: 04:50 Removal date: 06/10/18 Removal time: 17:25 Results - Labs CBC & Chem 7: 06/17/18 05:05 06/17/18 05:05 Laboratory Results - last 24 hr 06/17/18 06/17/18 05:05 05:05 WBC 13.8 H RBC 4.73 Hgb 13.3 Hct 40.7 MCV 85.9 MCH 28.2 MCHC 32.8 RDW 16.1 Plt Count 430 MPV 7.4 Neut % (Auto) 84.2 H Lymph % (Auto) 7.5 L [place] % (Auto) 6.4 Eos % (Auto) 1.6 Baso % (Auto) 0.3 Neut # (Auto) 11.6 H Lymph # (Auto) 1.0 [place] # (Auto) 0.9 Eos # (Auto) 0.2 Baso # (Auto) 0.0 WBC Differential . Differential Comment Auto diff final Sodium 138 Potassium 4.3 D Chloride 103 Carbon Dioxide 24.8 Anion Gap 10 BUN 12 Creatinine 0.92 Estimated GFR 61 L Random Glucose 96 Calcium 8.7 Phosphorus 2.5 Magnesium 1.5 Total Bilirubin 0.4 AST 14 L ALT 9 L Alkaline Phosphatase 167 H Total Protein 6.4 Albumin 2.2 L Microbiology 06/16/18 07:35 Fluid - Synovial Fluid Gram Stain - Final - Imaging Abdomen/Pelvis CT 06/08/18 02:56 CONCLUSION: 1. No acute findings. 2. Stable large gallstones and small amount of free fluid in the deep pelvis. Dense coronary calcifications. Chest X-Ray 06/08/18 02:56 CONCLUSION: Cardiomegaly. No acute findings. Head CT 06/08/18 02:56 CONCLUSION: 1. No acute intracranial abnormalities. Right frontal scalp hematoma. . GI Bleed Scan Nuclear Medicine 06/08/18 07:13 CONCLUSION: 1. Negative for hemorrhage. Knee X-Ray 06/14/18 00:00 CONCLUSION: 1. Large knee joint effusion. 2. No evidence of fracture. 3. Minimal osteoarthritic findings. - Procedures 06/10 06/11 colonoscopy LEFT KNEE NEEDLE ASPIRATION BY ORTHO 06-16 Assessment and Plan - Assessment (1) GI bleed Code(s): K92.2 - Gastrointestinal hemorrhage, unspecified Status: Acute (2) Diverticulitis Code(s): K57.92 - Diverticulitis of intestine, part unspecified, without perforation or abscess without bleeding Status: Acute (3) CKD (chronic kidney disease) stage 3, GFR 30-59 ml/min Code(s): N18.3 - Chronic kidney disease, stage 3 (moderate) Status: Chronic (4) Blood loss anemia Code(s): D50.0 - Iron deficiency anemia secondary to blood loss (chronic) Status: Acute (5) Anticoagulated by anticoagulation treatment Code(s): Z79.01 - bed bug exterminator (current) use of anticoagulants Status: Acute (6) Atrial fibrillation with rapid ventricular response Code(s): I48.91 - Unspecified atrial fibrillation Status: Chronic (7) HLD (hyperlipidemia) Code(s): E78.5 - Hyperlipidemia, unspecified Status: Chronic (8) Hemorrhagic shock Code(s): R57.8 - Other shock Status: Resolved - Plan 68 y/o CF with PMHx of Afib s/p Ablation on Eliquis, CKD, HLD on statin, and HTN admitted for GI bleed and Diverticulitis, patient at the time of admission was hemodynamically unstable with Anemia of 5.6 and required transfusion of 5U pRBC's since admission. Patient has been managed by GI and CC since admission on 06/08, patient have stabilized and care transferred to the hospitalist service. 1. GI BLEED: Has resolved since admission History of diverticulosis/diverticulitis CT abdomen pelvislarge stones within gallbladder. No evidence of obstruction. No inflammatory changes. Transfused 5U total of pRBC's, started with 4U on 06/08, last transfusion 1U on , Hgb 12.0 today Changed to p.o. Protonix, advance to heart healthy diet. GI managing, bleeding scan negative. Colonoscopy revealed severe diverticulosis noted throughout the entire examined colon , diverticulitis noted and one inverted diverticulum in the sigmoid colon with visible vessel, endoclip placed successfully with complete hemostasis. exam limited to hepatic flexure secondary to active diverticulitis. Retroflexed views revealed internal hemorrhoids Cardiology consulted for recommendations on anticoagulation based of cardiac hx as patient is on Eliquis which caused the bleed. Dr. Vega, cardiology defer decision to GI. GI did clear the patient for restart her home Eliquis, repeat hemoglobin after anticoagulation started has remained stable. 2. Right frontal scalp hematoma after a fall resulting from syncope at home Neg CT Head 3. HX OF AFIB- status post ablation 2. Most recent ablation was 03/24/18. Cont. Flecanide an increase metoprolol. dilitiazem stopped due to bradycardia yesterday Restart Eliquis (2D echo 07/26/17ejection fraction 35-40%, global hypokinesis, mild to moderate MR, mild to moderate TR) 4 HLD- continue Atorvastatin 5. Hx of Chronic kidney disease stage III Monitor electrolytes and replace as indicated per ICU electrolyte replacement protocol. Monitor I/O 6 presumed Diverticulitis Penicillin allergy Cipro IV/Flagyl IV started on 06/08 and was switched to PO yesterday 7. Acute blood loss anemia- likely due to Eliquis for A. fib Received K Centra 25 U/kg 06/08/18. Vitamin K 10 mg IV. Transfused 5units PRBC todal, 7. CHRONIC HEP B: Dx per admission labs, outpatient follow up advised. 8. Physical deconditioning/left knee swelling and pain: - Patient did have a fall prior to hospitalization. Will obtain x-ray of the knee. Discussed with physical therapy. She remained deconditioned and will need rehab. LEFT KNEE SWELLING SP ASPIRATION 18 BY ORTHO HYPOKALEMIA WILL REPLACE HYPOMAGNESIA WILL REPLACE 9. PROPHYLAXIS: DVT- SCD's, Eliquis GI- Protonix Code Status: FULL CODE Discussed Condition With: JOSE RN AND PT AND CM Discharge Planning: PENDING [facility] APPROVAL FOR SNF DC TO SNF TODAY
--- NOTE | 2018-06-17 12:14 | P.DS ---
Date of admission: 06/08/18 04:21 Primary care physician: Arjun Jones Attending physician on discharge: Harshad Quinteros Anticipated date of discharge: 06/17/18 Brief History from admission: 68-year-old female with past medical history of diverticulitis, atrial fibrillation status post ablation 2 on chronic anticoagulation with Eliquis, hypertension, hyperlipidemia chronic kidney disease, gout. She says that she started having LLQ pain around 4 pm on 06/07. At around 10 pm she starting having large bloody BM's. She states she flushed the toilet 4 times when it was filled with blood. She walked back to bed and then got up again to have another large BM, got lightheaded while on the toilet and then passed out on the floor and hit her head with +LOC. She was unable to get up and her did not hear her calling for a couple of hours. He then found her and EVAC was called. Upon arrival to the emergency department her blood pressure was 78/68. Pulse was 67 ( but takes metoprolol). She was administered 1 L normal saline bolus. Blood pressure improved to 90s over 50s. Hemoglobin is 5.6 ( previously 9.4 on 06/02/18 ). She is receiving K Centra 25 U/kg. PRBC 4 units have been ordered to transfuse. She is on a protonix drip. Prior hx of GI bleed in January requiring transfusion; had diverticulitis with abscess at that time, bleed presumed diverticular. Never had colonoscopy. Had gastrograffin enema 02/13/18 with diverticulosis. Bleeding scan 02/07/18 negative. Had some nausea when she was hypotensive. No vomiting/hematemesis. No CP or SOB. Patient update on day of discharge: 06/08: 68-year-old female with past medical history of diverticulitis, atrial fibrillation status post ablation 2 on chronic anticoagulation with Eliquis, hypertension, hyperlipidemia chronic kidney disease, gout. She says that she started having LLQ pain around 4 pm on 06/07. At around 10 pm she starting having large bloody BM's. She states she flushed the toilet 4 times when it was filled with blood. She walked back to bed and then got up again to have another large BM, got lightheaded while on the toilet and then passed out on the floor and hit her head with +LOC. She was unable to get up and her did not hear her calling for a couple of hours. He then found her and EVAC was called. Upon arrival to the emergency department her blood pressure was 78/68. Pulse was 67 ( but takes metoprolol). She was administered 1 L normal saline bolus. Blood pressure improved to 90s over 50s. Hemoglobin is 5.6 ( previously 9.4 on 06/02/18 ). She is receiving K Centra 25 U/kg. PRBC 4 units have been ordered to transfuse. She is on a protonix drip. Prior hx of GI bleed in January requiring transfusion; had diverticulitis with abscess at that time, bleed presumed diverticular. Never had colonoscopy. Had gastrograffin enema 02/13/18 with diverticulosis. Bleeding scan 02/07/18 negative. Had some nausea when she was hypotensive. No vomiting/hematemesis. No CP or SOB. 06/09: Resting comfortably in bed not in any acute distress. No fresh rectal bleeding 06/10: Resting comfortably in bed, not in any acute distress. Still awaiting colonoscopy as bowel prep still not complete. No fresh bleeding noted. Transfuse 1 unit PRBCs overnight for drop in hemoglobin. 06-11 TRANSFERRED TO [facility] Patient doing well overnight. Reports that she is completing her GoLYTELY with no difficulty. No new concerns overnight. Denies fever, chills, shortness of breath, and chest pain. HAD COLONOSCOPY SEEN BY DR VEGA 06-12 Reports she is tolerating her diet and not as much abdominal pain. Reports some tachycardia palpitations overnight which improved after medication was given. No complaints of chest pain at this time. MEDS ADJUSTED DU TO BRADYCARDIA 15 Patient reports tolerating a diet. Yesterday she was extremely dizzy and lightheaded due to heart rate going down as low as 29-35. Her Dilitizem was stopped. Today reports heart rate does fluctuate when she is does move or stand up. 9-16 Patient reports she is feeling stronger today. However complains of left knee pain and swelling. 17 CONSULT ORTHO REGARDING HOT LEFT KNEE WITH SWELLING 06-16 HAD ASPIRATION OF LEFT KNEE ON ON 06-16 AWAIT CULTURES AWAIT SNF APPROVAL AM LABS HYPOKALEMIA AND HYPOMAG WILL REPLACE 9-19 CAN GO TO SNF TODAY' [address] RN AND PT AND CM AND FAMILY SEE PAPERWORK DS: Diagnosis - Discharge Diagnosis (1) GI bleed Status: Acute (2) Diverticulitis Status: Acute (3) CKD (chronic kidney disease) stage 3, GFR 30-59 ml/min Status: Chronic (4) Blood loss anemia Status: Acute (5) Anticoagulated by anticoagulation treatment Status: Acute (6) Atrial fibrillation with rapid ventricular response Status: Chronic (7) HLD (hyperlipidemia) Status: Chronic (8) Hemorrhagic shock Status: Resolved DS: Medications - Discharge Medications Prescriptions: allopurinol 100 mg PO DAILY #30 tab apixaban [Eliquis] 2.5 mg PO BID #60 tab atorvastatin [Lipitor] 40 mg PO DAILY #30 tab ciprofloxacin HCl 500 mg PO Q12HR #10 tab flecainide 50 mg PO Q12H #60 tab magnesium 400 mg PO DAILY #60 tab metoprolol tartrate 25 mg PO BID #60 tab metronidazole 500 mg PO Q8HR #15 tab ondansetron [Zofran ODT] 8 mg PO TID PRN #30 tab PRN Reason: Nausea And Vomiting pantoprazole 40 mg PO DAILY #30 tab DS: Summary Hospital Course: 06/08: 68-year-old female with past medical history of diverticulitis, atrial fibrillation status post ablation 2 on chronic anticoagulation with Eliquis, hypertension, hyperlipidemia chronic kidney disease, gout. She says that she started having LLQ pain around 4 pm on 06/07. At around 10 pm she starting having large bloody BM's. She states she flushed the toilet 4 times when it was filled with blood. She walked back to bed and then got up again to have another large BM, got lightheaded while on the toilet and then passed out on the floor and hit her head with +LOC. She was unable to get up and her did not hear her calling for a couple of hours. He then found her and EVAC was called. Upon arrival to the emergency department her blood pressure was 78/68. Pulse was 67 ( but takes metoprolol). She was administered 1 L normal saline bolus. Blood pressure improved to 90s over 50s. Hemoglobin is 5.6 ( previously 9.4 on 06/02/18 ). She is receiving K Centra 25 U/kg. PRBC 4 units have been ordered to transfuse. She is on a protonix drip. Prior hx of GI bleed in January requiring transfusion; had diverticulitis with abscess at that time, bleed presumed diverticular. Never had colonoscopy. Had gastrograffin enema 02/13/18 with diverticulosis. Bleeding scan 02/07/18 negative. Had some nausea when she was hypotensive. No vomiting/hematemesis. No CP or SOB. 06/09: Resting comfortably in bed not in any acute distress. No fresh rectal bleeding 06/10: Resting comfortably in bed, not in any acute distress. Still awaiting colonoscopy as bowel prep still not complete. No fresh bleeding noted. Transfuse 1 unit PRBCs overnight for drop in hemoglobin. 06-11 TRANSFERRED TO [facility] Patient doing well overnight. Reports that she is completing her GoLYTELY with no difficulty. No new concerns overnight. Denies fever, chills, shortness of breath, and chest pain. HAD COLONOSCOPY SEEN BY DR VEGA 06-12 Reports she is tolerating her diet and not as much abdominal pain. Reports some tachycardia palpitations overnight which improved after medication was given. No complaints of chest pain at this time. MEDS ADJUSTED DU TO BRADYCARDIA 06-13 Patient reports tolerating a diet. Yesterday she was extremely dizzy and lightheaded due to heart rate going down as low as 29-35. Her Dilitizem was stopped. Today reports heart rate does fluctuate when she is does move or stand up. 16 Patient reports she is feeling stronger today. However complains of left knee pain and swelling. 17 CONSULT ORTHO REGARDING HOT LEFT KNEE WITH SWELLING 06-16 HAD ASPIRATION OF LEFT KNEE ON ON 06-16 AWAIT CULTURES AWAIT SNF APPROVAL AM LABS HYPOKALEMIA AND HYPOMAG WILL REPLACE 06-17 CAN GO TO SNF TODAY' [address] RN AND PT AND CM AND FAMILY SEE PAPERWORK 68 y/o CF with PMHx of Afib s/p Ablation on Eliquis, CKD, HLD on statin, and HTN admitted for GI bleed and Diverticulitis, patient at the time of admission was hemodynamically unstable with Anemia of 5.6 and required transfusion of 5U pRBC's since admission. Patient has been managed by GI and CC since admission on 06/08, patient have stabilized and care transferred to the hospitalist service. 1. GI BLEED: Has resolved since admission History of diverticulosis/diverticulitis CT abdomen pelvislarge stones within gallbladder. No evidence of obstruction. No inflammatory changes. Transfused 5U total of pRBC's, started with 4U on 06/08, last transfusion 1U on , Hgb 12.0 today Changed to p.o. Protonix, advance to heart healthy diet. GI managing, bleeding scan negative. Colonoscopy revealed severe diverticulosis noted throughout the entire examined colon , diverticulitis noted and one inverted diverticulum in the sigmoid colon with visible vessel, endoclip placed successfully with complete hemostasis. exam limited to hepatic flexure secondary to active diverticulitis. Retroflexed views revealed internal hemorrhoids Cardiology consulted for recommendations on anticoagulation based of cardiac hx as patient is on Eliquis which caused the bleed. Dr. Vega, cardiology defer decision to GI. GI did clear the patient for restart her home Eliquis, repeat hemoglobin after anticoagulation started has remained stable. 2. Right frontal scalp hematoma after a fall resulting from syncope at home Neg CT Head 3. HX OF AFIB- status post ablation 2. Most recent ablation was 03/24/18. Cont. Flecanide an increase metoprolol. dilitiazem stopped due to bradycardia yesterday Restart Eliquis (2D echo 07/26/17ejection fraction 35-40%, global hypokinesis, mild to moderate MR, mild to moderate TR) 4 HLD- continue Atorvastatin 5. Hx of Chronic kidney disease stage III Monitor electrolytes and replace as indicated per ICU electrolyte replacement protocol. Monitor I/O 6 presumed Diverticulitis Penicillin allergy Cipro IV/Flagyl IV started on 06/08 and was switched to PO yesterday 7. Acute blood loss anemia- likely due to Eliquis for A. fib Received K Centra 25 U/kg 06/08/18. Vitamin K 10 mg IV. Transfused 5units PRBC todal, 7. CHRONIC HEP B: Dx per admission labs, outpatient follow up advised. 8. Physical deconditioning/left knee swelling and pain: - Patient did have a fall prior to hospitalization. Will obtain x-ray of the knee. Discussed with physical therapy. She remained deconditioned and will need rehab. LEFT KNEE SWELLING SP ASPIRATION 06-16 BY ORTHO HYPOKALEMIA WILL REPLACE HYPOMAGNESIA WILL REPLACE 9. PROPHYLAXIS: DVT- SCD's, Eliquis GI- Protonix - Time Spent with Patient Total time spent providing and/or coordinating discharge services: Greater than 30 minutes Exam Vital signs: Vital Signs 06/16/18 12:00 06/16/18 16:00 06/16/18 20:00 Temperature 97.9 F 98.5 F 97.5 F L Pulse Rate 57 L 62 58 L Respiratory Rate 20 20 16 Blood Pressure 140/80 125/59 L 138/75 Pulse Oximetry 98 97 99 06/16/18 20:07 06/17/18 00:00 06/17/18 04:00 Temperature 98.1 F 97.4 F L Pulse Rate 71 62 60 Respiratory Rate 20 18 Blood Pressure 146/76 H 152/72 H Pulse Oximetry 96 98 06/17/18 08:00 Temperature 97.7 F Pulse Rate 62 Respiratory Rate 16 Blood Pressure 161/74 H Pulse Oximetry 97 Intake & Output 06/16/18 06/17/18 06/17/18 18:59 06:59 18:59 Intake Total 480 / 480 100 / 100 Output Total 4 / 4 Balance 476 / 476 100 / 100 Intake: IV 100 / 100 Magnesium Sulfate Inj 2 GM In 100 / 100 NS Inj 96 ML @ 50 mls/hr IV.SIG ONCE ONE Rx#:[id number] Oral 480 / 480 Output: Urine 4 / 4 Other: # Voids 3 Date of Last Bowel Movement 06/16/18 06/16/18 Narrative: GENERAL: Well-developed, well-nourished, no acute distress. CARDIOVASCULAR: Irregular rhythm, normal rate, RESPIRATORY: No accessory muscle use. Clear to auscultation. Breath sounds equal bilaterally. GASTROINTESTINAL: Abdomen soft, non-tender, nondistended. Normoactive bowel sounds MUSCULOSKELETAL: Left knee with mild swelling- IMPROVED AFTER LEFT KNEE ASPIRATION. Range of motion somewhat limited due to pain. NEUROLOGICAL: Awake and alert. No obvious cranial nerve deficits. PSYCHIATRIC: Appropriate mood and affect; insight and judgment normal. Results Procedures completed during hospitalization: 06/10 06/11 colonoscopy LEFT KNEE NEEDLE ASPIRATION BY ORTHO 06-16 Completed studies during hospitalization: Laboratory Results CBC w Diff Auto diff final 06/08/18 03:15 WBC 13.8 th/mm3 (4.0-11.0) H 06/17/18 05:05 RBC 4.73 mil/mm3 (4.00-5.30) 06/17/18 05:05 Hgb 13.3 gm/dL (11.6-15.3) 06/17/18 05:05 Hct 40.7 % (35.0-46.0) 06/17/18 05:05 MCV 85.9 fL (80.0-100.0) 06/17/18 05:05 MCH 28.2 pg (27.0-34.0) 06/17/18 05:05 MCHC 32.8 % (32.0-36.0) 06/17/18 05:05 RDW 16.1 % (11.6-17.2) 06/17/18 05:05 Plt Count 430 th/mm3 (150-450) 06/17/18 05:05 MPV 7.4 fL (7.0-11.0) 06/17/18 05:05 Prelim Diff (Auto) [facility] 06/08/18 03:15 Neut % (Auto) 84.2 % (16.0-70.0) H 06/17/18 05:05 Lymph % (Auto) 7.5 % (9.0-44.0) L 06/17/18 05:05 [place] % (Auto) 6.4 % (0.0-8.0) 06/17/18 05:05 Eos % (Auto) 1.6 % (0.0-4.0) 06/17/18 05:05 Baso % (Auto) 0.3 % (0.0-2.0) 06/17/18 05:05 Neut # (Auto) 11.6 th/mm3 (1.8-7.7) H 06/17/18 05:05 Lymph # (Auto) 1.0 th/mm3 (1.0-4.8) 06/17/18 05:05 [place] # (Auto) 0.9 th/mm3 (0.0-0.9) 06/17/18 05:05 Eos # (Auto) 0.2 th/mm3 (0.0-0.4) 06/17/18 05:05 Baso # (Auto) 0.0 th/mm3 (0.0-0.2) 06/17/18 05:05 WBC Differential . 06/17/18 05:05 Differential Comment Auto diff final 06/17/18 05:05 PT 11.4 sec (9.8-11.6) 06/10/18 03:24 INR 1.1 Ratio 06/10/18 03:24 APTT 30.3 sec (24.3-30.1) H 06/10/18 03:24 Fibrinogen 506 mg/dL (227-377) H 06/10/18 03:24 Sodium 138 meq/L (136-145) 06/17/18 05:05 Potassium 4.3 meq/L (3.5-5.1) D 06/17/18 05:05 Chloride 103 meq/L (98-107) 06/17/18 05:05 Carbon Dioxide 24.8 meq/L (21.0-32.0) 06/17/18 05:05 Anion Gap 10 meq/L (5-15) 06/17/18 05:05 BUN 12 mg/dL (7-18) 06/17/18 05:05 Creatinine 0.92 mg/dL (0.50-1.00) 06/17/18 05:05 Estimated GFR 61 mL/min (>89) L 06/17/18 05:05 Random Glucose 96 mg/dL (74-106) 06/17/18 05:05 Hemoglobin A1c 5.5 % (4.3-6.0) 06/16/18 07:41 Calcium 8.7 mg/dL (8.5-10.1) 06/17/18 05:05 Phosphorus 2.5 mg/dL (2.5-4.9) 06/17/18 05:05 Magnesium 1.5 mg/dL (1.5-2.5) 06/17/18 05:05 Total Bilirubin 0.4 mg/dL (0.2-1.0) 06/17/18 05:05 AST 14 U/L (15-37) L 06/17/18 05:05 ALT 9 U/L (10-53) L 06/17/18 05:05 Alkaline Phosphatase 167 U/L (45-117) H 06/17/18 05:05 Ammonia 20 mcmol/L (11-32) 06/08/18 03:15 Total Creatine Kinase 47 U/L (26-192) 06/08/18 03:15 Troponin I Less than 0.02 ng/mL (0.02-0.05) L 06/08/18 03:15 B-Natriuretic Peptide 79 pg/mL (0-100) 06/08/18 03:15 Total Protein 6.4 g/dL (6.4-8.2) 06/17/18 05:05 Albumin 2.2 g/dL (3.4-5.0) L 06/17/18 05:05 Lipase 172 U/L (73-393) 06/08/18 03:15 TSH 3.350 uIU/mL (0.358-3.740) 06/16/18 07:41 Free T4 2.18 ng/dL (0.76-1.46) H 06/16/18 07:41 Urine Color Yellow (Yellw/Straw) 06/08/18 04:50 Urine Clarity Hazy (Clear) H 06/08/18 04:50 Urine pH 5.0 (5.0-8.5) 06/08/18 04:50 Ur Specific [place] 1.038 (1.002-1.035) H 06/08/18 04:50 Urine Protein Negative mg/dL (Neg-Trace) 06/08/18 04:50 Urine Glucose (UA) Negative mg/dL (Negative) 06/08/18 04:50 Urine Ketones Negative mg/dL (Negative) 06/08/18 04:50 Urine Occult Blood Negative (Negative) 06/08/18 04:50 Urine Nitrate Negative (Negative) 06/08/18 04:50 Urine Bilirubin Negative (Negative) 06/08/18 04:50 Urine Urobilinogen Less than 2 mg/dL (Less than 2) 06/08/18 04:50 Ur Leukocyte Esterase Small (Negative) H 06/08/18 04:50 Urine RBC 2 /hpf (0-3) 06/08/18 04:50 Urine WBC 3 /hpf (0-5) 06/08/18 04:50 Ur Squamous Epith Cells 2 /hpf (0-5) 06/08/18 04:50 Hyaline Casts 1 /lpf (0-3) 06/08/18 04:50 Micro UA Comment Cath-culture not ind 06/08/18 04:50 Ur Microscopic Review Not Reportable 06/08/18 04:50 Urine Culture Comments Cath-cult not ind 06/08/18 04:50 Synovial Color Red (Straw) H 06/16/18 07:35 Synovial Appearance Bloody (Clear) H 06/16/18 07:35 Synovial RBC 13299 /mm3 (0-0) H 06/16/18 07:35 Synovial Nuc Cells 2000 /mm3 (0-200) H 06/16/18 07:35 Synovial Neutrophils 97 % (0-25) H 06/16/18 07:35 Synovial Lymphocytes 2 % 06/16/18 07:35 Synovial Monocytes 1 % 06/16/18 07:35 Synovial Crystals None (None) 06/16/18 07:35 Nasal Screen MRSA (PCR) Mrsa detected (Negative) 06/09/18 00:20 Blood Type B Negative 06/08/18 03:15 Antibody Screen Negative 06/08/18 03:15 MTS Gel Crossmatch See Detail 06/09/18 21:44 Bld Prod Order Comment 06/08/18 03:31 Impressions Abdomen/Pelvis CT 06/08/18 02:56 CONCLUSION: 1. No acute findings. 2. Stable large gallstones and small amount of free fluid in the deep pelvis. Dense coronary calcifications. Chest X-Ray 06/08/18 02:56 CONCLUSION: Cardiomegaly. No acute findings. Head CT 06/08/18 02:56 CONCLUSION: 1. No acute intracranial abnormalities. Right frontal scalp hematoma. . GI Bleed Scan Nuclear Medicine 06/08/18 07:13 CONCLUSION: 1. Negative for hemorrhage. Knee X-Ray 06/14/18 00:00 CONCLUSION: 1. Large knee joint effusion. 2. No evidence of fracture. 3. Minimal osteoarthritic findings. Labs on day of discharge: Labs from last 24 hours 06/17/18 06/17/18 05:05 05:05 WBC 13.8 H RBC 4.73 Hgb 13.3 Hct 40.7 MCV 85.9 MCH 28.2 MCHC 32.8 RDW 16.1 Plt Count 430 MPV 7.4 Neut % (Auto) 84.2 H Lymph % (Auto) 7.5 L [place] % (Auto) 6.4 Eos % (Auto) 1.6 Baso % (Auto) 0.3 Neut # (Auto) 11.6 H Lymph # (Auto) 1.0 [place] # (Auto) 0.9 Eos # (Auto) 0.2 Baso # (Auto) 0.0 WBC Differential . Differential Comment Auto diff final Sodium 138 Potassium 4.3 D Chloride 103 Carbon Dioxide 24.8 Anion Gap 10 BUN 12 Creatinine 0.92 Estimated GFR 61 L Random Glucose 96 Calcium 8.7 Phosphorus 2.5 Magnesium 1.5 Total Bilirubin 0.4 AST 14 L ALT 9 L Alkaline Phosphatase 167 H Total Protein 6.4 Albumin 2.2 L - Impressions ITS Impressions Abdomen/Pelvis CT 06/08/18 02:56 CONCLUSION: 1. No acute findings. 2. Stable large gallstones and small amount of free fluid in the deep pelvis. Dense coronary calcifications. Chest X-Ray 06/08/18 02:56 CONCLUSION: Cardiomegaly. No acute findings. Head CT 06/08/18 02:56 CONCLUSION: 1. No acute intracranial abnormalities. Right frontal scalp hematoma. . GI Bleed Scan Nuclear Medicine 06/08/18 07:13 CONCLUSION: 1. Negative for hemorrhage. Knee X-Ray 06/14/18 00:00 CONCLUSION: 1. Large knee joint effusion. 2. No evidence of fracture. 3. Minimal osteoarthritic findings. Discharge Plan - Discharge Disposition Patient Disposition: 03 Discharge to SNF - Discharge Condition Condition: Good - Discharge Order Discharge Orders: Discharge Order (Routine); Ordered 06/17/18 Ordered By: Harshad Quinteros - Discharge Details Anticipated Discharge Date: 06/17/18 Discharge Comment: DC TO SNF TODAY - Physicians Team Attending Provider: Harshad Quinteros Other Providers: [employer] ; Jona Trevizo MD ; Jonathon Saldaña, DO ; Nady[employer] Forsan,Agency ; [facility]ency ; Sagar Ludwig MD
[2018-06-17 12:46] VITALS: PULSE 61
[2018-06-17 12:54] VITALS: BP 138/69; TEMP 97.9; O2SAT 79
== END 2018-06-17 17:17 ==
LOC: NEPE 02:23 → NEDA 04:21 → HIMC 08:04 → N05 06-13 15:04
PROVIDERS: ADMIT Hospitalist; ATTEND Hospitalist
PROC: COLONOS (2018-06-11 13:42)

== ENCOUNTER 2018-06-20 00:25 | Inpatient (IN) ==
[2018-06-20] MEDS ORDERED: Morphine Inj 4 MG/ML Vial IV.PUSH ONE (00:44)
[2018-06-20] MEDS ORDERED: Sod Chloride 0.9% Inj 1,000 ML IV.CONT SCH (00:45)
--- NOTE | 2018-06-20 00:45 | ED ---
HPI General Chief Complaint: Abdominal Pain Stated Complaint: Abd pain Time Seen by Provider: 06/20/18 00:39 Source: patient, EMS, RN notes reviewed and old records reviewed Mode of arrival: EMS Limitations: no limitations History of Present Illness HPI narrative: Comes in complaining of diffuse abdominal pain, she previously was admitted to the hospital for GI bleed, and she was found to have diverticulitis. MD complaint: abdominal pain Pain Consistency: intermittent Location: diffuse Severity: moderate Severity scale (1-10): 6 Quality: cramping Radiation: none Migration to: no migration Relieving factors: nothing Exacerbating factors: nothing Associated symptoms: denies other symptoms Related Data Home Medications Medication Instructions Recorded Confirmed Saccharomyces boulardii [Florastor] 250 mg PO TID 06/20/18 06/20/18 Previous Rx's Medication Instructions Recorded acetaminophen 650 mg PO Q6H PRN tab 06/17/18 allopurinol 100 mg PO DAILY #30 tab 06/17/18 apixaban [Eliquis] 2.5 mg PO BID #60 tab 06/17/18 atorvastatin [Lipitor] 40 mg PO DAILY #30 tab 06/17/18 flecainide 50 mg PO Q12H #60 tab 06/17/18 magnesium 400 mg PO DAILY #60 tab 06/17/18 metoprolol tartrate 25 mg PO BID #60 tab 06/17/18 ondansetron [Zofran ODT] 8 mg PO TID PRN #30 tab 06/17/18 pantoprazole 40 mg PO DAILY #30 tab 06/17/18 Allergies Allergy/AdvReac Type Severity Reaction Status Date / Time Penicillins Allergy Intermediate Verified 03/20/18 09:14 Review of Systems ROS: all other systems reviewed are negative PMFSH History History Provided By: Patient Medical History Medical History Atrial fibrillation (Acute) CKD (chronic kidney disease) stage 3, GFR 30-59 ml/min (Acute) Diverticulitis (Acute) Gout (Acute) High cholesterol (Acute) Hypertension (Acute) Surgical History Surgical History S/P ablation of atrial fibrillation (Acute) Family History Family History Other No significant family history Social History Social History Substance History: No History of Abuse Second Hand Smoke Exposure: No Smoking Status: Never smoker How Often Do You Have a Drink Containing Alcohol: Never Recent Travel in [facility] within the Last 8 Weeks: No Recent Out of Country Travel within the Last 8 Weeks: No Exam Narrative Exam Narrative: GENERAL: Well-nourished, well-developed patient in no apparent distress. SKIN: Warm and dry. HEAD: Atraumatic. Normocephalic. EYES: Pupils equal and round. No scleral icterus. No injection or drainage. ENT: No nasal bleeding or discharge. Mucous membranes pink and moist. NECK: Trachea midline. No JVD. CARDIOVASCULAR: Regular rate and rhythm. no rubs or gallops RESPIRATORY: No accessory muscle use. Clear to auscultation. Breath sounds equal bilaterally. GASTROINTESTINAL: Abdomen soft, diffusely tender to percussion , nondistended. No rebound or guarding MUSCULOSKELETAL: Extremities without clubbing, cyanosis, or edema. No obvious deformities. NEUROLOGICAL: Awake and alert. No obvious cranial nerve deficits. Motor grossly within normal limits. Five out of 5 muscle strength in the arms and legs. Normal speech. PSYCHIATRIC: Appropriate mood and affect; insight and judgment normal. Course Initial Documented Vital Signs Temperature 98.7 F 06/20/18 00:58 Pulse Rate 61 06/20/18 00:58 Respiratory Rate 16 06/20/18 00:58 Blood Pressure 135/72 06/20/18 00:58 Pulse Oximetry 97 06/20/18 00:58 Last Documented Vital Signs Temperature 98.7 F 06/20/18 00:58 Pulse Rate 59 L 06/20/18 03:08 Respiratory Rate 18 06/20/18 03:50 Blood Pressure 130/63 06/20/18 03:08 Pulse Oximetry 97 06/20/18 03:08 Medical Decision Making MDM Narrative Medical decision making narrative: CBC shows leukocytosis of 23.8 as well as left shift of 88% neutrophilia, no anemia with H&H of 11.7/34.6. Coagulation profile shows slight elevation of PT and PTT with 11.9, 35.2 respectively, INR 1.2 UA shows small leukocyte esterase and rare bacteria negative nitrate consistent with a mild UTI First set of cardiac enzymes negative Normal liver functions, normal pancreatic functions, normal kidney functions Normal electrolytes Medical Screen Exam Complete: Yes Emergency Medical Condition: Yes Medical Records Medical records reviewed: Yes I reviewed the patient's medical records. Lab Data Lab results reviewed: Yes I reviewed the patient's lab results. Result diagrams: 06/20/18 00:55 06/20/18 00:55 Lab Results 06/20/18 06/20/18 06/20/18 Range/Units 00:55 00:55 00:55 WBC 23.8 H (4.0-11.0) th/mm3 RBC 4.10 (4.00-5.30) mil/mm3 Hgb 11.7 (11.6-15.3) gm/dL Hct 34.6 L (35.0-46.0) % MCV 84.3 (80.0-100.0) fL MCH 28.5 (27.0-34.0) pg MCHC 33.8 (32.0-36.0) % RDW 16.0 (11.6-17.2) % Plt Count 535 H (150-450) th/mm3 MPV 7.5 (7.0-11.0) fL Neut % (Auto) 88.3 H (16.0-70.0) % Lymph % (Auto) 5.8 L (9.0-44.0) % [place] % (Auto) 5.1 (0.0-8.0) % Eos % (Auto) 0.6 (0.0-4.0) % Baso % (Auto) 0.2 (0.0-2.0) % Neut # (Auto) 21.0 H (1.8-7.7) th/mm3 Lymph # (Auto) 1.4 (1.0-4.8) th/mm3 [place] # (Auto) 1.2 H (0.0-0.9) th/mm3 Eos # (Auto) 0.1 (0.0-0.4) th/mm3 Baso # (Auto) 0.1 (0.0-0.2) th/mm3 WBC Differential . Differential Comment Auto diff final PT 11.9 H (9.8-11.6) sec INR 1.2 Ratio APTT 35.2 H (24.3-30.1) sec Sodium 136 (136-145) meq/L Potassium 4.4 (3.5-5.1) meq/L Chloride 100 (98-107) meq/L Carbon Dioxide 25.8 (21.0-32.0) meq/L Anion Gap 10 (5-15) meq/L BUN 13 (7-18) mg/dL Creatinine 0.95 (0.50-1.00) mg/dL Estimated GFR 58 L (>89) mL/min Random Glucose 85 (74-106) mg/dL Calcium 8.3 L (8.5-10.1) mg/dL Total Bilirubin 0.4 (0.2-1.0) mg/dL AST 15 (15-37) U/L ALT 10 (10-53) U/L Alkaline Phosphatase 155 H (45-117) U/L Total Creatine Kinase 21 L (26-192) U/L Troponin I Less than 0.02 L (0.02-0.05) ng/mL Total Protein 6.7 (6.4-8.2) g/dL Albumin 2.2 L (3.4-5.0) g/dL Lipase 167 (73-393) U/L Urine Color (Yellw/Straw) Urine Clarity (Clear) Urine pH (5.0-8.5) Ur Specific [place] (1.002-1.035) Urine Protein (Neg-Trace) mg/dL Urine Glucose (UA) (Negative) mg/dL Urine Ketones (Negative) mg/dL Urine Occult Blood (Negative) Urine Nitrate (Negative) Urine Bilirubin (Negative) Urine Urobilinogen (Less than 2) mg/dL Ur Leukocyte Esterase (Negative) Urine RBC (0-3) /hpf Urine WBC (0-5) /hpf Ur Squamous Epith Cells (0-5) /hpf Urine Bacteria (None) /hpf Hyaline Casts (0-3) /lpf Urine Mucus (Occasional) /lpf Micro UA Comment Ur Microscopic Review Urine Culture Comments 06/20/18 Range/Units 01:30 WBC (4.0-11.0) th/mm3 RBC (4.00-5.30) mil/mm3 Hgb (11.6-15.3) gm/dL Hct (35.0-46.0) % MCV (80.0-100.0) fL MCH (27.0-34.0) pg MCHC (32.0-36.0) % RDW (11.6-17.2) % Plt Count (150-450) th/mm3 MPV (7.0-11.0) fL Neut % (Auto) (16.0-70.0) % Lymph % (Auto) (9.0-44.0) % [place] % (Auto) (0.0-8.0) % Eos % (Auto) (0.0-4.0) % Baso % (Auto) (0.0-2.0) % Neut # (Auto) (1.8-7.7) th/mm3 Lymph # (Auto) (1.0-4.8) th/mm3 [place] # (Auto) (0.0-0.9) th/mm3 Eos # (Auto) (0.0-0.4) th/mm3 Baso # (Auto) (0.0-0.2) th/mm3 WBC Differential Differential Comment PT (9.8-11.6) sec INR Ratio APTT (24.3-30.1) sec Sodium (136-145) meq/L Potassium (3.5-5.1) meq/L Chloride (98-107) meq/L Carbon Dioxide (21.0-32.0) meq/L Anion Gap (5-15) meq/L BUN (7-18) mg/dL Creatinine (0.50-1.00) mg/dL Estimated GFR (>89) mL/min Random Glucose (74-106) mg/dL Calcium (8.5-10.1) mg/dL Total Bilirubin (0.2-1.0) mg/dL AST (15-37) U/L ALT (10-53) U/L Alkaline Phosphatase (45-117) U/L Total Creatine Kinase (26-192) U/L Troponin I (0.02-0.05) ng/mL Total Protein (6.4-8.2) g/dL Albumin (3.4-5.0) g/dL Lipase (73-393) U/L Urine Color Yellow (Yellw/Straw) Urine Clarity Hazy H (Clear) Urine pH 6.0 (5.0-8.5) Ur Specific [place] 1.017 (1.002-1.035) Urine Protein Negative (Neg-Trace) mg/dL Urine Glucose (UA) Negative (Negative) mg/dL Urine Ketones Trace H (Negative) mg/dL Urine Occult Blood Negative (Negative) Urine Nitrate Negative (Negative) Urine Bilirubin Negative (Negative) Urine Urobilinogen Less than 2 (Less than 2) mg/dL Ur Leukocyte Esterase Small H (Negative) Urine RBC Less than 1 (0-3) /hpf Urine WBC 5 (0-5) /hpf Ur Squamous Epith Cells 2 (0-5) /hpf Urine Bacteria Rare H (None) /hpf Hyaline Casts 1 (0-3) /lpf Urine Mucus Few H (Occasional) /lpf Micro UA Comment Culture not ind Ur Microscopic Review Not Reportable Urine Culture Comments Culture not ind Imaging Data Radiologist's impression: Abdomen/Pelvis CT 06/20/18 00:44 CONCLUSION: 1. Persistent mild sigmoid colon acute diverticulitis superimposed on chronic diverticular disease. 2. Mild colitis/diverticulitis has developed of the right side of the colon, especially in the hepatic flexure region. 3. Mild mesenteric edema and small free fluid/ascites. No abscess, perforation or obstruction. 4. Large gallstones without associated perceptible inflammatory changes or ductal dilatation. 5. Modest worsening mild bibasilar atelectasis. Discharge Plan Discharge Disposition Patient Disposition: 30 Still Patient Discharge Condition Condition: Stable Discharge Details Diagnosis: SIRS (systemic inflammatory response syndrome), Diverticulitis Physicians Team ED Provider: Qamar Gresham Primary Care Provider: UNKNOWN, Attending Provider: Brandi Klein Discharge Interventions Interventions: ED Discharge Assessment Last Done: 06/20/18 04:03 Status ED Status: Left Department Discharge Information Discharge Date/Time: 06/20/18 04:09
[2018-06-20 01:22] LABS: Baso # (Auto) 0.1 th/mm3 (0.0-0.2); Baso % (Auto) 0.2 % (0.0-2.0); Eos # (Auto) 0.1 th/mm3 (0.0-0.4); Eos % (Auto) 0.6 % (0.0-4.0); Hematocrit 34.6 % (35.0-46.0); Hemoglobin 11.7 gm/dL (11.6-15.3); Lymph # (Auto) 1.4 th/mm3 (1.0-4.8); Lymph % (Auto) 5.8 % (9.0-44.0); Mean Corpuscular HGB Conc 33.8 % (32.0-36.0); Mean Corpuscular Hemoglobin 28.5 pg (27.0-34.0); Mean Corpuscular Volume 84.3 fL (80.0-100.0); Mean Platelet Volume 7.5 fL (7.0-11.0); Mono # (Auto) 1.2 th/mm3 (0.0-0.9); Mono % (Auto) 5.1 % (0.0-8.0); Neut % (Auto) 88.3 % (16.0-70.0); Platelet Count 535 th/mm3 (150-450); White Blood Count 23.8 th/mm3 (4.0-11.0)
[2018-06-20 01:30] LABS: Activated Partial Thrombo Time 35.2 sec (24.3-30.1); Alanine Aminotransferase 10 U/L (10-53); Albumin 2.2 g/dL (3.4-5.0); Anion Gap 10 meq/L (5-15); Aspartate Aminotransferase 15 U/L (15-37); Blood Urea Nitrogen 13 mg/dL (7-18); Calcium 8.3 mg/dL (8.5-10.1); Carbon Dioxide 25.8 meq/L (21.0-32.0); Chloride 100 meq/L (98-107); Glomerular Filtration Rate 58 mL/min (>89); Glucose,Random 85 mg/dL (74-106); INR 1.2 Ratio; Lipase 167 U/L (73-393); Potassium 4.4 meq/L (3.5-5.1); Prothrombin Time 11.9 sec (9.8-11.6); Sodium 136 meq/L (136-145)
[2018-06-20 01:34] LABS: Alkaline Phosphatase 155 U/L (45-117); Total Protein 6.7 g/dL (6.4-8.2)
[2018-06-20 01:45] LABS: Creatine Kinase 21 U/L (26-192)
[2018-06-20 02:09] LABS: Bacteria,Urine Rare /hpf; Bilirubin,Urine Negative (Negative); Clarity,Urine Hazy (Clear); Color,Urine Yellow (Yellw/Straw); Glucose,Urine (UA) Negative (Negative); Hyaline Casts,Urine 1 /lpf (0-3); Leukocyte Esterase,Urine Small (Negative); Mucus,Urine Few /lpf (Occasional); Nitrite,Urine Negative (Negative); Specific Gravity,Urine 1.017 (1.002-1.035); Squamous Epithelial Cell,Urine 2 /hpf (0-5)
--- NOTE | 2018-06-20 02:31 | CT ---
EXAM DATE: 06/20/2018 2:20 AM EDT AGE/SEX: 68 years / Female INDICATIONS: Low abdominal pain X 2 days. CLINICAL DATA: This is the patient's initial encounter. Patient reports that signs and symptoms have been present for 2 days and indicates a pain score of 7/10. MEDICAL/SURGICAL HISTORY: Diverticulitis. None. RADIATION DOSE: 6.64 CTDI (mGy) COMPARISON: [facility] – [place] ABDOMEN & PELVIS W CONTRAST, 06/08/2018. . TECHNIQUE: Multiple contiguous axial images were obtained through the abdomen. Images were obtained using multiple row detector helical technique. Using automated exposure control and adjustment of the mA and/or kV according to patient size, radiation dose was kept as low as reasonably achievable to o btain optimal diagnostic quality images. DICOM format image data is available electronically for rev iew and comparison. FINDINGS: Chronic diverticular disease with mild diverticulitis again seen of the sigmoid colon that appear sim ilar to the comparison. However, mild colitis, presumably diverticulitis related, now seen of the rig ht side of the colon, especially in the hepatic flexure region. No abscess, free air or obstruction i s seen. Mild mesenteric edema and small free fluid in the pelvic cavity present. Noncontrast appearance of the solid organs without acute abnormality. Scattered tiny calcified granul omata are again seen in the spleen. Large gallstones are again noted. No duct stone or ductal dilatat ion. Atherosclerotic aorta again seen. No aneurysm. Mild atelectasis of the visualized lung bases, slightly worse in the interim. CONCLUSION: 1. Persistent mild sigmoid colon acute diverticulitis superimposed on chronic diverticular disease. 2. Mild colitis/diverticulitis has developed of the right side of the colon, especially in the hepat ic flexure region. 3. Mild mesenteric edema and small free fluid/ascites. No abscess, perforation or obstruction. 4. Large gallstones without associated perceptible inflammatory changes or ductal dilatation. 5. Modest worsening mild bibasilar atelectasis. Electronically signed by: Casey Tillman MD 06/20/2018 2:30 AM EDT
[2018-06-20] MEDS ORDERED: Levofloxacin 250 mg Premix Inj 250 MG/50 ML PIGGYBACK IV.SIG ONE (02:56)
[2018-06-20] MEDS ORDERED: Acetaminophen 325 MG Tablet PO PRN (03:08)
[2018-06-20] MEDS ORDERED: Bisacodyl 10 MG Supp RECTAL PRN (03:08)
[2018-06-20] MEDS: Morphine Inj 4 MG/ML Vial IV.PUSH PRN ×2 (03:27→09:11)
--- NOTE | 2018-06-20 04:03 | P.HPIM ---
History of Present Illness Primary Care Physician: UNKNOWN History of Present Illness: This is a 68-year-old female with a PMH of HTN, A. fib s/p Ablation on Eliquis, Hyperlipidemia, H/o GI Bleed and H/o Diverticulitis who was sent to the ER from SNF due to c/o abdominal pain. Recent admit 06/08-06/17/18 for similar c/o abdominal pain, found to have GI Bleed and Diverticulitis w/ Hgb 5.6, requiring 5u pRBC transfusion, s/p Colonoscopy w/ diverticulitis and inverted diverticulum in sigmoid colon w/ visible vessel, s/p endoclip, cleared to resume Eliquis by GI at the time of discharge and sent to SNF on Cipro/Flagyl PO x5 days. States she had been doing well until yesterday when she developed abdominal pain. Notes pain is generalized, severe, 10/10, non-radiating, no associated nausea/vomiting or diarrhea. Denies fever or chills. On arrival, AP 135/72, HR 61, O2 sat 97% on RA, Afebrile. WBC 23.8. Hemoglobin 11.7. INR 1.2. Chemistry essentially unremarkable. Troponin negative. UA small LE. CT Abdomen/Pelvis with persistent mild sigmoid colon diverticulitis superimposed on chronic diverticular disease, mild colitis developed on the right side of colon, mild mesenteric edema, small free fluid/ascites, large gallstones without inflammatory change or ductal dilatation. S/p Flagyl/Levaquin in ER. - Diagnosis (1) Diverticulitis (2) Abdominal pain (3) A-fib Review of Systems PAST FAMILY HISTORY: Reviewed. No h/o DM or CAD All other systems reviewed negative except as [facility] - History History Provided By: Patient - Medical History Medical History: Medical History (Last Reviewed 06/20/18 @ 01:06 by Latia Wills) GI bleed Atrial fibrillation CKD (chronic kidney disease) stage 3, GFR 30-59 ml/min Diverticulitis Gout High cholesterol Hypertension - Surgical History Surgical History: Surgical History (Last Reviewed 06/20/18 @ 01:06 by Latia Wills) S/P ablation of atrial fibrillation - Family History Family History: Family History (Last Reviewed 06/20/18 @ 00:44 by Qmaar Gresham) Other No significant family history - Tobacco History Second Hand Smoke Exposure: No Smoking Status: Never smoker - Alcohol History How Often Do You Have a Drink Containing Alcohol: Never - Substance Use History Substance History: No History of Abuse - Travel History Recent Travel in the [place] Within the Last 8 Weeks: No Recent Travel Out of the Country Within the Last 8 Weeks: No - Immunization History Tetanus Immunization: Unsure Hx Influenza Vaccine This Season: No Medications and Allergies Active Medications: Active Medications Acetaminophen (Tylenol) 650 mg PO Q4H PRN PRN Reason: Temp > 100.4 Al Hydroxide/Mg Hydroxide (Milk Of Magnesia Liq) 30 ml PO Q12H PRN PRN Reason: Mild Constipation Apixaban (Eliquis) 2.5 mg PO BID MARIANNA Atorvastatin Calcium (Lipitor) 40 mg PO DAILY MARIANNA Bisacodyl (Dulcolax Supp) 10 mg RECTAL DAILY PRN PRN Reason: SEVERE CONSITIPATION Flecainide Acetate (Tambocor) 50 mg PO Q12H MARIANNA Sodium Chloride (Ns Inj) 1,000 mls @ 125 mls/hr IV.CONT .Q8H MARIANNA Stop: 06/20/18 08:44 Last Admin: 06/20/18 01:29 Dose: 125 mls/hr Levofloxacin/Dextrose (Levaquin 250 Mg Premix Inj) 250 mg in 50 mls @ 50 mls/ hr IV.SIG ONCE ONE Stop: 06/20/18 03:55 Metronidazole/Sodium Chloride (Flagyl 500 Mg Inj) 100 mls @ 100 mls/hr IV.SIG ONCE ONE Stop: 06/20/18 03:55 Last Admin: 06/20/18 03:28 Dose: 100 mls/hr Levofloxacin/Dextrose (Levaquin 750 Mg Premix Inj) 150 mls @ 100 mls/hr IV.SIG Q24H MARIANNA Metronidazole/Sodium Chloride (Flagyl 500 Mg Inj) 100 mls @ 100 mls/hr IV.SIG Q8H MARIANNA Sodium Chloride (Ns Inj) 1,000 mls @ 100 mls/hr IV.CONT .Q10H MARIANNA Lactulose (Lactulose Liq) 30 ml PO DAILY PRN PRN Reason: SEVERE CONSITIPATION Metoprolol Tartrate (Lopressor) 25 mg PO BID MARIANNA Morphine Sulfate (Morphine Inj) 2 mg IV.PUSH Q4H PRN PRN Reason: PAIN 6-10 Last Admin: 06/20/18 03:27 Dose: 2 mg Ondansetron HCl (Zofran Inj) 4 mg IV.PUSH Q6H PRN PRN Reason: NAUSEA OR VOMITING Pantoprazole Sodium (Protonix) 40 mg PO DAILY MARIANNA Senna/Docusate Sodium (Sophie-Colace) 1 tab PO BID MARIANNA Sennosides (Senokot) 17.2 mg PO Q12H PRN PRN Reason: Moderate Constipation Sodium Chloride (Ns Flush) 2 ml IV.FLUSH PRN PRN PRN Reason: FLUSH AFTER USING IV ACCESS Allergies Allergy/AdvReac Type Severity Reaction Status Date / Time Penicillins Allergy Intermediate Verified 03/20/18 09:14 Home Medications Medication Instructions Recorded Confirmed Type Saccharomyces boulardii [Florastor] 250 mg PO TID 06/20/18 06/20/18 History Exam Vital signs: Vital Signs 06/20/18 00:58 06/20/18 03:08 06/20/18 03:50 Temperature 98.7 F Pulse Rate 61 59 L Respiratory Rate 16 18 Blood Pressure 135/72 130/63 Pulse Oximetry 97 97 Intake & Output 06/19/18 06/19/18 06/20/18 06:59 18:59 06:59 Weight 53.524 kg Narrative: PE: GENERAL: Very pleasant middle-aged white female in no acute distress. SKIN: Focused skin assessment warm and dry. Right forehead hematoma from previous fall. HEENT: PERRLA, EOMI. No scleral icterus or conjunctival pallor. No lid lag or facial droop. CARDIOVASCULAR: Regular rate and rhythm. No obvious murmurs to auscultation. No chest tenderness to palpation. RESPIRATORY: No obvious rhonchi or wheezing. Clear to auscultation. Breath sounds equal bilaterally. GASTROINTESTINAL: Abdomen soft, generalized tenderness to palpation, nondistended. BS normal. MUSCULOSKELETAL: Extremities without clubbing, cyanosis, or edema. No obvious deformities. NEUROLOGICAL: Awake, alert and oriented x4. No focal neurologic deficits. Moving both upper and lower extremities spontaneously. PSYCHIATRIC: Appropriate mood and affect. Insight and judgment normal. Results - Labs CBC & Chem 7: 06/20/18 00:55 06/20/18 00:55 Labs: Short CBC 06/20/18 Range/Units 00:55 WBC 23.8 H (4.0-11.0) th/mm3 Hgb 11.7 (11.6-15.3) gm/dL Hct 34.6 L (35.0-46.0) % Plt Count 535 H (150-450) th/mm3 BMP 06/20/18 00:55 Sodium 136 Potassium 4.4 Chloride 100 Carbon Dioxide 25.8 BUN 13 Creatinine 0.95 Calcium 8.3 L Cardiac Enzymes 06/20/18 Range/Units 00:55 Total Creatine Kinase 21 L (26-192) U/L Troponin I Less than 0.02 L (0.02-0.05) ng/mL Liver Function 06/20/18 Range/Units 00:55 Total Bilirubin 0.4 (0.2-1.0) mg/dL AST 15 (15-37) U/L ALT 10 (10-53) U/L Alkaline Phosphatase 155 H (45-117) U/L Albumin 2.2 L (3.4-5.0) g/dL Urine 06/20/18 Range/Units 01:30 Urine Color Yellow (Yellw/Straw) Urine Clarity Hazy H (Clear) Urine pH 6.0 (5.0-8.5) Ur Specific [place] 1.017 (1.002-1.035) Urine Protein Negative (Neg-Trace) mg/dL Urine Glucose (UA) Negative (Negative) mg/dL - Imaging Impressions Abdomen/Pelvis CT 06/20/18 00:44 CONCLUSION: 1. Persistent mild sigmoid colon acute diverticulitis superimposed on chronic diverticular disease. 2. Mild colitis/diverticulitis has developed of the right side of the colon, especially in the hepatic flexure region. 3. Mild mesenteric edema and small free fluid/ascites. No abscess, perforation or obstruction. 4. Large gallstones without associated perceptible inflammatory changes or ductal dilatation. 5. Modest worsening mild bibasilar atelectasis. Caprini VTE Risk Assessment Caprini VTE Risk Assessment: Moderate/High Risk (score >= 2) Caprini Risk Assessment Model: Point Value = 1 Point Value = 2 Point Value = 3 Point Value = 5 Age 41-60 Minor surgery BMI > 25 kg/m2 Swollen legs Varicose veins or History of unexplained or recurrent spontaneous Oral contraceptives or hormone replacement Sepsis (< 1 month) Serious lung disease, including pneumonia (< 1 month) Abnormal pulmonary function Acute myocardial infarction Congestive heart failure (< 1 month) History of inflammatory bowel disease Medical patient at bed rest Age 61-74 Arthroscopic surgery Major open surgery (> 45 min) Laparoscopic surgery (> 45 min) Malignancy Confined to bed (> 72 hours) Immobilizing plaster cast Central venous access Age >= 75 History of VTE Family history of VTE Factor V Leiden Prothrombin [id number] Lupus anticoagulant Anticardiolipin antibodies Elevated serum homocysteine Heparin-induced thrombocytopenia Other congenital or acquired thrombophilia Stroke (< 1 month) Elective arthroplasty Hip, pelvis, or leg fracture Acute spinal cord injury (< 1 month) Prophylaxis Regimen: Total Risk Factor Score Risk Level Prophylaxis Regimen 0-1 Low Early ambulation 2 Moderate Order ONE of the following: *Sequential Compression Device (SCD) *Heparin 5000 units SQ BID 3-4 Higher Order ONE of the following medications: *Heparin 5000 units SQ TID *Enoxaparin/Lovenox 40 mg SQ daily (WT < 150 kg, CrCl > 30 mL/min) *Enoxaparin/Lovenox 30 mg SQ daily (WT < 150 kg, CrCl > 10-29 mL/min) *Enoxaparin/Lovenox 30 mg SQ BID (WT < 150 kg, CrCl > 30 mL/min) AND/OR *Sequential Compression Device (SCD) 5 or more Highest Order ONE of the following medications: *Heparin 5000 units SQ TID (Preferred with Epidurals) *Enoxaparin/Lovenox 40 mg SQ daily (WT < 150 kg, CrCl > 30 mL/min) *Enoxaparin/Lovenox 30 mg SQ daily (WT < 150 kg, CrCl > 10-29 mL/min) *Enoxaparin/Lovenox 30 mg SQ BID (WT < 150 kg, CrCl > 30 mL/min) AND *Sequential Compression Device (SCD) Assessment and Plan - Assessment (1) Diverticulitis Code(s): K57.92 - Diverticulitis of intestine, part unspecified, without perforation or abscess without bleeding Status: Acute (2) Abdominal pain Code(s): R10.9 - Unspecified abdominal pain Status: Acute (3) A-fib Code(s): I48.91 - Unspecified atrial fibrillation Status: Acute - Plan A/P: 1. Diverticulitis: recent admit 06/08-06/17/18, found to have GI Bleed/ Diverticulitis, s/p Cipro/Flagyl IV and d/c'd to SNF on Cipro/Flagyl PO, now w/ recurrent abdominal pain, CT Abd/Pelvis w/ persistent mild sigmoid diverticulitis and new right-sided diverticulitis, s/p Flagyl/Levaquin in ER, will continue w/ IV Abx, monitor closely for bleeding in light of recent admit for GI Bleed w/ Colonoscopy s/p Endoclip. Hgb stable at 11.7. Consult GI as needed. 2. Abdominal Pain: secondary to above, continue analgesics/antiemetics as needed 3. A-fib: h/o A-fib s/p ablation on Eliquis, recent admit for GI Bleed, cleared by GI to resume Eliquis, no active bleeding at this time, will continue w/ home medications including Eliquis, monitor closely for bleeding. 4. DVT Prophylaxis: Eliquis 5. Social work for d/c planning as needed 6. Case discussed w/ ER physician at length, labs/records/imaging reviewed by me.
[2018-06-20] MEDS: Flecainide 100 MG Tablet PO SCH ×2 (04:21→14:35)
[2018-06-20] MEDS: Sod Chloride 0.9% Inj 1,000 ML IV.CONT SCH ×2 (05:40→17:00)
[2018-06-20] MEDS: Senna/Docusate Sodium 8.6/50 MG Tablet PO SCH ×2 (09:09→22:21)
[2018-06-20] MEDS: Metoprolol Tartrate 25 MG Tablet PO SCH ×2 (09:09→22:21)
--- NOTE | 2018-06-20 17:42 | P.PNADD ---
Addendum to Inpatient Note Reason for Addendum: Additional Documentation Additional information: Patient seems to be in no acute distress. Only need a one-time dose of morphine today. Tolerating p.o. intake. No nausea no vomiting no diarrhea. Anticipate discharging tomorrow morning. Recheck CBC in a.m.
[2018-06-21] MEDS: Sod Chloride 0.9% Inj 1,000 ML IV.CONT SCH ×3 (00:21→10:38)
[2018-06-21] MEDS: Flecainide 100 MG Tablet PO SCH ×2 (02:54→16:03)
[2018-06-21 06:13] LABS: Baso % (Auto) 0.3 % (0.0-2.0); Eos # (Auto) 0.1 th/mm3 (0.0-0.4); Eos % (Auto) 0.8 % (0.0-4.0); Hematocrit 30.3 % (35.0-46.0); Hemoglobin 10.3 gm/dL (11.6-15.3); Lymph % (Auto) 6.7 % (9.0-44.0); Mean Corpuscular HGB Conc 33.8 % (32.0-36.0); Mean Corpuscular Hemoglobin 28.3 pg (27.0-34.0); Mean Corpuscular Volume 83.6 fL (80.0-100.0); Mean Platelet Volume 7.2 fL (7.0-11.0); Mono % (Auto) 6.7 % (0.0-8.0); Neut # (Auto) 13.4 th/mm3 (1.8-7.7); Neut % (Auto) 85.5 % (16.0-70.0); Platelet Count 444 th/mm3 (150-450); Red Blood Count 3.63 mil/mm3 (4.00-5.30); Red Cell Distribution Width 15.6 % (11.6-17.2); White Blood Count 15.6 th/mm3 (4.0-11.0)
[2018-06-21] MEDS: Metoprolol Tartrate 25 MG Tablet PO SCH (10:06)
[2018-06-21] MEDS: Senna/Docusate Sodium 8.6/50 MG Tablet PO SCH (10:06)
--- NOTE | 2018-06-21 10:45 | P.PN ---
Subjective Interval history: Nursing denies any deterioration since last night. Patient herself has no new complaints. Eating well. Desires to go home with home health. Physical Exam Vital signs: Vital Signs 06/20/18 11:00 06/20/18 12:00 06/20/18 13:00 Temperature 98.5 F Pulse Rate 60 54 L 58 L Respiratory Rate 18 Blood Pressure 141/82 H Pulse Oximetry 97 06/20/18 14:00 06/20/18 14:39 06/20/18 15:00 Temperature 97.8 F Pulse Rate 52 L 55 L 54 L Respiratory Rate 16 Blood Pressure 151/71 H Pulse Oximetry 100 06/20/18 16:00 06/20/18 17:00 06/20/18 18:00 Temperature Pulse Rate 58 L 58 L 56 L Respiratory Rate Blood Pressure Pulse Oximetry 06/20/18 19:00 06/20/18 20:00 06/20/18 21:00 Temperature 97.5 F L Pulse Rate 59 L 58 L 52 L Respiratory Rate 16 Blood Pressure 122/73 Pulse Oximetry 99 06/20/18 22:00 06/20/18 23:00 06/21/18 00:00 Temperature 98.7 F Pulse Rate 62 59 L 54 L Respiratory Rate 16 Blood Pressure 127/78 Pulse Oximetry 97 06/21/18 01:00 06/21/18 02:00 06/21/18 03:00 Temperature Pulse Rate 54 L 54 L 60 Respiratory Rate Blood Pressure Pulse Oximetry 06/21/18 03:09 06/21/18 04:00 06/21/18 05:00 Temperature 98.0 F Pulse Rate 60 60 58 L Respiratory Rate 16 Blood Pressure 143/76 H Pulse Oximetry 97 06/21/18 06:00 06/21/18 07:00 06/21/18 07:27 Temperature 98.0 F Pulse Rate 59 L 59 L 57 L Respiratory Rate 18 Blood Pressure 134/74 Pulse Oximetry 98 Intake & Output 06/20/18 06/21/18 06/21/18 18:59 06:59 18:59 Intake Total 2040 / 2040 1830 / 1830 Output Total 680 / 680 1000 / 1000 Balance 1360 / 1360 830 / 830 Weight 55.2 kg Intake: IV 1100 / 1100 1350 / 1350 NS Inj 1,000 ML @ 100 mls/hr IV 1000 / 1000 1000 / 1000 .CONT .Q10H [facility] Rx#:[id number] Levaquin 750 mg Premix Inj 150 150 / 150 ML @ 100 mls/hr IV.SIG Q24H [facility] Rx#:[id number] Flagyl 500 MG Inj 100 ML @ 100 100 / 100 200 / 200 mls/hr IV.SIG Q8H [facility] Rx#: [id number] Oral 940 / 940 480 / 480 Output: Urine 680 / 680 1000 / 1000 Other: Date of Last Bowel Movement 06/19/18 06/19/18 06/19/18 Narrative: Diminished soft, minimally tender to palpation diffusely Positive normoactive bowel sounds Results - Labs CBC & Chem 7: 06/21/18 05:45 06/20/18 00:55 Laboratory Results - last 24 hr 06/21/18 05:45 WBC 15.6 H RBC 3.63 L Hgb 10.3 L Hct 30.3 L MCV 83.6 MCH 28.3 MCHC 33.8 RDW 15.6 Plt Count 444 MPV 7.2 Neut % (Auto) 85.5 H Lymph % (Auto) 6.7 L [place] % (Auto) 6.7 Eos % (Auto) 0.8 Baso % (Auto) 0.3 Neut # (Auto) 13.4 H Lymph # (Auto) 1.0 [place] # (Auto) 1.0 H Eos # (Auto) 0.1 Baso # (Auto) 0.0 WBC Differential . Differential Comment Auto diff final Assessment and Plan - Assessment (1) Diverticulitis Code(s): K57.92 - Diverticulitis of intestine, part unspecified, without perforation or abscess without bleeding Status: Acute (2) Abdominal pain Code(s): R10.9 - Unspecified abdominal pain Status: Acute (3) A-fib Code(s): I48.91 - Unspecified atrial fibrillation Status: Acute - Plan 1. Diverticulitis: Clinically doing well with Levaquin and metronidazole. 2. Abdominal Pain: secondary to above, continue analgesics/antiemetics as needed. Improved, tolerating p.o. intake. 3. A-fib: Status post ablation, flecainaimide, continue home Eliquis Anticipate discharge today.
--- NOTE | 2018-06-21 14:42 | P.DCO ---
- Physical Therapy Order: Evaluate and treat - Occupational Therapy Order: Evaluate and treat - Case Management Consult Yes - Certification I have seen patient Nasra Nicole on 06/21/18. My clinical findings support the need for the requested home health care services because: Deconditioned with increased weakness I certify that my clinical findings support that this patient is homebound because: Unsafe to leave home unassisted
[2018-06-21 15:24] VITALS: BP 142/79; RESP 20; TEMP 98.3; O2SAT 97
[2018-06-21 17:37] VITALS: PULSE 62
== END 2018-06-21 16:33 | disposition home health service (06) ==
LOC: NEPE 00:25 → NEDA 00:25 → HCIS 03:40
PROVIDERS: ADMIT Hospitalist; ATTEND Hospitalist